=== PATIENT | female | born 1970 | race American Indian/Alaskan Native ===

== ENCOUNTER 2017-05-03 05:36 | Day surgery (SDC) | payer MEDICAID ==
[2017-05-03] MEDS ORDERED: Dextrose 5%-0.45% NaCl 1,000 ML IV SCH (06:00)
[2017-05-03] MEDS ORDERED: Sodium Chloride 0.9% 10 ML Syringe FLUSH PRN (06:00)
[2017-05-03] MEDS ORDERED: Midazolam 1 MG/ML 2 ML SDV ONE (06:20)
[2017-05-03] MEDS ORDERED: fentaNYL 100 MCG/2 ML SDV ONE (06:20)
[2017-05-03] MEDS ORDERED: fentaNYL 100 MCG/2 ML SDV IV ONE ×3 (07:13→12:01)
[2017-05-03] MEDS ORDERED: Midazolam 1 MG/ML 2 ML SDV IV ONE ×7 (07:14→12:01)
[2017-05-03] MEDS ORDERED: Sodium Chloride 0.9% 1,000 ML IV ONE (07:30)
--- NOTE | 2017-05-03 09:23 | OR ---
DATE: 05/03/2017 PROCEDURES: Colonoscopy and NBI. INSTRUMENT USED: CF-H180AL Olympus video colonoscope. PREMEDICATIONS: Fentanyl 100 mcg intravenous, Versed 4 mg intravenous. Nasal O2 cannula. The procedure was done under pulse oximetry, BP recording, and cardiac cath rn. INDICATION: The patient with previous chronic alcoholism with anemia multifactorial and iron deficiency. Colonoscopic examination is done for detection of any polypoid lesions and removal, endoscopic hemostasis therapy if needed. DESCRIPTION OF PROCEDURE: Initial rectal exam was unremarkable. Rigid anoscopy showed moderate-sized internal hemorrhoids without bleeding from them. The colonoscope was passed with ease. Distal rectal varices were noted without any bleeding from them, NBI views were obtained, photographs were taken. The scope was passed with ease up to the ileocecal area, photographs were taken of the cecum identified by landmarks of appendiceal orifice and double-bulged ileocecal folds, diverticulum was noted at the ileocecal area. There was moderate amount of solid and liquid fecal material that had to be aspirated. No bleeding was noted from any of the visualized areas at the commencement of the examination. No stricture. No vascular ectasia. No large isolated ulcerations seen. No evidence of diffuse inflammatory bowel disease in the form of friability, contact bleeding, or ulcerations. No polyp or tumor mass identified. Probing the proximal sides of folds and flexures, using adequate distention and clearing of the stool material, withdrawal of the scope was made, cecum to rectum time over 6 minutes. No bleeding was noted from any of the visualized areas at the completion of examination. IMPRESSION: 1. Internal hemorrhoids. 2. Rectal varices. 3. Diverticulosis. The patient tolerated the procedure well. [facility] /[id number]
[2017-05-03 09:41] VITALS: BP 109/87
--- NOTE | 2017-05-03 09:53 | LETTER ---
05/03/2017 Joanne Arias NP [facility] [address] [place] [address] RE: JESSICAOSVALDOCONSUELOPAM : 1970 Dear Ms. Arias: Ms. Pam Mcqueen Jessicamatthew had colonoscopic examination done this morning and she tolerated the procedure well. I herewith send a copy of the endoscopy note and photographs for your review. Thank you. Sincerely, [facility] /[id number]
== END 2017-05-03 09:38 | disposition home or self-care (01) ==
LOC: DL.ENDO 05:36
PROVIDERS: ATTEND Internal Medicine Gastroenterology
DX: K64.8 Other hemorrhoids (principal); K57.30 Diverticulosis of large intestine without perforation or abscess without bleeding; K62.89 Other specified diseases of anus and rectum; D50.9 Iron deficiency anemia, unspecified; F10.20 Alcohol dependence, uncomplicated
CPT/HCPCS: 45378; J2250; J3010; J7030; J7042

== ENCOUNTER 2017-10-15 14:09 | Emergency (ER) | payer MEDICAID ==
[2017-10-15 14:18] VITALS: BP 139/75
[2017-10-15] MEDS ORDERED: GI Cocktail Oral Solution 30 ML PO ONE (14:33)
[2017-10-15] MEDS ORDERED: Penicillin G Benzathine/Procaine 600-600 1.2 Millunits/2 ML Syringe IM ONE (14:33)
--- NOTE | 2017-10-15 14:37 | EDM.PDOC ---
ED HPI GENERAL MEDICAL PROBLEM - General Chief Complaint: ENT Problem Stated Complaint: [id number] BAD COLD Time Seen by Provider: 10/15/17 14:32 Source of Information: Reports: Patient History Limitations: Reports: No Limitations - History of Present Illness INITIAL COMMENTS - FREE TEXT/NARRATIVE: 47 yo [place] female c/o two days of sore throat and fever yesterday. Pt. states she missed two days of work Onset Date: 10/13/17 Onset Time: 12:00 Duration: Day(s): Location: Reports: Neck, Generalized Quality: Reports: Ache Severity: Moderate Improves with: Reports: None Worsens with: Reports: None Context: Reports: Sick Contact Associated Symptoms: Reports: Fever/Chills Throat Pain Score (Numeric/FACES): 4 - Related Data Allergies Allergy/AdvReac Type Severity Reaction Status Date / Time No Known Allergies Allergy Verified 10/15/17 14:15 Home Meds: Home Meds Aspirin [Thuy Chewable Aspirin] 81 mg PO DAILY 02/14/15 [History] Insulin Aspart [NovoLOG] 10 - 15 units SUBCUT TIDM 02/14/15 [History] Lisinopril 5 mg PO DAILY 02/14/15 [History] Multivitamin [Multivitamins] 1 tab PO DAILY 02/14/15 [History] Insulin Detemir [Levemir] 10 units SQ BEDTIME 05/01/17 [History] Levothyroxine 1 tab PO ACBREAKFAST 05/01/17 [History] Triamcinolone Acetonide [Triamcinolone Acetonide 0.1% Crm] 1 applic TOP ASDIRECTED 05/01/17 [History] Past Medical History HEENT History: Reports: None Cardiovascular History: Reports: High Cholesterol, Hypertension, Other (See Below) Other Cardiovascular History: MURMUR Respiratory History: Reports: None Gastrointestinal History: Reports: Other (See Below) Other Gastrointestinal History: HX OF ABNORMAL LIVER STUDIES Genitourinary History: Reports: None 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 History: Reports: None Neurological History: Reports: None Psychiatric History: Reports: Other (See Below) Other Psychiatric History: acute alcohol abuse Endocrine/Metabolic History: Reports: Diabetes, Type II, Hypothyroidism Hematologic History: Reports: Anemia Immunologic History: Reports: None Oncologic (Cancer) History: Reports: None Dermatologic History: Reports: Cellulitis, Other (See Below) Other Dermatologic History: RIGHT BREAST CELLULITUS - Past Surgical History HEENT Surgical History: Reports: None Cardiovascular Surgical History: Reports: None Respiratory Surgical History: Reports: None GI Surgical History: Reports: Colonoscopy 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 Surgical History: Reports: None Oncologic Surgical History: Reports: Mastectomy Other Oncologic Surgeries/Procedures: RIGHT MASTECTOMY Dermatological Surgical History: Reports: Other (See Below) Social & Family History - Tobacco Use Smoking Status *Q: Current Every Day Smoker Years of Tobacco use: 30 Packs/Tins Daily: 0.5 Used Tobacco, but Quit: No Second Hand Smoke Exposure: Yes - Caffeine Use Caffeine Use: Reports: Coffee Caffeine Use Comment: 1 8oz cup daily - Alcohol Use Days Per Week of Alcohol Use: 0 Number of Drinks Per Day: 0 Total Drinks Per Week: 0 - Recreational Drug Use Recreational Drug Use: No ED ROS ENT - Review of Systems Review Of Systems: See Below Constitutional: Reports: Fever HEENT: Reports: Throat Pain Respiratory: Reports: No Symptoms Cardiovascular: Reports: No Symptoms Endocrine: Reports: No Symptoms GI/Abdominal: Reports: No Symptoms : Reports: No Symptoms 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: Reports: No Symptoms Skin: Reports: No Symptoms Neurological: Reports: No Symptoms Psychiatric: Reports: No Symptoms Hematologic/Lymphatic: Reports: No Symptoms Immunologic: Reports: No Symptoms ED EXAM, ENT - Physical Exam Exam: See Below Exam Limited By: No Limitations General Appearance: Alert, No Apparent Distress, Obese Eye Exam: Bilateral Eye: EOMI Ears: Normal External Exam Nose: Normal Inspection Mouth/Throat: Normal Inspection, Throat Pain Head: Atraumatic Neck: Normal Inspection, Supple Respiratory/Chest: No Respiratory Distress, Lungs Clear Cardiovascular: Normal Peripheral Pulses, Regular Rate, Rhythm GI/Abdominal: Normal Bowel Sounds, Soft, Non-Tender Back: Normal Inspection Extremities: Normal Inspection, Normal Range of Motion Neurological: Alert, Oriented, CN II-XII Intact, Normal Cognition Psychiatric: Normal Affect, Normal Mood Skin: Warm, Dry, Intact, Normal Color Lymphatic: No Adenopathy Course - Vital Signs Last Recorded V/S: Last Vital Signs Temp 36.4 C 10/15/17 14:16 Pulse 87 10/15/17 14:16 Resp 18 10/15/17 14:16 BP 139/75 10/15/17 14:16 Pulse Ox 100 10/15/17 14:16 Departure - Departure Time of Disposition: 14:36 Disposition: Home, Self-Care 01 Condition: Good Clinical Impression: Tonsillitis, Nasal sinus congestion - Discharge Information Additional Instructions: Rest Increase intake of fluids ( Juice / Water) For the Sinus Congestion: KAILA 180mg QD # 30 F/U w/ PCP
== END 2017-10-15 14:45 | disposition home or self-care (01) ==
LOC: DL.ED 14:09
DX: J03.90 Acute tonsillitis, unspecified (principal); I10 Essential (primary) hypertension; E11.9 Type 2 diabetes mellitus without complications; F17.210 Nicotine dependence, cigarettes, uncomplicated; Z79.82 Long term (current) use of aspirin; Z79.899 Other long term (current) drug therapy; Z79.4 Long term (current) use of insulin
CPT/HCPCS: 96372; 99283; A9270; J0558

== ENCOUNTER 2018-01-23 15:59 | Emergency (ER) | payer MEDICAID, OTHER ==
[2018-01-23 16:54] VITALS: BP 136/81
--- NOTE | 2018-01-23 17:05 | CR ---
Clinical history: 47-year-old obese female with lower left rib pain, anteriorly, after a fall. PA chest and lower left rib detail films (x2) abnormal. Acute nondisplaced fractures anterior left eighth and ninth ribs. Underlying left lower lobe platelik e atelectasis and subtle blunting of the ipsilateral dependent costophrenic sulcus suggesting small p leural effusion. No pneumothorax. Normal cardiac silhouette without signs of heart failure. No lung mass, hilar lymphadenopathy or focal lobar pneumonia. Mild scoliosis and hypertrophic arthritic changes of the spine. CONCLUSION: Acute anterior lower left rib fractures with underlying lower lobe atelectasis and small pleural effusion.
--- NOTE | 2018-01-23 17:27 | EDM.PDOC ---
ED HPI GENERAL MEDICAL PROBLEM - General Chief Complaint: Chest Pain Stated Complaint: SIDE PAINS, [id number] Time Seen by Provider: 01/23/18 16:45 Source of Information: Reports: Patient History Limitations: Reports: No Limitations - History of Present Illness INITIAL COMMENTS - FREE TEXT/NARRATIVE: C/O left rib pain sustained from a fall 3 days ago at home. Denies any other injury, cough, shortness of breath, fever, or chills. Onset: Sudden Onset Date: 01/20/18 Duration: Constant Location: Reports: Chest Quality: Reports: Ache Severity: Moderate Improves with: Reports: Immobilization Worsens with: Reports: Movement Associated Symptoms: Reports: No Other Symptoms Left Lower Chest Pain Score (Numeric/FACES): 8 - Related Data Allergies Allergy/AdvReac Type Severity Reaction Status Date / Time No Known Allergies Allergy Verified 01/23/18 16:54 Home Meds: Home Meds Aspirin [Thuy Chewable Aspirin] 81 mg PO DAILY 02/14/15 [History] Insulin Aspart [NovoLOG] 10 - 15 units SUBCUT TIDM 02/14/15 [History] Lisinopril 5 mg PO DAILY 02/14/15 [History] Multivitamin [Multivitamins] 1 tab PO DAILY 02/14/15 [History] Insulin Detemir [Levemir] 10 units SQ BEDTIME 05/01/17 [History] Levothyroxine 1 tab PO ACBREAKFAST 05/01/17 [History] Triamcinolone Acetonide [Triamcinolone Acetonide 0.1% Crm] 1 applic TOP ASDIRECTED 05/01/17 [History] Past Medical History HEENT History: Reports: None Cardiovascular History: Reports: High Cholesterol, Hypertension, Other (See Below) Other Cardiovascular History: MURMUR Respiratory History: Reports: None Gastrointestinal History: Reports: Other (See Below) Other Gastrointestinal History: HX OF ABNORMAL LIVER STUDIES Genitourinary History: Reports: None 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 History: Reports: None Neurological History: Reports: None Psychiatric History: Reports: Other (See Below) Other Psychiatric History: acute alcohol abuse Endocrine/Metabolic History: Reports: Diabetes, Type II, Hypothyroidism Hematologic History: Reports: Anemia Immunologic History: Reports: None Oncologic (Cancer) History: Reports: None Dermatologic History: Reports: Cellulitis, Other (See Below) Other Dermatologic History: RIGHT BREAST CELLULITUS - Past Surgical History HEENT Surgical History: Reports: None Cardiovascular Surgical History: Reports: None Respiratory Surgical History: Reports: None GI Surgical History: Reports: Colonoscopy 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 Surgical History: Reports: None Oncologic Surgical History: Reports: Mastectomy Other Oncologic Surgeries/Procedures: RIGHT MASTECTOMY Dermatological Surgical History: Reports: Other (See Below) Social & Family History - Family History Family Medical History: Noncontributory - Tobacco Use Smoking Status *Q: Current Every Day Smoker Years of Tobacco use: 30 Packs/Tins Daily: 0.5 Used Tobacco, but Quit: No Second Hand Smoke Exposure: Yes - Caffeine Use Caffeine Use: Reports: Coffee Caffeine Use Comment: 1 8oz cup daily - Alcohol Use Days Per Week of Alcohol Use: 0 Number of Drinks Per Day: 0 Total Drinks Per Week: 0 - Recreational Drug Use Recreational Drug Use: No - Living Situation & Occupation Living situation: Reports: with Family Occupation: Employed ED ROS GENERAL - Review of Systems Review Of Systems: ROS reveals no pertinent complaints other than HPI. ED EXAM, GENERAL - Physical Exam Exam: See Below Exam Limited By: No Limitations General Appearance: Alert, WD/WN, No Apparent Distress Throat/Mouth: Normal Inspection, Normal Voice, No Airway Compromise Head: Atraumatic, Normocephalic Neck: Normal Inspection Respiratory/Chest: No Respiratory Distress, Lungs Clear, No Accessory Muscle Use , Decreased Breath Sounds, Other (tender to palp. at left anterior/lateral chest wall, no visible bruising, swelling, or deformity, no anders crepitus or flail chest) Cardiovascular: Regular Rate, Rhythm GI/Abdominal: Normal Bowel Sounds, Soft, Non-Tender, No Distention Back Exam: Full Range of Motion, CVA Tenderness (L) (causes left ant. rib tenderness). No: CVA Tenderness (R) Extremities: Normal Inspection Neurological: Alert, Oriented, CN II-XII Intact, Normal Gait, No Motor/Sensory Deficits Psychiatric: Normal Affect, Normal Mood Skin Exam: Warm, Dry, Intact, Normal Color, No Rash Course - Vital Signs Last Recorded V/S: Last Vital Signs Temp 37.3 C 01/23/18 16:30 Pulse 92 01/23/18 16:30 Resp 16 01/23/18 16:30 BP 136/81 01/23/18 16:30 Pulse Ox 98 01/23/18 16:30 - Orders/Labs/Meds Orders: Active Orders 24 hr Category Date Time Status Incentive Spirometry [RT Incentive Spirometry] [RC] Care 01/23/18 17:19 Ordered ASDIRECTED - Radiology Interpretation Free Text/Narrative:: Left rib xray: left ant/lat. rib fractures, see Rad. report. Departure - Departure Time of Disposition: 17:23 Disposition: Home, Self-Care 01 Condition: Good Clinical Impression: Ribs, multiple fractures Qualifiers: Encounter type: initial encounter Fracture type: closed Laterality: left Qualified Code(s): S22.42XA - Multiple fractures of ribs, left side, initial encounter for closed fracture - Discharge Information Instructions: Rib Fracture Additional Instructions: Rx: Hydrocodone APAP 5mg/325mg Use incentive spirometer and take deep breathes to avoid developing pneumonia. Do not smoke. Follow up in clinic next week for recheck. Return to ER if you develop a fever or shortness of breath. - My Orders Last 24 Hours: My Active Orders 01/23/18 17:19 Incentive Spirometry [RT Incentive Spirometry] [RC] ASDIRECTED - Assessment/Plan Last 24 Hours: My Active Orders 01/23/18 17:19 Incentive Spirometry [RT Incentive Spirometry] [RC] ASDIRECTED
== END 2018-01-23 17:35 | disposition home or self-care (01) ==
LOC: DL.ED 15:59
DX: S22.42XA Multiple fractures of ribs, left side, initial encounter for closed fracture (principal); E78.00 Pure hypercholesterolemia, unspecified; I10 Essential (primary) hypertension; E11.9 Type 2 diabetes mellitus without complications; E03.9 Hypothyroidism, unspecified; F17.210 Nicotine dependence, cigarettes, uncomplicated; Z79.82 Long term (current) use of aspirin; Z79.4 Long term (current) use of insulin; Z79.899 Other long term (current) drug therapy; W19.XXXA Unspecified fall, initial encounter
CPT/HCPCS: 71101-LT; 94010; 99283

== ENCOUNTER 2018-02-28 09:53 | Inpatient (IN) | payer MEDICAID, OTHER ==
[2018-02-28] MEDS ORDERED: Sodium Chloride 0.9% 10 ML Syringe FLUSH PRN (09:57)
[2018-02-28] MEDS ORDERED: Midazolam 1 MG/ML 2 ML SDV IVPUSH ONE (10:02)
[2018-02-28 10:21] LABS: CHLORIDE,CL 107 mmol/L (101-111); SODIUM,NA 134 mmol/L (135-145)
--- NOTE | 2018-02-28 10:23 | EDM.PDOC ---
ED HPI GENERAL MEDICAL PROBLEM - General Source of Information: Reports: EMS, Family, Old Records, RN, RN Notes Reviewed - History of Present Illness Onset: Today Duration: Other (Unknown time of onset. ) Location: Reports: Head Improves with: Reports: None Worsens with: Reports: None Associated Symptoms: Reports: Confusion <Leslye Cortés - Last Filed: 02/28/18 10:15> - General History Limitations: Reports: Altered Mental Status - History of Present Illness Location: Reports: Generalized Severity: Severe <JannmansoorArisian - Last Filed: 02/28/18 10:55> - General Chief Complaint: Neurological Problem Stated Complaint: UNRESPONSIVE Time Seen by Provider: 02/28/18 09:55 - History of Present Illness INITIAL COMMENTS - FREE TEXT/NARRATIVE: Pam is a 47 yo F who presents to the ER per [facility] due to altered mental status. EMS reports that they were called to the patient's residence per the patient's family due to altered mental status. Family decided to sign patient at that time. EMS was called back to the residence later this am due to increased confusion. EMS reports that patient was combative with EMS on the way to the hospital. Patient arrived on stretcher. Hitting at ER staff and paramedics when trying to move her over to the ER cot. (Leslye Cortés) - Related Data Allergies Allergy/AdvReac Type Severity Reaction Status Date / Time No Known Allergies Allergy Verified 01/23/18 16:54 Home Meds: Home Meds Aspirin [Thuy Chewable Aspirin] 81 mg PO DAILY 02/14/15 [History] Insulin Aspart [NovoLOG] 10 - 15 units SUBCUT TIDM 02/14/15 [History] Lisinopril 5 mg PO DAILY 02/14/15 [History] Multivitamin [Multivitamins] 1 tab PO DAILY 02/14/15 [History] Insulin Detemir [Levemir] 10 units SQ BEDTIME 05/01/17 [History] Levothyroxine 1 tab PO ACBREAKFAST 05/01/17 [History] Triamcinolone Acetonide [Triamcinolone Acetonide 0.1% Crm] 1 applic TOP ASDIRECTED 05/01/17 [History] Past Medical History HEENT History: Reports: None Cardiovascular History: Reports: High Cholesterol, Hypertension, Other (See Below) Other Cardiovascular History: MURMUR Respiratory History: Reports: None Gastrointestinal History: Reports: Other (See Below) Other Gastrointestinal History: HX OF ABNORMAL LIVER STUDIES Genitourinary History: Reports: None CLOSING SUPERVISOR History: Reports: None 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 History: Reports: None Neurological History: Reports: None Psychiatric History: Reports: Other (See Below) Other Psychiatric History: acute alcohol abuse Endocrine/Metabolic History: Reports: Diabetes, Type II, Hypothyroidism Hematologic History: Reports: Anemia Immunologic History: Reports: None Oncologic (Cancer) History: Reports: None Dermatologic History: Reports: Cellulitis, Other (See Below) Other Dermatologic History: RIGHT BREAST CELLULITUS - Past Surgical History HEENT Surgical History: Reports: None Cardiovascular Surgical History: Reports: None Respiratory Surgical History: Reports: None GI Surgical History: Reports: Colonoscopy 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 Surgical History: Reports: None Oncologic Surgical History: Reports: Mastectomy Other Oncologic Surgeries/Procedures: RIGHT MASTECTOMY Dermatological Surgical History: Reports: Other (See Below) <Leslye Cortés - Last Filed: 02/28/18 10:15> Psychiatric History: Reports: Addiction <Aris Frazier - Last Filed: 02/28/18 10:55> Social & Family History - Family History Family Medical History: Noncontributory - Tobacco Use Smoking Status *Q: Current Every Day Smoker Years of Tobacco use: 30 Packs/Tins Daily: 0.5 Used Tobacco, but Quit: No Second Hand Smoke Exposure: Yes - Caffeine Use Caffeine Use: Reports: Coffee Caffeine Use Comment: 1 8oz cup daily - Alcohol Use Days Per Week of Alcohol Use: 0 Number of Drinks Per Day: 0 Total Drinks Per Week: 0 - Recreational Drug Use Recreational Drug Use: No - Living Situation & Occupation Living situation: Reports: with Family Occupation: Employed <Leslye Cortés - Last Filed: 02/28/18 10:15> - Family History Family Medical History: Unobtainable <Aris Frazier - Last Filed: 02/28/18 10:55> ED ROS GENERAL - Review of Systems Review Of Systems: ROS reveals no pertinent complaints other than HPI. <Leslye Cortés - Last Filed: 02/28/18 10:15> - Review of Systems Review Of Systems: Unable To Obtain <Aris Frazier - Last Filed: 02/28/18 10:55> - Physical Exam Exam: See Below Exam Limited By: Altered Mental Status General Appearance: No Apparent Distress, Other (Patient unable to answer questions when asked per ER staff. Patient confused and combative. Hitting out at staff and EMS on arrival to ER) Eye Exam: Bilateral Eye: Abnormal Pupil (left pupil bigger than right.) Ears: Normal External Exam, Normal Canal, Normal TMs Nose: Normal Inspection, Normal Mucosa, Other (Dried blood noted in nasal passages.) Head Exam: Normocephalic, Other (Patient has an abrasion to the left eyebrow area) Neck: Normal Inspection, Supple, Non-Tender, Full Range of Motion Respiratory/Chest: No Respiratory Distress, Lungs Clear, Normal Breath Sounds, No Accessory Muscle Use, Chest Non-Tender Cardiovascular: Normal Peripheral Pulses, Regular Rate, Rhythm, No Edema, No Gallop, No JVD, No Murmur, No Rub GI/Abdominal: Normal Bowel Sounds, Soft, Non-Tender, No Organomegaly, No Distention, No Abnormal Bruit, No Mass. No: Rigid, Rebound (Female) Exam: Normal External Exam Rectal (Female) Exam: Deferred Neuro Exam (Abbreviated): Confused, Disoriented Back Exam: Normal Inspection, Full Range of Motion, NT Extremities: Normal Inspection, Normal Range of Motion, Non-Tender, No Pedal Edema, Normal Capillary Refill Psychiatric: Other (Altered mental status patient combative. ) Skin Exam: Warm, Dry, Intact, Normal Color, No Rash, Ecchymosis (Areas of ecchymosis present to upper back. ) <Leslye Cortés - Last Filed: 02/28/18 10:15> - Physical Exam General Appearance: Obtunded Throat/Mouth: No Airway Compromise <Aris Frazier - Last Filed: 02/28/18 10:55> EKG INTERPRETATION EKG Date: 02/28/18 Time: 10:49 Rhythm: Other (Sinus marcie) Rate (Beats/Min): 56 [place]: Normal P-Wave: Present QRS: Wide (nonspecific IVCD) ST-T: Normal QT: Normal Comparison: NA - No Prior EKG <Aris Frazier - Last Filed: 02/28/18 10:55> Course <Leslye Cortés - Last Filed: 02/28/18 10:15> - Radiology Interpretation CT Results Date: 02/28/18 <DueberAris - Last Filed: 02/28/18 10:55> - Orders/Labs/Meds Orders: Active Orders 24 hr Category Date Time Status EKG 12 Lead [EKG Documentation Completion] [] STAT Care 02/28/18 09:56 Active Initiate Restraint Protocol [RC] URGENT Care 02/28/18 09:58 Active Peripheral IV Care [RC] . DIRECTED Care 02/28/18 09:57 Active Cervical Spine wo Cont [CT] Stat Exams 02/28/18 10:18 Taken Head wo Cont [CT] Stat Exams 02/28/18 09:58 Taken CHLAMYDIA AND GONORRHEA BY TMA Routine Lab 02/28/18 10:48 Ordered CULTURE URINE [RM] Stat Lab 02/28/18 10:49 Ordered DRUG SCREEN URINE BIORAD [URCHEM] Stat Lab 02/28/18 10:16 Ordered UA W/MICROSCOPIC [URIN] Stat Lab 02/28/18 10:16 Ordered MVI, Adult with Vitamin K [Infuvite Adult] 10 ml Med 02/28/18 10:37 Active Thiamine [Vitamin B-1] 100 mg Folic Acid 1 mg Lactated Ringers [Ringers, Lactated] 1,000 ml IV .BOLUS Sodium Chloride 0.9% [Saline Flush] Med 02/28/18 09:57 Active 10 ml FLUSH ASDIRECTED PRN cefTRIAXone [Rocephin] Med 02/28/18 10:49 Once 1 gm IVPUSH ONETIME ONE Peripheral IV Insertion Adult [OM.PC] Stat Oth 02/28/18 09:56 Ordered Medication Orders Multivitamins/Minerals 10 ml/Thiamine HCl 100 mg/ Folic Acid 1 mg/ Lactated Ringer's 1,011.2 mls @ 999 mls/hr IV .BOLUS ONE Stop: 02/28/18 11:37 Sodium Chloride (Saline Flush) 10 ml FLUSH ASDIRECTED PRN PRN Reason: Keep Vein Open Last Admin: 02/28/18 10:13 Dose: 10 ml Labs: Laboratory Tests 02/28/18 02/28/18 02/28/18 Range/Units 09:56 09:56 09:56 WBC 4.1 L (5.0-10.0) 10^3/uL RBC 3.42 L (4.2-5.4) 10^6/uL Hgb 10.9 L D (12.0-16.0) g/dL Hct 33.4 L (37.0-47.0) % MCV 97.7 D (80-100) fL MCH 31.9 (27.0-34.0) pg MCHC 32.6 L (33.0-35.0) g/dL Plt Count 91 L (150-450) 10^3/uL Neut % (Auto) 60.6 (42.2-75.2) % Lymph % (Auto) 27.8 (20.5-50.1) % [place] % (Auto) 9.2 H (2-8) % Eos % (Auto) 2.2 (1.0-3.0) % Baso % (Auto) 0.2 (0.0-1.0) % PT 11.1 (9.0-12.0) SEC INR 1.1 (0.9-1.2) APTT 28.5 (22.0-34.0) SEC Sodium 134 L (135-145) mmol/L Potassium 4.2 (3.6-5.0) mmol/L Chloride 107 (101-111) mmol/L Carbon Dioxide 22.0 (21.0-31.0) mmol/L Anion Gap 9.2 BUN 17 (7-18) mg/dL Creatinine 0.6 (0.6-1.3) mg/dL Est Cr Clr Drug Dosing TNP Estimated GFR (MDRD) > 60 BUN/Creatinine Ratio 28.33 Glucose 141 H (74-105) mg/dL Lactic Acid (0.5-2.2) mmol/L Calcium 8.5 (8.4-10.2) mg/dl Magnesium 1.7 L (1.8-2.5) mg/dL Total Bilirubin 1.4 H (0.2-1.0) mg/dL AST 60 H (10-42) IU/L ALT 42 (10-60) IU/L Alkaline Phosphatase 194 H (42-121) IU/L Ammonia (11-35) umol/L Creatine Kinase 62 (26-174) IU/L Troponin I < 0.02 (0.00-0.02) ng/ml Total Protein 7.7 (6.7-8.2) g/dl Albumin 2.9 L (3.2-5.5) g/dl Globulin 4.8 Albumin/Globulin Ratio 0.60 Urine Color (YELLOW) Urine Appearance (CLEAR) Urine pH (5.0-9.0) Ur Specific [place] (1.005-1.030) Urine Protein (NEGATIVE) Urine Glucose (UA) (NEGATIVE) Urine Ketones (NEGATIVE) Urine Occult Blood (NEGATIVE) Urine Nitrite (NEGATIVE) Urine Bilirubin (NEGATIVE) Urine Urobilinogen (0.2-1.0) mg/dL Ur Leukocyte Esterase (NEGATIVE) Urine RBC /HPF Urine WBC (0-5/HPF) /HPF Ur Epithelial Cells /HPF Urine Bacteria (0-FEW/HPF) /HPF Urine Mucus /LPF Urine Opiates Screen (NEGATIVE) Ur Oxycodone Screen (NEGATIVE) Urine Methadone Screen (NEGATIVE) Ur Barbiturates Screen (NEGATIVE) U Tricyclic Antidepress (NEGATIVE) Ur Phencyclidine Scrn (NEGATIVE) Ur Amphetamine Screen (NEGATIVE) U Methamphetamines Scrn (NEGATIVE) Urine MDMA Screen (NEGATIVE) U Benzodiazepines Scrn (NEGATIVE) Urine Cocaine Screen (NEGATIVE) U Marijuana (THC) Screen (NEGATIVE) Ethyl Alcohol < 5 mg/dL 02/28/18 02/28/18 02/28/18 Range/Units 09:56 09:56 10:16 WBC (5.0-10.0) 10^3/uL RBC (4.2-5.4) 10^6/uL Hgb (12.0-16.0) g/dL Hct (37.0-47.0) % MCV (80-100) fL MCH (27.0-34.0) pg MCHC (33.0-35.0) g/dL Plt Count (150-450) 10^3/uL Neut % (Auto) (42.2-75.2) % Lymph % (Auto) (20.5-50.1) % [place] % (Auto) (2-8) % Eos % (Auto) (1.0-3.0) % Baso % (Auto) (0.0-1.0) % PT (9.0-12.0) SEC INR (0.9-1.2) APTT (22.0-34.0) SEC Sodium (135-145) mmol/L Potassium (3.6-5.0) mmol/L Chloride (101-111) mmol/L Carbon Dioxide (21.0-31.0) mmol/L Anion Gap BUN (7-18) mg/dL Creatinine (0.6-1.3) mg/dL Est Cr Clr Drug Dosing Estimated GFR (MDRD) BUN/Creatinine Ratio Glucose (74-105) mg/dL Lactic Acid 1.3 (0.5-2.2) mmol/L Calcium (8.4-10.2) mg/dl Magnesium (1.8-2.5) mg/dL Total Bilirubin (0.2-1.0) mg/dL AST (10-42) IU/L ALT (10-60) IU/L Alkaline Phosphatase (42-121) IU/L Ammonia 169 H (11-35) umol/L Creatine Kinase (26-174) IU/L Troponin I (0.00-0.02) ng/ml Total Protein (6.7-8.2) g/dl Albumin (3.2-5.5) g/dl Globulin Albumin/Globulin Ratio Urine Color Yellow (YELLOW) Urine Appearance Cloudy (CLEAR) Urine pH 7.5 (5.0-9.0) Ur Specific [place] 1.020 (1.005-1.030) Urine Protein Negative (NEGATIVE) Urine Glucose (UA) Negative (NEGATIVE) Urine Ketones Negative (NEGATIVE) Urine Occult Blood Trace-intact H (NEGATIVE) Urine Nitrite Negative (NEGATIVE) Urine Bilirubin Negative (NEGATIVE) Urine Urobilinogen 1.0 (0.2-1.0) mg/dL Ur Leukocyte Esterase Negative (NEGATIVE) Urine RBC 0-5 /HPF Urine WBC 5-10 H (0-5/HPF) /HPF Ur Epithelial Cells Rare /HPF Urine Bacteria Many H (0-FEW/HPF) /HPF Urine Mucus Few H /LPF Urine Opiates Screen (NEGATIVE) Ur Oxycodone Screen (NEGATIVE) Urine Methadone Screen (NEGATIVE) Ur Barbiturates Screen (NEGATIVE) U Tricyclic Antidepress (NEGATIVE) Ur Phencyclidine Scrn (NEGATIVE) Ur Amphetamine Screen (NEGATIVE) U Methamphetamines Scrn (NEGATIVE) Urine MDMA Screen (NEGATIVE) U Benzodiazepines Scrn (NEGATIVE) Urine Cocaine Screen (NEGATIVE) U Marijuana (THC) Screen (NEGATIVE) Ethyl Alcohol mg/dL 02/28/18 Range/Units 10:16 WBC (5.0-10.0) 10^3/uL RBC (4.2-5.4) 10^6/uL Hgb (12.0-16.0) g/dL Hct (37.0-47.0) % MCV (80-100) fL MCH (27.0-34.0) pg MCHC (33.0-35.0) g/dL Plt Count (150-450) 10^3/uL Neut % (Auto) (42.2-75.2) % Lymph % (Auto) (20.5-50.1) % [place] % (Auto) (2-8) % Eos % (Auto) (1.0-3.0) % Baso % (Auto) (0.0-1.0) % PT (9.0-12.0) SEC INR (0.9-1.2) APTT (22.0-34.0) SEC Sodium (135-145) mmol/L Potassium (3.6-5.0) mmol/L Chloride (101-111) mmol/L Carbon Dioxide (21.0-31.0) mmol/L Anion Gap BUN (7-18) mg/dL Creatinine (0.6-1.3) mg/dL Est Cr Clr Drug Dosing Estimated GFR (MDRD) BUN/Creatinine Ratio Glucose (74-105) mg/dL Lactic Acid (0.5-2.2) mmol/L Calcium (8.4-10.2) mg/dl Magnesium (1.8-2.5) mg/dL Total Bilirubin (0.2-1.0) mg/dL AST (10-42) IU/L ALT (10-60) IU/L Alkaline Phosphatase (42-121) IU/L Ammonia (11-35) umol/L Creatine Kinase (26-174) IU/L Troponin I (0.00-0.02) ng/ml Total Protein (6.7-8.2) g/dl Albumin (3.2-5.5) g/dl Globulin Albumin/Globulin Ratio Urine Color (YELLOW) Urine Appearance (CLEAR) Urine pH (5.0-9.0) Ur Specific [place] (1.005-1.030) Urine Protein (NEGATIVE) Urine Glucose (UA) (NEGATIVE) Urine Ketones (NEGATIVE) Urine Occult Blood (NEGATIVE) Urine Nitrite (NEGATIVE) Urine Bilirubin (NEGATIVE) Urine Urobilinogen (0.2-1.0) mg/dL Ur Leukocyte Esterase (NEGATIVE) Urine RBC /HPF Urine WBC (0-5/HPF) /HPF Ur Epithelial Cells /HPF Urine Bacteria (0-FEW/HPF) /HPF Urine Mucus /LPF Urine Opiates Screen Negative (NEGATIVE) Ur Oxycodone Screen Negative (NEGATIVE) Urine Methadone Screen Negative (NEGATIVE) Ur Barbiturates Screen Negative (NEGATIVE) U Tricyclic Antidepress Negative (NEGATIVE) Ur Phencyclidine Scrn Negative (NEGATIVE) Ur Amphetamine Screen Negative (NEGATIVE) U Methamphetamines Scrn Negative (NEGATIVE) Urine MDMA Screen Negative (NEGATIVE) U Benzodiazepines Scrn Negative (NEGATIVE) Urine Cocaine Screen Negative (NEGATIVE) U Marijuana (THC) Screen Negative (NEGATIVE) Ethyl Alcohol mg/dL Meds: Medications Generic Name Dose Route Start Last Admin Trade Name Freq PRN Reason Stop Dose Admin Multivitamins/Minerals 10 ml/ 1,011.2 mls @ 999 mls/hr 02/28/18 10:37 Thiamine HCl 100 mg/ Folic IV 02/28/18 11:37 Acid 1 mg/ Lactated Ringer's .BOLUS ONE Sodium Chloride 10 ml 02/28/18 09:57 02/28/18 10:13 Saline Flush FLUSH 10 ml ASDIRECTED PRN Administration Keep Vein Open Discontinued Medications Generic Name Dose Route Start Last Admin Trade Name Freq PRN Reason Stop Dose Admin Lactulose 20 gm 02/28/18 10:37 Cephulac PO 02/28/18 10:38 ONETIME ONE Lactulose 40 gm 02/28/18 10:40 Cephulac .XX 02/28/18 10:41 ONETIME ONE Midazolam HCl 2 mg 02/28/18 10:02 02/28/18 10:13 Versed 1 Mg/Ml IVPUSH 02/28/18 10:03 2 mg ONETIME ONE Administration - Radiology Interpretation Free Text/Narrative:: CT HEAD: no I.C. hemorrhage, no acute findings, see Rad. report. CT C-SPINE: no fracture, see Rad. report. (Aris Frazier) Departure <Leslye Cortés - Last Filed: 02/28/18 10:15> - Departure Time of Disposition: 10:54 (admitted to Dr. Rinaldi) Condition: Serious <Aris Frazier - Last Filed: 02/28/18 10:55> - Departure Disposition: Admitted As Inpatient 64 Clinical Impression: Hepatic encephalopathy - Discharge Information Referrals: PCP,Unobtain [Primary Care Provider] - Forms: ED Department Discharge - My Orders Last 24 Hours: My Active Orders 02/28/18 09:56 EKG 12 Lead [EKG Documentation Completion] [RC] STAT Peripheral IV Insertion Adult [OM.PC] Stat 02/28/18 09:57 Peripheral IV Care [RC] . DIRECTED Sodium Chloride 0.9% [Saline Flush] 10 ml FLUSH ASDIRECTED PRN 02/28/18 09:58 Initiate Restraint Protocol [RC] URGENT Head wo Cont [CT] Stat 02/28/18 10:16 DRUG SCREEN URINE BIORAD [URCHEM] Stat UA W/MICROSCOPIC [URIN] Stat 02/28/18 10:18 Cervical Spine wo Cont [CT] Stat 02/28/18 10:37 MVI, Adult with Vitamin K [Infuvite Adult] 10 ml Thiamine [Vitamin B-1] 100 mg Folic Acid 1 mg Lactated Ringers [Ringers, Lactated] 1,000 ml IV .BOLUS 02/28/18 10:48 CHLAMYDIA AND GONORRHEA BY TMA Routine 02/28/18 10:49 CULTURE URINE [RM] Stat cefTRIAXone [Rocephin] 1 gm IVPUSH ONETIME ONE - Assessment/Plan Last 24 Hours: My Active Orders 02/28/18 09:56 EKG 12 Lead [EKG Documentation Completion] [RC] STAT Peripheral IV Insertion Adult [OM.PC] Stat 02/28/18 09:57 Peripheral IV Care [RC] . DIRECTED Sodium Chloride 0.9% [Saline Flush] 10 ml FLUSH ASDIRECTED PRN 02/28/18 09:58 Initiate Restraint Protocol [RC] URGENT Head wo Cont [CT] Stat 02/28/18 10:16 DRUG SCREEN URINE BIORAD [URCHEM] Stat UA W/MICROSCOPIC [URIN] Stat 02/28/18 10:18 Cervical Spine wo Cont [CT] Stat 02/28/18 10:37 MVI, Adult with Vitamin K [Infuvite Adult] 10 ml Thiamine [Vitamin B-1] 100 mg Folic Acid 1 mg Lactated Ringers [Ringers, Lactated] 1,000 ml IV .BOLUS 02/28/18 10:48 CHLAMYDIA AND GONORRHEA BY TMA Routine 02/28/18 10:49 CULTURE URINE [RM] Stat cefTRIAXone [Rocephin] 1 gm IVPUSH ONETIME ONE
[2018-02-28] MEDS ORDERED: MVI, Adult with Vitamin K 10 ML, Thiamine 100 MG, Folic Acid 1 MG in Lactated Ringers 1... IV ONE ×4 (10:37)
[2018-02-28] MEDS ORDERED: Lactulose Soln 10 GM/15 ML 30 ML UD Cup PO ONE (10:37)
[2018-02-28] MEDS ORDERED: Lactulose Soln 10 GM/15 ML 30 ML UD Cup ONE (10:40)
[2018-02-28] MEDS ORDERED: cefTRIAXone 1 GM Vial IVPUSH ONE (10:49)
[2018-02-28] MEDS ORDERED: LORazepam 2 MG/ML Syringe IVPUSH ONE (11:13)
--- NOTE | 2018-02-28 11:34 | CT ---
CLINICAL HISTORY: 47-year-old alcoholic, diabetic female with breast cancer who was found unresponsiv e early this a.m. (history of "frequent falls" for the past 2 months). Bruising back of neck. SCAN TECHNIQUE: Volume acquisition of data from an emergency unenhanced CT scan head/brain and cervic al spine obtained while the patient was lying supine on the Siemens multislice CT scanner [place], [place]. All data archived in the PACS system for storage, reformatting and study. INTERPRETATION: 1. Cervical spine CT: Unremarkable for age. Normal density, height and alignment of the 7 cervical and first 2 thoracic vertebra. Mild atlantoaxi al sclerosis and early marginal spur anteriorly C3-4, C5-6 and C6-7 levels. No sign of pathologic ske letal lesion, prevertebral soft tissue swelling, cervical fracture, spondylolisthesis or jumped sandra d facet. No abnormal narrowing of the intervertebral disc spaces. 2. CT scan head: Uniformly thick bony calvarium without sign of skull fracture, underlying brain cont usion or epidural/subdural hematoma. Symmetric roche-white matter pattern with underlying mirror-image normal ventricular system. (Mild atrophy) No supratentorial or posterior fossa mass lesion. No hydrocephalus. Asymmetric area of old infarct or encephalomalacia parietal convexity anteriorly on the right. No sign of acute intracerebral/intraventricular/subarachnoid bleed. Symmetric clear pneumatization of the mastoid and paranasal sinuses. Temporomandibular joints intact. Dense lens orbit on the left (cataract?). Dense calcification posteriorly within the optic globe on t he right. CONCLUSION: No sign of acute fracture skull or cervical spine. No cervical dislocation. No closed hea d injury.
[2018-02-28] MEDS ORDERED: Ondansetron 4 MG/2 ML SDV IVPUSH PRN (11:45)
[2018-02-28] MEDS ORDERED: Haloperidol Lactate 5 MG/ML SDV IM PRN (11:59)
[2018-02-28] MEDS ORDERED: Triamcinolone Acetonide 0.1% Crm 15 GM Tube TOP SCH (12:00)
--- NOTE | 2018-02-28 12:04 | PCM.HP ---
H&P History of Present Illness - General Date of Service: 02/28/18 Admit Problem/Dx: Admission Diagnosis/Problem Admission Diagnosis/Problem Hepatic encephalopathy Source of Information: EMS, EMS Notes Reviewed, Family, Old Records, Significant Other History Limitations: Reports: Altered Mental Status, Uncooperative - History of Present Illness Initial Comments - Free Text/Narative: Patient is a 47 yo F with PMH of abnormal liver enzymes, DM-II, HTN, HLD, Hypothyroidism, h/o alcohol use. She brought to the ER via [facility] due to altered mental status. Patient is very confused and could not provide history. Patient was apparently well yesterday till this morning when when she was found confused. EMS was activated and she was brought to the ED. En route to the ER patient was agitated and combative, hitting medical staffs. Son by bed side indicates she was well yesterday and took a ride with patient. Family denies trauma, fever, chills or recent alcohol use. Patient reportedly had a ground level fall. CT head and neck in the ER was negative.Her toxicology screen in the ER was negative. UA was suggestive of UTI. Onset of Symptoms: Reports: Today, Sudden Duration of Symptoms: Reports: Hour(s):, Constant Location: Reports: Generalized Improves with: Reports: None Worsens with: Reports: None Associated Symptoms: Reports: No Other Symptoms - Related Data Allergies/Adverse Reactions: Allergies Allergy/AdvReac Type Severity Reaction Status Date / Time No Known Allergies Allergy Verified 02/28/18 13:11 Home Medications: Home Meds Aspirin [Thuy Chewable Aspirin] 81 mg PO DAILY 02/14/15 [History] Insulin Aspart [NovoLOG] 20 units SUBCUT TIDM 02/14/15 [History] Lisinopril 5 mg PO DAILY 02/14/15 [History] Insulin Detemir [Levemir] 30 units SQ BEDTIME 05/01/17 [History] Levothyroxine 150 mcg PO ACBREAKFAST 05/01/17 [History] Triamcinolone Acetonide [Triamcinolone Acetonide 0.1% Crm] 1 applic TOP QID 11/05 [History] Calcium Citrate/Vitamin D3 [Calcium Citrate - Vit D Tablet] 1 tab PO BID [History] Ferrous Gluconate 324 mg PO DAILY 02/28/18 [History] Hydrophilic Ointment [Hydrophilic] 1 applic TOP BID PRN 02/28/18 [History] Nystatin [Nystatin Crm] 1 applic TOP BID 02/28/18 [History] Past Medical History HEENT History: Reports: None Cardiovascular History: Reports: High Cholesterol, Hypertension, Other (See Below) Other Cardiovascular History: MURMUR Respiratory History: Reports: None Gastrointestinal History: Reports: Other (See Below) Other Gastrointestinal History: HX OF ABNORMAL LIVER STUDIES Genitourinary History: Reports: None PORTAL ADMINISTRATOR History: Reports: None 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 History: Reports: None Neurological History: Reports: None Psychiatric History: Reports: Addiction Other Psychiatric History: acute alcohol abuse Endocrine/Metabolic History: Reports: Diabetes, Type II, Hypothyroidism Hematologic History: Reports: Anemia Immunologic History: Reports: None Oncologic (Cancer) History: Reports: None Dermatologic History: Reports: Cellulitis, Other (See Below) Other Dermatologic History: RIGHT BREAST CELLULITUS - Past Surgical History HEENT Surgical History: Reports: None Cardiovascular Surgical History: Reports: None Respiratory Surgical History: Reports: None GI Surgical History: Reports: Colonoscopy 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 Surgical History: Reports: None Oncologic Surgical History: Reports: Mastectomy Other Oncologic Surgeries/Procedures: RIGHT MASTECTOMY Dermatological Surgical History: Reports: Other (See Below) Social & Family History - Family History Family Medical History: Unobtainable - Tobacco Use Smoking Status *Q: Current Every Day Smoker Years of Tobacco use: 30 Packs/Tins Daily: 0.5 Used Tobacco, but Quit: No Second Hand Smoke Exposure: Yes - Caffeine Use Caffeine Use: Reports: Coffee Caffeine Use Comment: 1 8oz cup daily - Alcohol Use Days Per Week of Alcohol Use: 0 Number of Drinks Per Day: 0 Total Drinks Per Week: 0 - Recreational Drug Use Recreational Drug Use: No - Living Situation & Occupation Living situation: Reports: with Family Occupation: Employed H&P Review of Systems - Review of Systems: Review Of Systems: See Below Free Text/Narrative: Unable to obtain General: Reports: Other (unable to obtain) HEENT: Reports: Other Pulmonary: Reports: Other Cardiovascular: Reports: Other Gastrointestinal: Reports: Other Genitourinary: Reports: Other 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: Reports: Other Skin: Reports: Other Psychiatric: Reports: Other Neurological: Reports: No Symptoms, Other Hematologic/Lymphatic: Reports: No Symptoms, Other Immunologic: Reports: No Symptoms, Other Exam - Exam Exam: See Below - Vital Signs Vital Signs: Last Vital Signs Temp 96.5 F 02/28/18 11:55 Pulse 66 02/28/18 11:55 Resp 18 02/28/18 11:55 BP 129/69 02/28/18 11:55 Pulse Ox 100 02/28/18 11:55 Weight: 174 lb 4.8 oz - Exam Quality Assessment: Supplemental Oxygen, DVT Prophylaxis General: Other (agitated ) HEENT: PERRLA, Hearing Intact, Mucosa Moist & Desha, Nares Patent, Normal Nasal Septum, Posterior Pharynx Clear, Conjunctiva Clear, EOMI, EACs Clear, TMs Clear Neck: Supple, Trachea Midline, 2 Lungs: Clear to Auscultation, Normal Respiratory Effort Cardiovascular: Regular Rate, Regular Rhythm GI/Abdominal Exam: Normal Bowel Sounds, Soft, Non-Tender, No Organomegaly, No Distention, No Abnormal Bruit, No Mass, Pelvis Stable (Female) Exam: Normal External Exam, Normal Speculum Exam, Normal Bimanual Exam Rectal (Female) Exam: Deferred Back Exam: Normal Inspection, Full Range of Motion Extremities: Normal Inspection, Normal Range of Motion, Non-Tender, No Pedal Edema, Normal Capillary Refill Skin: Warm, Dry, Intact Neurological: Other (patient confused and uncoorperative) Neuro Extensive - Mental Status: Disorientation to Person, Disorientation to Place, Disorientation to Time Psychiatric: Agitated - Patient Data Lab Results Last 24 hrs: Laboratory Results - last 24 hr 02/28/18 02/28/18 02/28/18 Range/Units 09:56 09:56 09:56 WBC 4.1 L (5.0-10.0) 10^3/uL RBC 3.42 L (4.2-5.4) 10^6/uL Hgb 10.9 L D (12.0-16.0) g/dL Hct 33.4 L (37.0-47.0) % MCV 97.7 D (80-100) fL MCH 31.9 (27.0-34.0) pg MCHC 32.6 L (33.0-35.0) g/dL Plt Count 91 L (150-450) 10^3/uL Neut % (Auto) 60.6 (42.2-75.2) % Lymph % (Auto) 27.8 (20.5-50.1) % [place] % (Auto) 9.2 H (2-8) % Eos % (Auto) 2.2 (1.0-3.0) % Baso % (Auto) 0.2 (0.0-1.0) % PT 11.1 (9.0-12.0) SEC INR 1.1 (0.9-1.2) APTT 28.5 (22.0-34.0) SEC Sodium 134 L (135-145) mmol/L Potassium 4.2 (3.6-5.0) mmol/L Chloride 107 (101-111) mmol/L Carbon Dioxide 22.0 (21.0-31.0) mmol/L Anion Gap 9.2 BUN 17 (7-18) mg/dL Creatinine 0.6 (0.6-1.3) mg/dL Est Cr Clr Drug Dosing TNP Estimated GFR (MDRD) > 60 BUN/Creatinine Ratio 28.33 Glucose 141 H (74-105) mg/dL Lactic Acid (0.5-2.2) mmol/L Calcium 8.5 (8.4-10.2) mg/dl Magnesium 1.7 L (1.8-2.5) mg/dL Total Bilirubin 1.4 H (0.2-1.0) mg/dL AST 60 H (10-42) IU/L ALT 42 (10-60) IU/L Alkaline Phosphatase 194 H (42-121) IU/L Ammonia (11-35) umol/L Creatine Kinase 62 (26-174) IU/L Troponin I < 0.02 (0.00-0.02) ng/ml Total Protein 7.7 (6.7-8.2) g/dl Albumin 2.9 L (3.2-5.5) g/dl Globulin 4.8 Albumin/Globulin Ratio 0.60 Urine Color (YELLOW) Urine Appearance (CLEAR) Urine pH (5.0-9.0) Ur Specific [place] (1.005-1.030) Urine Protein (NEGATIVE) Urine Glucose (UA) (NEGATIVE) Urine Ketones (NEGATIVE) Urine Occult Blood (NEGATIVE) Urine Nitrite (NEGATIVE) Urine Bilirubin (NEGATIVE) Urine Urobilinogen (0.2-1.0) mg/dL Ur Leukocyte Esterase (NEGATIVE) Urine RBC /HPF Urine WBC (0-5/HPF) /HPF Ur Epithelial Cells /HPF Urine Bacteria (0-FEW/HPF) /HPF Urine Mucus /LPF Urine Opiates Screen (NEGATIVE) Ur Oxycodone Screen (NEGATIVE) Urine Methadone Screen (NEGATIVE) Ur Barbiturates Screen (NEGATIVE) U Tricyclic Antidepress (NEGATIVE) Ur Phencyclidine Scrn (NEGATIVE) Ur Amphetamine Screen (NEGATIVE) U Methamphetamines Scrn (NEGATIVE) Urine MDMA Screen (NEGATIVE) U Benzodiazepines Scrn (NEGATIVE) Urine Cocaine Screen (NEGATIVE) U Marijuana (THC) Screen (NEGATIVE) Ethyl Alcohol < 5 mg/dL 02/28/18 02/28/18 02/28/18 Range/Units 09:56 09:56 10:16 WBC (5.0-10.0) 10^3/uL RBC (4.2-5.4) 10^6/uL Hgb (12.0-16.0) g/dL Hct (37.0-47.0) % MCV (80-100) fL MCH (27.0-34.0) pg MCHC (33.0-35.0) g/dL Plt Count (150-450) 10^3/uL Neut % (Auto) (42.2-75.2) % Lymph % (Auto) (20.5-50.1) % Posey % (Auto) (2-8) % Eos % (Auto) (1.0-3.0) % Baso % (Auto) (0.0-1.0) % PT (9.0-12.0) SEC INR (0.9-1.2) APTT (22.0-34.0) SEC Sodium (135-145) mmol/L Potassium (3.6-5.0) mmol/L Chloride (101-111) mmol/L Carbon Dioxide (21.0-31.0) mmol/L Anion Gap BUN (7-18) mg/dL Creatinine (0.6-1.3) mg/dL Est Cr Clr Drug Dosing Estimated GFR (MDRD) BUN/Creatinine Ratio Glucose (74-105) mg/dL Lactic Acid 1.3 (0.5-2.2) mmol/L Calcium (8.4-10.2) mg/dl Magnesium (1.8-2.5) mg/dL Total Bilirubin (0.2-1.0) mg/dL AST (10-42) IU/L ALT (10-60) IU/L Alkaline Phosphatase (42-121) IU/L Ammonia 169 H (11-35) umol/L Creatine Kinase (26-174) IU/L Troponin I (0.00-0.02) ng/ml Total Protein (6.7-8.2) g/dl Albumin (3.2-5.5) g/dl Globulin Albumin/Globulin Ratio Urine Color Yellow (YELLOW) Urine Appearance Cloudy (CLEAR) Urine pH 7.5 (5.0-9.0) Ur Specific [place] 1.020 (1.005-1.030) Urine Protein Negative (NEGATIVE) Urine Glucose (UA) Negative (NEGATIVE) Urine Ketones Negative (NEGATIVE) Urine Occult Blood Trace-intact H (NEGATIVE) Urine Nitrite Negative (NEGATIVE) Urine Bilirubin Negative (NEGATIVE) Urine Urobilinogen 1.0 (0.2-1.0) mg/dL Ur Leukocyte Esterase Negative (NEGATIVE) Urine RBC 0-5 /HPF Urine WBC 5-10 H (0-5/HPF) /HPF Ur Epithelial Cells Rare /HPF Urine Bacteria Many H (0-FEW/HPF) /HPF Urine Mucus Few H /LPF Urine Opiates Screen (NEGATIVE) Ur Oxycodone Screen (NEGATIVE) Urine Methadone Screen (NEGATIVE) Ur Barbiturates Screen (NEGATIVE) U Tricyclic Antidepress (NEGATIVE) Ur Phencyclidine Scrn (NEGATIVE) Ur Amphetamine Screen (NEGATIVE) U Methamphetamines Scrn (NEGATIVE) Urine MDMA Screen (NEGATIVE) U Benzodiazepines Scrn (NEGATIVE) Urine Cocaine Screen (NEGATIVE) U Marijuana (THC) Screen (NEGATIVE) Ethyl Alcohol mg/dL 02/28/18 Range/Units 10:16 WBC (5.0-10.0) 10^3/uL RBC (4.2-5.4) 10^6/uL Hgb (12.0-16.0) g/dL Hct (37.0-47.0) % MCV (80-100) fL MCH (27.0-34.0) pg MCHC (33.0-35.0) g/dL Plt Count (150-450) 10^3/uL Neut % (Auto) (42.2-75.2) % Lymph % (Auto) (20.5-50.1) % [place]y % (Auto) (2-8) % Eos % (Auto) (1.0-3.0) % Baso % (Auto) (0.0-1.0) % PT (9.0-12.0) SEC INR (0.9-1.2) APTT (22.0-34.0) SEC Sodium (135-145) mmol/L Potassium (3.6-5.0) mmol/L Chloride (101-111) mmol/L Carbon Dioxide (21.0-31.0) mmol/L Anion Gap BUN (7-18) mg/dL Creatinine (0.6-1.3) mg/dL Est Cr Clr Drug Dosing Estimated GFR (MDRD) BUN/Creatinine Ratio Glucose (74-105) mg/dL Lactic Acid (0.5-2.2) mmol/L Calcium (8.4-10.2) mg/dl Magnesium (1.8-2.5) mg/dL Total Bilirubin (0.2-1.0) mg/dL AST (10-42) IU/L ALT (10-60) IU/L Alkaline Phosphatase (42-121) IU/L Ammonia (11-35) umol/L Creatine Kinase (26-174) IU/L Troponin I (0.00-0.02) ng/ml Total Protein (6.7-8.2) g/dl Albumin (3.2-5.5) g/dl Globulin Albumin/Globulin Ratio Urine Color (YELLOW) Urine Appearance (CLEAR) Urine pH (5.0-9.0) Ur Specific [place] (1.005-1.030) Urine Protein (NEGATIVE) Urine Glucose (UA) (NEGATIVE) Urine Ketones (NEGATIVE) Urine Occult Blood (NEGATIVE) Urine Nitrite (NEGATIVE) Urine Bilirubin (NEGATIVE) Urine Urobilinogen (0.2-1.0) mg/dL Ur Leukocyte Esterase (NEGATIVE) Urine RBC /HPF Urine WBC (0-5/HPF) /HPF Ur Epithelial Cells /HPF Urine Bacteria (0-FEW/HPF) /HPF Urine Mucus /LPF Urine Opiates Screen Negative (NEGATIVE) Ur Oxycodone Screen Negative (NEGATIVE) Urine Methadone Screen Negative (NEGATIVE) Ur Barbiturates Screen Negative (NEGATIVE) U Tricyclic Antidepress Negative (NEGATIVE) Ur Phencyclidine Scrn Negative (NEGATIVE) Ur Amphetamine Screen Negative (NEGATIVE) U Methamphetamines Scrn Negative (NEGATIVE) Urine MDMA Screen Negative (NEGATIVE) U Benzodiazepines Scrn Negative (NEGATIVE) Urine Cocaine Screen Negative (NEGATIVE) U Marijuana (THC) Screen Negative (NEGATIVE) Ethyl Alcohol mg/dL Result Diagrams: 02/28/18 09:56 02/28/18 09:56 - Problem List (1) Hepatic encephalopathy SNOMED Code(s): 52468315 ICD Code: K72.90 - HEPATIC FAILURE, UNSPECIFIED WITHOUT COMA Status: Acute Current Visit: Yes (2) Diabetes mellitus SNOMED Code(s): 37214039 ICD Code: E11.9 - TYPE 2 DIABETES MELLITUS WITHOUT COMPLICATIONS Status: Chronic Priority: Medium Current Visit: No Problem List Initiated/Reviewed/Updated: Yes Orders Last 24hrs: Active Orders 24 hr Category Date Time Status Patient Status [ADT] Routine ADT 02/28/18 11:41 Ordered Aspiration Precautions [RC] ASDIRECTED Care 02/28/18 12:02 Ordered Bedrest Bedside Commode [RC] ASDIRECTED Care 02/28/18 11:41 Ordered Blood Glucose Check, Bedside [RC] QIDACANDBED Care 02/28/18 11:49 Ordered Diabetes Education [RC] Click to Edit Care 02/28/18 11:46 Ordered EKG 12 Lead [EKG Documentation Completion] [RC] STAT Care 02/28/18 09:56 Active Initiate Restraint Protocol [RC] URGENT Care 02/28/18 09:58 Active Intake and Output [RC] QSHIFT Care 02/28/18 11:44 Ordered Oxygen Therapy [RC] PRN Care 02/28/18 11:41 Ordered Peripheral IV Care [RC] . DIRECTED Care 02/28/18 09:57 Active Pulse Oximetry [RC] CONTINUOUS Care 02/28/18 11:44 Ordered VTE/DVT Education [RC] PER UNIT ROUTINE Care 02/28/18 11:41 Ordered Vital Signs [RC] Q4H Care 02/28/18 11:41 Ordered Consistent Carbohydrate Diet [DIET] Diet 02/28/18 Lunch Ordered Cervical Spine wo Cont [CT] Stat Exams 02/28/18 10:18 Taken BASIC METABOLIC PANEL,BMP [CHEM] DAILY Lab 03/01/18 07:00 Ordered CBC WITH AUTO DIFF [HEME] DAILY Lab 02/28/18 07:00 Ordered CBC WITH AUTO DIFF [HEME] DAILY Lab 03/01/18 07:00 Ordered CHLAMYDIA AND GONORRHEA BY TMA Routine Lab 02/28/18 10:16 Received CULTURE URINE [RM] Stat Lab 02/28/18 10:16 Received DRUG SCREEN URINE BIORAD [URCHEM] Stat Lab 02/28/18 10:16 Ordered HEPATIC FUNCTION PANEL,HFP [CHEM] DAILY Lab 03/01/18 07:00 Ordered UA W/MICROSCOPIC [URIN] Stat Lab 02/28/18 10:16 Ordered Aspirin Med 03/01/18 09:00 Ordered 81 mg PO DAILY Haloperidol Lactate [Haldol] Med 02/28/18 11:59 Ordered 2.5 mg IM Q6H PRN Heparin Sodium Med 02/28/18 21:00 Ordered 5,000 units SUBCUT Q12HR Insulin Aspart [NovoLOG] Med 02/28/18 12:00 Ordered 10 - 15 unit SUBCUT TIDM Insulin Detemir Med 02/28/18 21:00 Ordered 10 units SQ BEDTIME Lactulose [Cephulac] Med 02/28/18 12:00 Ordered 20 gm PO Q6H Levothyroxine Med 03/01/18 06:00 Ordered 1 tab PO ACBREAKFAST Lisinopril [Prinivil] Med 03/01/18 09:00 Ordered 5 mg PO DAILY Magnesium Sulfate/Water [Magnesium Sulfate 2 GM in Med 02/28/18 11:58 Ordered Water 50 ML] 2 gm Premix Bag 1 bag IV ONETIME Multivitamin [Multivitamins] Med 03/01/18 09:00 Ordered 1 tab PO DAILY Ondansetron [Zofran] Med 02/28/18 11:45 Ordered 4 mg IVPUSH Q4H PRN Pantoprazole [ProTONIX IV] Med 03/01/18 09:00 Ordered 40 mg IVPUSH DAILY Rifaximin [Xifaxan] Med 02/28/18 21:00 Ordered 550 mg PO BID Sodium Chloride 0.9% [Normal Saline] 1,000 ml Med 02/28/18 11:45 Ordered IV ASDIRECTED Sodium Chloride 0.9% [Saline Flush] Med 02/28/18 09:57 Active 10 ml FLUSH ASDIRECTED PRN Triamcinolone Acetonide [Triamcinolone Acetonide 0.1% Med 02/28/18 12:00 Ordered Crm] 1 applic TOP ASDIRECTED cefTRIAXone [Rocephin] 2 mg Med 02/28/18 12:00 Ordered Sodium Chloride 0.9% [Normal Saline] 100 ml IV Q24H Glucose Management Sub Q Reflex [OM.PC] QID Oth 02/28/18 11:41 Ordered Glucose Management Sub Q Reflex [OM.PC] QID Ot 03/01/18 11:41 Ordered Glucose Management Sub Q Reflex [OM.PC] QID Oth 03/02/18 11:41 Ordered Glucose Management Sub Q Reflex [OM.PC] QID Ot 03/03/18 11:41 Ordered Peripheral IV Insertion Adult [OM.PC] Stat Oth 02/28/18 09:56 Ordered Resuscitation Status Routine Resus Stat 02/28/18 11:41 Ordered Medication Orders Aspirin (Aspirin) 81 mg PO DAILY KOMAL Haloperidol Lactate (Haldol) 2.5 mg IM Q6H PRN PRN Reason: Agitation Heparin Sodium (Porcine) (Heparin Sodium) 5,000 units SUBCUT Q12HR KOMAL Sodium Chloride (Normal Saline) 1,000 mls @ 75 mls/hr IV ASDIRECTED KOMAL Ceftriaxone Sodium 2 mg/ (Sodium Chloride) 100 mls @ 200 mls/hr IV Q24H KOMAL Lactulose (Cephulac) 20 gm PO Q6H KOMAL Ondansetron HCl (Zofran) 4 mg IVPUSH Q4H PRN PRN Reason: Nausea/Vomiting Pantoprazole Sodium (Protonix Iv) 40 mg IVPUSH DAILY KOMAL Sodium Chloride (Saline Flush) 10 ml FLUSH ASDIRECTED PRN PRN Reason: Keep Vein Open Last Admin: 02/28/18 10:13 Dose: 10 ml Assessment/Plan Comment:: #Acute hepatic encephalopathy - Grade III -Likely precipitated by UTI -Patient presented confused and agitated -Liver enzymes abnormal -NH3 level elevated -will admit at this time -Lactulose 30 ml tid -Rifaximin 550 mg bid -Frequent neuro check -One on one -Haldol prn for agitation -fall/aspiration precautions -Continue Rocephin for UTI #UTI -Rocephin IV -Urine culture #H/o Abnormal liver enzymes -Daily LFTs -Liver US #DM- -Fairly controlled -Continue home meds -Accucheck qid #HTN -BP at goal -Monitor BP cloesly -Will continue home medications #H/o of alcohol use -Family reports patient has been sober for sometime -monitor for alcohol withdrawal symptoms #HLD -Resume home medication #Hypothyroidism -on Synthroid 150 mcg -continue #Diabetic diet #Full code.
[2018-02-28] MEDS: Sodium Chloride 0.9% 1,000 ML IV SCH (12:21)
[2018-02-28] MEDS: Pantoprazole 40 MG Vial IVPUSH SCH (12:31)
[2018-02-28] MEDS ORDERED: Magnesium Sulfate/Water 2 GM in Premix Bag 1 BAG IV ONE (13:00)
[2018-02-28] MEDS: Insulin Aspart 100 Units/ML 3 ML Pen SUBCUT SCH ×2 (15:30→17:12)
[2018-02-28] MEDS: Lactulose Soln 10 GM/15 ML 30 ML UD Cup PO SCH ×2 (15:32→18:05)
[2018-02-28] MEDS: Acetaminophen 325 MG Tab PO PRN (18:04)
--- NOTE | 2018-02-28 20:08 | EKG ---
02/28/2018 - SANJEEV EDMONDS - TIME: 10:49 a.m. After my reading, sinus bradycardia at 56. [facility] /[id number]
[2018-02-28] MEDS: Rifaximin 550 MG Tab PO SCH (21:49)
[2018-02-28] MEDS: Heparin Sodium 5,000 Units/ML Vial SUBCUT SCH (21:49)
[2018-02-28] MEDS: Insulin Detemir 100 Units/ML 3 ML Pen SUBCUT SCH (21:50)
[2018-03-01] MEDS: Lactulose Soln 10 GM/15 ML 30 ML UD Cup PO SCH ×5 (00:18→23:47)
[2018-03-01] MEDS: Sodium Chloride 0.9% 1,000 ML IV SCH (01:38)
[2018-03-01] MEDS: Acetaminophen 325 MG Tab PO PRN ×2 (03:03→12:36)
[2018-03-01] MEDS: Levothyroxine 112 MCG Tab PO SCH (06:38)
[2018-03-01 07:27] LABS: CHLORIDE,CL 111 mmol/L (101-111); SODIUM,NA 137 mmol/L (135-145)
[2018-03-01] MEDS: Insulin Aspart 100 Units/ML 3 ML Pen SUBCUT SCH ×3 (08:17→21:04)
[2018-03-01] MEDS: Pantoprazole 40 MG Vial IVPUSH SCH (09:53)
[2018-03-01] MEDS: Aspirin 81 MG Tab.Chew PO SCH (09:53)
[2018-03-01] MEDS: Heparin Sodium 5,000 Units/ML Vial SUBCUT SCH ×2 (09:53→21:10)
[2018-03-01] MEDS: Lisinopril 5 MG Tab PO SCH (09:53)
[2018-03-01] MEDS: Multivitamins,Therapeutic Tab PO SCH (09:53)
[2018-03-01] MEDS: Rifaximin 550 MG Tab PO SCH ×2 (09:53→21:09)
[2018-03-01] MEDS ORDERED: cefTRIAXone 2 GM Vial IVPUSH SCH (11:00)
--- NOTE | 2018-03-01 11:01 | PCM.PN ---
- General Info Date of Service: 03/01/18 Admission Dx/Problem (Free Text): Admission Diagnosis/Problem Admission Diagnosis/Problem Hepatic encephalopathy Subjective Update: 47 yo F with PMH of abnormal liver enzymes, DM-II, HTN, HLD, Hypothyroidism, h/ o alcohol use. She brought to the ER via [facility] due to altered mental status. Ammonia levels were elevated, lactulose and rifaximin were started. Has had > 3BMs in the past 24 hours. She has had improvement in mental status overnight. Hyperpigmented erythematous rash was noticed this morning after antibiotic started. - Review of Systems Skin: Reports: Rash - Patient Data Vitals - Most Recent: Last Vital Signs Temp 37.3 C 03/01/18 08:00 Pulse 79 03/01/18 08:00 Resp 19 03/01/18 08:00 BP 117/68 03/01/18 09:53 Pulse Ox 100 03/01/18 08:00 Weight - Most Recent: 79.061 kg I&O - Last 24 Hours: Intake & Output 02/28/18 03/01/18 03/01/18 22:59 06:59 14:59 Intake Total 2649 400 Output Total 375 Balance 2274 400 Lab Results Last 24 Hours: Laboratory Results - last 24 hr 02/28/18 02/28/18 02/28/18 Range/Units 10:16 17:00 20:54 WBC (5.0-10.0) 10^3/uL RBC (4.2-5.4) 10^6/uL Hgb (12.0-16.0) g/dL Hct (37.0-47.0) % MCV (80-100) fL MCH (27.0-34.0) pg MCHC (33.0-35.0) g/dL Plt Count (150-450) 10^3/uL Neut % (Auto) (42.2-75.2) % Lymph % (Auto) (20.5-50.1) % [place] % (Auto) (2-8) % Eos % (Auto) (1.0-3.0) % Baso % (Auto) (0.0-1.0) % Sodium (135-145) mmol/L Potassium (3.6-5.0) mmol/L Chloride (101-111) mmol/L Carbon Dioxide (21.0-31.0) mmol/L Anion Gap BUN (7-18) mg/dL Creatinine (0.6-1.3) mg/dL Est Cr Clr Drug Dosing mL/min Estimated GFR (MDRD) Glucose (74-105) mg/dL POC Glucose 142 H 153 H (70-105) mg/dl Calcium (8.4-10.2) mg/dl Total Bilirubin (0.2-1.0) mg/dL Direct Bilirubin (0.0-0.2) mg/dL Indirect Bilirubin AST (10-42) IU/L ALT (10-60) IU/L Alkaline Phosphatase (42-121) IU/L Total Protein (6.7-8.2) g/dl Albumin (3.2-5.5) g/dl Globulin Albumin/Globulin Ratio Chlamydia/GC Source Urine C.trachomatis RNA (TMA) Negative (Negative) N.gonorrhoeae RNA (TMA) Negative (Negative) 03/01/18 03/01/18 03/01/18 Range/Units 02:56 07:00 07:00 WBC 7.4 (5.0-10.0) 10^3/uL RBC 3.35 L (4.2-5.4) 10^6/uL Hgb 10.7 L (12.0-16.0) g/dL Hct 33.0 L (37.0-47.0) % MCV 98.5 (80-100) fL MCH 31.9 (27.0-34.0) pg MCHC 32.4 L (33.0-35.0) g/dL Plt Count 91 L (150-450) 10^3/uL Neut % (Auto) 86.2 H (42.2-75.2) % Lymph % (Auto) 8.5 L (20.5-50.1) % [place] % (Auto) 3.4 (2-8) % Eos % (Auto) 1.8 (1.0-3.0) % Baso % (Auto) 0.1 (0.0-1.0) % Sodium 137 (135-145) mmol/L Potassium 3.8 (3.6-5.0) mmol/L Chloride 111 (101-111) mmol/L Carbon Dioxide 22.0 (21.0-31.0) mmol/L Anion Gap 7.8 BUN 19 H (7-18) mg/dL Creatinine 0.7 (0.6-1.3) mg/dL Est Cr Clr Drug Dosing 87.48 mL/min Estimated GFR (MDRD) > 60 Glucose 102 (74-105) mg/dL POC Glucose 131 H (70-105) mg/dl Calcium 8.3 L (8.4-10.2) mg/dl Total Bilirubin 1.1 H (0.2-1.0) mg/dL Direct Bilirubin 0.3 H (0.0-0.2) mg/dL Indirect Bilirubin 0.8 AST 61 H (10-42) IU/L ALT 41 (10-60) IU/L Alkaline Phosphatase 190 H (42-121) IU/L Total Protein 6.9 (6.7-8.2) g/dl Albumin 2.6 L (3.2-5.5) g/dl Globulin 4.3 Albumin/Globulin Ratio 0.60 Chlamydia/GC Source C.trachomatis RNA (TMA) (Negative) N.gonorrhoeae RNA (TMA) (Negative) 03/01/18 Range/Units 08:14 WBC (5.0-10.0) 10^3/uL RBC (4.2-5.4) 10^6/uL Hgb (12.0-16.0) g/dL Hct (37.0-47.0) % MCV (80-100) fL MCH (27.0-34.0) pg MCHC (33.0-35.0) g/dL Plt Count (150-450) 10^3/uL Neut % (Auto) (42.2-75.2) % Lymph % (Auto) (20.5-50.1) % [place] % (Auto) (2-8) % Eos % (Auto) (1.0-3.0) % Baso % (Auto) (0.0-1.0) % Sodium (135-145) mmol/L Potassium (3.6-5.0) mmol/L Chloride (101-111) mmol/L Carbon Dioxide (21.0-31.0) mmol/L Anion Gap BUN (7-18) mg/dL Creatinine (0.6-1.3) mg/dL Est Cr Clr Drug Dosing mL/min Estimated GFR (MDRD) Glucose (74-105) mg/dL POC Glucose 87 (70-105) mg/dl Calcium (8.4-10.2) mg/dl Total Bilirubin (0.2-1.0) mg/dL Direct Bilirubin (0.0-0.2) mg/dL Indirect Bilirubin AST (10-42) IU/L ALT (10-60) IU/L Alkaline Phosphatase (42-121) IU/L Total Protein (6.7-8.2) g/dl Albumin (3.2-5.5) g/dl Globulin Albumin/Globulin Ratio Chlamydia/GC Source C.trachomatis RNA (TMA) (Negative) N.gonorrhoeae RNA (TMA) (Negative) Sanjeev Results Last 24 Hours: Microbiology 02/28/18 10:16 Urine Culture - Preliminary Urine, Catheterized Med Orders - Current: Current Medications Acetaminophen (Tylenol) 650 mg PO Q6H PRN PRN Reason: Pain Last Admin: 03/01/18 03:03 Dose: 650 mg Aspirin (Aspirin) 81 mg PO DAILY@0800 [facility] Last Admin: 03/01/18 09:53 Dose: 81 mg Diphenhydramine HCl (Benadryl) 50 mg IVPUSH Q8H [facility] Stop: 03/02/18 11:01 Famotidine (Pepcid) 20 mg IVPUSH BID [facility] Stop: 03/01/18 21:01 Haloperidol Lactate (Haldol) 2.5 mg IM Q6H PRN PRN Reason: Agitation Heparin Sodium (Porcine) (Heparin Sodium) 5,000 units SUBCUT Q12HR [facility] Last Admin: 03/01/18 09:53 Dose: 5,000 units Hydrocortisone Sodium Succinate (Solu-Cortef) 100 mg IV Q6H [facility] Stop: 03/01/18 23:01 Insulin Aspart (Novolog) 10 - 15 unit SUBCUT TIDM [facility] Last Admin: 03/01/18 08:17 Dose: Not Given Insulin Detemir (Levemir) 10 unit SUBCUT BEDTIME [facility] Last Admin: 02/28/18 21:50 Dose: 10 units Lactulose (Cephulac) 20 gm PO Q6H [facility] Last Admin: 03/01/18 06:38 Dose: 20 gm Levothyroxine Sodium (Levothyroxine) 112 mcg PO ACBREAKFAST [facility] Last Admin: 03/01/18 06:38 Dose: 112 mcg Lisinopril (Prinivil) 5 mg PO DAILY [facility] Last Admin: 03/01/18 09:53 Dose: 5 mg Multivitamins (Thera) 1 each PO DAILY [facility] Last Admin: 03/01/18 09:53 Dose: 1 each Ondansetron HCl (Zofran) 4 mg IVPUSH Q4H PRN PRN Reason: Nausea/Vomiting Pantoprazole Sodium (Protonix Iv) 40 mg IVPUSH DAILY [facility] Last Admin: 03/01/18 09:53 Dose: 40 mg Rifaximin (Xifaxan) 550 mg PO BID [facility] Last Admin: 03/01/18 09:53 Dose: 550 mg Sodium Chloride (Saline Flush) 10 ml FLUSH ASDIRECTED PRN PRN Reason: Keep Vein Open Last Admin: 02/28/18 10:13 Dose: 10 ml Triamcinolone Acetonide (Triamcinolone Acetonide 0.1% Crm) 0 gm TOP ASDIRECTED KOMAL Discontinued Medications Ceftriaxone Sodium (Rocephin) 1 gm IVPUSH ONETIME ONE Stop: 02/28/18 10:50 Last Admin: 02/28/18 11:15 Dose: 1 gm Ceftriaxone Sodium (Rocephin) 2 gm IVPUSH Q24H [facility] Multivitamins/Minerals 10 ml/Thiamine HCl 100 mg/ Folic Acid 1 mg/ Lactated Ringer's 1,011.2 mls @ 999 mls/hr IV .BOLUS ONE Stop: 02/28/18 11:37 Last Infusion: 02/28/18 12:19 Dose: Infused Sodium Chloride (Normal Saline) 1,000 mls @ 75 mls/hr IV ASDIRECTED [facility] Last Admin: 03/01/18 01:38 Dose: 75 mls/hr Magnesium Sulfate 2 gm/ Premix 50 mls @ 25 mls/hr IV ONETIME ONE Stop: 02/28/18 14:59 Last Infusion: 02/28/18 14:39 Dose: Infused Lactulose (Cephulac) 20 gm PO ONETIME ONE Stop: 02/28/18 10:38 Last Admin: 02/28/18 10:59 Dose: Not Given Lactulose (Cephulac) 40 gm .XX ONETIME ONE Stop: 02/28/18 10:41 Last Admin: 04/11/18 10:59 Dose: 40 gm Lorazepam (Ativan) 2 mg IVPUSH ONETIME ONE Stop: 02/28/18 11:14 Last Admin: 02/28/18 11:17 Dose: 2 mg Midazolam HCl (Versed 1 Mg/Ml) 2 mg IVPUSH ONETIME ONE Stop: 02/28/18 10:03 Last Admin: 02/28/18 10:13 Dose: 2 mg - Exam General: Alert, Oriented HEENT: Pupils Equal, Pupils Reactive Neck: Supple Lungs: Clear to Auscultation, Normal Respiratory Effort Cardiovascular: Regular Rate, Regular Rhythm, Murmurs (3/6 SM) GI/Abdominal Exam: Normal Bowel Sounds Physical Findings Comments:: no asterixis - Problem List Review Problem List Initiated/Reviewed/Updated: Yes - My Orders Last 24 Hours: My Active Orders 03/01/18 10:41 DC Hoffman Catheter [Urinary Catheter Removal] [RC] Per Unit Routine 03/01/18 11:00 Famotidine [Pepcid] 20 mg IVPUSH BID Hydrocortisone Sod Succinate [Solu-CORTEF] 100 mg IV Q6H diphenhydrAMINE [Benadryl] 50 mg IVPUSH Q8H - Plan Plan:: #Medication reaction, possibly to ceftriaxone no stridor, no pruritus stop ceftriaxone IV famotidine, IV benadryl and IV hydrocort x 24 hours monitor vital signs closely #Acute hepatic encephalopathy - Grade III -Likely precipitated by UTI -Patient presented confused and agitated -Liver enzymes abnormal -NH3 level elevated -will admit at this time -Lactulose 30 ml tid -Rifaximin 550 mg bid -Frequent neuro check -One on one -Haldol prn for agitation -fall/aspiration precautions #UTI switch antibiotic to oral ciprofloxacin #H/o Abnormal liver enzymes -Daily LFTs -Liver US #DM- -Fairly controlled -Continue home meds -Accucheck qid #HTN -BP at goal -Monitor BP cloesly -Will continue home medications #H/o of alcohol use -Family reports patient has been sober for sometime -monitor for alcohol withdrawal symptoms #HLD -Resume home medication #Hypothyroidism -on Synthroid 150 mcg -continue #Diabetic diet #Full code.
[2018-03-01] MEDS: Hydrocortisone Sodium Succinate 100 MG/2 ML SDV IV SCH ×3 (11:28→23:47)
[2018-03-01] MEDS: diphenhydrAMINE 50 MG/ML SDV IVPUSH SCH ×2 (11:29→18:24)
[2018-03-01] MEDS: Ciprofloxacin 500 MG Tab PO SCH ×2 (12:36→21:09)
[2018-03-01] MEDS ORDERED: Insulin Aspart 100 Units/ML 3 ML Pen SUBCUT ONE ×2 (17:07→21:03)
[2018-03-01] MEDS: Insulin Detemir 100 Units/ML 3 ML Pen SUBCUT SCH (21:11)
[2018-03-01] MEDS ORDERED: Isopropyl Myristate/Mineral Oil/Water Lotion 240 ML Bottle TOP PRN (21:23)
[2018-03-02] MEDS: diphenhydrAMINE 50 MG/ML SDV IVPUSH SCH ×2 (03:33→10:44)
[2018-03-02] MEDS: Levothyroxine 112 MCG Tab PO SCH (06:12)
[2018-03-02] MEDS: Lactulose Soln 10 GM/15 ML 30 ML UD Cup PO SCH ×2 (06:12→11:31)
[2018-03-02] MEDS: Insulin Aspart 100 Units/ML 3 ML Pen SUBCUT SCH ×2 (08:28→11:22)
[2018-03-02] MEDS: Lisinopril 5 MG Tab PO SCH (08:30)
[2018-03-02] MEDS: Aspirin 81 MG Tab.Chew PO SCH (08:30)
[2018-03-02] MEDS: Pantoprazole 40 MG Vial IVPUSH SCH (08:30)
[2018-03-02] MEDS: Rifaximin 550 MG Tab PO SCH (08:30)
[2018-03-02] MEDS: Heparin Sodium 5,000 Units/ML Vial SUBCUT SCH (08:30)
[2018-03-02] MEDS: Multivitamins,Therapeutic Tab PO SCH (08:30)
[2018-03-02] MEDS: Ciprofloxacin 500 MG Tab PO SCH (08:30)
--- NOTE | 2018-03-02 10:19 | DISCH ---
DOS: 03/02/2018 FINAL DIAGNOSES: 1. Acute hepatic encephalopathy. 2. Urinary tract infection with Escherichia coli. 3. Hypothyroidism. 4. Type 2 diabetes mellitus. 5. Hypertension. BRIEF HISTORY OF PRESENT ILLNESS AND LAB WORKUP: Please see H and P. HOSPITAL COURSE: The patient was admitted to General Medicine Floor. She was started on lactulose and rifaximin, and she responded well. Because of her urinary tract infection, she was empirically started on Cipro, but urine culture came back E. coli which is resistant to Cipro, but susceptible to Augmentin and because of this, Cipro was discontinued and Augmentin will be started. The rest of the hospital course was unremarkable and she will be discharged today. CONDITION ON DISCHARGE: Improved. FOLLOWUP: With primary care physician in 1 week. We will continue with her home medication and continue with rifaximin and continue with lactulose. [facility] /[id number]
[2018-03-02 10:42] VITALS: BP 133/68
[2018-03-02] MEDS ORDERED: Pneumococcal Polyvalent-23 Vaccine 0.5 ML SDV IM ONE (11:05)
[2018-03-02] MEDS ORDERED: Insulin Aspart 100 Units/ML 3 ML Pen SUBCUT ONE (11:21)
--- NOTE | 2018-03-02 11:33 | PN ---
DATE: 03/02/2018 SUBJECTIVE: The patient is feeling much better this morning and the patient denies any chest pain, shortness of breath, abdominal pain, nausea, vomiting. LABORATORY DATA: Lab workup this morning, glucose is 319. OBJECTIVE: Vital Signs: Blood pressure is 114/53, pulse of 86 respirations 20. Saturation is 98% on room air. Heart: Regular rate and rhythm. Normal S1 and S2. No gallops. No rubs. Lungs: Equal bilaterally. No crackles. No wheezing. Abdomen: Slightly protuberant, but soft, nontender. Bowel sounds positive. Extremities: Trace bilateral pedal edema. No calf tenderness. MEDICATIONS: Reviewed. PLAN: I am going to discontinue the ciprofloxacin as her urine culture is coming back E. coli, which is resistant to levofloxacin, but this is susceptible to Augmentin, and we are going to put the patient on Augmentin 875 b.i.d. for the next one week. We will continue with the rest of her medications, and we will discharge the patient home, and we will have her follow up with her primary care physician in one week. [facility] /[id number]
== END 2018-03-02 12:10 | disposition home or self-care (01) | DRG 689 ==
LOC: DL.ED 09:53 → DL.MS 11:00 → UNDOADMIN 11:00 → DL.MS 11:41
PROVIDERS: ADMIT Student in an Organized Health Care Education/Training Program; ATTEND Student in an Organized Health Care Education/Training Program
DX: N39.0 Urinary tract infection, site not specified (principal); K72.00 Acute and subacute hepatic failure without coma; B96.20 Unspecified Escherichia coli [E. coli] as the cause of diseases classified elsewhere; I10 Essential (primary) hypertension; E11.9 Type 2 diabetes mellitus without complications; E03.9 Hypothyroidism, unspecified; F17.200 Nicotine dependence, unspecified, uncomplicated; E78.5 Hyperlipidemia, unspecified; L53.9 Erythematous condition, unspecified; T36.1X5A Adverse effect of cephalosporins and other beta-lactam antibiotics, initial encounter; D64.9 Anemia, unspecified; R01.1 Cardiac murmur, unspecified; F10.10 Alcohol abuse, uncomplicated; Z79.82 Long term (current) use of aspirin; Z90.11 Acquired absence of right breast and nipple; Z79.4 Long term (current) use of insulin; Z79.899 Other long term (current) drug therapy
CPT/HCPCS: 36415; 51701; 70450; 72125; 80048; 80053; 80076; 80305; 81001; 82140; 82550; 82962; 83605; 83735; 84484; 85025; 85610; 85730; 87086; 87088; 87186; 87491; 87591; 90732; 93005; 93010; 96365; 96375; 99285; A9270-GY; C9113; G0480; J0696; J1200; J1644; J1720; J1815-GY; J2060; J2250; J3411; J3475; J3490; J7030; J7050; J7120

== ENCOUNTER 2018-04-07 23:18 | Emergency (ER) | payer MEDICAID ==
[2018-04-07] MEDS ORDERED: Lactulose Soln 10 GM/15 ML 30 ML UD Cup PO ONE (23:19)
[2018-04-07 23:31] VITALS: BP 141/75
--- NOTE | 2018-04-07 23:57 | EDM.PDOC ---
ED HPI GENERAL MEDICAL PROBLEM - General Chief Complaint: Headache Stated Complaint: [id number] HEADACHE Time Seen by Provider: 04/07/18 23:53 Source of Information: Reports: Patient History Limitations: Reports: No Limitations - History of Present Illness INITIAL COMMENTS - FREE TEXT/NARRATIVE: states has ESPINOZA past 3 days and it is from her ammonia being high, was taking lactulose for cirrhosis but was d/c by [facility] 1 1/2 weeks ago. Headache Pain Score (Numeric/FACES): 5 - Related Data Allergies Allergy/AdvReac Type Severity Reaction Status Date / Time ceftriaxone [From Rocephin] Allergy Intermediate Hives Verified 04/07/18 23:31 Home Meds: Home Meds Aspirin [Thuy Chewable Aspirin] 81 mg PO DAILY 02/14/15 [History] Insulin Aspart [NovoLOG] 20 units SUBCUT TIDM 02/14/15 [History] Lisinopril 5 mg PO DAILY 02/14/15 [History] Insulin Detemir [Levemir] 30 units SQ BEDTIME 05/01/17 [History] Levothyroxine 150 mcg PO ACBREAKFAST 05/01/17 [History] Triamcinolone Acetonide [Triamcinolone Acetonide 0.1% Crm] 1 applic TOP QID 11/05 [History] Calcium Citrate/Vitamin D3 [Calcium Citrate - Vit D Tablet] 1 tab PO BID [History] Ferrous Gluconate 324 mg PO DAILY 02/28/18 [History] Rifaximin [Xifaxan] 550 mg PO BID 30 Days tablet 03/02/18 [Rx] Past Medical History HEENT History: Reports: None Other HEENT History: legally blind per [facility] reports, blindness to right eye, presbyopia, diabetic retinopathy Cardiovascular History: Reports: High Cholesterol, Hypertension, Other (See Below) Other Cardiovascular History: MURMUR Respiratory History: Reports: None Gastrointestinal History: Reports: Other (See Below) Other Gastrointestinal History: HX OF ABNORMAL LIVER STUDIES Genitourinary History: Reports: None [employer] History: Reports: None 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 History: Reports: None Neurological History: Reports: None Psychiatric History: Reports: Addiction Other Psychiatric History: acute alcohol abuse Endocrine/Metabolic History: Reports: Diabetes, Type II, Hypothyroidism Hematologic History: Reports: Anemia Other Hematologic History: acquired thrombocytopenia Immunologic History: Reports: None Oncologic (Cancer) History: Reports: None Dermatologic History: Reports: Cellulitis, Other (See Below) Other Dermatologic History: RIGHT BREAST CELLULITUS - Past Surgical History HEENT Surgical History: Reports: None Cardiovascular Surgical History: Reports: None Respiratory Surgical History: Reports: None GI Surgical History: Reports: Colonoscopy 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 Surgical History: Reports: None Oncologic Surgical History: Reports: Mastectomy Other Oncologic Surgeries/Procedures: RIGHT MASTECTOMY Dermatological Surgical History: Reports: Other (See Below) Social & Family History - Family History Family Medical History: Unobtainable - Tobacco Use Smoking Status *Q: Current Every Day Smoker Years of Tobacco use: 25 Packs/Tins Daily: 0.1 Second Hand Smoke Exposure: Yes - Caffeine Use Caffeine Use: Reports: Coffee Caffeine Use Comment: 1 8oz cup daily - Recreational Drug Use Recreational Drug Use: No - Living Situation & Occupation Living situation: Reports: with Family Occupation: Employed ED ROS GENERAL - Review of Systems Review Of Systems: ROS reveals no pertinent complaints other than HPI. - Physical Exam Exam: See Below Exam Limited By: No Limitations General Appearance: Alert, WD/WN, Mild Distress, Other (upset) Ears: Hearing Grossly Normal Throat/Mouth: Normal Voice, No Airway Compromise Head Exam: Atraumatic Neck: Non-Tender, Full Range of Motion Respiratory/Chest: No Respiratory Distress Cardiovascular: Regular Rate, Rhythm GI/Abdominal: Soft, Non-Tender Psychiatric: Flat Affect Skin Exam: Warm, Dry, Normal Color Course - Vital Signs Last Recorded V/S: Last Vital Signs Temp 36.5 C 04/07/18 23:28 Pulse 63 04/07/18 23:28 Resp 18 04/07/18 23:28 BP 141/75 H 04/07/18 23:28 Pulse Ox 100 04/07/18 23:28 - Orders/Labs/Meds Orders: Active Orders 24 hr Category Date Time Status INR,PT,PROTHROMBIN TIME [COAG] Stat Lab 04/08/18 01:12 Ordered PTT,PARTIAL THROMBOPLSTIN TIME [COAG] Stat Lab 04/08/18 01:12 Ordered Labs: Laboratory Tests 04/07/18 04/07/18 04/07/18 Range/Units 23:45 23:45 23:45 WBC 4.0 L (5.0-10.0) 10^3/uL RBC 3.42 L (4.2-5.4) 10^6/uL Hgb 11.0 L (12.0-16.0) g/dL Hct 33.3 L (37.0-47.0) % MCV 97.4 (80-100) fL MCH 32.2 (27.0-34.0) pg MCHC 33.0 (33.0-35.0) g/dL Plt Count 83 L (150-450) 10^3/uL Neut % (Auto) 51.6 (42.2-75.2) % Lymph % (Auto) 32.4 (20.5-50.1) % [place] % (Auto) 11.9 H (2-8) % Eos % (Auto) 3.8 H (1.0-3.0) % Baso % (Auto) 0.3 (0.0-1.0) % Sodium 133 L (135-145) mmol/L Potassium 4.5 (3.6-5.0) mmol/L Chloride 106 (101-111) mmol/L Carbon Dioxide 25.0 (21.0-31.0) mmol/L Anion Gap 6.5 BUN 23 H (7-18) mg/dL Creatinine 0.7 (0.6-1.3) mg/dL Est Cr Clr Drug Dosing 94.54 mL/min Estimated GFR (MDRD) > 60 BUN/Creatinine Ratio 32.85 Glucose 136 H (74-105) mg/dL Calcium 8.4 (8.4-10.2) mg/dl Total Bilirubin 0.8 (0.2-1.0) mg/dL AST 60 H (10-42) IU/L ALT 41 (10-60) IU/L Alkaline Phosphatase 217 H (42-121) IU/L Ammonia 162 H (11-35) umol/L Total Protein 7.4 (6.7-8.2) g/dl Albumin 3.0 L (3.2-5.5) g/dl Globulin 4.4 Albumin/Globulin Ratio 0.68 Meds: Medications Discontinued Medications Generic Name Dose Route Start Last Admin Trade Name Freq PRN Reason Stop Dose Admin Lactulose 20 gm 04/08/18 01:06 04/08/18 01:11 Cephulac PO 04/08/18 01:07 20 gm ONETIME ONE Administration - Re-Assessments/Exams Free Text/Narrative Re-Assessment/Exam: 04/08/18 01:[address] Ghosh @ who kindly accepted pt Departure - Departure Time of Disposition: 01:20 Disposition: DC/Tfer to Acute Hospital 02 Condition: Good Clinical Impression: Hepatic encephalopathy, Hyperammonemia - Discharge Information Forms: Interfacility Transfer EMTALA - My Orders Last 24 Hours: My Active Orders 04/08/18 01:12 INR,PT,PROTHROMBIN TIME [COAG] Stat PTT,PARTIAL THROMBOPLSTIN TIME [COAG] Stat - Assessment/Plan Last 24 Hours: My Active Orders 04/08/18 01:12 INR,PT,PROTHROMBIN TIME [COAG] Stat PTT,PARTIAL THROMBOPLSTIN TIME [COAG] Stat
[2018-04-08 00:16] LABS: CHLORIDE,CL 106 mmol/L (101-111); SODIUM,NA 133 mmol/L (135-145)
[2018-04-08] MEDS ORDERED: Lactulose Soln 10 GM/15 ML 30 ML UD Cup PO ONE (01:06)
[2018-04-08] MEDS ORDERED: Lactulose Soln 10 GM/15 ML 30 ML UD Cup ONE (01:30)
== END 2018-04-08 01:57 ==
LOC: DL.ED 23:18
DX: K72.90 Hepatic failure, unspecified without coma (principal); E72.20 Disorder of urea cycle metabolism, unspecified; E11.319 Type 2 diabetes mellitus with unspecified diabetic retinopathy without macular edema; E78.00 Pure hypercholesterolemia, unspecified; E03.9 Hypothyroidism, unspecified; I10 Essential (primary) hypertension; F17.210 Nicotine dependence, cigarettes, uncomplicated; Z88.1 Allergy status to other antibiotic agents; Z79.82 Long term (current) use of aspirin; Z79.4 Long term (current) use of insulin; Z79.899 Other long term (current) drug therapy
CPT/HCPCS: 36415; 80053; 82140; 85025; 85610; 85730; 99284; A9270

== ENCOUNTER 2018-07-21 23:10 | Emergency (ER) | payer MEDICAID, OTHER ==
[2018-07-21 23:22] VITALS: BP 137/80
[2018-07-22 00:07] LABS: ANION GAP 8.7; CHLORIDE,CL 111 mmol/L (101-111); SODIUM,NA 140 mmol/L (135-145)
--- NOTE | 2018-07-22 00:11 | EDM.PDOC ---
ED HPI GENERAL MEDICAL PROBLEM - General Chief Complaint: General Stated Complaint: PNEUMONIA [id number] Time Seen by Provider: 07/22/18 00:03 Source of Information: Reports: Patient History Limitations: Reports: No Limitations - History of Present Illness INITIAL COMMENTS - FREE TEXT/NARRATIVE: This 48 yo female patient reports to the ED to have her ammonia level checked. The patient reports she has been experiencing a headache for the past week. The patient did not go to the clinic to be checked due to them taking 3 days to get her level back. The patient reports that she has diabetes and liver problems. The patient reports she has not missed any doses of her medications. The patient reports that the last time she felt like this was when she was sent to [place] for continued treatment. Onset: Unknown/Unsure Duration: Week(s):, Constant Location: Reports: Head, Generalized Quality: Reports: Other Severity: Moderate Improves with: Reports: None Worsens with: Reports: None Associated Symptoms: Reports: No Other Symptoms Headache Pain Score (Numeric/FACES): 5 - Related Data Allergies Allergy/AdvReac Type Severity Reaction Status Date / Time ceftriaxone [From Rocephin] Allergy Intermediate Hives Verified 04/07/18 23:31 Home Meds: Home Meds Aspirin [Thuy Chewable Aspirin] 81 mg PO DAILY 02/14/15 [History] Insulin Aspart [NovoLOG] 20 units SUBCUT TIDM 02/14/15 [History] Lisinopril 5 mg PO DAILY 02/14/15 [History] Insulin Detemir [Levemir] 30 units SQ BEDTIME 05/01/17 [History] Levothyroxine 150 mcg PO ACBREAKFAST 05/01/17 [History] Triamcinolone Acetonide [Triamcinolone Acetonide 0.1% Crm] 1 applic TOP QID 11/05 [History] Calcium Citrate/Vitamin D3 [Calcium Citrate - Vit D Tablet] 1 tab PO BID [History] Ferrous Gluconate 324 mg PO DAILY 02/28/18 [History] Rifaximin [Xifaxan] 550 mg PO BID 30 Days tablet 03/02/18 [Rx] HCTZ/Triamterene [Maxzide 25-37.5 MG] 1 tab PO BID 07/21/18 [History] Lactulose 15 ml PO TID 07/22/18 [History] Past Medical History HEENT History: Reports: Impaired Vision Other HEENT History: legally blind per [facility] reports, blindness to right eye, presbyopia, diabetic retinopathy Cardiovascular History: Reports: High Cholesterol, Hypertension, Other (See Below) Other Cardiovascular History: MURMUR Respiratory History: Reports: None Gastrointestinal History: Reports: Cirrhosis, Other (See Below) Other Gastrointestinal History: HX OF ABNORMAL LIVER STUDIES Genitourinary History: Reports: None [employer]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 DEPARTMENT History: Reports: None 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 History: Reports: None Neurological History: Reports: None Psychiatric History: Reports: Addiction Other Psychiatric History: acute alcohol abuse Endocrine/Metabolic History: Reports: Diabetes, Type II, Hypothyroidism Hematologic History: Reports: Anemia Other Hematologic History: acquired thrombocytopenia Immunologic History: Reports: None Oncologic (Cancer) History: Reports: None Dermatologic History: Reports: Cellulitis, Other (See Below) Other Dermatologic History: RIGHT BREAST CELLULITUS - Past Surgical History HEENT Surgical History: Reports: None Cardiovascular Surgical History: Reports: None Respiratory Surgical History: Reports: None GI Surgical History: Reports: Colonoscopy 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 Surgical History: Reports: None Oncologic Surgical History: Reports: Mastectomy Other Oncologic Surgeries/Procedures: RIGHT MASTECTOMY Dermatological Surgical History: Reports: Other (See Below) Social & Family History - Family History Family Medical History: Unobtainable - Tobacco Use Smoking Status *Q: Current Some Day Smoker Years of Tobacco use: 35 Packs/Tins Daily: 0.1 - Caffeine Use Caffeine Use: Reports: Coffee Caffeine Use Comment: 1 8oz cup daily - Recreational Drug Use Recreational Drug Use: No - Living Situation & Occupation Living situation: Reports: with Family Occupation: Employed ED ROS GENERAL - Review of Systems Review Of Systems: ROS reveals no pertinent complaints other than HPI. ED EXAM, GENERAL - Physical Exam Exam: See Below Exam Limited By: No Limitations General Appearance: Alert, WD/WN, Mild Distress Eye Exam: Bilateral Eye: EOMI, Normal Inspection, PERRL Ears: Normal External Exam, Normal Canal, Hearing Grossly Normal, Normal TMs Nose: Normal Inspection, Normal Mucosa, No Blood Throat/Mouth: Normal Inspection, Normal Lips, Normal Teeth, Normal Gums, Normal Oropharynx, Normal Voice, No Airway Compromise Head: Atraumatic, Normocephalic Neck: Normal Inspection, Supple, Non-Tender, Full Range of Motion Respiratory/Chest: No Respiratory Distress, Lungs Clear, Normal Breath Sounds, No Accessory Muscle Use, Chest Non-Tender Cardiovascular: Normal Peripheral Pulses, Regular Rate, Rhythm, No Edema, No Gallop, No JVD, No Murmur, No Rub GI/Abdominal: Normal Bowel Sounds, Soft, Non-Tender, No Organomegaly, No Distention, No Abnormal Bruit, No Mass (Female) Exam: Deferred Rectal (Female) Exam: Deferred Back Exam: Normal Inspection, Full Range of Motion, NT Extremities: Normal Inspection, Normal Range of Motion, Non-Tender, Normal Capillary Refill, No Pedal Edema Neurological: Alert, Oriented, CN II-XII Intact, Normal Cognition, Normal Gait, Normal Reflexes, No Motor/Sensory Deficits Psychiatric: Normal Affect, Normal Mood Skin Exam: Warm, Dry, Intact, Normal Color, No Rash Lymphatic: No Adenopathy Course - Vital Signs Last Recorded V/S: Last Vital Signs Temp 36.4 C 07/21/18 23:21 Pulse 64 07/21/18 23:21 Resp 18 07/21/18 23:21 BP 137/80 07/21/18 23:21 Pulse Ox 100 07/21/18 23:21 - Orders/Labs/Meds Orders: Active Orders 24 hr Category Date Time Status DRUG SCREEN URINE BIORAD [URCHEM] Stat Lab 07/22/18 00:16 Ordered UA W/MICROSCOPIC [URIN] Stat Lab 07/22/18 00:16 Ordered Labs: Laboratory Tests 07/21/18 07/21/18 07/21/18 Range/Units 23:41 23:41 23:41 WBC 2.9 L (5.0-10.0) 10^3/uL RBC 3.42 L (4.2-5.4) 10^6/uL Hgb 10.8 L (12.0-16.0) g/dL Hct 32.5 L (37.0-47.0) % MCV 95.0 (80-100) fL MCH 31.6 (27.0-34.0) pg MCHC 33.2 (33.0-35.0) g/dL Plt Count 54 L (150-450) 10^3/uL Neut % (Auto) 46.0 (42.2-75.2) % Lymph % (Auto) 33.2 (20.5-50.1) % [place] % (Auto) 15.4 H (2-8) % Eos % (Auto) 5.1 H (1.0-3.0) % Baso % (Auto) 0.3 (0.0-1.0) % Sodium (135-145) mmol/L Potassium (3.6-5.0) mmol/L Chloride (101-111) mmol/L Carbon Dioxide (21.0-31.0) mmol/L Anion Gap BUN (7-18) mg/dL Creatinine (0.6-1.3) mg/dL Est Cr Clr Drug Dosing mL/min Estimated GFR (MDRD) BUN/Creatinine Ratio Glucose (74-105) mg/dL Calcium (8.4-10.2) mg/dl Total Bilirubin (0.2-1.0) mg/dL AST (10-42) IU/L ALT (10-60) IU/L Alkaline Phosphatase (42-121) IU/L Ammonia 153 H (11-35) umol/L Total Protein (6.7-8.2) g/dl Albumin (3.2-5.5) g/dl Globulin Albumin/Globulin Ratio Ethyl Alcohol < 5 mg/dL 07/21/18 Range/Units 23:41 WBC (5.0-10.0) 10^3/uL RBC (4.2-5.4) 10^6/uL Hgb (12.0-16.0) g/dL Hct (37.0-47.0) % MCV (80-100) fL MCH (27.0-34.0) pg MCHC (33.0-35.0) g/dL Plt Count (150-450) 10^3/uL Neut % (Auto) (42.2-75.2) % Lymph % (Auto) (20.5-50.1) % [place] % (Auto) (2-8) % Eos % (Auto) (1.0-3.0) % Baso % (Auto) (0.0-1.0) % Sodium 140 (135-145) mmol/L Potassium 3.7 (3.6-5.0) mmol/L Chloride 111 (101-111) mmol/L Carbon Dioxide 24.0 (21.0-31.0) mmol/L Anion Gap 8.7 BUN 15 (7-18) mg/dL Creatinine 0.6 (0.6-1.3) mg/dL Est Cr Clr Drug Dosing 109.08 mL/min Estimated GFR (MDRD) > 60 BUN/Creatinine Ratio 25.00 Glucose 119 H (74-105) mg/dL Calcium 8.5 (8.4-10.2) mg/dl Total Bilirubin 1.1 H (0.2-1.0) mg/dL AST 48 H (10-42) IU/L ALT 39 (10-60) IU/L Alkaline Phosphatase 171 H (42-121) IU/L Ammonia (11-35) umol/L Total Protein 6.5 L (6.7-8.2) g/dl Albumin 2.9 L (3.2-5.5) g/dl Globulin 3.6 Albumin/Globulin Ratio 0.81 Ethyl Alcohol mg/dL Meds: Medications Discontinued Medications Generic Name Dose Route Start Last Admin Trade Name Freq PRN Reason Stop Dose Admin Lactulose 20 gm 07/22/18 00:15 07/22/18 00:22 Cephulac PO 07/22/18 00:16 20 gm ONETIME ONE Administration Departure - Departure Time of Disposition: 00:28 Disposition: Home, Self-Care 01 Condition: Fair Clinical Impression: Hyperammonemia - Discharge Information *PRESCRIPTION DRUG MONITORING PROGRAM REVIEWED*: Not Applicable *COPY OF PRESCRIPTION DRUG MONITORING REPORT IN PATIENT LAYLA: Not Applicable Forms: ED Department Discharge Care Plan Goals: The patient was advised of the examination and lab results during the visit. While the patient was in the emergency department a consult call was placed to Dr. Kerns (Hospitalist with [facility] in [place]). Dr. Kerns advised to increase the patient's home Lactulose to 30 mL by mouth 4 times per day. The patient should call her primary care facility on Monday for continued evaluation and further management. If the patient has any additional symptoms or concerns, the patient should visit her primary care facility or return to the emergency department. - My Orders Last 24 Hours: My Active Orders 07/22/18 00:16 DRUG SCREEN URINE BIORAD [URCHEM] Stat UA W/MICROSCOPIC [URIN] Stat - Assessment/Plan Last 24 Hours: My Active Orders 07/22/18 00:16 DRUG SCREEN URINE BIORAD [URCHEM] Stat UA W/MICROSCOPIC [URIN] Stat
[2018-07-22] MEDS ORDERED: Lactulose Soln 10 GM/15 ML 30 ML UD Cup PO ONE (00:15)
== END 2018-07-22 00:38 | disposition home or self-care (01) ==
LOC: DL.ED 23:10
DX: E72.20 Disorder of urea cycle metabolism, unspecified (principal); F17.210 Nicotine dependence, cigarettes, uncomplicated; I10 Essential (primary) hypertension; E78.00 Pure hypercholesterolemia, unspecified; E11.9 Type 2 diabetes mellitus without complications; E03.9 Hypothyroidism, unspecified; Z79.4 Long term (current) use of insulin; Z79.899 Other long term (current) drug therapy; Z79.82 Long term (current) use of aspirin; Z88.1 Allergy status to other antibiotic agents
CPT/HCPCS: 36415; 80053; 80305; 81001; 82140; 85025; 99283; A9270; G0480

== ENCOUNTER 2018-07-31 23:28 | Emergency (ER) | payer MEDICAID ==
[2018-07-31 23:35] VITALS: BP 156/86
[2018-07-31] MEDS ORDERED: Ondansetron 4 MG Tab.DIS PO ONE (23:47)
[2018-08-01 00:24] LABS: ANION GAP 7.7; CHLORIDE,CL 109 mmol/L (101-111); SODIUM,NA 139 mmol/L (135-145)
--- NOTE | 2018-08-01 00:28 | EDM.PDOC ---
ED HPI GENERAL MEDICAL PROBLEM - General Chief Complaint: General Stated Complaint: SICK [id number] Time Seen by Provider: 07/31/18 23:35 Source of Information: Reports: Patient History Limitations: Reports: No Limitations - History of Present Illness INITIAL COMMENTS - FREE TEXT/NARRATIVE: ED with c/o headache today. Runny nose some SOB, was at [facility] today for same and had lab drawn, does not know results. Was seen 10 days ago for same Lactulose increased. Reports stools only every 2 days even with increase in Lactulose. Nausea today no vomiting. last ate at 8pm today. No fever or chills. Unsure of blood sugar, did not check today. Headache Pain Score (Numeric/FACES): 8 - Related Data Allergies Allergy/AdvReac Type Severity Reaction Status Date / Time ceftriaxone [From Rocephin] Allergy Intermediate Hives Verified 07/31/18 23:32 Home Meds: Home Meds Aspirin [Thuy Chewable Aspirin] 81 mg PO DAILY 02/14/15 [History] Insulin Aspart [NovoLOG] 20 units SUBCUT TIDM 02/14/15 [History] Lisinopril 5 mg PO DAILY 02/14/15 [History] Insulin Detemir [Levemir] 30 units SQ BEDTIME 05/01/17 [History] Levothyroxine 150 mcg PO ACBREAKFAST 05/01/17 [History] Triamcinolone Acetonide [Triamcinolone Acetonide 0.1% Crm] 1 applic TOP QID 11/05 [History] Calcium Citrate/Vitamin D3 [Calcium Citrate - Vit D Tablet] 1 tab PO BID [History] Ferrous Gluconate 324 mg PO DAILY 02/28/18 [History] Rifaximin [Xifaxan] 550 mg PO BID 30 Days tablet 03/02/18 [Rx] HCTZ/Triamterene [Maxzide 25-37.5 MG] 1 tab PO BID 07/21/18 [History] Lactulose 30 ml PO QID 07/22/18 [History] Past Medical History HEENT History: Reports: Impaired Vision Other HEENT History: legally blind per [facility] reports, blindness to right eye, presbyopia, diabetic retinopathy Cardiovascular History: Reports: High Cholesterol, Hypertension, Other (See Below) Other Cardiovascular History: MURMUR Respiratory History: Reports: None Gastrointestinal History: Reports: Cirrhosis, Other (See Below) Other Gastrointestinal History: HX OF ABNORMAL LIVER STUDIES Genitourinary History: Reports: 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 History: Reports: None Neurological History: Reports: None Psychiatric History: Reports: Addiction Other Psychiatric History: acute alcohol abuse Endocrine/Metabolic History: Reports: Diabetes, Type II, Hypothyroidism Hematologic History: Reports: Anemia Other Hematologic History: acquired thrombocytopenia Immunologic History: Reports: None Oncologic (Cancer) History: Reports: None Dermatologic History: Reports: Cellulitis, Other (See Below) Other Dermatologic History: RIGHT BREAST CELLULITUS - Past Surgical History HEENT Surgical History: Reports: None Cardiovascular Surgical History: Reports: None Respiratory Surgical History: Reports: None GI Surgical History: Reports: Colonoscopy Female Surgical History: Reports: Mastectomy 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 Surgical History: Reports: None Oncologic Surgical History: Reports: Mastectomy Other Oncologic Surgeries/Procedures: RIGHT MASTECTOMY Dermatological Surgical History: Reports: Other (See Below) Social & Family History - Family History Family Medical History: Unobtainable - Tobacco Use Smoking Status *Q: Current Some Day Smoker Years of Tobacco use: 35 Packs/Tins Daily: 0.1 - Caffeine Use Caffeine Use: Reports: Coffee Caffeine Use Comment: 1 8oz cup daily - Recreational Drug Use Recreational Drug Use: No - Living Situation & Occupation Living situation: Reports: with Family Occupation: Employed ED ROS GENERAL - Review of Systems Review Of Systems: ROS reveals no pertinent complaints other than HPI. Constitutional: Reports: Malaise HEENT: Reports: Rhinitis Respiratory: Reports: Shortness of Breath Cardiovascular: Reports: No Symptoms Endocrine: Reports: No Symptoms GI/Abdominal: Reports: Nausea. Denies: Distension, Vomiting 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: Reports: No Symptoms Skin: Reports: No Symptoms Neurological: Reports: Headache ED EXAM, GENERAL - Physical Exam Exam: See Below Exam Limited By: No Limitations General Appearance: Alert, Mild Distress Eye Exam: Bilateral Eye: EOMI, PERRL Ears: Hearing Grossly Normal, Normal TMs Nose: Nasal Drainage (clear) Throat/Mouth: Normal Inspection Head: Atraumatic, Normocephalic Neck: Normal Inspection, Full Range of Motion. No: Lymphadenopathy (L), Lymphadenopathy (R) Respiratory/Chest: No Respiratory Distress, Lungs Clear, Normal Breath Sounds Cardiovascular: Normal Peripheral Pulses, Regular Rate, Rhythm GI/Abdominal: Abnormal Bowel Sounds (hyperactive). No: Distended, Guarding Back Exam: Normal Inspection Extremities: Normal Inspection, Normal Range of Motion Neurological: Alert, Oriented, Normal Cognition, Normal Gait Psychiatric: Flat Affect Skin Exam: Warm, Dry, Intact. No: Jaundice Course - Vital Signs Last Recorded V/S: Last Vital Signs Temp 97.2 F 07/31/18 23:34 Pulse 68 07/31/18 23:34 Resp 19 07/31/18 23:34 BP 156/86 H 07/31/18 23:34 Pulse Ox 99 07/31/18 23:34 - Orders/Labs/Meds Orders: Active Orders 24 hr Category Date Time Status Chest 1V Frontal [CR] Urgent Exams 07/31/18 23:37 Taken Labs: Laboratory Tests 07/31/18 07/31/18 07/31/18 Range/Units 23:52 23:52 23:52 WBC 2.7 L (5.0-10.0) 10^3/uL RBC 3.45 L (4.2-5.4) 10^6/uL Hgb 10.9 L (12.0-16.0) g/dL Hct 32.5 L (37.0-47.0) % MCV 94.2 (80-100) fL MCH 31.6 (27.0-34.0) pg MCHC 33.5 (33.0-35.0) g/dL Plt Count 64 L (150-450) 10^3/uL Neut % (Auto) 51.2 (42.2-75.2) % Lymph % (Auto) 30.8 (20.5-50.1) % [place] % (Auto) 13.5 H (2-8) % Eos % (Auto) 4.1 H (1.0-3.0) % Baso % (Auto) 0.4 (0.0-1.0) % Sodium 139 (135-145) mmol/L Potassium 3.7 (3.6-5.0) mmol/L Chloride 109 (101-111) mmol/L Carbon Dioxide 26.0 (21.0-31.0) mmol/L Anion Gap 7.7 BUN 12 (7-18) mg/dL Creatinine 0.6 (0.6-1.3) mg/dL Est Cr Clr Drug Dosing 113.16 mL/min Estimated GFR (MDRD) > 60 BUN/Creatinine Ratio 20.00 Glucose 182 H (74-105) mg/dL Calcium 8.4 (8.4-10.2) mg/dl Total Bilirubin 1.1 H (0.2-1.0) mg/dL AST 55 H (10-42) IU/L ALT 42 (10-60) IU/L Alkaline Phosphatase 158 H (42-121) IU/L Ammonia 267 H (11-35) umol/L Total Protein 6.5 L (6.7-8.2) g/dl Albumin 2.8 L (3.2-5.5) g/dl Globulin 3.7 Albumin/Globulin Ratio 0.76 Amylase 65 (28-100) U/L Lipase 53 H (22-51) U/L Urine Color (YELLOW) Urine Appearance (CLEAR) Urine pH (5.0-9.0) Ur Specific [place] (1.005-1.030) Urine Protein (NEGATIVE) Urine Glucose (UA) (NEGATIVE) Urine Ketones (NEGATIVE) Urine Occult Blood (NEGATIVE) Urine Nitrite (NEGATIVE) Urine Bilirubin (NEGATIVE) Urine Urobilinogen (0.2-1.0) mg/dL Ur Leukocyte Esterase (NEGATIVE) Urine RBC /HPF Urine WBC (0-5/HPF) /HPF Ur Epithelial Cells /HPF Amorphous Sediment (0/HPF) /HPF Urine Bacteria (0-FEW/HPF) /HPF Urine Mucus /LPF Urine Opiates Screen (NEGATIVE) Ur Oxycodone Screen (NEGATIVE) Urine Methadone Screen (NEGATIVE) Ur Barbiturates Screen (NEGATIVE) U Tricyclic Antidepress (NEGATIVE) Ur Phencyclidine Scrn (NEGATIVE) Ur Amphetamine Screen (NEGATIVE) U Methamphetamines Scrn (NEGATIVE) Urine MDMA Screen (NEGATIVE) U Benzodiazepines Scrn (NEGATIVE) Urine Cocaine Screen (NEGATIVE) U Marijuana (THC) Screen (NEGATIVE) Ethyl Alcohol 5 mg/dL 08/01/18 08/01/18 Range/Units 00:13 00:13 WBC (5.0-10.0) 10^3/uL RBC (4.2-5.4) 10^6/uL Hgb (12.0-16.0) g/dL Hct (37.0-47.0) % MCV (80-100) fL MCH (27.0-34.0) pg MCHC (33.0-35.0) g/dL Plt Count (150-450) 10^3/uL Neut % (Auto) (42.2-75.2) % Lymph % (Auto) (20.5-50.1) % [place] % (Auto) (2-8) % Eos % (Auto) (1.0-3.0) % Baso % (Auto) (0.0-1.0) % Sodium (135-145) mmol/L Potassium (3.6-5.0) mmol/L Chloride (101-111) mmol/L Carbon Dioxide (21.0-31.0) mmol/L Anion Gap BUN (7-18) mg/dL Creatinine (0.6-1.3) mg/dL Est Cr Clr Drug Dosing mL/min Estimated GFR (MDRD) BUN/Creatinine Ratio Glucose (74-105) mg/dL Calcium (8.4-10.2) mg/dl Total Bilirubin (0.2-1.0) mg/dL AST (10-42) IU/L ALT (10-60) IU/L Alkaline Phosphatase (42-121) IU/L Ammonia (11-35) umol/L Total Protein (6.7-8.2) g/dl Albumin (3.2-5.5) g/dl Globulin Albumin/Globulin Ratio Amylase (28-100) U/L Lipase (22-51) U/L Urine Color Yellow (YELLOW) Urine Appearance Clear (CLEAR) Urine pH 7.0 (5.0-9.0) Ur Specific [place] 1.015 (1.005-1.030) Urine Protein Negative (NEGATIVE) Urine Glucose (UA) Negative (NEGATIVE) Urine Ketones Negative (NEGATIVE) Urine Occult Blood Small H (NEGATIVE) Urine Nitrite Negative (NEGATIVE) Urine Bilirubin Negative (NEGATIVE) Urine Urobilinogen 0.2 (0.2-1.0) mg/dL Ur Leukocyte Esterase Trace H (NEGATIVE) Urine RBC 5-10 H /HPF Urine WBC 0-5 (0-5/HPF) /HPF Ur Epithelial Cells Rare /HPF Amorphous Sediment Rare (0/HPF) /HPF Urine Bacteria Rare (0-FEW/HPF) /HPF Urine Mucus Rare /LPF Urine Opiates Screen Negative (NEGATIVE) Ur Oxycodone Screen Negative (NEGATIVE) Urine Methadone Screen Negative (NEGATIVE) Ur Barbiturates Screen Negative (NEGATIVE) U Tricyclic Antidepress Negative (NEGATIVE) Ur Phencyclidine Scrn Negative (NEGATIVE) Ur Amphetamine Screen Negative (NEGATIVE) U Methamphetamines Scrn Negative (NEGATIVE) Urine MDMA Screen Negative (NEGATIVE) U Benzodiazepines Scrn Negative (NEGATIVE) Urine Cocaine Screen Negative (NEGATIVE) U Marijuana (THC) Screen Negative (NEGATIVE) Ethyl Alcohol mg/dL Meds: Medications Discontinued Medications Generic Name Dose Route Start Last Admin Trade Name Freq PRN Reason Stop Dose Admin Sodium Chloride 1,000 mls @ 100 mls/hr 08/01/18 02:15 08/01/18 02:11 Normal Saline IV 100 mls/hr ASDIRECTED KOMAL Administration Ketorolac Tromethamine 30 mg 08/01/18 00:57 08/01/18 01:03 Toradol IM 08/01/18 00:58 30 mg ONETIME ONE Administration Lactulose 30 gm 08/01/18 00:46 08/01/18 00:58 Cephulac PO 08/01/18 00:47 30 gm ONETIME ONE Administration Metoclopramide HCl 5 mg 08/01/18 02:00 08/01/18 02:11 Reglan IVPUSH 08/01/18 02:01 5 mg ONETIME ONE Administration Ondansetron HCl 4 mg 07/31/18 23:47 08/01/18 00:02 Zofran Odt PO 07/31/18 23:48 4 mg ONETIME ONE Administration - Radiology Interpretation Free Text/Narrative:: Name: SANJEEV EDMONDS Age: 48Years F Date: 07/31/2018 SSN: -- : [id number] Study: XR CHEST 1 VIEW Requesting Physician: ELLA ALVAREZ Images: 1 Addl Studies: Provided Clinical History: Contrast: Contrast Medium: Contrast Amount: Contrast Method: CONFIDENTIALITY STATEMENT This report is intended only for use by the referring physician, and only in accordance with law. If you received this in error, call [phone]. Page 1 of 1 EXAM: XR Chest, 1 View EXAM DATE/TIME: 07/31/2018 11:44 PM CLINICAL HISTORY: 48 years old, female; Signs and symptoms; Shortness of breath TECHNIQUE: XR of the chest, 1 view. COMPARISON: CR - Ribs 2V w Chest Lt 01/23/2018 4:42 PM FINDINGS: Lungs: Unremarkable. No consolidation. Pleural space: Unremarkable. No pleural effusion. No pneumothorax. Heart/Mediastinum: Unremarkable. No cardiomegaly. Bones/joints: Unremarkable for patient's age. IMPRESSION: No acute findings. Thank you for allowing us to participate in the care of your patient. Dictated and Authenticated by: Nathan Jordan MD 08/01/2018 12:31 AM Central Time ([place] & [place] - Re-Assessments/Exams Free Text/Narrative Re-Assessment/Exam: 08/01/18 01:[address] Madhuri NIEVES hospitalist, recommends higher level of care at [facility]. Dr De accepting of patient in transfer. [facility] to transport. 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
[2018-08-01] MEDS ORDERED: Lactulose Soln 10 GM/15 ML 30 ML UD Cup PO ONE (00:46)
[2018-08-01] MEDS ORDERED: Ketorolac 30 MG/ML SDV IM ONE (00:57)
[2018-08-01] MEDS ORDERED: Metoclopramide 10 MG/2 ML SDV IVPUSH ONE (02:00)
[2018-08-01] MEDS ORDERED: Sodium Chloride 0.9% 1,000 ML IV SCH (02:15)
== END 2018-08-01 02:27 ==
LOC: DL.ED 23:28
DX: K72.90 Hepatic failure, unspecified without coma (principal); E72.20 Disorder of urea cycle metabolism, unspecified; I10 Essential (primary) hypertension; E11.9 Type 2 diabetes mellitus without complications; E03.9 Hypothyroidism, unspecified; F17.210 Nicotine dependence, cigarettes, uncomplicated; Z79.4 Long term (current) use of insulin; Z79.899 Other long term (current) drug therapy; Z79.82 Long term (current) use of aspirin; Z88.1 Allergy status to other antibiotic agents
CPT/HCPCS: 36415; 71045; 80053; 80305; 81001; 82140; 82150; 83690; 85025; 96372; 96374; 99284; A9270; G0480; J1885; J2765; J7030

== ENCOUNTER 2019-02-11 05:36 | Emergency (ER) | payer MEDICAID, OTHER ==
--- NOTE | 2019-02-11 05:36 | EDM.PDOC ---
<[place] - Last Filed: 02/11/19 06:44> ED HPI GENERAL MEDICAL PROBLEM - General Chief Complaint: Gastrointestinal Problem Stated Complaint: AMBULANCE-UNKNOWN Time Seen by Provider: 02/11/19 05:34 Source of Information: Reports: Patient History Limitations: Reports: No Limitations - History of Present Illness INITIAL COMMENTS - FREE TEXT/NARRATIVE: woke up with nausea, sweaty, SOB, denies CP. states had abd tapped last month and might need repeat. Headache Pain Score (Numeric/FACES): 6 - Related Data Allergies Allergy/AdvReac Type Severity Reaction Status Date / Time ceftriaxone [From Rocephin] Allergy Intermediate Hives Verified 07/31/18 23:32 Home Meds: Home Meds Aspirin [Thuy Chewable Aspirin] 81 mg PO DAILY 02/14/15 [History] Insulin Aspart [NovoLOG] 20 units SUBCUT TIDM 02/14/15 [History] Lisinopril 5 mg PO DAILY 02/14/15 [History] Insulin Detemir [Levemir] 30 units SQ BEDTIME 05/01/17 [History] Levothyroxine 150 mcg PO ACBREAKFAST 05/01/17 [History] Triamcinolone Acetonide [Triamcinolone Acetonide 0.1% Crm] 1 applic TOP QID 11/05 [History] Calcium Citrate/Vitamin D3 [Calcium Citrate - Vit D Tablet] 1 tab PO BID [History] Ferrous Gluconate 324 mg PO DAILY 02/28/18 [History] Rifaximin [Xifaxan] 550 mg PO BID 30 Days tablet 03/02/18 [Rx] HCTZ/Triamterene [Maxzide 25-37.5 MG] 1 tab PO BID 07/21/18 [History] Lactulose 30 ml PO QID 07/22/18 [History] Past Medical History HEENT History: Reports: Impaired Vision Other HEENT History: legally blind per [facility]HS reports, blindness to right eye, presbyopia, diabetic retinopathy Cardiovascular History: Reports: High Cholesterol, Hypertension, Other (See Below) Other Cardiovascular History: MURMUR Respiratory History: Reports: None Gastrointestinal History: Reports: Cirrhosis, Other (See Below) Other Gastrointestinal History: HX OF ABNORMAL LIVER STUDIES Genitourinary History: Reports: None 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: 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 History: Reports: None Neurological History: Reports: None Psychiatric History: Reports: Addiction Other Psychiatric History: acute alcohol abuse Endocrine/Metabolic History: Reports: Diabetes, Type II, Hypothyroidism Hematologic History: Reports: Anemia Other Hematologic History: acquired thrombocytopenia Immunologic History: Reports: None Oncologic (Cancer) History: Reports: None Dermatologic History: Reports: Cellulitis, Other (See Below) Other Dermatologic History: RIGHT BREAST CELLULITUS - Past Surgical History HEENT Surgical History: Reports: None Cardiovascular Surgical History: Reports: None Respiratory Surgical History: Reports: None GI Surgical History: Reports: Colonoscopy Female Surgical History: Reports: Mastectomy 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 Surgical History: Reports: None Oncologic Surgical History: Reports: Mastectomy Other Oncologic Surgeries/Procedures: RIGHT MASTECTOMY Dermatological Surgical History: Reports: Other (See Below) Social & Family History - Family History Family Medical History: Unobtainable - Caffeine Use Caffeine Use: Reports: Coffee Caffeine Use Comment: 1 8oz cup daily - Living Situation & Occupation Living situation: Reports: with Family Occupation: Employed ED ROS GENERAL - Review of Systems Review Of Systems: ROS reveals no pertinent complaints other than HPI. ED EXAM, GI/ABD - Physical Exam Exam: See Below Exam Limited By: No Limitations General Appearance: Alert, WD/WN, Mild Distress, Other (general discomfort) Ears: Hearing Grossly Normal Throat/Mouth: Normal Voice, No Airway Compromise Head: Atraumatic Neck: Non-Tender, Full Range of Motion Respiratory/Chest: No Respiratory Distress, Rhonchi Cardiovascular: Regular Rate, Rhythm GI/Abdominal Exam: Soft, Distended, Tender, Other (ascites). No: Guarding, Rigid, Rebound Neurological: Alert, Oriented, Normal Cognition, Normal Gait, No Motor/Sensory Deficits Psychiatric: Flat Affect Skin Exam: Warm, Dry, Normal Color Lymphatic: No Adenopathy Course - Vital Signs Last Recorded V/S: Last Vital Signs Temp 36.4 C 02/11/19 05:33 Pulse 68 02/11/19 05:33 Resp 14 02/11/19 05:33 BP 106/61 02/11/19 05:33 Pulse Ox 99 02/11/19 05:33 - Orders/Labs/Meds Orders: Active Orders 24 hr Category Date Time Status EKG Documentation Completion [RC] STAT Care 02/11/19 05:33 Active CULTURE BLOOD [BC] Stat Lab 02/11/19 05:45 Received CULTURE URINE [RM] Stat Lab 02/11/19 05:35 Received Labs: Laboratory Tests 02/11/19 02/11/19 02/11/19 Range/Units 05:35 05:45 05:45 WBC 3.7 L (5.0-10.0) 10^3/uL RBC 3.70 L (4.2-5.4) 10^6/uL Hgb 12.1 (12.0-16.0) g/dL Hct 35.7 L (37.0-47.0) % MCV 96.5 (80-100) fL MCH 32.7 (27.0-34.0) pg MCHC 33.9 (33.0-35.0) g/dL Plt Count 57 L (150-450) 10^3/uL Neut % (Auto) 63.5 (42.2-75.2) % Lymph % (Auto) 19.3 L (20.5-50.1) % [place] % (Auto) 13.9 H (2-8) % Eos % (Auto) 3.0 (1.0-3.0) % Baso % (Auto) 0.3 (0.0-1.0) % Sodium 137 (135-145) mmol/L Potassium 3.9 (3.6-5.0) mmol/L Chloride 106 (101-111) mmol/L Carbon Dioxide 22.0 (21.0-31.0) mmol/L Anion Gap 12.9 BUN 12 (7-18) mg/dL Creatinine 0.7 (0.6-1.3) mg/dL Est Cr Clr Drug Dosing 93.50 mL/min Estimated GFR (MDRD) > 60 BUN/Creatinine Ratio 17.14 Glucose 141 H (74-105) mg/dL Lactic Acid (0.5-2.2) mmol/L Calcium 8.2 L (8.4-10.2) mg/dl Total Bilirubin 1.5 H (0.2-1.0) mg/dL AST 41 (10-42) IU/L ALT 28 (10-60) IU/L Alkaline Phosphatase 137 H (42-121) IU/L Troponin I < 0.02 (0.00-0.02) ng/ml Total Protein 6.9 (6.7-8.2) g/dl Albumin 2.7 L (3.2-5.5) g/dl Globulin 4.2 Albumin/Globulin Ratio 0.64 Urine Color Yellow (YELLOW) Urine Appearance Slightly cloudy (CLEAR) Urine pH 8.0 (5.0-9.0) Ur Specific [place] 1.010 (1.005-1.030) Urine Protein Negative (NEGATIVE) Urine Glucose (UA) Negative (NEGATIVE) Urine Ketones Negative (NEGATIVE) Urine Occult Blood Trace-lysed H (NEGATIVE) Urine Nitrite Negative (NEGATIVE) Urine Bilirubin Negative (NEGATIVE) Urine Urobilinogen 0.2 (0.2-1.0) mg/dL Ur Leukocyte Esterase Trace H (NEGATIVE) Urine RBC 0-5 /HPF Urine WBC 0-5 (0-5/HPF) /HPF Ur Epithelial Cells Few /HPF Urine Bacteria Not seen (0-FEW/HPF) /HPF Urine Mucus Few H /LPF 02/11/19 Range/Units 05:45 WBC (5.0-10.0) 10^3/uL RBC (4.2-5.4) 10^6/uL Hgb (12.0-16.0) g/dL Hct (37.0-47.0) % MCV (80-100) fL MCH (27.0-34.0) pg MCHC (33.0-35.0) g/dL Plt Count (150-450) 10^3/uL Neut % (Auto) (42.2-75.2) % Lymph % (Auto) (20.5-50.1) % [place] % (Auto) (2-8) % Eos % (Auto) (1.0-3.0) % Baso % (Auto) (0.0-1.0) % Sodium (135-145) mmol/L Potassium (3.6-5.0) mmol/L Chloride (101-111) mmol/L Carbon Dioxide (21.0-31.0) mmol/L Anion Gap BUN (7-18) mg/dL Creatinine (0.6-1.3) mg/dL Est Cr Clr Drug Dosing mL/min Estimated GFR (MDRD) BUN/Creatinine Ratio Glucose (74-105) mg/dL Lactic Acid 1.1 (0.5-2.2) mmol/L Calcium (8.4-10.2) mg/dl Total Bilirubin (0.2-1.0) mg/dL AST (10-42) IU/L ALT (10-60) IU/L Alkaline Phosphatase (42-121) IU/L Troponin I (0.00-0.02) ng/ml Total Protein (6.7-8.2) g/dl Albumin (3.2-5.5) g/dl Globulin Albumin/Globulin Ratio Urine Color (YELLOW) Urine Appearance (CLEAR) Urine pH (5.0-9.0) Ur Specific [place] (1.005-1.030) Urine Protein (NEGATIVE) Urine Glucose (UA) (NEGATIVE) Urine Ketones (NEGATIVE) Urine Occult Blood (NEGATIVE) Urine Nitrite (NEGATIVE) Urine Bilirubin (NEGATIVE) Urine Urobilinogen (0.2-1.0) mg/dL Ur Leukocyte Esterase (NEGATIVE) Urine RBC /HPF Urine WBC (0-5/HPF) /HPF Ur Epithelial Cells /HPF Urine Bacteria (0-FEW/HPF) /HPF Urine Mucus /LPF Meds: Medications Discontinued Medications Generic Name Dose Route Start Last Admin Trade Name Freq PRN Reason Stop Dose Admin Ketorolac Tromethamine 30 mg 02/11/19 07:49 02/11/19 07:58 Toradol IVPUSH 02/11/19 07:50 30 mg ONETIME ONE Administration Metoclopramide HCl 10 mg 02/11/19 07:49 02/11/19 07:59 Reglan IVPUSH 02/11/19 07:50 10 mg ONETIME ONE Administration Ondansetron HCl 4 mg 02/11/19 07:11 02/11/19 07:20 Zofran IV 02/11/19 07:12 4 mg ONETIME ONE Administration Departure - Departure Disposition: Home, Self-Care 01 Clinical Impression: Gastroenteritis, Ascites due to chronic alcoholic hepatitis, Nausea Headache Qualifiers: Headache type: unspecified Headache chronicity pattern: acute headache Intractability: intractable Qualified Code(s): R51 - Headache - Discharge Information Instructions: Viral Gastroenteritis, Adult, Bshs-ep-Dlas, Nausea, Adult, Easy- to-Read, General Headache Without Cause, [id number] Forms: ED Department Discharge Care Plan Goals: The patient was advised of the examination, lab, EKG, x-ray and CT results during the visit. The patient was given IV Zofran, IV Reglan and IV Toradol with little to no change in symptoms. The patient was encouraged to drink plenty of fluids. If the patient has any additional symptoms or concerns, the patient should follow-up with her primary care facility or return to the emergency department. <Jacob Vallejo M - Last Filed: 02/11/19 08:56> Course - Re-Assessments/Exams Free Text/Narrative Re-Assessment/Exam: 02/11/19 07:51 Patient care was taken over at shift change. Reassessment of the patient revealed that the patient has had a 1 month history of diffuse abdominal pain ( has an appointment with Dr. Lin on Monday for evaluation of cirrhosis and ascites), a 1 hour history of nausea (not improved with Zofran IV, and a 1 hour history of a headache (has not taken anything for her headache). The patient reports she has not thrown up, but continues to feel nauseated despite the Zofran given 45 minutes prior to reassessment. An order was placed for Reglan and Toradol IV. 02/11/19 08:51 The patient reports no major change in her nausea (even after Reglan and Zofran ) and no change in her headache (even after Toradol). The patient also admits that she has been treated for her headache by Dr. Lin with antibiotics ( possible sinus infection). The patient is very vague with her symptom description. Departure - Departure Time of Disposition: 08:53 Condition: Fair - Discharge Information *PRESCRIPTION DRUG MONITORING PROGRAM REVIEWED*: Not Applicable *COPY OF PRESCRIPTION DRUG MONITORING REPORT IN PATIENT LAYLA: Not Applicable
[2019-02-11 05:44] VITALS: BP 106/61
[2019-02-11 06:10] LABS: ANION GAP 12.9; CHLORIDE,CL 106 mmol/L (101-111); SODIUM,NA 137 mmol/L (135-145)
[2019-02-11] MEDS ORDERED: Ondansetron 4 MG/2 ML SDV IV ONE (07:11)
[2019-02-11] MEDS ORDERED: Metoclopramide 10 MG/2 ML SDV IVPUSH ONE (07:49)
[2019-02-11] MEDS ORDERED: Ketorolac 30 MG/ML SDV IVPUSH ONE (07:49)
== END 2019-02-11 09:02 | disposition home or self-care (01) ==
LOC: DL.ED 05:36
DX: K70.11 Alcoholic hepatitis with ascites (principal); K52.9 Noninfective gastroenteritis and colitis, unspecified; R51 Headache; I10 Essential (primary) hypertension; E11.9 Type 2 diabetes mellitus without complications; E03.9 Hypothyroidism, unspecified; Z79.4 Long term (current) use of insulin; Z79.82 Long term (current) use of aspirin; Z79.899 Other long term (current) drug therapy; Z88.1 Allergy status to other antibiotic agents
CPT/HCPCS: 36415; 71045; 74176; 80053; 81001; 83605; 84484; 85025; 87040; 87086; 87804; 93005; 96374; 96375; 99285; J1885; J2405; J2765; 87088; 87186

== ENCOUNTER 2019-02-24 22:00 | Emergency (ER) | payer MEDICAID, OTHER ==
[2019-02-24 22:35] VITALS: BP 90/59
== END 2019-02-24 23:47 | disposition left against medical advice (07) ==
LOC: DL.ED 22:00
DX: Z53.21 Procedure and treatment not carried out due to patient leaving prior to being seen by health care provider (principal)

== ENCOUNTER 2019-03-24 13:32 | Emergency (ER) | payer OTHER ==
[2019-03-24] MEDS ORDERED: 50% Dextrose in Water 50 ML Syringe ONE (13:38)
[2019-03-24] MEDS ORDERED: Dexamethasone 4 MG/ML SDV ONE (13:49)
[2019-03-24 13:55] VITALS: BP 118/80; PULSE 79
== END 2019-03-24 16:50 | disposition left against medical advice (07) ==
LOC: DL.ED 13:32
DX: Z53.21 Procedure and treatment not carried out due to patient leaving prior to being seen by health care provider (principal)
CPT/HCPCS: 99282

== ENCOUNTER 2019-04-02 15:57 | Observation (INO) | payer MEDICAID, OTHER ==
[2019-04-02 16:53] LABS: ANION GAP 10.7; CHLORIDE,CL 111 mmol/L (101-111); SODIUM,NA 138 mmol/L (135-145)
--- NOTE | 2019-04-02 17:38 | EDM.PDOC ---
Scribed by Kimberly Albarran 04/02/19 1738 for Jacob Vallejo PA ED HPI GENERAL MEDICAL PROBLEM - General Chief Complaint: Neurological Problem Stated Complaint: GETTING FORGETFUL Time Seen by Provider: 04/02/19 16:16 Source of Information: Reports: Patient, RN, RN Notes Reviewed History Limitations: Reports: No Limitations - History of Present Illness INITIAL COMMENTS - FREE TEXT/NARRATIVE: Patient is a 48-year-old female with increased memory loss for 1 day. She reports not missing Lactulose doses. No ETOH. She has had no weakness or dizziness. No falls. Last visit with Dr. Moya was yesterday. Onset: Gradual Duration: Getting Worse Location: Reports: Other (memory loss) Quality: Reports: Ache Severity: Moderate Improves with: Reports: None Worsens with: Reports: None Associated Symptoms: Reports: No Other Symptoms - Related Data Allergies Allergy/AdvReac Type Severity Reaction Status Date / Time ceftriaxone [From Rocephin] Allergy Intermediate Hives Verified 04/02/19 16:10 Home Meds: Home Meds Aspirin [Thuy Chewable Aspirin] 81 mg PO DAILY 02/14/15 [History] Insulin Aspart [NovoLOG] 20 units SUBCUT TIDM 02/14/15 [History] Lisinopril 5 mg PO DAILY 02/14/15 [History] Insulin Detemir [Levemir] 30 units SQ BEDTIME 05/01/17 [History] Levothyroxine 150 mcg PO ACBREAKFAST 05/01/17 [History] Triamcinolone Acetonide [Triamcinolone Acetonide 0.1% Crm] 1 applic TOP QID 11/05 [History] Calcium Citrate/Vitamin D3 [Calcium Citrate - Vit D Tablet] 1 tab PO BID [History] Ferrous Gluconate 324 mg PO DAILY 02/28/18 [History] Rifaximin [Xifaxan] 550 mg PO BID 30 Days tablet 03/02/18 [Rx] HCTZ/Triamterene [Maxzide 25-37.5 MG] 1 tab PO BID 07/21/18 [History] Lactulose 40 ml PO QID 07/22/18 [History] Past Medical History HEENT History: Reports: Impaired Vision Other HEENT History: legally blind per [facility]HS reports, blindness to right eye, presbyopia, diabetic retinopathy Cardiovascular History: Reports: Heart Murmur, High Cholesterol, Hypertension Other Cardiovascular History: MURMUR Respiratory History: Reports: None Gastrointestinal History: Reports: Cirrhosis, Other (See Below) Other Gastrointestinal History: HX OF ABNORMAL LIVER STUDIES Genitourinary History: Reports: None 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: 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 History: Reports: None Neurological History: Reports: None Psychiatric History: Reports: Addiction Other Psychiatric History: acute alcohol abuse Endocrine/Metabolic History: Reports: Diabetes, Type II, Hypothyroidism Hematologic History: Reports: Anemia Other Hematologic History: acquired thrombocytopenia Immunologic History: Reports: None Oncologic (Cancer) History: Reports: None Dermatologic History: Reports: Cellulitis Other Dermatologic History: RIGHT BREAST CELLULITUS - Infectious Disease History Infectious Disease History: Reports: None - Past Surgical History Head Surgeries/Procedures: Reports: None HEENT Surgical History: Reports: None Cardiovascular Surgical History: Reports: None Respiratory Surgical History: Reports: None GI Surgical History: Reports: Colonoscopy Female Surgical History: Reports: Mastectomy 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 Surgical History: Reports: None Oncologic Surgical History: Reports: Mastectomy Other Oncologic Surgeries/Procedures: RIGHT MASTECTOMY Dermatological Surgical History: Reports: Other (See Below) Social & Family History - Family History Family Medical History: Unobtainable - Tobacco Use Smoking Status *Q: Current Every Day Smoker Years of Tobacco use: 30 Packs/Tins Daily: 0.2 - Caffeine Use Caffeine Use: Reports: Coffee Caffeine Use Comment: 1 8oz cup daily - Recreational Drug Use Recreational Drug Use: No - Living Situation & Occupation Living situation: Reports: with Family Occupation: Employed ED ROS GENERAL - Review of Systems Review Of Systems: ROS reveals no pertinent complaints other than HPI. ED EXAM, NEURO - Physical Exam Exam: See Below Exam Limited By: No Limitations General Appearance: Alert, WD/WN, No Apparent Distress Eye Exam: Bilateral Eye: EOMI, Normal Inspection, PERRL Ears: Normal External Exam, Normal Canal, Hearing Grossly Normal, Normal TMs Nose: Normal Inspection, Normal Mucosa, No Blood Throat/Mouth: Normal Inspection, Normal Lips, Normal Teeth, Normal Gums, Normal Oropharynx, Normal Voice, No Airway Compromise Head Exam: Atraumatic, Normocephalic Neck: Normal Inspection, Supple, Non-Tender, Full Range of Motion Respiratory/Chest: No Respiratory Distress, Lungs Clear, Normal Breath Sounds, No Accessory Muscle Use, Chest Non-Tender Cardiovascular: Normal Peripheral Pulses, Regular Rate, Rhythm, No Edema, No Gallop, No JVD, No Murmur, No Rub GI/Abdominal: Other (obese. No tenderness. Normal bowel movements.) (Female) Exam: Deferred Neurological: Alert, Normal Mood/Affect, Normal Dorsiflexion, CN II-XII Intact, Normal Plantar Flexion, Normal Gait, Normal Reflexes, No Motor/Sensory Deficits , Oriented x 3 Back Exam: Normal Inspection, Full Range of Motion, NT Extremities: Normal Inspection, Normal Range of Motion, Non-Tender, No Pedal Edema, Normal Capillary Refill Psychiatric: Normal Affect, Normal Mood Skin Exam: Warm, Dry, Intact, Normal Color, No Rash Course - Vital Signs Last Recorded V/S: Last Vital Signs Temp 36.7 C 04/02/19 16:08 Pulse 74 04/02/19 16:08 Resp 22 H 04/02/19 16:08 BP 119/79 04/02/19 16:08 Pulse Ox 100 04/02/19 16:08 - Orders/Labs/Meds Orders: Active Orders 24 hr Category Date Time Status EKG Documentation Completion [RC] URGENT Care 04/02/19 16:15 Ordered CULTURE URINE [RM] Stat Lab 04/02/19 16:56 Received UA W/MICROSCOPIC [URIN] Urgent Lab 04/02/19 16:56 Results Labs: Laboratory Tests 04/02/19 04/02/19 04/02/19 Range/Units 16:19 16:19 16:19 WBC 3.2 L (5.0-10.0) 10^3/uL RBC 3.41 L (4.2-5.4) 10^6/uL Hgb 11.1 L (12.0-16.0) g/dL Hct 33.3 L (37.0-47.0) % MCV 97.7 (80-100) fL MCH 32.6 (27.0-34.0) pg MCHC 33.3 (33.0-35.0) g/dL Plt Count 71 L (150-450) 10^3/uL Neut % (Auto) 58.3 (42.2-75.2) % Lymph % (Auto) 23.2 (20.5-50.1) % Andrew % (Auto) 14.4 H (2-8) % Eos % (Auto) 3.8 H (1.0-3.0) % Baso % (Auto) 0.3 (0.0-1.0) % Sodium 138 (135-145) mmol/L Potassium 3.7 (3.6-5.0) mmol/L Chloride 111 (101-111) mmol/L Carbon Dioxide 20.0 L (21.0-31.0) mmol/L Anion Gap 10.7 BUN 14 (7-18) mg/dL Creatinine 0.7 (0.6-1.3) mg/dL Est Cr Clr Drug Dosing 93.50 mL/min Estimated GFR (MDRD) > 60 BUN/Creatinine Ratio 20.00 Glucose 185 H (74-105) mg/dL Calcium 8.2 L (8.4-10.2) mg/dl Total Bilirubin 1.5 H (0.2-1.0) mg/dL AST 40 (10-42) IU/L ALT 29 (10-60) IU/L Alkaline Phosphatase 124 H (42-121) IU/L Ammonia (11-35) umol/L Troponin I < 0.02 (0.00-0.02) ng/ml Total Protein 6.6 L (6.7-8.2) g/dl Albumin 2.7 L (3.2-5.5) g/dl Globulin 3.9 Albumin/Globulin Ratio 0.69 Urine Color (YELLOW) Urine Appearance (CLEAR) Urine pH (5.0-9.0) Ur Specific [place] (1.005-1.030) Urine Protein (NEGATIVE) Urine Glucose (UA) (NEGATIVE) Urine Ketones (NEGATIVE) Urine Occult Blood (NEGATIVE) Urine Nitrite (NEGATIVE) Urine Bilirubin (NEGATIVE) Urine Urobilinogen (0.2-1.0) mg/dL Ur Leukocyte Esterase (NEGATIVE) Urine Opiates Screen (NEGATIVE) Ur Oxycodone Screen (NEGATIVE) Urine Methadone Screen (NEGATIVE) Ur Barbiturates Screen (NEGATIVE) U Tricyclic Antidepress (NEGATIVE) Ur Phencyclidine Scrn (NEGATIVE) Ur Amphetamine Screen (NEGATIVE) U Methamphetamines Scrn (NEGATIVE) Urine MDMA Screen (NEGATIVE) U Benzodiazepines Scrn (NEGATIVE) Urine Cocaine Screen (NEGATIVE) U Marijuana (THC) Screen (NEGATIVE) Ethyl Alcohol < 5 mg/dL 04/02/19 04/02/19 04/02/19 Range/Units 16:25 16:56 16:56 WBC (5.0-10.0) 10^3/uL RBC (4.2-5.4) 10^6/uL Hgb (12.0-16.0) g/dL Hct (37.0-47.0) % MCV (80-100) fL MCH (27.0-34.0) pg MCHC (33.0-35.0) g/dL Plt Count (150-450) 10^3/uL Neut % (Auto) (42.2-75.2) % Lymph % (Auto) (20.5-50.1) % Andrew % (Auto) (2-8) % Eos % (Auto) (1.0-3.0) % Baso % (Auto) (0.0-1.0) % Sodium (135-145) mmol/L Potassium (3.6-5.0) mmol/L Chloride (101-111) mmol/L Carbon Dioxide (21.0-31.0) mmol/L Anion Gap BUN (7-18) mg/dL Creatinine (0.6-1.3) mg/dL Est Cr Clr Drug Dosing mL/min Estimated GFR (MDRD) BUN/Creatinine Ratio Glucose (74-105) mg/dL Calcium (8.4-10.2) mg/dl Total Bilirubin (0.2-1.0) mg/dL AST (10-42) IU/L ALT (10-60) IU/L Alkaline Phosphatase (42-121) IU/L Ammonia 94 H (11-35) umol/L Troponin I (0.00-0.02) ng/ml Total Protein (6.7-8.2) g/dl Albumin (3.2-5.5) g/dl Globulin Albumin/Globulin Ratio Urine Color Yellow (YELLOW) Urine Appearance Clear (CLEAR) Urine pH 6.0 (5.0-9.0) Ur Specific [place] 1.015 (1.005-1.030) Urine Protein Negative (NEGATIVE) Urine Glucose (UA) Negative (NEGATIVE) Urine Ketones Negative (NEGATIVE) Urine Occult Blood Trace-intact H (NEGATIVE) Urine Nitrite Negative (NEGATIVE) Urine Bilirubin Negative (NEGATIVE) Urine Urobilinogen 0.2 (0.2-1.0) mg/dL Ur Leukocyte Esterase Small H (NEGATIVE) Urine Opiates Screen Negative (NEGATIVE) Ur Oxycodone Screen Negative (NEGATIVE) Urine Methadone Screen Negative (NEGATIVE) Ur Barbiturates Screen Negative (NEGATIVE) U Tricyclic Antidepress Negative (NEGATIVE) Ur Phencyclidine Scrn Negative (NEGATIVE) Ur Amphetamine Screen Negative (NEGATIVE) U Methamphetamines Scrn Negative (NEGATIVE) Urine MDMA Screen Negative (NEGATIVE) U Benzodiazepines Scrn Negative (NEGATIVE) Urine Cocaine Screen Negative (NEGATIVE) U Marijuana (THC) Screen Negative (NEGATIVE) Ethyl Alcohol mg/dL Departure - Departure Time of Disposition: 17:35 Disposition: Admitted As Inpatient 64 Condition: Fair Clinical Impression: Serum ammonia increased - Discharge Information *PRESCRIPTION DRUG MONITORING PROGRAM REVIEWED*: Not Applicable *COPY OF PRESCRIPTION DRUG MONITORING REPORT IN PATIENT LAYLA: Not Applicable Care Plan Goals: Discussed the patient's history, current symptoms and lab results with Dr. Breaux. Dr. Breaux accepted the patient for observation at [facility] in [place]. - My Orders Last 24 Hours: My Active Orders 04/02/19 16:15 EKG Documentation Completion [RC] URGENT 04/02/19 16:56 CULTURE URINE [RM] Stat UA W/MICROSCOPIC [URIN] Urgent - Assessment/Plan Last 24 Hours: My Active Orders 04/02/19 16:15 EKG Documentation Completion [RC] URGENT 04/02/19 16:56 CULTURE URINE [RM] Stat UA W/MICROSCOPIC [URIN] Urgent I have read and agree with the documentation that has been completed regarding this visit. By signing this record, I attest that the documentation was completed in my physical presence and is an accurate record of the encounter.
[2019-04-02] MEDS ORDERED: Ondansetron 4 MG Tab.DIS PO PRN (18:34)
[2019-04-02] MEDS ORDERED: Sodium Chloride 0.9% 10 ML Syringe FLUSH PRN (18:34)
[2019-04-02] MEDS ORDERED: Acetaminophen 325 MG Tab PO PRN (18:34)
--- NOTE | 2019-04-02 18:57 | PCM.HP ---
H&P History of Present Illness - General Date of Service: 04/02/19 Admit Problem/Dx: Admission Diagnosis/Problem Admission Diagnosis/Problem Acute encephalopathy Source of Information: Patient - History of Present Illness Initial Comments - Free Text/Narative: The patient is a 48-year-old lady with a history of alcohol a Liver failure, portal hypertension, hypothyroidism The patient presented with complains that she feels more confused today. This started this morning. Denies similar symptoms yesterday. She has significant liver failure has been recently seen by Dr. Griffin and further evaluation was suggested for potential transplant. She used to have fluid retention and ascites, last paracentesis was about a month ago. She was started on Lasix and spironolactone and had no significant symptoms since. The patient says she is quite compliant with 4 times a day lactulose and twice a day rifaximin except today when she couldn't take it because she was in the emergency room. But even with that she says she only has bowel movement every other day She denies any drug use, no alcohol use She has no chills, fever, shortness of breath, chest pain, abdominal pain, lower extremity edema - Related Data Allergies/Adverse Reactions: Allergies Allergy/AdvReac Type Severity Reaction Status Date / Time ceftriaxone [From Rocephin] Allergy Intermediate Hives Verified 04/02/19 16:10 Home Medications: Home Meds Aspirin [Thuy Chewable Aspirin] 81 mg PO DAILY 02/14/15 [History] Insulin Aspart [NovoLOG] 20 units SUBCUT TIDM 02/14/15 [History] Lisinopril 5 mg PO DAILY 02/14/15 [History] Insulin Detemir [Levemir] 30 units SQ BEDTIME 05/01/17 [History] Levothyroxine 150 mcg PO ACBREAKFAST 05/01/17 [History] Triamcinolone Acetonide [Triamcinolone Acetonide 0.1% Crm] 1 applic TOP QID 11/05 [History] Calcium Citrate/Vitamin D3 [Calcium Citrate - Vit D Tablet] 1 tab PO BID [History] Ferrous Gluconate 324 mg PO DAILY 02/28/18 [History] Rifaximin [Xifaxan] 550 mg PO BID 30 Days tablet 03/02/18 [Rx] HCTZ/Triamterene [Maxzide 25-37.5 MG] 1 tab PO BID 07/21/18 [History] Lactulose 40 ml PO QID 07/22/18 [History] Past Medical History HEENT History: Reports: Impaired Vision Other HEENT History: legally blind per [facility] reports, blindness to right eye, presbyopia, diabetic retinopathy Cardiovascular History: Reports: Heart Murmur, High Cholesterol, Hypertension Other Cardiovascular History: MURMUR Respiratory History: Reports: None Gastrointestinal History: Reports: Cirrhosis, Other (See Below) Other Gastrointestinal History: HX OF ABNORMAL LIVER STUDIES Genitourinary History: Reports: None 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: 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 History: Reports: None Neurological History: Reports: None Psychiatric History: Reports: Addiction Other Psychiatric History: acute alcohol abuse Endocrine/Metabolic History: Reports: Diabetes, Type II, Hypothyroidism Hematologic History: Reports: Anemia Other Hematologic History: acquired thrombocytopenia Immunologic History: Reports: None Oncologic (Cancer) History: Reports: None Dermatologic History: Reports: Cellulitis Other Dermatologic History: RIGHT BREAST CELLULITUS - Infectious Disease History Infectious Disease History: Reports: None - Past Surgical History Head Surgeries/Procedures: Reports: None HEENT Surgical History: Reports: None Cardiovascular Surgical History: Reports: None Respiratory Surgical History: Reports: None GI Surgical History: Reports: Colonoscopy Female Surgical History: Reports: Mastectomy 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 Surgical History: Reports: None Oncologic Surgical History: Reports: Mastectomy Other Oncologic Surgeries/Procedures: RIGHT MASTECTOMY Dermatological Surgical History: Reports: Other (See Below) Social & Family History - Family History Family Medical History: Unobtainable - Tobacco Use Smoking Status *Q: Current Every Day Smoker Years of Tobacco use: 30 Packs/Tins Daily: 0.2 - Caffeine Use Caffeine Use: Reports: Coffee Caffeine Use Comment: 1 8oz cup daily - Recreational Drug Use Recreational Drug Use: No - Living Situation & Occupation Living situation: Reports: with Family Occupation: Employed H&P Review of Systems - Review of Systems: Review Of Systems: See Below General: Denies: Fever, Chills Pulmonary: Denies: Shortness of Breath Cardiovascular: Denies: Chest Pain, Edema Gastrointestinal: Reports: Other (No significant distention). Denies: Abdominal Pain Genitourinary: Denies: Dysuria Psychiatric: Reports: Confusion. Denies: Mood Lability, Anxiety Neurological: Reports: Confusion. Denies: Dizziness, Headache, Seizure, Syncope , Tremors, Trouble Speaking, Difficulty Walking Exam - Exam Exam: See Below - Vital Signs Vital Signs: Last Vital Signs Temp 36.5 C 04/02/19 17:57 Pulse 60 04/02/19 17:57 Resp 20 04/02/19 17:57 BP 115/67 04/02/19 17:57 Pulse Ox 100 04/02/19 17:57 Weight: 86.273 kg - Exam General: Alert, Oriented Neck: Supple Lungs: Clear to Auscultation, Normal Respiratory Effort Cardiovascular: Regular Rate, Regular Rhythm GI/Abdominal Exam: Normal Bowel Sounds, Soft, Non-Tender, Other (Ascites versus obesity but not distended, not tense) Extremities: No Pedal Edema Skin: Warm Neuro Extensive - Mental Status: Alert, Oriented x3, Normal Mood/Affect Neuro Extensive - Motor, Sensory, Reflexes: No: Tremor Psychiatric: Alert, Normal Affect, Normal Mood - Patient Data Lab Results Last 24 hrs: Laboratory Results - last 24 hr 04/02/19 04/02/19 04/02/19 Range/Units 16:19 16:19 16:19 WBC 3.2 L (5.0-10.0) 10^3/uL RBC 3.41 L (4.2-5.4) 10^6/uL Hgb 11.1 L (12.0-16.0) g/dL Hct 33.3 L (37.0-47.0) % MCV 97.7 (80-100) fL MCH 32.6 (27.0-34.0) pg MCHC 33.3 (33.0-35.0) g/dL Plt Count 71 L (150-450) 10^3/uL Neut % (Auto) 58.3 (42.2-75.2) % Lymph % (Auto) 23.2 (20.5-50.1) % [place] % (Auto) 14.4 H (2-8) % Eos % (Auto) 3.8 H (1.0-3.0) % Baso % (Auto) 0.3 (0.0-1.0) % Sodium 138 (135-145) mmol/L Potassium 3.7 (3.6-5.0) mmol/L Chloride 111 (101-111) mmol/L Carbon Dioxide 20.0 L (21.0-31.0) mmol/L Anion Gap 10.7 BUN 14 (7-18) mg/dL Creatinine 0.7 (0.6-1.3) mg/dL Est Cr Clr Drug Dosing 93.50 mL/min Estimated GFR (MDRD) > 60 BUN/Creatinine Ratio 20.00 Glucose 185 H (74-105) mg/dL Calcium 8.2 L (8.4-10.2) mg/dl Total Bilirubin 1.5 H (0.2-1.0) mg/dL AST 40 (10-42) IU/L ALT 29 (10-60) IU/L Alkaline Phosphatase 124 H (42-121) IU/L Ammonia (11-35) umol/L Troponin I < 0.02 (0.00-0.02) ng/ml Total Protein 6.6 L (6.7-8.2) g/dl Albumin 2.7 L (3.2-5.5) g/dl Globulin 3.9 Albumin/Globulin Ratio 0.69 Urine Color (YELLOW) Urine Appearance (CLEAR) Urine pH (5.0-9.0) Ur Specific [place] (1.005-1.030) Urine Protein (NEGATIVE) Urine Glucose (UA) (NEGATIVE) Urine Ketones (NEGATIVE) Urine Occult Blood (NEGATIVE) Urine Nitrite (NEGATIVE) Urine Bilirubin (NEGATIVE) Urine Urobilinogen (0.2-1.0) mg/dL Ur Leukocyte Esterase (NEGATIVE) Urine RBC /HPF Urine WBC (0-5/HPF) /HPF Ur Epithelial Cells (NOT SEEN) /HPF Urine Bacteria (0-FEW/HPF) /HPF Hyaline Casts (NOT SEEN) /LPF Urine Mucus (NOT SEEN) /LPF Urine Opiates Screen (NEGATIVE) Ur Oxycodone Screen (NEGATIVE) Urine Methadone Screen (NEGATIVE) Ur Barbiturates Screen (NEGATIVE) U Tricyclic Antidepress (NEGATIVE) Ur Phencyclidine Scrn (NEGATIVE) Ur Amphetamine Screen (NEGATIVE) U Methamphetamines Scrn (NEGATIVE) Urine MDMA Screen (NEGATIVE) U Benzodiazepines Scrn (NEGATIVE) Urine Cocaine Screen (NEGATIVE) U Marijuana (THC) Screen (NEGATIVE) Ethyl Alcohol < 5 mg/dL 04/02/19 04/02/19 04/02/19 Range/Units 16:25 16:56 16:56 WBC (5.0-10.0) 10^3/uL RBC (4.2-5.4) 10^6/uL Hgb (12.0-16.0) g/dL Hct (37.0-47.0) % MCV (80-100) fL MCH (27.0-34.0) pg MCHC (33.0-35.0) g/dL Plt Count (150-450) 10^3/uL Neut % (Auto) (42.2-75.2) % Lymph % (Auto) (20.5-50.1) % [place] % (Auto) (2-8) % Eos % (Auto) (1.0-3.0) % Baso % (Auto) (0.0-1.0) % Sodium (135-145) mmol/L Potassium (3.6-5.0) mmol/L Chloride (101-111) mmol/L Carbon Dioxide (21.0-31.0) mmol/L Anion Gap BUN (7-18) mg/dL Creatinine (0.6-1.3) mg/dL Est Cr Clr Drug Dosing mL/min Estimated GFR (MDRD) BUN/Creatinine Ratio Glucose (74-105) mg/dL Calcium (8.4-10.2) mg/dl Total Bilirubin (0.2-1.0) mg/dL AST (10-42) IU/L ALT (10-60) IU/L Alkaline Phosphatase (42-121) IU/L Ammonia 94 H (11-35) umol/L Troponin I (0.00-0.02) ng/ml Total Protein (6.7-8.2) g/dl Albumin (3.2-5.5) g/dl Globulin Albumin/Globulin Ratio Urine Color Yellow (YELLOW) Urine Appearance Clear (CLEAR) Urine pH 6.0 (5.0-9.0) Ur Specific [place] 1.015 (1.005-1.030) Urine Protein Negative (NEGATIVE) Urine Glucose (UA) Negative (NEGATIVE) Urine Ketones Negative (NEGATIVE) Urine Occult Blood Trace-intact H (NEGATIVE) Urine Nitrite Negative (NEGATIVE) Urine Bilirubin Negative (NEGATIVE) Urine Urobilinogen 0.2 (0.2-1.0) mg/dL Ur Leukocyte Esterase Small H (NEGATIVE) Urine RBC 0-5 /HPF Urine WBC 5-10 H (0-5/HPF) /HPF Ur Epithelial Cells Moderate H (NOT SEEN) /HPF Urine Bacteria Few (0-FEW/HPF) /HPF Hyaline Casts Many H (NOT SEEN) /LPF Urine Mucus Moderate H (NOT SEEN) /LPF Urine Opiates Screen Negative (NEGATIVE) Ur Oxycodone Screen Negative (NEGATIVE) Urine Methadone Screen Negative (NEGATIVE) Ur Barbiturates Screen Negative (NEGATIVE) U Tricyclic Antidepress Negative (NEGATIVE) Ur Phencyclidine Scrn Negative (NEGATIVE) Ur Amphetamine Screen Negative (NEGATIVE) U Methamphetamines Scrn Negative (NEGATIVE) Urine MDMA Screen Negative (NEGATIVE) U Benzodiazepines Scrn Negative (NEGATIVE) Urine Cocaine Screen Negative (NEGATIVE) U Marijuana (THC) Screen Negative (NEGATIVE) Ethyl Alcohol mg/dL Result Diagrams: 04/02/19 16:19 04/02/19 16:19 - Problem List (1) Hepatic encephalopathy SNOMED Code(s): 31159515 ICD Code: K72.90 - HEPATIC FAILURE, UNSPECIFIED WITHOUT COMA Status: Acute Current Visit: No (2) Hyperammonemia SNOMED Code(s): 0623417 ICD Code: E72.20 - DISORDER OF UREA CYCLE METABOLISM, UNSPECIFIED Status: Acute Current Visit: No (3) Diabetes mellitus SNOMED Code(s): 64763629 ICD Code: E11.9 - TYPE 2 DIABETES MELLITUS WITHOUT COMPLICATIONS Status: Chronic Priority: Medium Current Visit: No Qualifiers: Diabetes mellitus type: type 2 Diabetes mellitus emt intermediate insulin use: with emt intermediate use Diabetes mellitus complication status: with unspecified complications Qualified Code(s): E11.8 - Type 2 diabetes mellitus with unspecified complications; Z79.4 - director long term care (current) use of insulin Problem List Initiated/Reviewed/Updated: Yes Orders Last 24hrs: Active Orders 24 hr Category Date Time Status Patient Status [ADT] Routine ADT 04/02/19 18:34 Active Antiembolic Devices [RC] PER UNIT ROUTINE Care 04/02/19 18:35 Active Oxygen Therapy [RC] PRN Care 04/02/19 18:34 Active Peripheral IV Care [RC] . DIRECTED Care 04/02/19 18:35 Active Up With Assistance [RC] ASDIRECTED Care 04/02/19 18:34 Active VTE/DVT Education [RC] PER UNIT ROUTINE Care 04/02/19 18:34 Active Vital Signs [RC] Q4H Care 04/02/19 18:34 Active Consistent Carbohydrate Diet [DIET] Diet 04/03/19 Breakfast Active AMMONIA VENOUS [CHEM] AM Lab 04/03/19 05:11 Ordered BASIC METABOLIC PANEL,BMP [CHEM] AM Lab 04/03/19 05:15 Ordered CBC WITH AUTO DIFF [HEME] AM Lab 04/03/19 05:15 Ordered CULTURE URINE [RM] Stat Lab 04/02/19 16:56 Received HEPATIC FUNCTION PANEL,HFP [CHEM] AM Lab 04/03/19 05:11 Ordered MAGNESIUM [CHEM] AM Lab 04/03/19 05:11 Ordered PHOSPHORUS [CHEM] AM Lab 04/03/19 05:11 Ordered Acetaminophen [Tylenol] Med 04/02/19 18:34 Ordered 650 mg PO Q4H PRN Aspirin Med 04/03/19 09:00 Ordered 81 mg PO DAILY Ferrous Gluconate [Ferrous Gluconate] Med 04/03/19 09:00 Ordered 324 mg PO DAILY Furosemide [Lasix] Med 04/03/19 09:00 Ordered 40 mg PO DAILY Heparin Sodium Med 04/02/19 22:00 Ordered 5,000 units SUBCUT Q8HR Insulin Aspart [NovoLOG] Med 04/03/19 08:00 Ordered 20 units SUBCUT TIDM Insulin Detemir Med 04/02/19 21:00 Ordered 30 units SQ BEDTIME Lactulose Med 04/02/19 21:00 Ordered 40 ml PO QID Levothyroxine Med 04/03/19 06:00 Ordered 150 mcg PO ACBREAKFAST Ondansetron [Zofran ODT] Med 04/02/19 18:34 Ordered 4 mg PO Q6H PRN Rifaximin [Xifaxan] Med 04/02/19 21:00 Ordered 550 mg PO BID Sodium Chloride 0.9% [Normal Saline] 1,000 ml Med 04/02/19 18:45 Ordered IV ASDIRECTED Sodium Chloride 0.9% [Saline Flush] Med 04/02/19 18:34 Ordered 10 ml FLUSH ASDIRECTED PRN Spironolactone [Aldactone] Med 04/03/19 09:00 Ordered 100 mg PO DAILY Antiembolic Hose [OM.PC] Per Unit Routine Oth 04/02/19 18:35 Ordered Peripheral IV Insertion Adult [OM.PC] Routine Oth 04/02/19 18:34 Ordered Resuscitation Status Routine Resus Stat 04/02/19 18:34 Ordered Medication Orders Acetaminophen (Tylenol) 650 mg PO Q4H PRN PRN Reason: Pain (Mild 1-3)/fever Aspirin (Aspirin) 81 mg PO DAILY [facility] Furosemide (Lasix) 40 mg PO DAILY [facility] Heparin Sodium (Porcine) (Heparin Sodium) 5,000 units SUBCUT Q8HR [facility]OM[facility] Sodium Chloride (Normal Saline) 1,000 mls @ 75 mls/hr IV ASDIRECTED [facility] Levothyroxine Sodium (Levothyroxine) 150 mcg PO ACBREAKFAST KOMAL Non-Formulary Medication (Ferrous Gluconate [Ferrous Gluconate]) 324 mg PO DAILY [facility] Non-Formulary Medication (Insulin Aspart [Novolog]) 20 units SUBCUT TIDM [facility] Non-Formulary Medication (Insulin Detemir) 30 units SQ BEDTIME [facility] Non-Formulary Medication (Lactulose) 40 ml PO QID [facility] Ondansetron HCl (Zofran Odt) 4 mg PO Q6H PRN PRN Reason: nausea, able to take PO Rifaximin (Xifaxan) 550 mg PO BID [facility] Sodium Chloride (Saline Flush) 10 ml FLUSH ASDIRECTED PRN PRN Reason: Keep Vein Open Spironolactone (Aldactone) 100 mg PO DAILY [facility] Assessment/Plan Comment:: 48-year-old with a history of portal hypertension due to alcoholic liver cirrhosis. History of follow-up hepatitic encephalopathy in the past Presented with mild confusion The encephalopathy is likely due to hepatitic encephalopathy We will resume lactulose and monitor bowel movement Resume rifaximin Will give IV hydration Hold trazodone Recheck ammonia level in the morning, follow symptoms Portal hypertension Will just give gentle IV hydration Continue Lasix and spironolactone Monitor electrolytes Diabetes Treat with Levemir Follow blood sugars and use supplemental insulin and hypoglycemia protocol as needed Hypothyroidism Treat with Synthroid DVT prophylaxis with subcutaneous heparin
[2019-04-02] MEDS: Sodium Chloride 0.9% 1,000 ML IV SCH (20:52)
[2019-04-02] MEDS ORDERED: Insulin Glarg,Human.Rec.Analog 100 Unit/ML SUBCUT SCH (21:00)
[2019-04-02] MEDS: Heparin Sodium 5,000 Units/ML Vial SUBCUT SCH (21:22)
[2019-04-02] MEDS: Rifaximin 550 MG Tab PO SCH (21:22)
[2019-04-02] MEDS: Lactulose Soln 10 GM/15 ML 30 ML UD Cup PO SCH (21:23)
[2019-04-02] MEDS: Insulin Lispro 100 Units/ML 3 ML Vial SUBCUT SCH (21:23)
[2019-04-03] MEDS: Heparin Sodium 5,000 Units/ML Vial SUBCUT SCH ×2 (05:43→14:21)
[2019-04-03] MEDS ORDERED: Levothyroxine 150 MCG Tab PO SCH (06:00)
[2019-04-03 07:58] LABS: ANION GAP 10.9; CHLORIDE,CL 109 mmol/L (101-111); SODIUM,NA 137 mmol/L (135-145)
[2019-04-03] MEDS: Insulin Lispro 100 Units/ML 3 ML Vial SUBCUT SCH ×4 (08:37→12:12)
[2019-04-03] MEDS: Rifaximin 550 MG Tab PO SCH (08:42)
[2019-04-03] MEDS: Lactulose Soln 10 GM/15 ML 30 ML UD Cup PO SCH ×2 (08:43→14:20)
[2019-04-03] MEDS ORDERED: Furosemide 40 MG Tab PO SCH (09:00)
[2019-04-03] MEDS ORDERED: Aspirin 81 MG Tab.Chew PO SCH (09:00)
[2019-04-03] MEDS ORDERED: Ferrous Gluconate [Ferrous Gluconate] 324mg PO SCH (09:00)
[2019-04-03] MEDS ORDERED: Spironolactone 25 MG Tab PO SCH (09:00)
[2019-04-03] MEDS: Sodium Chloride 0.9% 1,000 ML IV SCH (10:25)
[2019-04-03 12:45] VITALS: BP 103/77; PULSE 88
--- NOTE | 2019-04-05 19:17 | DISCH ---
DISCHARGE DIAGNOSES: 1. Alcoholic cirrhosis/liver failure. 2. Portal hypertension. 3. Hypothyroidism by history. 4. Anemia. 5. Bicytopenia, consistent with cirrhosis. 6. Hypomagnesemia. 7. Hypoalbuminemia. HISTORY OF PRESENT ILLNESS: Pam Bello is a 48-year-old female with a known history of alcoholic cirrhosis. She is followed by Dr. Moya. She was recently referred to the [facility] for further investigation of her end-stage liver disease. She is not currently on a transplant list, but this was discussed. She does have history of portal hypertension. She has had a large volume paracenteses done most recently in February 2019 at which time, more than 7 L was removed. She presented to the ER because she felt more confused than usual. She denies any other symptoms. No blood by mouth or rectum. In the ER, she complained of increasing memory loss for the last 24 hours. She denied the use of any alcohol. She states she has not missed any of her lactulose, although she did go on to say that she was not having the number of stools expected, and it would seem that she really is not taking the lactulose 4 times a day. Workup in the ER showed that her ammonia levels were elevated at 94 and she was admitted for observation. Apparently, she was not happy about being admitted and did not feel she needed to be. Her usual medications were continued. PERTINENT LABORATORY AND X-RAY DATA: CBCs during the admission showed bicytopenia with a white count of about 3000, and platelets of around 65,000. Hemoglobin was 10 with hematocrit of 29.8. Electrolytes were unremarkable, but magnesium was slightly low at 1.5. Renal function was intact. BUN and creatinine were 12 and 0.6 with a GFR of more than 60. Blood sugars were unremarkable. LFTs showed slightly elevated alk phos on admission, but this normalized the next day. Ammonia was found to be 94 on admission, 127 on the following morning. Albumin is markedly decreased at 2.2. Urinalysis showed a clear yellow urine, small amount of leukocyte esterase, negative nitrites. Microscopic exam showed 5-10 WBCs, moderate epithelial cells, few bacteria, many hyaline casts. Urine culture was requested. Urine culture at time of discharge is pending and no results are available. HOSPITAL COURSE: Pam was admitted for observation. Her usual medications, including lactulose, were given. She was placed back on her usual insulin doses , as well as other medications including Lasix, spironolactone, and levothyroxine. Heparin was used for VTE prophylaxis. Review of her clinical data showed that she was drinking adequate fluids. Appetite was good. She is tolerating 100% of her meals. She was voiding. Vital signs were stable and she was afebrile. OBJECTIVE: General: On exam, she was seated comfortably sitting at the side of the bed. She seemed somewhat confused at times, but was adamant that she was taking her medications despite the elevated ammonia level. Vital Signs: Blood pressure was 98/71, and later in the morning 103/77, pulse 88, respiratory rate 18, oxygen saturation 97% on room air. She is afebrile. Weight is 190 pounds 3 ounces. Height 5 feet 7 inches. HEENT: Sclerae to be nonicteric. Conjunctivae not injected. Mouth showed moist mucous membranes. No JVDs or bruits. No adenopathy. Chest: Diminished bilateral breath sounds. Heart: Regular rate and rhythm. Abdomen: Benign. Extremities: Some chronic lower extremity edema. NEUROLOGICAL: Intact. Pam will be discharged to home. She does have scheduled followup with Dr. Moya on May 13, but nursing staff did make her an appointment for Monday, April 05 for earlier followup. She will follow her usual diet and activity levels as tolerated. As mentioned above, she was referred to [place]. Her referral to [facility] was denied by [place] [employer], however, it was the referral to [facility] that was denied not the referral itself. Apparently, they are in the process of negotiating a visit at another institution. This information came directly from Dr. Moya and we attempted to correct the patient's mistaken impression of the denial. She seems to have a hard time concentrating. It was not always possible to get her to understand some of these issues. No other family member was present. We suggested to her, after discussing this with Dr. Moya, that she increase her lactulose by 1 or 2 more doses daily, so that she can have at least 2-3 soft stools a day. DISCHARGE MEDICATIONS: 1. Calcium citrate with vitamin D 1 tab twice a day. 2. Aspirin EC 81 mg daily. 3. Levemir insulin 30 units at bedtime. 4. NovoLog insulin 20 units t.i.d. with meals. 5. Maxzide 25/37.5, one tablet twice a day. 6. Ferrous gluconate 324 mg daily. 7. Rifaximin 550 mg twice a day. 8. Lisinopril 5 mg daily. 9. Levothyroxine 150 mcg before breakfast. 10.Lactulose 40 mL four times a day. 11.Triamcinolone cream as needed. ALLERGIES: Ceftriaxone to which she says she develops hives. She should follow up with Dr. Moya as planned to continue treatment for her end-stage liver disease and await her referral to outside liver specialist. CONDITION AT THE TIME OF DISCHARGE: Hemodynamically stable. CODE STATUS: During the admission: Full code. [facility] /[id number] MTDD
== END 2019-04-03 15:20 | disposition home or self-care (01) ==
LOC: DL.ED 15:57 → UNDOADMOB 17:53 → DL.MS 17:53
PROVIDERS: ADMIT Internal Medicine; ATTEND Internal Medicine
DX: K70.40 Alcoholic hepatic failure without coma (principal); K70.30 Alcoholic cirrhosis of liver without ascites; K76.6 Portal hypertension; E11.8 Type 2 diabetes mellitus with unspecified complications; E03.9 Hypothyroidism, unspecified; D64.9 Anemia, unspecified; E83.42 Hypomagnesemia; E72.20 Disorder of urea cycle metabolism, unspecified; E88.09 Other disorders of plasma-protein metabolism, not elsewhere classified; E78.00 Pure hypercholesterolemia, unspecified; D61.818 Other pancytopenia; F17.210 Nicotine dependence, cigarettes, uncomplicated; D69.6 Thrombocytopenia, unspecified; H54.7 Unspecified visual loss; Z88.1 Allergy status to other antibiotic agents; Z79.82 Long term (current) use of aspirin; Z79.4 Long term (current) use of insulin; Z79.2 Long term (current) use of antibiotics
CPT/HCPCS: 36415; 80048; 80053; 80076; 80305; 81001; 82140; 82962; 83735; 84100; 84484; 85025; 87086; 87088; 87186; 93005; 96360; 96361; 96372; 99284; A9270; G0378; G0480; J1644; J1815; J7030

== ENCOUNTER 2019-08-17 22:56 | Emergency (ER) | payer MEDICAID, OTHER ==
[2019-08-17] MEDS ORDERED: Magnesium Hydroxide 400 MG/5 ML Susp 30 ML Cup PO ONE (22:57)
--- NOTE | 2019-08-17 23:13 | EDM.PDOC ---
ED HPI GENERAL MEDICAL PROBLEM - General Chief Complaint: General Stated Complaint: FEELS SICK Time Seen by Provider: 08/17/19 23:11 Source of Information: Reports: Patient History Limitations: Reports: No Limitations - History of Present Illness INITIAL COMMENTS - FREE TEXT/NARRATIVE: c/o not feeling good just few hours ago, with nausea no vomiting, had abd pain no BM past 3 days now. been taking her lactulose. - Related Data Allergies Allergy/AdvReac Type Severity Reaction Status Date / Time ceftriaxone [From Rocephin] Allergy Intermediate Hives Verified 08/17/19 23:06 Home Meds: Home Meds Aspirin [Thuy Chewable Aspirin] 81 mg PO DAILY 02/14/15 [History] Insulin Aspart [NovoLOG] 20 units SUBCUT TIDM 02/14/15 [History] Lisinopril 5 mg PO DAILY 02/14/15 [History] Insulin Detemir [Levemir] 30 units SQ BEDTIME 05/01/17 [History] Levothyroxine 150 mcg PO ACBREAKFAST 05/01/17 [History] Calcium Citrate/Vitamin D3 [Calcium Citrate - Vit D Tablet] 1 tab PO BID [History] Ferrous Gluconate 324 mg PO DAILY 02/28/18 [History] Rifaximin [Xifaxan] 550 mg PO BID 30 Days tablet 03/02/18 [Rx] HCTZ/Triamterene [Maxzide 25-37.5 MG] 1 tab PO BID 07/21/18 [History] Lactulose 40 ml PO QID 07/22/18 [History] Past Medical History HEENT History: Reports: Impaired Vision Other HEENT History: legally blind per S reports, blindness to right eye, presbyopia, diabetic retinopathy Cardiovascular History: Reports: Heart Murmur, High Cholesterol, Hypertension Other Cardiovascular History: MURMUR Respiratory History: Reports: None Gastrointestinal History: Reports: Cirrhosis, Other (See Below) Other Gastrointestinal History: HX OF ABNORMAL LIVER STUDIES Genitourinary History: Reports: None 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: 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 History: Reports: None Neurological History: Reports: None Psychiatric History: Reports: Addiction Other Psychiatric History: acute alcohol abuse Endocrine/Metabolic History: Reports: Diabetes, Type II, Hypothyroidism Hematologic History: Reports: Anemia Other Hematologic History: acquired thrombocytopenia Immunologic History: Reports: None Oncologic (Cancer) History: Reports: None Dermatologic History: Reports: Cellulitis Other Dermatologic History: RIGHT BREAST CELLULITUS - Infectious Disease History Infectious Disease History: Reports: None - Past Surgical History Head Surgeries/Procedures: Reports: None HEENT Surgical History: Reports: None Cardiovascular Surgical History: Reports: None Respiratory Surgical History: Reports: None GI Surgical History: Reports: Colonoscopy Female Surgical History: Reports: Mastectomy 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 Surgical History: Reports: None Oncologic Surgical History: Reports: Mastectomy Other Oncologic Surgeries/Procedures: RIGHT MASTECTOMY Dermatological Surgical History: Reports: Other (See Below) Social & Family History - Family History Family Medical History: Unobtainable - Caffeine Use Caffeine Use: Reports: Coffee Caffeine Use Comment: 1 8oz cup daily - Living Situation & Occupation Living situation: Reports: with Family Occupation: Employed ED ROS GENERAL - Review of Systems Review Of Systems: ROS reveals no pertinent complaints other than HPI. ED EXAM, GENERAL - Physical Exam Exam: See Below Exam Limited By: No Limitations General Appearance: Alert, WD/WN, Mild Distress, Other (discomfort) Ears: Hearing Grossly Normal Throat/Mouth: Normal Voice, No Airway Compromise Head: Atraumatic Neck: Non-Tender, Full Range of Motion Respiratory/Chest: No Respiratory Distress Cardiovascular: Regular Rate, Rhythm GI/Abdominal: Soft, Tender, Other (general discomfort). No: Distended, Guarding , Rigid, Rebound Neurological: Alert, Oriented, Normal Cognition, No Motor/Sensory Deficits Psychiatric: Normal Affect, Normal Mood Skin Exam: Warm, Dry, Normal Color Lymphatic: No Adenopathy Course - Vital Signs Last Recorded V/S: Last Vital Signs Temp 36.1 C 08/17/19 23:01 Pulse 72 08/17/19 23:01 Resp 20 08/17/19 23:01 BP 132/89 08/17/19 23:01 Pulse Ox 100 08/17/19 23:01 - Orders/Labs/Meds Orders: Active Orders 24 hr Category Date Time Status Abdomen Pelvis wo Cont [CT] Urgent Exams 08/18/19 00:22 Taken KUB [Abdomen 1V Flat] [CR] Urgent Exams 08/18/19 00:01 Taken Labs: Laboratory Tests 08/17/19 08/17/19 08/17/19 Range/Units 23:20 23:20 23:20 WBC 2.9 L (5.0-10.0) 10^3/uL RBC 3.32 L (4.2-5.4) 10^6/uL Hgb 11.1 L (12.0-16.0) g/dL Hct 32.7 L (37.0-47.0) % MCV 98.5 (80-100) fL MCH 33.4 (27.0-34.0) pg MCHC 33.9 (33.0-35.0) g/dL Plt Count 56 L (150-450) 10^3/uL Neut % (Auto) 61.8 (42.2-75.2) % Lymph % (Auto) 20.1 L (20.5-50.1) % Clinch % (Auto) 13.7 H (2-8) % Eos % (Auto) 4.1 H (1.0-3.0) % Baso % (Auto) 0.3 (0.0-1.0) % Sodium 137 (135-145) mmol/L Potassium 4.0 (3.6-5.0) mmol/L Chloride 104 (101-111) mmol/L Carbon Dioxide 24.0 (21.0-31.0) mmol/L Anion Gap 13.0 BUN 15 (7-18) mg/dL Creatinine 0.7 (0.6-1.3) mg/dL Est Cr Clr Drug Dosing 89.01 mL/min Estimated GFR (MDRD) > 60 BUN/Creatinine Ratio 21.42 Glucose 138 H (74-105) mg/dL Lactic Acid (0.5-2.2) mmol/L Calcium 8.3 L (8.4-10.2) mg/dl Total Bilirubin 1.4 H (0.2-1.0) mg/dL AST 50 H (10-42) IU/L ALT 37 (10-60) IU/L Alkaline Phosphatase 164 H (42-121) IU/L Ammonia 120 H (11-35) umol/L Total Protein 6.8 (6.7-8.2) g/dl Albumin 3.1 L (3.2-5.5) g/dl Globulin 3.7 Albumin/Globulin Ratio 0.84 08/17/19 Range/Units 23:20 WBC (5.0-10.0) 10^3/uL RBC (4.2-5.4) 10^6/uL Hgb (12.0-16.0) g/dL Hct (37.0-47.0) % MCV (80-100) fL MCH (27.0-34.0) pg MCHC (33.0-35.0) g/dL Plt Count (150-450) 10^3/uL Neut % (Auto) (42.2-75.2) % Lymph % (Auto) (20.5-50.1) % Clinch % (Auto) (2-8) % Eos % (Auto) (1.0-3.0) % Baso % (Auto) (0.0-1.0) % Sodium (135-145) mmol/L Potassium (3.6-5.0) mmol/L Chloride (101-111) mmol/L Carbon Dioxide (21.0-31.0) mmol/L Anion Gap BUN (7-18) mg/dL Creatinine (0.6-1.3) mg/dL Est Cr Clr Drug Dosing mL/min Estimated GFR (MDRD) BUN/Creatinine Ratio Glucose (74-105) mg/dL Lactic Acid 1.5 (0.5-2.2) mmol/L Calcium (8.4-10.2) mg/dl Total Bilirubin (0.2-1.0) mg/dL AST (10-42) IU/L ALT (10-60) IU/L Alkaline Phosphatase (42-121) IU/L Ammonia (11-35) umol/L Total Protein (6.7-8.2) g/dl Albumin (3.2-5.5) g/dl Globulin Albumin/Globulin Ratio Meds: Medications Discontinued Medications Generic Name Dose Route Start Last Admin Trade Name Mayelin PRN Reason Stop Dose Admin Lactulose 40 gm 08/18/19 00:08 Cephulac PO 08/18/19 00:09 ONETIME ONE Magnesium Hydroxide 30 ml 08/18/19 00:08 Milk Of Magnesia PO 08/18/19 00:09 ONETIME ONE - Re-Assessments/Exams Free Text/Narrative Re-Assessment/Exam: 08/18/19 00:[address] Mcdermott who feels pt without change in sensorium can be managed with additional lactulose & MOM as outpatient. family concurred. Departure - Departure Time of Disposition: :29 Disposition: Home, Self-Care 01 Clinical Impression: Ascites due to chronic alcoholic hepatitis, Hyperammonemia Cirrhosis of liver Qualifiers: Hepatic cirrhosis type: alcoholic cirrhosis Ascites presence: with ascites Qualified Code(s): K70.31 - Alcoholic cirrhosis of liver with ascites Constipated Qualifiers: Constipation type: slow transit constipation Qualified Code(s): K59.01 - Slow transit constipation - Discharge Information Forms: ED Department Discharge Additional Instructions: 1) rest 2) avoid solid foods next 48 hours 3) follow up at clinic 4) recheck as needed rx td [facility] - My Orders Last 24 Hours: My Active Orders 08/18/19 00:01 KUB [Abdomen 1V Flat] [CR] Urgent 08/18/19 00:22 Abdomen Pelvis wo Cont [CT] Urgent - Assessment/Plan Last 24 Hours: My Active Orders 08/18/19 00:01 KUB [Abdomen 1V Flat] [CR] Urgent 08/18/19 00:22 Abdomen Pelvis wo Cont [CT] Urgent
[2019-08-17 23:50] LABS: CHLORIDE,CL 104 mmol/L (101-111); SODIUM,NA 137 mmol/L (135-145)
[2019-08-18] MEDS ORDERED: Lactulose Soln 10 GM/15 ML 30 ML UD Cup PO ONE (00:08)
[2019-08-18] MEDS ORDERED: Magnesium Hydroxide 400 MG/5 ML Susp 30 ML Cup PO ONE (00:08)
[2019-08-18 01:51] VITALS: BP 96/65; PULSE 66
== END 2019-08-18 01:38 | disposition home or self-care (01) ==
LOC: DL.ED 22:56
DX: K70.11 Alcoholic hepatitis with ascites (principal); E72.20 Disorder of urea cycle metabolism, unspecified; K70.31 Alcoholic cirrhosis of liver with ascites; K59.01 Slow transit constipation; H54.40 Blindness, one eye, unspecified eye; E11.319 Type 2 diabetes mellitus with unspecified diabetic retinopathy without macular edema; I10 Essential (primary) hypertension; E03.9 Hypothyroidism, unspecified; D64.9 Anemia, unspecified; Z88.1 Allergy status to other antibiotic agents; Z79.82 Long term (current) use of aspirin; Z79.4 Long term (current) use of insulin; Z79.899 Other long term (current) drug therapy; Z79.890 Hormone replacement therapy
CPT/HCPCS: 36415; 74018; 74176; 80053; 82140; 83605; 85025; 99284; A9270

== ENCOUNTER 2020-02-06 10:25 | Emergency (ER) | payer MEDICAID ==
[2020-02-06 10:42] VITALS: BP 115/75; PULSE 64
[2020-02-06 12:06] LABS: ANION GAP 10.5 mEq/L (7-13); CHLORIDE,CL 106 mmol/L (98-107); SODIUM,NA 139 mmol/L (136-145)
--- NOTE | 2020-02-06 12:24 | EDM.PDOC ---
ED HPI GENERAL MEDICAL PROBLEM - General Chief Complaint: Headache Stated Complaint: HEADACHE, SYROSIS, Time Seen by Provider: 02/06/20 12:33 Source of Information: Reports: Patient, RN History Limitations: Reports: No Limitations - History of Present Illness INITIAL COMMENTS - FREE TEXT/NARRATIVE: ED wants ammonia checked, Hx cirrhosis and has headache. Only taking lactulose 3 times daily maybe. Has not tried anything for headache. Concerned ammonia level high. Appetite fine. No nausea or vomiting, No fever or cough Headache Pain Score (Numeric/FACES): 7 - Related Data Allergies Allergy/AdvReac Type Severity Reaction Status Date / Time ceftriaxone [From Rocephin] Allergy Intermediate Hives Verified 02/06/20 10:42 Home Meds: Home Meds Aspirin [Thuy Chewable Aspirin] 81 mg PO DAILY 02/14/15 [History] Insulin Aspart [NovoLOG] 20 units SUBCUT TIDM 02/14/15 [History] Lisinopril 5 mg PO DAILY 02/14/15 [History] Insulin Detemir [Levemir] 30 units SQ BEDTIME 05/01/17 [History] Levothyroxine 150 mcg PO ACBREAKFAST 05/01/17 [History] Calcium Citrate/Vitamin D3 [Calcium Citrate - Vit D Tablet] 1 tab PO BID [History] Ferrous Gluconate 324 mg PO DAILY 02/28/18 [History] Rifaximin [Xifaxan] 550 mg PO BID 30 Days tablet 03/02/18 [Rx] Lactulose 40 ml PO QID 07/22/18 [History] Past Medical History HEENT History: Reports: Impaired Vision Other HEENT History: legally blind per [facility] reports, blindness to right eye, presbyopia, diabetic retinopathy Cardiovascular History: Reports: Heart Murmur, High Cholesterol, Hypertension Other Cardiovascular History: MURMUR Respiratory History: Reports: None Gastrointestinal History: Reports: Cirrhosis, Other (See Below) Other Gastrointestinal History: HX OF ABNORMAL LIVER STUDIES Genitourinary History: Reports: None 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: 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 History: Reports: None Neurological History: Reports: None Psychiatric History: Reports: Addiction Other Psychiatric History: acute alcohol abuse Endocrine/Metabolic History: Reports: Diabetes, Type II, Hypothyroidism Hematologic History: Reports: Anemia Other Hematologic History: acquired thrombocytopenia Immunologic History: Reports: None Oncologic (Cancer) History: Reports: None Dermatologic History: Reports: Cellulitis Other Dermatologic History: RIGHT BREAST CELLULITUS - Infectious Disease History Infectious Disease History: Reports: None - Past Surgical History Head Surgeries/Procedures: Reports: None HEENT Surgical History: Reports: None Cardiovascular Surgical History: Reports: None Respiratory Surgical History: Reports: None GI Surgical History: Reports: Colonoscopy Female Surgical History: Reports: Mastectomy 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 Surgical History: Reports: None Oncologic Surgical History: Reports: Mastectomy Other Oncologic Surgeries/Procedures: RIGHT MASTECTOMY Dermatological Surgical History: Reports: Other (See Below) Social & Family History - Family History Family Medical History: Unobtainable - Tobacco Use Smoking Status *Q: Current Every Day Smoker Years of Tobacco use: 30 Packs/Tins Daily: 0.5 Second Hand Smoke Exposure: No - Caffeine Use Caffeine Use: Reports: Coffee Caffeine Use Comment: 1 8oz cup daily - Recreational Drug Use Recreational Drug Use: No - Living Situation & Occupation Living situation: Reports: with Family Occupation: Employed ED ROS GENERAL - Review of Systems Review Of Systems: Comprehensive ROS is negative, except as noted in HPI. - Physical Exam Exam: See Below Exam Limited By: No Limitations General Appearance: Alert, No Apparent Distress Ears: Normal External Exam, Normal TMs Throat/Mouth: Normal Lips, Normal Voice Neck: Normal Inspection, Full Range of Motion Respiratory/Chest: Lungs Clear, Normal Breath Sounds. No: Respiratory Distress GI/Abdominal: Normal Bowel Sounds, Soft, Non-Tender Neuro Exam (Abbreviated): Alert, Oriented, Normal Cognition Extremities: Normal Inspection Psychiatric: Flat Affect Skin Exam: Warm, Dry, Intact, Normal Color. No: Jaundice Course - Vital Signs Last Recorded V/S: Last Vital Signs Temp 96.9 F 02/06/20 10:37 Pulse 64 02/06/20 10:37 Resp 16 02/06/20 10:37 BP 115/75 02/06/20 10:37 Pulse Ox 100 02/06/20 10:37 - Orders/Labs/Meds Labs: Laboratory Tests 02/06/20 02/06/20 02/06/20 Range/Units 11:41 11:41 11:41 WBC 2.3 L (5.0-10.0) 10^3/uL RBC 3.30 L (4.2-5.4) 10^6/uL Hgb 11.1 L (12.0-16.0) g/dL Hct 32.8 L (37.0-47.0) % MCV 99.4 (80-100) fL MCH 33.6 (27.0-34.0) pg MCHC 33.8 (33.0-35.0) g/dL Plt Count 56 L (150-450) 10^3/uL Neut % (Auto) 58.2 (42.2-75.2) % Lymph % (Auto) 23.1 (20.5-50.1) % Cloud % (Auto) 13.2 H (2-8) % Eos % (Auto) 5.1 H (1.0-3.0) % Baso % (Auto) 0.4 (0.0-1.0) % Sodium 139 (136-145) mmol/L Potassium 4.5 (3.5-5.1) mmol/L Chloride 106 (98-107) mmol/L Carbon Dioxide 27 (21-32) mmol/L Anion Gap 10.5 (7-13) mEq/L BUN 17 (7-18) mg/dL Creatinine 0.93 (0.55-1.02) mg/dL Est Cr Clr Drug Dosing 69.59 mL/min Estimated GFR (MDRD) > 60 BUN/Creatinine Ratio 18.3 (No establ ref range) Glucose 163 H (74-99) mg/dL Calcium 8.3 L (8.5-10.1) mg/dL Total Bilirubin 0.9 (0.2-1.0) mg/dL AST 53 H (15-37) U/L ALT 59 (14-59) U/L Alkaline Phosphatase 298 H (46-116) U/L Ammonia 62 H (11-32) umol/L Total Protein 7.4 (6.4-8.2) g/dL Albumin 3.2 L (3.4-5.0) g/dL Globulin 4.2 Albumin/Globulin Ratio 0.76 Amylase 66 (25-115) U/L Lipase 273 (73-393) U/L Urine Color (YELLOW) Urine Appearance (CLEAR) Urine pH (5.0-9.0) Ur Specific [place] (1.005-1.030) Urine Protein (NEGATIVE) Urine Glucose (UA) (NEGATIVE) Urine Ketones (NEGATIVE) Urine Occult Blood (NEGATIVE) Urine Nitrite (NEGATIVE) Urine Bilirubin (NEGATIVE) Urine Urobilinogen (0.2-1.0) mg/dL Ur Leukocyte Esterase (NEGATIVE) Urine RBC /HPF Urine WBC (0-5/HPF) /HPF Ur Epithelial Cells (NOT SEEN) /HPF Amorphous Sediment (NOT SEEN) /HPF Urine Bacteria (0-FEW/HPF) /HPF Urine Opiates Screen (NEGATIVE) Ur Oxycodone Screen (NEGATIVE) Urine Methadone Screen (NEGATIVE) Ur Barbiturates Screen (NEGATIVE) U Tricyclic Antidepress (NEGATIVE) Ur Phencyclidine Scrn (NEGATIVE) Ur Amphetamine Screen (NEGATIVE) U Methamphetamines Scrn (NEGATIVE) Urine MDMA Screen (NEGATIVE) U Benzodiazepines Scrn (NEGATIVE) Urine Cocaine Screen (NEGATIVE) U Marijuana (THC) Screen (NEGATIVE) Ethyl Alcohol (0) mg/dL 02/06/20 02/06/20 02/06/20 Range/Units 11:41 11:45 11:45 WBC (5.0-10.0) 10^3/uL RBC (4.2-5.4) 10^6/uL Hgb (12.0-16.0) g/dL Hct (37.0-47.0) % MCV (80-100) fL MCH (27.0-34.0) pg MCHC (33.0-35.0) g/dL Plt Count (150-450) 10^3/uL Neut % (Auto) (42.2-75.2) % Lymph % (Auto) (20.5-50.1) % Cloud % (Auto) (2-8) % Eos % (Auto) (1.0-3.0) % Baso % (Auto) (0.0-1.0) % Sodium (136-145) mmol/L Potassium (3.5-5.1) mmol/L Chloride (98-107) mmol/L Carbon Dioxide (21-32) mmol/L Anion Gap (7-13) mEq/L BUN (7-18) mg/dL Creatinine (0.55-1.02) mg/dL Est Cr Clr Drug Dosing mL/min Estimated GFR (MDRD) BUN/Creatinine Ratio (No establ ref range) Glucose (74-99) mg/dL Calcium (8.5-10.1) mg/dL Total Bilirubin (0.2-1.0) mg/dL AST (15-37) U/L ALT (14-59) U/L Alkaline Phosphatase (46-116) U/L Ammonia (11-32) umol/L Total Protein (6.4-8.2) g/dL Albumin (3.4-5.0) g/dL Globulin Albumin/Globulin Ratio Amylase (25-115) U/L Lipase (73-393) U/L Urine Color Light yellow (YELLOW) Urine Appearance Slightly cloudy (CLEAR) Urine pH 6.0 (5.0-9.0) Ur Specific [place] 1.020 (1.005-1.030) Urine Protein Negative (NEGATIVE) Urine Glucose (UA) Negative (NEGATIVE) Urine Ketones Negative (NEGATIVE) Urine Occult Blood Trace-intact H (NEGATIVE) Urine Nitrite Negative (NEGATIVE) Urine Bilirubin Negative (NEGATIVE) Urine Urobilinogen 0.2 (0.2-1.0) mg/dL Ur Leukocyte Esterase Negative (NEGATIVE) Urine RBC 0-5 /HPF Urine WBC Not seen (0-5/HPF) /HPF Ur Epithelial Cells Few (NOT SEEN) /HPF Amorphous Sediment Few (NOT SEEN) /HPF Urine Bacteria Rare (0-FEW/HPF) /HPF Urine Opiates Screen Negative (NEGATIVE) Ur Oxycodone Screen Negative (NEGATIVE) Urine Methadone Screen Negative (NEGATIVE) Ur Barbiturates Screen Negative (NEGATIVE) U Tricyclic Antidepress Negative (NEGATIVE) Ur Phencyclidine Scrn Negative (NEGATIVE) Ur Amphetamine Screen Negative (NEGATIVE) U Methamphetamines Scrn Negative (NEGATIVE) Urine MDMA Screen Negative (NEGATIVE) U Benzodiazepines Scrn Negative (NEGATIVE) Urine Cocaine Screen Negative (NEGATIVE) U Marijuana (THC) Screen Negative (NEGATIVE) Ethyl Alcohol < 3 (0) mg/dL Meds: Medications Discontinued Medications Generic Name Dose Route Start Last Admin Trade Name Freq PRN Reason Stop Dose Admin Ketorolac Tromethamine 30 mg 02/06/20 12:36 02/06/20 12:48 Toradol IM 02/06/20 12:37 30 mg ONETIME ONE Administration Departure - Departure Time of Disposition: 12:34 Disposition: Home, Self-Care 01 Condition: Good Clinical Impression: Cirrhosis of liver Qualifiers: Hepatic cirrhosis type: alcoholic cirrhosis Ascites presence: with ascites Qualified Code(s): K70.31 - Alcoholic cirrhosis of liver with ascites Headache Qualifiers: Headache type: unspecified Headache chronicity pattern: acute headache Intractability: intractable Qualified Code(s): R51 - Headache - Discharge Information *PRESCRIPTION DRUG MONITORING PROGRAM REVIEWED*: No *COPY OF PRESCRIPTION DRUG MONITORING REPORT IN PATIENT LAYLA: No Instructions: General Headache Without Cause Forms: ED Department Discharge Additional Instructions: isolate due to poor immune system take lactulose 4 times daily as prescribed follow up with PCP if continued symptoms limited use of tylenol 325 or ibuprofen for discomfort encourage fluids' Sepsis Event Note - Evaluation Sepsis Screening Result: No Definite Risk - Focused Exam Date Exam was Performed: 02/09/20 Time Exam was Performed: 10:06
[2020-02-06] MEDS ORDERED: Ketorolac 30 MG/ML SDV IM ONE (12:36)
== END 2020-02-06 12:54 | disposition home or self-care (01) ==
LOC: DL.ED 10:25
DX: K70.31 Alcoholic cirrhosis of liver with ascites (principal); R51 Headache; E11.9 Type 2 diabetes mellitus without complications; I10 Essential (primary) hypertension; F17.210 Nicotine dependence, cigarettes, uncomplicated; Z88.1 Allergy status to other antibiotic agents; Z79.82 Long term (current) use of aspirin
CPT/HCPCS: 36415; 80053; 80305-QW; 80307; 81001; 82140; 82150; 83690; 85025; 96372; 99284; J1885

== ENCOUNTER 2020-03-16 16:57 | Inpatient (IN) | payer MEDICAID ==
--- NOTE | 2020-03-16 17:37 | EDM.PDOC ---
ED HPI GENERAL MEDICAL PROBLEM - General Source of Information: Reports: EMS History Limitations: Reports: Altered Mental Status - History of Present Illness Onset: Today Duration: Constant Location: Reports: Generalized Quality: Reports: Other Severity: Severe Improves with: Reports: None Worsens with: Reports: None Context: Reports: Other Associated Symptoms: Reports: Other <Jacob Vallejo - Last Filed: 03/16/20 18:55> <Jory Mayesy Rohith - Last Filed: 03/16/20 21:36> - General Chief Complaint: Behavioral/Psych Stated Complaint: AMBULANCE Time Seen by Provider: 03/16/20 17:25 - History of Present Illness INITIAL COMMENTS - FREE TEXT/NARRATIVE: This 49 yo female patient was brought to the ED by [facility] after being found in the driveway taking off her clothing. EMS reports the patient was not answering questions appropriately upon arrival. EMS administered Narcan x2 when the patient became more responsive. Upon arrival in the ED, the patient was attempting to stick her fingers down her throat. The patient was fighting with ED staff, but not responding normally. The patient was not following commands. EMS reported that the patient had just gotten home from the Clinic. (Jacob Vallejo) - Related Data Allergies Allergy/AdvReac Type Severity Reaction Status Date / Time ceftriaxone [From Rocephin] Allergy Intermediate Hives Verified 03/16/20 17:07 Home Meds: Home Meds Aspirin [Thuy Chewable Aspirin] 81 mg PO DAILY 02/14/15 [History] Insulin Aspart [NovoLOG] 20 units SUBCUT TIDM 02/14/15 [History] Lisinopril 5 mg PO DAILY 02/14/15 [History] Insulin Detemir [Levemir] 30 units SQ BEDTIME 05/01/17 [History] Levothyroxine 150 mcg PO ACBREAKFAST 05/01/17 [History] Calcium Citrate/Vitamin D3 [Calcium Citrate - Vit D Tablet] 1 tab PO BID [History] Ferrous Gluconate 324 mg PO DAILY 02/28/18 [History] Rifaximin [Xifaxan] 550 mg PO BID 30 Days tablet 03/02/18 [Rx] Lactulose 40 ml PO QID 07/22/18 [History] Past Medical History HEENT History: Reports: Impaired Vision Other HEENT History: legally blind per [facility] reports, blindness to right eye, presbyopia, diabetic retinopathy Cardiovascular History: Reports: Heart Murmur, High Cholesterol, Hypertension Other Cardiovascular History: MURMUR Respiratory History: Reports: None Gastrointestinal History: Reports: Cirrhosis, Other (See Below) Other Gastrointestinal History: HX OF ABNORMAL LIVER STUDIES Genitourinary History: Reports: None 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: 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 History: Reports: None Neurological History: Reports: None Psychiatric History: Reports: Addiction Other Psychiatric History: acute alcohol abuse Endocrine/Metabolic History: Reports: Diabetes, Type II, Hypothyroidism Hematologic History: Reports: Anemia Other Hematologic History: acquired thrombocytopenia Immunologic History: Reports: None Oncologic (Cancer) History: Reports: None Dermatologic History: Reports: Cellulitis Other Dermatologic History: RIGHT BREAST CELLULITUS - Infectious Disease History Infectious Disease History: Reports: None - Past Surgical History Head Surgeries/Procedures: Reports: None HEENT Surgical History: Reports: None Cardiovascular Surgical History: Reports: None Respiratory Surgical History: Reports: None GI Surgical History: Reports: Colonoscopy Female Surgical History: Reports: Mastectomy 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 Surgical History: Reports: None Oncologic Surgical History: Reports: Mastectomy Other Oncologic Surgeries/Procedures: RIGHT MASTECTOMY Dermatological Surgical History: Reports: Other (See Below) <Jacob Vallejo M - Last Filed: 03/16/20 18:55> Social & Family History - Family History Family Medical History: Unobtainable - Caffeine Use Caffeine Use: Reports: Coffee Caffeine Use Comment: 1 8oz cup daily - Living Situation & Occupation Living situation: Reports: with Family Occupation: Employed <Jacob Vallejo M - Last Filed: 03/16/20 18:55> ED ROS GENERAL - Review of Systems Review Of Systems: Comprehensive ROS is negative, except as noted in HPI. <Jacob Vallejo M - Last Filed: 03/16/20 18:55> - Physical Exam Exam: See Below Exam Limited By: Altered Mental Status General Appearance: Obtunded, Moderate Distress Eye Exam: Bilateral Eye: EOMI (sluggish ) Ears: Normal External Exam, Normal Canal, Normal TMs Nose: Normal Inspection, Normal Mucosa, No Blood Throat/Mouth: Normal Inspection, Normal Lips, Normal Teeth, Normal Gums, Normal Oropharynx, Normal Voice, No Airway Compromise Head Exam: Atraumatic, Normocephalic Neck: Normal Inspection, Supple, Non-Tender, Full Range of Motion Respiratory/Chest: No Respiratory Distress, Lungs Clear, Normal Breath Sounds, No Accessory Muscle Use, Chest Non-Tender Cardiovascular: Normal Peripheral Pulses, Regular Rate, Rhythm, No Edema, No Gallop, No JVD, No Murmur, No Rub GI/Abdominal: Normal Bowel Sounds, Soft, Non-Tender, No Organomegaly, No Distention, No Abnormal Bruit, No Mass (Female) Exam: Deferred Rectal (Female) Exam: Deferred Neuro Exam (Abbreviated): Inattentive, Confused, Disoriented, Other (responds normally to pain) Back Exam: Normal Inspection, Full Range of Motion, NT Extremities: Normal Inspection, Normal Range of Motion, Non-Tender, No Pedal Edema, Normal Capillary Refill Skin Exam: Warm, Dry, Intact, No Rash, Jaundice (slight) <Jacob Vallejo - Last Filed: 03/16/20 18:55> Course <Jacob Vallejo - Last Filed: 03/16/20 18:55> <Tona Mayes - Last Filed: 03/16/20 21:36> - Vital Signs Last Recorded V/S: Last Vital Signs Temp 96.9 F 03/16/20 16:55 Pulse 98 03/16/20 16:55 Resp 18 03/16/20 18:30 BP 105/67 03/16/20 18:30 Pulse Ox 100 03/16/20 18:30 - Orders/Labs/Meds Orders: Active Orders 24 hr Category Date Time Status Head wo Cont [CT] Urgent Exams 03/16/20 19:11 Taken Labs: Laboratory Tests 03/16/20 03/16/20 03/16/20 Range/Units 17:20 17:20 17:20 WBC 6.2 (5.0-10.0) 10^3/uL RBC 2.36 L (4.2-5.4) 10^6/uL Hgb 8.0 L D (12.0-16.0) g/dL Hct 23.4 L (37.0-47.0) % MCV 99.2 (80-100) fL MCH 33.9 (27.0-34.0) pg MCHC 34.2 (33.0-35.0) g/dL Plt Count 114 L (150-450) 10^3/uL Neut % (Auto) 74.3 (42.2-75.2) % Lymph % (Auto) 17.3 L (20.5-50.1) % [place] % (Auto) 7.9 (2-8) % Eos % (Auto) 0.3 L (1.0-3.0) % Baso % (Auto) 0.2 (0.0-1.0) % Sodium (136-145) mmol/L Potassium (3.5-5.1) mmol/L Chloride (98-107) mmol/L Carbon Dioxide (21-32) mmol/L Anion Gap (7-13) mEq/L BUN (7-18) mg/dL Creatinine (0.55-1.02) mg/dL Est Cr Clr Drug Dosing Estimated GFR (MDRD) BUN/Creatinine Ratio (No establ ref range) Glucose (74-99) mg/dL Calcium (8.5-10.1) mg/dL Total Bilirubin (0.2-1.0) mg/dL AST (15-37) U/L ALT (14-59) U/L Alkaline Phosphatase (46-116) U/L Ammonia (11-32) umol/L Total Protein (6.4-8.2) g/dL Albumin (3.4-5.0) g/dL Globulin Albumin/Globulin Ratio Urine Color (YELLOW) Urine Appearance (CLEAR) Urine pH (5.0-9.0) Ur Specific [place] (1.005-1.030) Urine Protein (NEGATIVE) Urine Glucose (UA) (NEGATIVE) Urine Ketones (NEGATIVE) Urine Occult Blood (NEGATIVE) Urine Nitrite (NEGATIVE) Urine Bilirubin (NEGATIVE) Urine Urobilinogen (0.2-1.0) mg/dL Ur Leukocyte Esterase (NEGATIVE) U Hyaline Cast (Auto) Urine RBC /HPF Urine WBC (0-5/HPF) /HPF Ur Epithelial Cells (NOT SEEN) /HPF Amorphous Sediment (NOT SEEN) /HPF Urine Bacteria (0-FEW/HPF) /HPF Urine Mucus (NOT SEEN) /LPF Salicylates < 2.8 L (2.8-20(Therapeutic)) mg/dL Urine Opiates Screen (NEGATIVE) Ur Oxycodone Screen (NEGATIVE) Urine Methadone Screen (NEGATIVE) Acetaminophen 3 L (10-30 (Therapeutic)) ug/mL Ur Barbiturates Screen (NEGATIVE) U Tricyclic Antidepress (NEGATIVE) Ur Phencyclidine Scrn (NEGATIVE) Ur Amphetamine Screen (NEGATIVE) U Methamphetamines Scrn (NEGATIVE) Urine MDMA Screen (NEGATIVE) U Benzodiazepines Scrn (NEGATIVE) Urine Cocaine Screen (NEGATIVE) U Marijuana (THC) Screen (NEGATIVE) Ethyl Alcohol < 3 (0) mg/dL 03/16/20 03/16/20 03/16/20 Range/Units 17:20 17:22 17:49 WBC (5.0-10.0) 10^3/uL RBC (4.2-5.4) 10^6/uL Hgb (12.0-16.0) g/dL Hct (37.0-47.0) % MCV (80-100) fL MCH (27.0-34.0) pg MCHC (33.0-35.0) g/dL Plt Count (150-450) 10^3/uL Neut % (Auto) (42.2-75.2) % Lymph % (Auto) (20.5-50.1) % [place] % (Auto) (2-8) % Eos % (Auto) (1.0-3.0) % Baso % (Auto) (0.0-1.0) % Sodium 138 (136-145) mmol/L Potassium 5.5 H (3.5-5.1) mmol/L Chloride 106 (98-107) mmol/L Carbon Dioxide 17 L (21-32) mmol/L Anion Gap 20.5 H (7-13) mEq/L BUN 40 H (7-18) mg/dL Creatinine 1.89 H (0.55-1.02) mg/dL Est Cr Clr Drug Dosing TNP Estimated GFR (MDRD) 28 BUN/Creatinine Ratio 21.2 (No establ ref range) Glucose 157 H (74-99) mg/dL Calcium 7.8 L (8.5-10.1) mg/dL Total Bilirubin 1.4 H (0.2-1.0) mg/dL AST 43 H (15-37) U/L ALT 37 (14-59) U/L Alkaline Phosphatase 139 H (46-116) U/L Ammonia 260 H (11-32) umol/L Total Protein 5.9 L (6.4-8.2) g/dL Albumin 2.5 L (3.4-5.0) g/dL Globulin 3.4 Albumin/Globulin Ratio 0.74 Urine Color Dark yellow (YELLOW) Urine Appearance Slightly cloudy (CLEAR) Urine pH 5.5 (5.0-9.0) Ur Specific [place] 1.025 (1.005-1.030) Urine Protein Negative (NEGATIVE) Urine Glucose (UA) Negative (NEGATIVE) Urine Ketones Trace H (NEGATIVE) Urine Occult Blood Trace-intact H (NEGATIVE) Urine Nitrite Negative (NEGATIVE) Urine Bilirubin Small H (NEGATIVE) Urine Urobilinogen 0.2 (0.2-1.0) mg/dL Ur Leukocyte Esterase Negative (NEGATIVE) U Hyaline Cast (Auto) Few Urine RBC 0-5 /HPF Urine WBC 0-5 (0-5/HPF) /HPF Ur Epithelial Cells Few (NOT SEEN) /HPF Amorphous Sediment Few (NOT SEEN) /HPF Urine Bacteria Few (0-FEW/HPF) /HPF Urine Mucus Rare (NOT SEEN) /LPF Salicylates (2.8-20(Therapeutic)) mg/dL Urine Opiates Screen (NEGATIVE) Ur Oxycodone Screen (NEGATIVE) Urine Methadone Screen (NEGATIVE) Acetaminophen (10-30 (Therapeutic)) ug/mL Ur Barbiturates Screen (NEGATIVE) U Tricyclic Antidepress (NEGATIVE) Ur Phencyclidine Scrn (NEGATIVE) Ur Amphetamine Screen (NEGATIVE) U Methamphetamines Scrn (NEGATIVE) Urine MDMA Screen (NEGATIVE) U Benzodiazepines Scrn (NEGATIVE) Urine Cocaine Screen (NEGATIVE) U Marijuana (THC) Screen (NEGATIVE) Ethyl Alcohol (0) mg/dL 03/16/20 Range/Units 17:49 WBC (5.0-10.0) 10^3/uL RBC (4.2-5.4) 10^6/uL Hgb (12.0-16.0) g/dL Hct (37.0-47.0) % MCV (80-100) fL MCH (27.0-34.0) pg MCHC (33.0-35.0) g/dL Plt Count (150-450) 10^3/uL Neut % (Auto) (42.2-75.2) % Lymph % (Auto) (20.5-50.1) % [place] % (Auto) (2-8) % Eos % (Auto) (1.0-3.0) % Baso % (Auto) (0.0-1.0) % Sodium (136-145) mmol/L Potassium (3.5-5.1) mmol/L Chloride (98-107) mmol/L Carbon Dioxide (21-32) mmol/L Anion Gap (7-13) mEq/L BUN (7-18) mg/dL Creatinine (0.55-1.02) mg/dL Est Cr Clr Drug Dosing Estimated GFR (MDRD) BUN/Creatinine Ratio (No establ ref range) Glucose (74-99) mg/dL Calcium (8.5-10.1) mg/dL Total Bilirubin (0.2-1.0) mg/dL AST (15-37) U/L ALT (14-59) U/L Alkaline Phosphatase (46-116) U/L Ammonia (11-32) umol/L Total Protein (6.4-8.2) g/dL Albumin (3.4-5.0) g/dL Globulin Albumin/Globulin Ratio Urine Color (YELLOW) Urine Appearance (CLEAR) Urine pH (5.0-9.0) Ur Specific [place] (1.005-1.030) Urine Protein (NEGATIVE) Urine Glucose (UA) (NEGATIVE) Urine Ketones (NEGATIVE) Urine Occult Blood (NEGATIVE) Urine Nitrite (NEGATIVE) Urine Bilirubin (NEGATIVE) Urine Urobilinogen (0.2-1.0) mg/dL Ur Leukocyte Esterase (NEGATIVE) U Hyaline Cast (Auto) Urine RBC /HPF Urine WBC (0-5/HPF) /HPF Ur Epithelial Cells (NOT SEEN) /HPF Amorphous Sediment (NOT SEEN) /HPF Urine Bacteria (0-FEW/HPF) /HPF Urine Mucus (NOT SEEN) /LPF Salicylates (2.8-20(Therapeutic)) mg/dL Urine Opiates Screen Negative (NEGATIVE) Ur Oxycodone Screen Negative (NEGATIVE) Urine Methadone Screen Negative (NEGATIVE) Acetaminophen (10-30 (Therapeutic)) ug/mL Ur Barbiturates Screen Negative (NEGATIVE) U Tricyclic Antidepress Negative (NEGATIVE) Ur Phencyclidine Scrn Negative (NEGATIVE) Ur Amphetamine Screen Negative (NEGATIVE) U Methamphetamines Scrn Negative (NEGATIVE) Urine MDMA Screen Negative (NEGATIVE) U Benzodiazepines Scrn Negative (NEGATIVE) Urine Cocaine Screen Negative (NEGATIVE) U Marijuana (THC) Screen Negative (NEGATIVE) Ethyl Alcohol (0) mg/dL - Re-Assessments/Exams Free Text/Narrative Re-Assessment/Exam: 03/16/20 21:31 intermittent dozing , lifts head looks around and lies back down. occasional attempts to stick hand deep in mouth, no verbalization. Family not available for any additional hx. VSS remain stable. TC Dr Kendrick, accepting patient for admission. (Tona Mayes) Departure <Jacob Vallejo - Last Filed: 03/16/20 18:55> - Departure Time of Disposition: 21:25 Condition: Fair - Discharge Information *PRESCRIPTION DRUG MONITORING PROGRAM REVIEWED*: No *COPY OF PRESCRIPTION DRUG MONITORING REPORT IN PATIENT LAYLA: No <Tona Mayes - Last Filed: 03/16/20 21:36> - Departure Disposition: Admitted As Inpatient 64 Clinical Impression: Hyperammonemia, Hepatic encephalopathy, Hyperkalemia Alcoholic cirrhosis Qualifiers: Ascites presence: unspecified Qualified Code(s): K70.30 - Alcoholic cirrhosis of liver without ascites Altered mental status Qualifiers: Altered mental status type: unspecified Qualified Code(s): R41.82 - Altered mental status, unspecified Sepsis Event Note - Evaluation Sepsis Screening Result: No Definite Risk - Focused Exam Date Exam was Performed: 03/16/20 Time Exam was Performed: 18:55 <Jacob Vallejo - Last Filed: 03/16/20 18:55> - Focused Exam Date Exam was Performed: 03/16/20 Time Exam was Performed: 21:36 <Tona Mayes - Last Filed: 03/16/20 21:36> - Focused Exam Vital Signs: Vital Signs Temp Pulse Resp BP Pulse Ox 03/16/20 18:30 18 105/67 100 03/16/20 16:55 96.9 F 98 16 94/59 L 98 - My Orders Last 24 Hours: My Active Orders 03/16/20 19:11 Head wo Cont [CT] Urgent - Assessment/Plan Last 24 Hours: My Active Orders 03/16/20 19:11 Head wo Cont [CT] Urgent
[2020-03-16 17:56] LABS: ACETAMINOPHEN 3 ug/mL (10-30 (Therapeutic))
[2020-03-16 17:58] LABS: ANION GAP 20.5 mEq/L (7-13); CHLORIDE,CL 106 mmol/L (98-107); SODIUM,NA 138 mmol/L (136-145)
[2020-03-16] MEDS ORDERED: Sodium Chloride 0.9% 10 ML Syringe FLUSH PRN ×2 (22:47)
[2020-03-16] MEDS ORDERED: Rifaximin 550 MG Tab PO SCH (23:00)
--- NOTE | 2020-03-16 23:02 | PCM.HP ---
H&P History of Present Illness - General Date of Service: 03/16/20 Admit Problem/Dx: Admission Diagnosis/Problem Admission Diagnosis/Problem Hepatic encephalopathy Source of Information: Patient History Limitations: Reports: Altered Mental Status - History of Present Illness Initial Comments - Free Text/Narative: 49 yo F with PMH of liver cirrhosis and ESLD complicated by previous episodes of hepatic encephalopathy who was admitted with altered mental status. Unable to obtain history from patient due to AMS Patient was brought to the ED after she was noted to exhibit abnormal behavior including taking off her clothes, agitation and putting her hand into her mouth. In the ED, lab work showed Hb of 8, down from 11 last month, ammonia level of > 200, UDS negative. CT head was negative. - Related Data Allergies/Adverse Reactions: Allergies Allergy/AdvReac Type Severity Reaction Status Date / Time ceftriaxone [From Rocephin] Allergy Intermediate Hives Verified 03/16/20 17:07 Home Medications: Home Meds Aspirin [Thuy Chewable Aspirin] 81 mg PO DAILY 02/14/15 [History] Insulin Aspart [NovoLOG] 20 units SUBCUT TIDM 02/14/15 [History] Lisinopril 5 mg PO DAILY 02/14/15 [History] Insulin Detemir [Levemir] 30 units SQ BEDTIME 05/01/17 [History] Levothyroxine 150 mcg PO ACBREAKFAST 05/01/17 [History] Calcium Citrate/Vitamin D3 [Calcium Citrate - Vit D Tablet] 1 tab PO BID [History] Ferrous Gluconate 324 mg PO DAILY 02/28/18 [History] Rifaximin [Xifaxan] 550 mg PO BID 30 Days tablet 03/02/18 [Rx] Lactulose 40 ml PO QID 07/22/18 [History] Past Medical History HEENT History: Reports: Impaired Vision Other HEENT History: legally blind per [facility] reports, blindness to right eye, presbyopia, diabetic retinopathy Cardiovascular History: Reports: Heart Murmur, High Cholesterol, Hypertension Other Cardiovascular History: MURMUR Respiratory History: Reports: None Gastrointestinal History: Reports: Cirrhosis, Other (See Below) Other Gastrointestinal History: HX OF ABNORMAL LIVER STUDIES Genitourinary History: Reports: None 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: 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 History: Reports: None Neurological History: Reports: None Psychiatric History: Reports: Addiction Other Psychiatric History: acute alcohol abuse Endocrine/Metabolic History: Reports: Diabetes, Type II, Hypothyroidism Hematologic History: Reports: Anemia Other Hematologic History: acquired thrombocytopenia Immunologic History: Reports: None Oncologic (Cancer) History: Reports: None Dermatologic History: Reports: Cellulitis Other Dermatologic History: RIGHT BREAST CELLULITUS - Infectious Disease History Infectious Disease History: Reports: Other (See Below) Other Infectious Disease History: unable to obtain due to nonverbal status at this time - Past Surgical History Head Surgeries/Procedures: Reports: None HEENT Surgical History: Reports: None Cardiovascular Surgical History: Reports: None Respiratory Surgical History: Reports: None GI Surgical History: Reports: Colonoscopy Female Surgical History: Reports: Mastectomy 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 Surgical History: Reports: None Oncologic Surgical History: Reports: Mastectomy Other Oncologic Surgeries/Procedures: RIGHT MASTECTOMY Dermatological Surgical History: Reports: Other (See Below) Social & Family History - Family History Family Medical History: Unobtainable - Caffeine Use Caffeine Use: Reports: Coffee Caffeine Use Comment: 1 8oz cup daily - Living Situation & Occupation Living situation: Reports: with Family Occupation: Employed H&P Review of Systems - Review of Systems: Review Of Systems: Unable To Obtain (AMS) Reason Not Obtained: altered mental status Exam - Exam Exam: See Below - Vital Signs Vital Signs: Last Vital Signs Temp 36.1 C 03/16/20 21:28 Pulse 98 03/16/20 21:28 Resp 20 03/16/20 21:28 BP 148/114 H 03/16/20 21:28 Pulse Ox 100 03/16/20 22:48 Weight: 83.915 kg - Exam General: Other (Confused, not responding to questions) HEENT: Pupils Equal Neck: Supple Lungs: Clear to Auscultation, Normal Respiratory Effort Cardiovascular: Regular Rate, Regular Rhythm, Normal S1, Normal S2 GI/Abdominal Exam: Normal Bowel Sounds, Soft, Non-Tender, No Organomegaly Extremities: Normal Inspection, Normal Range of Motion, Non-Tender, No Pedal Edema Neuro Extensive - Mental Status: Other (unable to assess) Psychiatric: Other (unable to obtain) - Patient Data Lab Results Last 24 hrs: Laboratory Results - last 24 hr 03/16/20 03/16/20 03/16/20 Range/Units 17:20 17:20 17:20 WBC 6.2 (5.0-10.0) 10^3/uL RBC 2.36 L (4.2-5.4) 10^6/uL Hgb 8.0 L D (12.0-16.0) g/dL Hct 23.4 L (37.0-47.0) % MCV 99.2 (80-100) fL MCH 33.9 (27.0-34.0) pg MCHC 34.2 (33.0-35.0) g/dL Plt Count 114 L (150-450) 10^3/uL Neut % (Auto) 74.3 (42.2-75.2) % Lymph % (Auto) 17.3 L (20.5-50.1) % [place] % (Auto) 7.9 (2-8) % Eos % (Auto) 0.3 L (1.0-3.0) % Baso % (Auto) 0.2 (0.0-1.0) % Sodium (136-145) mmol/L Potassium (3.5-5.1) mmol/L Chloride (98-107) mmol/L Carbon Dioxide (21-32) mmol/L Anion Gap (7-13) mEq/L BUN (7-18) mg/dL Creatinine (0.55-1.02) mg/dL Est Cr Clr Drug Dosing Estimated GFR (MDRD) BUN/Creatinine Ratio (No establ ref range) Glucose (74-99) mg/dL Calcium (8.5-10.1) mg/dL Total Bilirubin (0.2-1.0) mg/dL AST (15-37) U/L ALT (14-59) U/L Alkaline Phosphatase (46-116) U/L Ammonia (11-32) umol/L Total Protein (6.4-8.2) g/dL Albumin (3.4-5.0) g/dL Globulin Albumin/Globulin Ratio Urine Color (YELLOW) Urine Appearance (CLEAR) Urine pH (5.0-9.0) Ur Specific [place] (1.005-1.030) Urine Protein (NEGATIVE) Urine Glucose (UA) (NEGATIVE) Urine Ketones (NEGATIVE) Urine Occult Blood (NEGATIVE) Urine Nitrite (NEGATIVE) Urine Bilirubin (NEGATIVE) Urine Urobilinogen (0.2-1.0) mg/dL Ur Leukocyte Esterase (NEGATIVE) U Hyaline Cast (Auto) Urine RBC /HPF Urine WBC (0-5/HPF) /HPF Ur Epithelial Cells (NOT SEEN) /HPF Amorphous Sediment (NOT SEEN) /HPF Urine Bacteria (0-FEW/HPF) /HPF Urine Mucus (NOT SEEN) /LPF Salicylates < 2.8 L (2.8-20(Therapeutic)) mg/dL Urine Opiates Screen (NEGATIVE) Ur Oxycodone Screen (NEGATIVE) Urine Methadone Screen (NEGATIVE) Acetaminophen 3 L (10-30 (Therapeutic)) ug/mL Ur Barbiturates Screen (NEGATIVE) U Tricyclic Antidepress (NEGATIVE) Ur Phencyclidine Scrn (NEGATIVE) Ur Amphetamine Screen (NEGATIVE) U Methamphetamines Scrn (NEGATIVE) Urine MDMA Screen (NEGATIVE) U Benzodiazepines Scrn (NEGATIVE) Urine Cocaine Screen (NEGATIVE) U Marijuana (THC) Screen (NEGATIVE) Ethyl Alcohol < 3 (0) mg/dL 03/16/20 03/16/20 03/16/20 Range/Units 17:20 17:22 17:49 WBC (5.0-10.0) 10^3/uL RBC (4.2-5.4) 10^6/uL Hgb (12.0-16.0) g/dL Hct (37.0-47.0) % MCV (80-100) fL MCH (27.0-34.0) pg MCHC (33.0-35.0) g/dL Plt Count (150-450) 10^3/uL Neut % (Auto) (42.2-75.2) % Lymph % (Auto) (20.5-50.1) % [place] % (Auto) (2-8) % Eos % (Auto) (1.0-3.0) % Baso % (Auto) (0.0-1.0) % Sodium 138 (136-145) mmol/L Potassium 5.5 H (3.5-5.1) mmol/L Chloride 106 (98-107) mmol/L Carbon Dioxide 17 L (21-32) mmol/L Anion Gap 20.5 H (7-13) mEq/L BUN 40 H (7-18) mg/dL Creatinine 1.89 H (0.55-1.02) mg/dL Est Cr Clr Drug Dosing TNP Estimated GFR (MDRD) 28 BUN/Creatinine Ratio 21.2 (No establ ref range) Glucose 157 H (74-99) mg/dL Calcium 7.8 L (8.5-10.1) mg/dL Total Bilirubin 1.4 H (0.2-1.0) mg/dL AST 43 H (15-37) U/L ALT 37 (14-59) U/L Alkaline Phosphatase 139 H (46-116) U/L Ammonia 260 H (11-32) umol/L Total Protein 5.9 L (6.4-8.2) g/dL Albumin 2.5 L (3.4-5.0) g/dL Globulin 3.4 Albumin/Globulin Ratio 0.74 Urine Color Dark yellow (YELLOW) Urine Appearance Slightly cloudy (CLEAR) Urine pH 5.5 (5.0-9.0) Ur Specific [place] 1.025 (1.005-1.030) Urine Protein Negative (NEGATIVE) Urine Glucose (UA) Negative (NEGATIVE) Urine Ketones Trace H (NEGATIVE) Urine Occult Blood Trace-intact H (NEGATIVE) Urine Nitrite Negative (NEGATIVE) Urine Bilirubin Small H (NEGATIVE) Urine Urobilinogen 0.2 (0.2-1.0) mg/dL Ur Leukocyte Esterase Negative (NEGATIVE) U Hyaline Cast (Auto) Few Urine RBC 0-5 /HPF Urine WBC 0-5 (0-5/HPF) /HPF Ur Epithelial Cells Few (NOT SEEN) /HPF Amorphous Sediment Few (NOT SEEN) /HPF Urine Bacteria Few (0-FEW/HPF) /HPF Urine Mucus Rare (NOT SEEN) /LPF Salicylates (2.8-20(Therapeutic)) mg/dL Urine Opiates Screen (NEGATIVE) Ur Oxycodone Screen (NEGATIVE) Urine Methadone Screen (NEGATIVE) Acetaminophen (10-30 (Therapeutic)) ug/mL Ur Barbiturates Screen (NEGATIVE) U Tricyclic Antidepress (NEGATIVE) Ur Phencyclidine Scrn (NEGATIVE) Ur Amphetamine Screen (NEGATIVE) U Methamphetamines Scrn (NEGATIVE) Urine MDMA Screen (NEGATIVE) U Benzodiazepines Scrn (NEGATIVE) Urine Cocaine Screen (NEGATIVE) U Marijuana (THC) Screen (NEGATIVE) Ethyl Alcohol (0) mg/dL 03/16/20 Range/Units 17:49 WBC (5.0-10.0) 10^3/uL RBC (4.2-5.4) 10^6/uL Hgb (12.0-16.0) g/dL Hct (37.0-47.0) % MCV (80-100) fL MCH (27.0-34.0) pg MCHC (33.0-35.0) g/dL Plt Count (150-450) 10^3/uL Neut % (Auto) (42.2-75.2) % Lymph % (Auto) (20.5-50.1) % [place] % (Auto) (2-8) % Eos % (Auto) (1.0-3.0) % Baso % (Auto) (0.0-1.0) % Sodium (136-145) mmol/L Potassium (3.5-5.1) mmol/L Chloride (98-107) mmol/L Carbon Dioxide (21-32) mmol/L Anion Gap (7-13) mEq/L BUN (7-18) mg/dL Creatinine (0.55-1.02) mg/dL Est Cr Clr Drug Dosing Estimated GFR (MDRD) BUN/Creatinine Ratio (No establ ref range) Glucose (74-99) mg/dL Calcium (8.5-10.1) mg/dL Total Bilirubin (0.2-1.0) mg/dL AST (15-37) U/L ALT (14-59) U/L Alkaline Phosphatase (46-116) U/L Ammonia (11-32) umol/L Total Protein (6.4-8.2) g/dL Albumin (3.4-5.0) g/dL Globulin Albumin/Globulin Ratio Urine Color (YELLOW) Urine Appearance (CLEAR) Urine pH (5.0-9.0) Ur Specific [place] (1.005-1.030) Urine Protein (NEGATIVE) Urine Glucose (UA) (NEGATIVE) Urine Ketones (NEGATIVE) Urine Occult Blood (NEGATIVE) Urine Nitrite (NEGATIVE) Urine Bilirubin (NEGATIVE) Urine Urobilinogen (0.2-1.0) mg/dL Ur Leukocyte Esterase (NEGATIVE) U Hyaline Cast (Auto) Urine RBC /HPF Urine WBC (0-5/HPF) /HPF Ur Epithelial Cells (NOT SEEN) /HPF Amorphous Sediment (NOT SEEN) /HPF Urine Bacteria (0-FEW/HPF) /HPF Urine Mucus (NOT SEEN) /LPF Salicylates (2.8-20(Therapeutic)) mg/dL Urine Opiates Screen Negative (NEGATIVE) Ur Oxycodone Screen Negative (NEGATIVE) Urine Methadone Screen Negative (NEGATIVE) Acetaminophen (10-30 (Therapeutic)) ug/mL Ur Barbiturates Screen Negative (NEGATIVE) U Tricyclic Antidepress Negative (NEGATIVE) Ur Phencyclidine Scrn Negative (NEGATIVE) Ur Amphetamine Screen Negative (NEGATIVE) U Methamphetamines Scrn Negative (NEGATIVE) Urine MDMA Screen Negative (NEGATIVE) U Benzodiazepines Scrn Negative (NEGATIVE) Urine Cocaine Screen Negative (NEGATIVE) U Marijuana (THC) Screen Negative (NEGATIVE) Ethyl Alcohol (0) mg/dL Result Diagrams: 03/16/20 17:20 03/16/20 17:20 Problem List Initiated/Reviewed/Updated: Yes Orders Last 24hrs: Active Orders 24 hr Category Date Time Status Admission Diagnosis [ADT] Stat ADT 03/16/20 21:08 Ordered Patient Status [ADT] Routine ADT 03/16/20 22:48 Active Ambulate [RC] ASDIRECTED Care 03/16/20 22:48 Active Cardiac Monitoring [RC] . DIRECTED Care 03/16/20 21:08 Active Height and Weight [RC] DAILY Care 03/16/20 22:48 Active Initiate/Renew Violent-Self Destructive Restraints >/= Care 03/16/20 22:30 Ordered 16yo Q4H Nrsg Assess: Viol-S.Dest Rest [RC] Q1H Care 03/16/20 22:25 Active Oxygen Therapy [RC] PRN Care 03/16/20 22:48 Active Peripheral IV Care [RC] . DIRECTED Care 03/16/20 22:50 Active Up With Assistance [RC] ASDIRECTED Care 03/16/20 22:48 Active VTE/DVT Education [RC] PER UNIT ROUTINE Care 03/16/20 22:48 Active Vital Signs [RC] Q4H Care 03/16/20 22:48 Active NPO Now [Nothing per Oral Now Diet] [DIET] Diet 03/17/20 Breakfast Ordered Head wo Cont [CT] Urgent Exams 03/16/20 19:11 Taken BASIC METABOLIC PANEL,BMP [CHEM] AM Lab 03/17/20 05:11 Ordered BASIC METABOLIC PANEL,BMP [CHEM] AM Lab 03/18/20 05:11 Ordered BASIC METABOLIC PANEL,BMP [CHEM] AM Lab 03/19/20 05:11 Ordered CBC W/O DIFF,HEMOGRAM [HEME] AM Lab 03/17/20 05:11 Ordered CBC W/O DIFF,HEMOGRAM [HEME] AM Lab 03/18/20 05:11 Ordered CBC W/O DIFF,HEMOGRAM [HEME] AM Lab 03/19/20 05:11 Ordered HEMOGLOBIN/HEMATOCRIT,HH [HEME] Timed Lab 03/16/20 23:59 Ordered INR,PT,PROTHROMBIN TIME [COAG] Timed Lab 03/16/20 23:59 Ordered MAGNESIUM [CHEM] AM Lab 03/17/20 05:11 Ordered MAGNESIUM [CHEM] AM Lab 03/18/20 05:11 Ordered MAGNESIUM [CHEM] AM Lab 03/19/20 05:11 Ordered PHOSPHORUS [CHEM] AM Lab 03/17/20 05:11 Ordered PHOSPHORUS [CHEM] AM Lab 03/18/20 05:11 Ordered PHOSPHORUS [CHEM] AM Lab 03/19/20 05:11 Ordered Lactulose [Cephulac] Med 03/17/20 09:00 Ordered 20 gm PO TID Rifaximin [Xifaxan] Med 03/16/20 23:00 Ordered 550 mg PO BID Sodium Chloride 0.9% [Saline Flush] Med 03/16/20 22:47 Ordered 10 ml FLUSH ASDIRECTED PRN Sodium Chloride 0.9% [Saline Flush] Med 03/16/20 22:47 Ordered 10 ml FLUSH ASDIRECTED PRN Peripheral IV Insertion Adult [OM.PC] Stat Oth 03/16/20 22:47 Ordered Saline Lock Insert [OM.PC] Stat Oth 03/16/20 22:47 Ordered Resuscitation Status Routine Resus Stat 03/16/20 22:47 Ordered Medication Orders Lactulose (Cephulac) 20 gm PO TID KOMAL Rifaximin (Xifaxan) 550 mg PO BID KOMAL Sodium Chloride (Saline Flush) 10 ml FLUSH ASDIRECTED PRN PRN Reason: Keep Vein Open Sodium Chloride (Saline Flush) 10 ml FLUSH ASDIRECTED PRN PRN Reason: Keep Vein Open Assessment/Plan Comment:: #AMS #Hepatic encephalopathy -Ammonia level > 200, UDS/CT brain negative -start lactulose + rifaximin. -continue restraints started in the ED #Anemia #thrombocytopenia #Hx of alcohol liver disease #concern for upper GI bleed -check Hb Q6 hrs, monitor INR -start IV protonix -start IV octreotide -If Hb trends down, will need transfer to [facility] for EGD #ERLIN #Prerenal vs Hepatorenal syndrome #HAGMA -DC all NSAIDs in med list -IV fluid hydration -monitor Cr daily #DVT ppx -SCDs -no chemoprophylaxis given possible GI bleed.
[2020-03-16] MEDS ORDERED: Lactulose Soln 10 GM/15 ML 30 ML UD Cup PO SCH (23:15)
[2020-03-16] MEDS ORDERED: Sodium Chloride 0.9% 1,000 ML IV SCH (23:15)
[2020-03-16] MEDS ORDERED: Octreotide 100 MCG in Sodium Chloride 0.9% 99 ML IV SCH (23:15)
[2020-03-16] MEDS ORDERED: Pantoprazole 40 MG Vial IVPUSH SCH (23:15)
--- NOTE | 2020-03-16 23:16 | PCM.SN.2 ---
- Free Text/Narrative Note: EKG report EKG taken on 03/16/20 at 9.27 pm HR 93bpm, Qtc 491 NSR
[2020-03-17] MEDS ORDERED: Lactulose Soln 10 GM/15 ML 30 ML UD Cup SCH (00:15)
[2020-03-17] MEDS ORDERED: Phytonadione 10 MG in Sodium Chloride 0.9% 50 ML IV ONE (00:40)
[2020-03-17 01:28] VITALS: BP 105/64; PULSE 90
--- NOTE | 2020-03-17 01:33 | PCM.DCSUM1 ---
Discharge Summary - Hospital Course Free Text/Narrative:: 49 yo F with PMH of liver cirrhosis and ESLD complicated by previous episodes of hepatic encephalopathy who was admitted with altered mental status. Unable to obtain history from patient due to AMS Patient was brought to the ED after she was noted to exhibit abnormal behavior including taking off her clothes, agitation and putting her hand into her mouth. In the ED, lab work showed Hb of 8, down from 11 last month, ammonia level of > 200, UDS negative. CT head was negative. Patient was started on IV protonix, IV octreotide, rectal lactulose. Repeat Hb was 6.8. Patient was transferred to [facility] for further care. Accepting provider is Dr. Cruz. - Discharge Data Discharge Date: 03/17/20 Discharge Disposition: DC/Tfer to Acute Hospital 02 Condition: Poor - Referral to Home Health Primary Care Physician: PCP None - Discharge Plan *PRESCRIPTION DRUG MONITORING PROGRAM REVIEWED*: No *COPY OF PRESCRIPTION DRUG MONITORING REPORT IN PATIENT LAYLA: No Home Medications: Home Meds Aspirin [Thuy Chewable Aspirin] 81 mg PO DAILY 02/14/15 [History] Insulin Aspart [NovoLOG] 20 units SUBCUT TIDM 02/14/15 [History] Lisinopril 5 mg PO DAILY 02/14/15 [History] Insulin Detemir [Levemir] 30 units SQ BEDTIME 05/01/17 [History] Levothyroxine 150 mcg PO ACBREAKFAST 05/01/17 [History] Calcium Citrate/Vitamin D3 [Calcium Citrate - Vit D Tablet] 1 tab PO BID [History] Ferrous Gluconate 324 mg PO DAILY 02/28/18 [History] Rifaximin [Xifaxan] 550 mg PO BID 30 Days tablet 03/02/18 [Rx] Lactulose 40 ml PO QID 07/22/18 [History] Forms: ED Department Discharge Referrals: PCP,None [Primary Care Provider] - - Discharge Summary/Plan Comment DC Time >30 min.: Yes - Patient Data Vitals - Most Recent: Last Vital Signs Temp 36.2 C 03/17/20 01:11 Pulse 93 03/17/20 01:11 Resp 16 03/17/20 01:11 BP 96/73 03/17/20 01:11 Pulse Ox 96 03/17/20 01:11 Weight - Most Recent: 83.915 kg I&O - Last 24 hours: Intake & Output 03/16/20 03/16/20 03/17/20 14:59 22:59 06:59 Intake Total 0 Balance 0 Lab Results - Last 24 hrs: Laboratory Results - last 24 hr 03/16/20 03/16/20 03/16/20 Range/Units 00:01 00:01 17:20 WBC (5.0-10.0) 10^3/uL RBC (4.2-5.4) 10^6/uL Hgb 6.8 L* D (12.0-16.0) g/dL Hct 20.1 L* (37.0-47.0) % MCV (80-100) fL MCH (27.0-34.0) pg MCHC (33.0-35.0) g/dL Plt Count (150-450) 10^3/uL Neut % (Auto) (42.2-75.2) % Lymph % (Auto) (20.5-50.1) % [place] % (Auto) (2-8) % Eos % (Auto) (1.0-3.0) % Baso % (Auto) (0.0-1.0) % PT 13.5 H (9.0-12.0) SEC INR 1.4 H (0.9-1.2) Sodium (136-145) mmol/L Potassium (3.5-5.1) mmol/L Chloride (98-107) mmol/L Carbon Dioxide (21-32) mmol/L Anion Gap (7-13) mEq/L BUN (7-18) mg/dL Creatinine (0.55-1.02) mg/dL Est Cr Clr Drug Dosing Estimated GFR (MDRD) BUN/Creatinine Ratio (No establ ref range) Glucose (74-99) mg/dL Calcium (8.5-10.1) mg/dL Total Bilirubin (0.2-1.0) mg/dL AST (15-37) U/L ALT (14-59) U/L Alkaline Phosphatase (46-116) U/L Ammonia (11-32) umol/L Total Protein (6.4-8.2) g/dL Albumin (3.4-5.0) g/dL Globulin Albumin/Globulin Ratio Urine Color (YELLOW) Urine Appearance (CLEAR) Urine pH (5.0-9.0) Ur Specific [place] (1.005-1.030) Urine Protein (NEGATIVE) Urine Glucose (UA) (NEGATIVE) Urine Ketones (NEGATIVE) Urine Occult Blood (NEGATIVE) Urine Nitrite (NEGATIVE) Urine Bilirubin (NEGATIVE) Urine Urobilinogen (0.2-1.0) mg/dL Ur Leukocyte Esterase (NEGATIVE) U Hyaline Cast (Auto) Urine RBC /HPF Urine WBC (0-5/HPF) /HPF Ur Epithelial Cells (NOT SEEN) /HPF Amorphous Sediment (NOT SEEN) /HPF Urine Bacteria (0-FEW/HPF) /HPF Urine Mucus (NOT SEEN) /LPF Salicylates (2.8-20(Therapeutic)) mg/dL Urine Opiates Screen (NEGATIVE) Ur Oxycodone Screen (NEGATIVE) Urine Methadone Screen (NEGATIVE) Acetaminophen 3 L (10-30 (Therapeutic)) ug/mL Ur Barbiturates Screen (NEGATIVE) U Tricyclic Antidepress (NEGATIVE) Ur Phencyclidine Scrn (NEGATIVE) Ur Amphetamine Screen (NEGATIVE) U Methamphetamines Scrn (NEGATIVE) Urine MDMA Screen (NEGATIVE) U Benzodiazepines Scrn (NEGATIVE) Urine Cocaine Screen (NEGATIVE) U Marijuana (THC) Screen (NEGATIVE) Ethyl Alcohol < 3 (0) mg/dL Blood Type Gel Antibody Screen Crossmatch 03/16/20 03/16/20 03/16/20 Range/Units 17:20 17:20 17:20 WBC 6.2 (5.0-10.0) 10^3/uL RBC 2.36 L (4.2-5.4) 10^6/uL Hgb 8.0 L (12.0-16.0) g/dL Hct 23.4 L (37.0-47.0) % MCV 99.2 (80-100) fL MCH 33.9 (27.0-34.0) pg MCHC 34.2 (33.0-35.0) g/dL Plt Count 114 L (150-450) 10^3/uL Neut % (Auto) 74.3 (42.2-75.2) % Lymph % (Auto) 17.3 L (20.5-50.1) % [place] % (Auto) 7.9 (2-8) % Eos % (Auto) 0.3 L (1.0-3.0) % Baso % (Auto) 0.2 (0.0-1.0) % PT (9.0-12.0) SEC INR (0.9-1.2) Sodium 138 (136-145) mmol/L Potassium 5.5 H (3.5-5.1) mmol/L Chloride 106 (98-107) mmol/L Carbon Dioxide 17 L (21-32) mmol/L Anion Gap 20.5 H (7-13) mEq/L BUN 40 H (7-18) mg/dL Creatinine 1.89 H (0.55-1.02) mg/dL Est Cr Clr Drug Dosing TNP Estimated GFR (MDRD) 28 BUN/Creatinine Ratio 21.2 (No establ ref range) Glucose 157 H (74-99) mg/dL Calcium 7.8 L (8.5-10.1) mg/dL Total Bilirubin 1.4 H (0.2-1.0) mg/dL AST 43 H (15-37) U/L ALT 37 (14-59) U/L Alkaline Phosphatase 139 H (46-116) U/L Ammonia (11-32) umol/L Total Protein 5.9 L (6.4-8.2) g/dL Albumin 2.5 L (3.4-5.0) g/dL Globulin 3.4 Albumin/Globulin Ratio 0.74 Urine Color (YELLOW) Urine Appearance (CLEAR) Urine pH (5.0-9.0) Ur Specific [place] (1.005-1.030) Urine Protein (NEGATIVE) Urine Glucose (UA) (NEGATIVE) Urine Ketones (NEGATIVE) Urine Occult Blood (NEGATIVE) Urine Nitrite (NEGATIVE) Urine Bilirubin (NEGATIVE) Urine Urobilinogen (0.2-1.0) mg/dL Ur Leukocyte Esterase (NEGATIVE) U Hyaline Cast (Auto) Urine RBC /HPF Urine WBC (0-5/HPF) /HPF Ur Epithelial Cells (NOT SEEN) /HPF Amorphous Sediment (NOT SEEN) /HPF Urine Bacteria (0-FEW/HPF) /HPF Urine Mucus (NOT SEEN) /LPF Salicylates < 2.8 L (2.8-20(Therapeutic)) mg/dL Urine Opiates Screen (NEGATIVE) Ur Oxycodone Screen (NEGATIVE) Urine Methadone Screen (NEGATIVE) Acetaminophen (10-30 (Therapeutic)) ug/mL Ur Barbiturates Screen (NEGATIVE) U Tricyclic Antidepress (NEGATIVE) Ur Phencyclidine Scrn (NEGATIVE) Ur Amphetamine Screen (NEGATIVE) U Methamphetamines Scrn (NEGATIVE) Urine MDMA Screen (NEGATIVE) U Benzodiazepines Scrn (NEGATIVE) Urine Cocaine Screen (NEGATIVE) U Marijuana (THC) Screen (NEGATIVE) Ethyl Alcohol (0) mg/dL Blood Type Gel Antibody Screen Crossmatch 03/16/20 03/16/20 03/16/20 Range/Units 17:22 17:49 17:49 WBC (5.0-10.0) 10^3/uL RBC (4.2-5.4) 10^6/uL Hgb (12.0-16.0) g/dL Hct (37.0-47.0) % MCV (80-100) fL MCH (27.0-34.0) pg MCHC (33.0-35.0) g/dL Plt Count (150-450) 10^3/uL Neut % (Auto) (42.2-75.2) % Lymph % (Auto) (20.5-50.1) % [place] % (Auto) (2-8) % Eos % (Auto) (1.0-3.0) % Baso % (Auto) (0.0-1.0) % PT (9.0-12.0) SEC INR (0.9-1.2) Sodium (136-145) mmol/L Potassium (3.5-5.1) mmol/L Chloride (98-107) mmol/L Carbon Dioxide (21-32) mmol/L Anion Gap (7-13) mEq/L BUN (7-18) mg/dL Creatinine (0.55-1.02) mg/dL Est Cr Clr Drug Dosing Estimated GFR (MDRD) BUN/Creatinine Ratio (No establ ref range) Glucose (74-99) mg/dL Calcium (8.5-10.1) mg/dL Total Bilirubin (0.2-1.0) mg/dL AST (15-37) U/L ALT (14-59) U/L Alkaline Phosphatase (46-116) U/L Ammonia 260 H (11-32) umol/L Total Protein (6.4-8.2) g/dL Albumin (3.4-5.0) g/dL Globulin Albumin/Globulin Ratio Urine Color Dark yellow (YELLOW) Urine Appearance Slightly cloudy (CLEAR) Urine pH 5.5 (5.0-9.0) Ur Specific [place] 1.025 (1.005-1.030) Urine Protein Negative (NEGATIVE) Urine Glucose (UA) Negative (NEGATIVE) Urine Ketones Trace H (NEGATIVE) Urine Occult Blood Trace-intact H (NEGATIVE) Urine Nitrite Negative (NEGATIVE) Urine Bilirubin Small H (NEGATIVE) Urine Urobilinogen 0.2 (0.2-1.0) mg/dL Ur Leukocyte Esterase Negative (NEGATIVE) U Hyaline Cast (Auto) Few Urine RBC 0-5 /HPF Urine WBC 0-5 (0-5/HPF) /HPF Ur Epithelial Cells Few (NOT SEEN) /HPF Amorphous Sediment Few (NOT SEEN) /HPF Urine Bacteria Few (0-FEW/HPF) /HPF Urine Mucus Rare (NOT SEEN) /LPF Salicylates (2.8-20(Therapeutic)) mg/dL Urine Opiates Screen Negative (NEGATIVE) Ur Oxycodone Screen Negative (NEGATIVE) Urine Methadone Screen Negative (NEGATIVE) Acetaminophen (10-30 (Therapeutic)) ug/mL Ur Barbiturates Screen Negative (NEGATIVE) U Tricyclic Antidepress Negative (NEGATIVE) Ur Phencyclidine Scrn Negative (NEGATIVE) Ur Amphetamine Screen Negative (NEGATIVE) U Methamphetamines Scrn Negative (NEGATIVE) Urine MDMA Screen Negative (NEGATIVE) U Benzodiazepines Scrn Negative (NEGATIVE) Urine Cocaine Screen Negative (NEGATIVE) U Marijuana (THC) Screen Negative (NEGATIVE) Ethyl Alcohol (0) mg/dL Blood Type Gel Antibody Screen Crossmatch 03/17/20 Range/Units 00:01 WBC (5.0-10.0) 10^3/uL RBC (4.2-5.4) 10^6/uL Hgb (12.0-16.0) g/dL Hct (37.0-47.0) % MCV (80-100) fL MCH (27.0-34.0) pg MCHC (33.0-35.0) g/dL Plt Count (150-450) 10^3/uL Neut % (Auto) (42.2-75.2) % Lymph % (Auto) (20.5-50.1) % [place] % (Auto) (2-8) % Eos % (Auto) (1.0-3.0) % Baso % (Auto) (0.0-1.0) % PT (9.0-12.0) SEC INR (0.9-1.2) Sodium (136-145) mmol/L Potassium (3.5-5.1) mmol/L Chloride (98-107) mmol/L Carbon Dioxide (21-32) mmol/L Anion Gap (7-13) mEq/L BUN (7-18) mg/dL Creatinine (0.55-1.02) mg/dL Est Cr Clr Drug Dosing Estimated GFR (MDRD) BUN/Creatinine Ratio (No establ ref range) Glucose (74-99) mg/dL Calcium (8.5-10.1) mg/dL Total Bilirubin (0.2-1.0) mg/dL AST (15-37) U/L ALT (14-59) U/L Alkaline Phosphatase (46-116) U/L Ammonia (11-32) umol/L Total Protein (6.4-8.2) g/dL Albumin (3.4-5.0) g/dL Globulin Albumin/Globulin Ratio Urine Color (YELLOW) Urine Appearance (CLEAR) Urine pH (5.0-9.0) Ur Specific [place] (1.005-1.030) Urine Protein (NEGATIVE) Urine Glucose (UA) (NEGATIVE) Urine Ketones (NEGATIVE) Urine Occult Blood (NEGATIVE) Urine Nitrite (NEGATIVE) Urine Bilirubin (NEGATIVE) Urine Urobilinogen (0.2-1.0) mg/dL Ur Leukocyte Esterase (NEGATIVE) U Hyaline Cast (Auto) Urine RBC /HPF Urine WBC (0-5/HPF) /HPF Ur Epithelial Cells (NOT SEEN) /HPF Amorphous Sediment (NOT SEEN) /HPF Urine Bacteria (0-FEW/HPF) /HPF Urine Mucus (NOT SEEN) /LPF Salicylates (2.8-20(Therapeutic)) mg/dL Urine Opiates Screen (NEGATIVE) Ur Oxycodone Screen (NEGATIVE) Urine Methadone Screen (NEGATIVE) Acetaminophen (10-30 (Therapeutic)) ug/mL Ur Barbiturates Screen (NEGATIVE) U Tricyclic Antidepress (NEGATIVE) Ur Phencyclidine Scrn (NEGATIVE) Ur Amphetamine Screen (NEGATIVE) U Methamphetamines Scrn (NEGATIVE) Urine MDMA Screen (NEGATIVE) U Benzodiazepines Scrn (NEGATIVE) Urine Cocaine Screen (NEGATIVE) U Marijuana (THC) Screen (NEGATIVE) Ethyl Alcohol (0) mg/dL Blood Type O POSITIVE Gel Antibody Screen Negative Crossmatch See Detail Med Orders - Current: Current Medications Sodium Chloride (Normal Saline) 1,000 mls @ 100 mls/hr IV ASDIRECTED COUNT INCLUDES THE [facility] Last Admin: 03/16/20 23:36 Dose: 100 mls/hr Octreotide Acetate 100 mcg/ (Sodium Chloride) 100 mls @ 50 mls/hr IV Q10H COUNT INCLUDES THE [facility] Last Admin: 03/16/20 23:46 Dose: 50 mls/hr Lactulose (Cephulac) 20 gm .XX QID COUNT INCLUDES THE [facility] Last Admin: 03/17/20 00:48 Dose: 20 gm Pantoprazole Sodium (Protonix Iv) 40 mg IVPUSH Q12H COUNT INCLUDES THE [facility] Last Admin: 03/16/20 23:37 Dose: 40 mg Rifaximin (Xifaxan) 550 mg PO BID COUNT INCLUDES THE [facility] Last Admin: 03/17/20 00:10 Dose: Not Given Sodium Chloride (Saline Flush) 10 ml FLUSH ASDIRECTED PRN PRN Reason: Keep Vein Open Sodium Chloride (Saline Flush) 10 ml FLUSH ASDIRECTED PRN PRN Reason: Keep Vein Open Discontinued Medications Phytonadione 10 mg/ Sodium (Chloride) 51 mls @ 100 mls/hr IV NOW ONE Stop: 03/17/20 01:10 Last Admin: 03/17/20 01:21 Dose: 100 mls/hr Lactulose (Cephulac) 20 gm PO TID COUNT INCLUDES THE [facility] Stop: 03/17/20 00:09 Last Admin: 03/17/20 00:42 Dose: Not Given
== END 2020-03-17 02:10 | DRG 442 ==
LOC: DL.ED 16:57 → DL.MS 21:08
PROVIDERS: ADMIT Hospitalist; ATTEND Hospitalist
DX: R41.82 Altered mental status, unspecified (principal); E87.5 Hyperkalemia; K72.90 Hepatic failure, unspecified without coma; N17.9 Acute kidney failure, unspecified; E87.2 Acidosis; K70.30 Alcoholic cirrhosis of liver without ascites; H54.8 Legal blindness, as defined in USA; Z79.4 Long term (current) use of insulin; H54.7 Unspecified visual loss; H54.40 Blindness, one eye, unspecified eye; E78.00 Pure hypercholesterolemia, unspecified; I10 Essential (primary) hypertension; E11.9 Type 2 diabetes mellitus without complications; E03.9 Hypothyroidism, unspecified; D64.9 Anemia, unspecified; D69.6 Thrombocytopenia, unspecified; Z79.82 Long term (current) use of aspirin; Z90.11 Acquired absence of right breast and nipple; Z79.899 Other long term (current) drug therapy; Z88.1 Allergy status to other antibiotic agents
CPT/HCPCS: 36415; 36430; 70450; 80053; 80305-QW; 80307; 81001; 82140; 85014; 85018; 85025; 85610; 86850; 86900; 86901; 86920; 86922; 99285-25; A9270-GY; C9113; J2354-GY; J3430; J7030; J7050; P9016

== ENCOUNTER 2021-02-04 18:29 | Emergency (ER) | payer MEDICAID | END 2021-02-04 19:41 | disposition left against medical advice (07) | LOC: DL.ED 18:29 | DX: Z53.21 Procedure and treatment not carried out due to patient leaving prior to being seen by health care provider (principal) ==

== ENCOUNTER 2021-02-05 10:39 | Emergency (ER) | payer MEDICAID ==
[2021-02-05 10:51] VITALS: BP 104/65; PULSE 57
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
[2021-02-05 11:17] LABS: ANION GAP 13.9 mEq/L (7-13); CHLORIDE,CL 108 mmol/L (98-107); SODIUM,NA 142 mmol/L (136-145)
== END 2021-02-05 12:32 ==
LOC: DL.ED 10:39
DX: K70.31 Alcoholic cirrhosis of liver with ascites (principal); E11.8 Type 2 diabetes mellitus with unspecified complications; K72.90 Hepatic failure, unspecified without coma; E83.41 Hypermagnesemia; D64.9 Anemia, unspecified; R41.82 Altered mental status, unspecified; I10 Essential (primary) hypertension; E78.00 Pure hypercholesterolemia, unspecified; E03.9 Hypothyroidism, unspecified; Z88.8 Allergy status to other drugs, medicaments and biological substances; Z79.82 Long term (current) use of aspirin; Z79.4 Long term (current) use of insulin; Z79.899 Other long term (current) drug therapy
CPT/HCPCS: 36415; 80053; 80307; 82140; 83605; 83735; 83880; 84484; 85025; 85610; 85730; 86140; 93005; 93010; 99284; 99285-25

== ENCOUNTER 2021-02-19 22:22 | Emergency (ER) | payer MEDICAID ==
[2021-02-19 22:51] VITALS: BP 97/62; PULSE 53
[2021-02-20 01:03] LABS: ANION GAP 17.8 mEq/L (7-13); CHLORIDE,CL 107 mmol/L (98-107); SODIUM,NA 140 mmol/L (136-145)
[2021-02-20] MEDS ORDERED: Iopamidol 612 MG/ML 100 ML Bottle IVPUSH ONE (01:11)
[2021-02-20] MEDS ORDERED: Famotidine 20 MG/2 ML SDV IVPUSH ONE (01:11)
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
[2021-02-20] MEDS ORDERED: Sodium Chloride 0.9% 1,000 ML IV ONE (04:13)
[2021-02-20] MEDS ORDERED: fentaNYL 100 MCG/2 ML SDV IVPUSH ONE (04:14)
[2021-02-20] MEDS ORDERED: Ondansetron 4 MG/2 ML SDV IVPUSH ONE (04:14)
--- NOTE | 2021-02-20 04:25 | EDM.PDOC ---
ED HPI GENERAL MEDICAL PROBLEM - General Chief Complaint: Abdominal Pain Stated Complaint: AMBULANCE Time Seen by Provider: 02/19/21 22:30 Source of Information: Reports: Patient History Limitations: Reports: No Limitations - History of Present Illness INITIAL COMMENTS - FREE TEXT/NARRATIVE: ED with c/o pain general abdomen, greater around hernia, no nausea or vomiting. Reports pain started after moving couch Abdomen Pain Score (Numeric/FACES): 10 - Related Data Allergies Allergy/AdvReac Type Severity Reaction Status Date / Time ceftriaxone [From Rocephin] Allergy Intermediate Hives Verified 02/19/21 22:49 Home Meds: Home Meds Aspirin [Thuy Chewable Aspirin] 81 mg PO DAILY 02/14/15 [History] Insulin Aspart [NovoLOG] 20 units SUBCUT TIDM 02/14/15 [History] Lisinopril 5 mg PO DAILY 02/14/15 [History] Levothyroxine 150 mcg PO ACBREAKFAST 05/01/17 [History] Calcium Citrate/Vitamin D3 [Calcium Citrate - Vit D Tablet] 1 tab PO BID 02/28/18 [History] Ferrous Gluconate 324 mg PO DAILY 02/28/18 [History] Rifaximin [Xifaxan] 550 mg PO BID 30 Days tablet 03/02/18 [Rx] Lactulose 40 ml PO QID 07/22/18 [History] Amoxicillin/Clavulanate K [Augmentin 875-125 MG] 1 tab PO ASDIRECTED 02/19/21 [History] Magnesium Oxide [Magnesium] 200 mg PO DAILY 02/19/21 [History] Mupirocin Oint [Bactroban Oint] 22 gm TP BID 02/19/21 [History] Propranolol [Inderal] 10 mg PO BID 02/19/21 [History] Thiamine Mononitrate (Vit B1) [Vitamin B-1] 100 mg PO DAILY 02/19/21 [History] Past Medical History HEENT History: Reports: Impaired Vision Other HEENT History: legally blind per [facility] reports, blindness to right eye, pres byopia, diabetic retinopathy Cardiovascular History: Reports: Heart Murmur, High Cholesterol, Hypertension Other Cardiovascular History: MURMUR Respiratory History: Reports: None Gastrointestinal History: Reports: Cirrhosis, Other (See Below) Other Gastrointestinal History: HX OF ABNORMAL LIVER STUDIES , umbilical hernia present Genitourinary History: Reports: None, 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, 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: 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 History: Reports: None Neurological History: Reports: None Psychiatric History: Reports: Addiction Other Psychiatric History: acute alcohol abuse Endocrine/Metabolic History: Reports: Diabetes, Type II, Hypothyroidism Hematologic History: Reports: Anemia Other Hematologic History: acquired thrombocytopenia Immunologic History: Reports: None Oncologic (Cancer) History: Reports: None Dermatologic History: Reports: Cellulitis Other Dermatologic History: RIGHT BREAST CELLULITUS - Infectious Disease History Infectious Disease History: Reports: MRSA Other Infectious Disease History: unable to obtain due to nonverbal status at this time - Past Surgical History Head Surgeries/Procedures: Reports: None HEENT Surgical History: Reports: None Other HEENT Surgeries/Procedures: Right eye iridotomy Cardiovascular Surgical History: Reports: None Respiratory Surgical History: Reports: None GI Surgical History: Reports: Colonoscopy, EGD Female Surgical History: Reports: Section, Mastectomy 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 Surgical History: Reports: None Oncologic Surgical History: Reports: Mastectomy Other Oncologic Surgeries/Procedures: RIGHT MASTECTOMY Dermatological Surgical History: Reports: Other (See Below) Social & Family History - Family History Family Medical History: Unobtainable - Tobacco Use Tobacco Use Status *Q: Current Some Day Tobacco User Years of Tobacco use: 20 Packs/Tins Daily: 0.1 Used Tobacco, but Quit: Yes Month/Year Tobacco Last Used: february 2021 Second Hand Smoke Exposure: Yes - Caffeine Use Caffeine Use: Reports: Coffee Caffeine Use Comment: 1 8oz cup daily - Recreational Drug Use Recreational Drug Use: No - Living Situation & Occupation Living situation: Reports: with Family Occupation: Employed ED ROS GENERAL - Review of Systems Review Of Systems: Comprehensive ROS is negative, except as noted in HPI. ED EXAM, GI/ABD - Physical Exam Exam: See Below Exam Limited By: No Limitations General Appearance: Alert, Mild Distress Eyes: Bilateral: EOMI Ears: Normal External Exam Nose: Normal Inspection Throat/Mouth: Normal Inspection Head: Atraumatic, Normocephalic Neck: Normal Inspection, Full Range of Motion Respiratory/Chest: No Respiratory Distress, Lungs Clear Cardiovascular: Normal Peripheral Pulses, Regular Rate, Rhythm GI/Abdominal Exam: Distended, Tender, Abnormal Bowel Sounds (distant), Hernia (large umbilical) Extremities: Normal Inspection Neurological: Alert, Oriented, Normal Cognition Psychiatric: Flat Affect Skin Exam: Warm, Dry, Wound/Incision (scabbed lesion mid hernia, covered with bandage, scant bloody drainage.) Course - Vital Signs Last Recorded V/S: Last Vital Signs Temp 97.5 F 02/19/21 22:30 Pulse 53 L 02/19/21 22:30 Resp 16 02/19/21 22:30 BP 97/62 02/19/21 22:30 Pulse Ox 99 02/19/21 22:30 - Orders/Labs/Meds Orders: Active Orders 24 hr Category Date Time Status CULTURE URINE [RM] Stat Lab 02/20/21 02:39 Received Sodium Chloride 0.9% [Normal Saline] 1,000 ml Med 02/20/21 04:13 Active IV .BOLUS Medication Orders Sodium Chloride (Normal Saline) 1,000 mls @ 25 mls/hr IV .BOLUS ONE Stop: 02/21/21 20:12 Last Admin: 02/20/21 04:24 Dose: 25 mls/hr Documented by: BEBE Labs: Laboratory Tests 02/20/21 02/20/21 02/20/21 Range/Units 00:30 00:30 00:30 WBC 3.8 L (5.0-10.0) 10^3/uL RBC 2.96 L (4.2-5.4) 10^6/uL Hgb 9.7 L (12.0-16.0) g/dL Hct 29.6 L (37.0-47.0) % MCV 100.0 D (80-100) fL MCH 32.8 (27.0-34.0) pg MCHC 32.8 L (33.0-35.0) g/dL Plt Count 58 L (150-450) 10^3/uL Neut % (Auto) 72.0 (42.2-75.2) % Lymph % (Auto) 13.6 L (20.5-50.1) % [place] % (Auto) 9.8 H (2-8) % Eos % (Auto) 4.3 H (1.0-3.0) % Baso % (Auto) 0.3 (0.0-1.0) % PT (9.0-12.0) SEC INR (0.9-1.2) D-Dimer, Quantitative (0-400) ng/mL Sodium 140 (136-145) mmol/L Potassium 3.8 (3.5-5.1) mmol/L Chloride 107 (98-107) mmol/L Carbon Dioxide 19 L (21-32) mmol/L Anion Gap 17.8 H (7-13) mEq/L BUN 20 H (7-18) mg/dL Creatinine 1.14 H (0.55-1.02) mg/dL Est Cr Clr Drug Dosing 56.14 mL/min Estimated GFR (MDRD) 50 BUN/Creatinine Ratio 17.5 (No establ ref range) Glucose 122 H (74-99) mg/dL Lactic Acid 0.5 (0.4-2.0) mmol/L Calcium 8.1 L (8.5-10.1) mg/dL Total Bilirubin 1.2 H (0.2-1.0) mg/dL AST 35 (15-37) U/L ALT 35 (14-59) U/L Alkaline Phosphatase 202 H (46-116) U/L Ammonia (11-32) umol/L Total Protein 6.7 (6.4-8.2) g/dL Albumin 3.2 L (3.4-5.0) g/dL Globulin 3.5 Albumin/Globulin Ratio 0.91 Amylase (25-115) U/L Urine Color (YELLOW) Urine Appearance (CLEAR) Urine pH (5.0-9.0) Ur Specific [place] (1.005-1.030) Urine Protein (NEGATIVE) Urine Glucose (UA) (NEGATIVE) Urine Ketones (NEGATIVE) Urine Occult Blood (NEGATIVE) Urine Nitrite (NEGATIVE) Urine Bilirubin (NEGATIVE) Urine Urobilinogen (0.2-1.0) mg/dL Ur Leukocyte Esterase (NEGATIVE) Urine RBC /HPF Urine WBC (0-5/HPF) /HPF Ur Epithelial Cells (NOT SEEN) /HPF Urine Bacteria (0-FEW/HPF) /HPF Urine Mucus (NOT SEEN) /LPF Ethyl Alcohol < 3 (0) mg/dL 02/20/21 02/20/21 02/20/21 Range/Units 00:30 01:30 01:30 WBC (5.0-10.0) 10^3/uL RBC (4.2-5.4) 10^6/uL Hgb (12.0-16.0) g/dL Hct (37.0-47.0) % MCV (80-100) fL MCH (27.0-34.0) pg MCHC (33.0-35.0) g/dL Plt Count (150-450) 10^3/uL Neut % (Auto) (42.2-75.2) % Lymph % (Auto) (20.5-50.1) % [place] % (Auto) (2-8) % Eos % (Auto) (1.0-3.0) % Baso % (Auto) (0.0-1.0) % PT (9.0-12.0) SEC INR (0.9-1.2) D-Dimer, Quantitative 3750 H (0-400) ng/mL Sodium (136-145) mmol/L Potassium (3.5-5.1) mmol/L Chloride (98-107) mmol/L Carbon Dioxide (21-32) mmol/L Anion Gap (7-13) mEq/L BUN (7-18) mg/dL Creatinine (0.55-1.02) mg/dL Est Cr Clr Drug Dosing mL/min Estimated GFR (MDRD) BUN/Creatinine Ratio (No establ ref range) Glucose (74-99) mg/dL Lactic Acid (0.4-2.0) mmol/L Calcium (8.5-10.1) mg/dL Total Bilirubin (0.2-1.0) mg/dL AST (15-37) U/L ALT (14-59) U/L Alkaline Phosphatase (46-116) U/L Ammonia 51 H (11-32) umol/L Total Protein (6.4-8.2) g/dL Albumin (3.4-5.0) g/dL Globulin Albumin/Globulin Ratio Amylase 65 (25-115) U/L Urine Color (YELLOW) Urine Appearance (CLEAR) Urine pH (5.0-9.0) Ur Specific [place] (1.005-1.030) Urine Protein (NEGATIVE) Urine Glucose (UA) (NEGATIVE) Urine Ketones (NEGATIVE) Urine Occult Blood (NEGATIVE) Urine Nitrite (NEGATIVE) Urine Bilirubin (NEGATIVE) Urine Urobilinogen (0.2-1.0) mg/dL Ur Leukocyte Esterase (NEGATIVE) Urine RBC /HPF Urine WBC (0-5/HPF) /HPF Ur Epithelial Cells (NOT SEEN) /HPF Urine Bacteria (0-FEW/HPF) /HPF Urine Mucus (NOT SEEN) /LPF Ethyl Alcohol (0) mg/dL 02/20/21 02/20/21 Range/Units 02:39 03:55 WBC (5.0-10.0) 10^3/uL RBC (4.2-5.4) 10^6/uL Hgb (12.0-16.0) g/dL Hct (37.0-47.0) % MCV (80-100) fL MCH (27.0-34.0) pg MCHC (33.0-35.0) g/dL Plt Count (150-450) 10^3/uL Neut % (Auto) (42.2-75.2) % Lymph % (Auto) (20.5-50.1) % [place] % (Auto) (2-8) % Eos % (Auto) (1.0-3.0) % Baso % (Auto) (0.0-1.0) % PT 13.3 H (9.0-12.0) SEC INR 1.3 H (0.9-1.2) D-Dimer, Quantitative (0-400) ng/mL Sodium (136-145) mmol/L Potassium (3.5-5.1) mmol/L Chloride (98-107) mmol/L Carbon Dioxide (21-32) mmol/L Anion Gap (7-13) mEq/L BUN (7-18) mg/dL Creatinine (0.55-1.02) mg/dL Est Cr Clr Drug Dosing mL/min Estimated GFR (MDRD) BUN/Creatinine Ratio (No establ ref range) Glucose (74-99) mg/dL Lactic Acid (0.4-2.0) mmol/L Calcium (8.5-10.1) mg/dL Total Bilirubin (0.2-1.0) mg/dL AST (15-37) U/L ALT (14-59) U/L Alkaline Phosphatase (46-116) U/L Ammonia (11-32) umol/L Total Protein (6.4-8.2) g/dL Albumin (3.4-5.0) g/dL Globulin Albumin/Globulin Ratio Amylase (25-115) U/L Urine Color Dark yellow (YELLOW) Urine Appearance Slightly cloudy (CLEAR) Urine pH 5.5 (5.0-9.0) Ur Specific [place] 1.020 (1.005-1.030) Urine Protein Trace H (NEGATIVE) Urine Glucose (UA) Negative (NEGATIVE) Urine Ketones Trace H (NEGATIVE) Urine Occult Blood Small H (NEGATIVE) Urine Nitrite Negative (NEGATIVE) Urine Bilirubin Negative (NEGATIVE) Urine Urobilinogen 0.2 (0.2-1.0) mg/dL Ur Leukocyte Esterase Trace H (NEGATIVE) Urine RBC 0-5 /HPF Urine WBC 40-50 H (0-5/HPF) /HPF Ur Epithelial Cells Many H (NOT SEEN) /HPF Urine Bacteria Many H (0-FEW/HPF) /HPF Urine Mucus Moderate H (NOT SEEN) /LPF Ethyl Alcohol (0) mg/dL Meds: Medications Generic Name Dose Route Start Last Admin Trade Name Freq PRN Reason Stop Dose Admin Sodium Chloride 1,000 mls @ 25 mls/hr 02/20/21 04:13 02/20/21 04:24 Normal Saline IV 02/21/21 20:12 25 mls/hr .BOLUS ONE Administration Discontinued Medications Generic Name Dose Route Start Last Admin Trade Name Freq PRN Reason Stop Dose Admin Famotidine 20 mg 02/20/21 01:11 02/20/21 02:51 Famotidine 20 Mg/2 Ml Sdv IVPUSH 02/20/21 01:12 20 mg ONETIME ONE Administration Fentanyl 25 mcg 02/20/21 04:14 02/20/21 04:24 Fentanyl 100 Mcg/2 Ml Sdv IVPUSH 02/20/21 04:15 25 mcg ONETIME ONE Administration Iopamidol 100 ml 02/20/21 01:11 02/20/21 02:07 Iopamidol 612 Mg/Ml 100 Ml Bottle IVPUSH 02/20/21 01:12 100 ml ONETIME ONE Administration Ondansetron HCl 4 mg 02/20/21 04:14 02/20/21 04:24 Ondansetron 4 Mg/2 Ml Sdv IVPUSH 02/20/21 04:15 4 mg ONETIME ONE Administration - Re-Assessments/Exams Free Text/Narrative Re-Assessment/Exam: 02/20/21 04:[address] Sanders, accepting for transfer for further evaluation ileus possible portal vein thrombus. tx via [facility]. 02/20/21 04:30 Departure - Departure Time of Disposition: 04:29 Disposition: DC/Tfer to Acute Hospital 02 Condition: Fair Clinical Impression: Ileus Abdominal pain Qualifiers: Abdominal location: generalized Qualified Code(s): R10.84 - Generalized abdominal pain Umbilical hernia Qualifiers: Obstruction and gangrene presence: without obstruction or gangrene Qualified Code(s): K42.9 - Umbilical hernia without obstruction or gangrene Ascites Qualifiers: Ascites type: due to alcoholic cirrhosis Qualified Code(s): K70.31 - Alcoholic cirrhosis of liver with ascites - Discharge Information *PRESCRIPTION DRUG MONITORING PROGRAM REVIEWED*: No *COPY OF PRESCRIPTION DRUG MONITORING REPORT IN PATIENT LAYLA: No Forms: ED Department Discharge Sepsis Event Note (ED) - Evaluation Sepsis Screening Result: No Definite Risk - Focused Exam Vital Signs: Vital Signs Temp Pulse Resp BP Pulse Ox 02/19/21 22:30 97.5 F 53 L 16 97/62 99 - My Orders Last 24 Hours: My Active Orders 02/20/21 02:39 CULTURE URINE [RM] Stat 02/20/21 04:13 Sodium Chloride 0.9% [Normal Saline] 1,000 ml IV .BOLUS - Assessment/Plan Last 24 Hours: My Active Orders 02/20/21 02:39 CULTURE URINE [RM] Stat 02/20/21 04:13 Sodium Chloride 0.9% [Normal Saline] 1,000 ml IV .BOLUS
== END 2021-02-20 05:03 ==
LOC: DL.ED 22:22
DX: K42.9 Umbilical hernia without obstruction or gangrene (principal); K70.31 Alcoholic cirrhosis of liver with ascites; K56.7 Ileus, unspecified; E78.00 Pure hypercholesterolemia, unspecified; I10 Essential (primary) hypertension; E11.9 Type 2 diabetes mellitus without complications; E03.9 Hypothyroidism, unspecified; Z72.0 Tobacco use; Z88.1 Allergy status to other antibiotic agents; Z79.82 Long term (current) use of aspirin; Z79.4 Long term (current) use of insulin; Z79.899 Other long term (current) drug therapy
CPT/HCPCS: 36415; 74177; 80053; 80307; 81001; 82140; 82150; 83605; 85025; 85379; 85610; 87086; 96374; 96375; 99284; 99285; J2405; J3010; J3490; J7030; Q9967

== ENCOUNTER 2021-03-15 16:19 | Emergency (ER) | payer MEDICAID ==
[2021-03-15 16:21] VITALS: BP 124/63; PULSE 55
[2021-03-15 17:56] LABS: CHLORIDE,CL 107 mmol/L (98-107); SODIUM,NA 140 mmol/L (136-145)
--- NOTE | 2021-03-15 19:40 | EDM.PDOC ---
ED HPI GENERAL MEDICAL PROBLEM - General Chief Complaint: General Stated Complaint: AMBULANCE Time Seen by Provider: 03/15/21 16:45 Source of Information: Reports: Patient, Old Records, RN, RN Notes Reviewed History Limitations: Reports: Altered Mental Status - History of Present Illness INITIAL COMMENTS - FREE TEXT/NARRATIVE: Pam is a 50 y/o female with history significant for alcoholic cirrhosis of the liver with ascites who presents to the ED via [facility] for confusion, headache, and fatigue. The patient reports her family members have been telling her she seems confused over the last few days; she agrees and is concerned her ammonia is high. She notes she received a paracentesis on 03/12/21, but is unsure how much fluid was taken off. She denies fever, shaking chills, chest pain, palpitations, shortness of breath, abdominal pain, nausea, vomiting, or constipation. She attest to loose stools with her lactulose, but denies any change in color or frequency. She has not taken any medications for her headache and notes she was has been able to eat and drink appropriately. She denies recent alcohol or recreational drug use. - Related Data Allergies Allergy/AdvReac Type Severity Reaction Status Date / Time ceftriaxone [From Rocephin] Allergy Intermediate Hives Verified 03/16/21 16:10 Home Meds: Home Meds Aspirin [Thuy Chewable Aspirin] 81 mg PO DAILY 02/14/15 [History] Insulin Aspart [NovoLOG] 20 units SUBCUT TIDM 02/14/15 [History] Lisinopril 5 mg PO DAILY 02/14/15 [History] Levothyroxine 150 mcg PO ACBREAKFAST 05/01/17 [History] Calcium Citrate/Vitamin D3 [Calcium Citrate - Vit D Tablet] 1 tab PO BID 02/28/18 [History] Ferrous Gluconate 324 mg PO DAILY 02/28/18 [History] Rifaximin [Xifaxan] 550 mg PO BID 30 Days tablet 03/02/18 [Rx] Lactulose 40 ml PO QID 07/22/18 [History] Amoxicillin/Clavulanate K [Augmentin 875-125 MG] 1 tab PO ASDIRECTED 02/19/21 [History] Magnesium Oxide [Magnesium] 200 mg PO DAILY 02/19/21 [History] Mupirocin Oint [Bactroban Oint] 22 gm TP BID 02/19/21 [History] Propranolol [Inderal] 10 mg PO BID 02/19/21 [History] Thiamine Mononitrate (Vit B1) [Vitamin B-1] 100 mg PO DAILY 02/19/21 [History] Past Medical History HEENT History: Reports: Impaired Vision Other HEENT History: legally blind per [facility] reports, blindness to right eye, presbyopia, diabetic retinopathy Cardiovascular History: Reports: Heart Murmur, High Cholesterol, Hypertension Other Cardiovascular History: MURMUR Respiratory History: Reports: None Gastrointestinal History: Reports: Cirrhosis, Other (See Below) Other Gastrointestinal History: HX OF ABNORMAL LIVER STUDIES , umbilical hernia present Genitourinary History: Reports: None, Dialysis, 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: 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 History: Reports: None Neurological History: Reports: None Psychiatric History: Reports: Addiction Other Psychiatric History: acute alcohol abuse Endocrine/Metabolic History: Reports: Diabetes, Type II, Hypothyroidism Hematologic History: Reports: Anemia Other Hematologic History: acquired thrombocytopenia Immunologic History: Reports: None Oncologic (Cancer) History: Reports: None Dermatologic History: Reports: Cellulitis Other Dermatologic History: RIGHT BREAST CELLULITUS - Infectious Disease History Infectious Disease History: Reports: MRSA Other Infectious Disease History: unable to obtain due to nonverbal status at this time - Past Surgical History Head Surgeries/Procedures: Reports: None HEENT Surgical History: Reports: None Other HEENT Surgeries/Procedures: Right eye iridotomy Cardiovascular Surgical History: Reports: None Respiratory Surgical History: Reports: None GI Surgical History: Reports: Colonoscopy, EGD Female Surgical History: Reports: Section, Mastectomy 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 Surgical History: Reports: None Oncologic Surgical History: Reports: Mastectomy Other Oncologic Surgeries/Procedures: RIGHT MASTECTOMY Dermatological Surgical History: Reports: Other (See Below) Social & Family History - Family History Family Medical History: Unobtainable - Tobacco Use Tobacco Use Status *Q: Current Every Day Tobacco User Years of Tobacco use: 30 Packs/Tins Daily: 0.5 - Caffeine Use Caffeine Use: Reports: Coffee Caffeine Use Comment: 1 8oz cup daily - Recreational Drug Use Recreational Drug Use: No - Living Situation & Occupation Living situation: Reports: with Family Occupation: Employed ED ROS GENERAL - Review of Systems Review Of Systems: Comprehensive ROS is negative, except as noted in HPI. ED EXAM, GENERAL - Physical Exam Exam: See Below Exam Limited By: No Limitations General Appearance: Alert, Cachetic Eye Exam: Bilateral Eye: EOMI, Normal Inspection, PERRL (3mm) Ears: Normal External Exam, Normal Canal, Hearing Grossly Normal, Normal TMs Ear Exam: Bilateral Ear: Auricle Normal, Canal Normal, TM normal Nose: Normal Inspection, Normal Mucosa, No Blood Throat/Mouth: Normal Voice, No Airway Compromise, Other (Dry mucous membranes) Head: Atraumatic, Normocephalic Neck: Normal Inspection, Supple, Non-Tender, Full Range of Motion Respiratory/Chest: No Respiratory Distress, Lungs Clear, Normal Breath Sounds, No Accessory Muscle Use, Chest Non-Tender Cardiovascular: Normal Peripheral Pulses, Regular Rate, Rhythm, No Edema, No Gallop, No JVD, No Murmur, No Rub, Bradycardia Peripheral Pulses: 2+: Radial (L), Radial (R), Dorsalis Pedis (L), Dorsalis Pedis (R) GI/Abdominal: Normal Bowel Sounds, Soft, No Distention, No Abnormal Bruit, No Mass, Pelvis Stable, Hernia (Chronic umbilical, large), Hepatomegaly, Other (No evidence of gross ascites) (Female) Exam: Deferred Rectal (Female) Exam: Deferred Back Exam: Normal Inspection, Full Range of Motion, Other (No CVA tendeness, bilaterally) Extremities: Normal Inspection, Normal Range of Motion, Non-Tender, Normal Capillary Refill, No Pedal Edema Neurological: Alert, Oriented, CN II-XII Intact, Normal Cognition, Normal Gait, Normal Reflexes, No Motor/Sensory Deficits, Slow to Respond, Other (No memory loss or confusion while in ED) Psychiatric: Normal Mood, Flat Affect Skin Exam: Warm, Dry, Intact, No Rash, Jaundice Course - Vital Signs Last Recorded V/S: Last Vital Signs Temp 97.8 F 03/15/21 16:20 Pulse 55 L 03/15/21 16:20 Resp 18 03/15/21 16:20 BP 124/63 03/15/21 16:20 Pulse Ox 100 03/15/21 16:20 - Orders/Labs/Meds Labs: Laboratory Tests 03/15/21 03/15/21 03/15/21 Range/Units 17:33 17:33 17:33 WBC 3.1 L (5.0-10.0) 10^3/uL RBC 3.03 L (4.2-5.4) 10^6/uL Hgb 10.0 L (12.0-16.0) g/dL Hct 30.5 L (37.0-47.0) % MCV 100.7 H (80-100) fL MCH 33.0 (27.0-34.0) pg MCHC 32.8 L (33.0-35.0) g/dL Plt Count 58 L (150-450) 10^3/uL Neut % (Auto) 68.5 (42.2-75.2) % Lymph % (Auto) 13.1 L (20.5-50.1) % [place] % (Auto) 12.8 H (2-8) % Eos % (Auto) 4.3 H (1.0-3.0) % Baso % (Auto) 1.3 H (0.0-1.0) % Sodium 140 (136-145) mmol/L Potassium 4.0 (3.5-5.1) mmol/L Chloride 107 (98-107) mmol/L Carbon Dioxide 22 (21-32) mmol/L Anion Gap 15.0 H (7-13) mEq/L BUN 20 H (7-18) mg/dL Creatinine 1.07 H (0.55-1.02) mg/dL Est Cr Clr Drug Dosing 59.81 mL/min Estimated GFR (MDRD) 54 BUN/Creatinine Ratio 18.7 (No establ ref range) Glucose 125 H (70-99) mg/dL Lactic Acid (0.4-2.0) mmol/L Calcium 8.2 L (8.5-10.1) mg/dL Total Bilirubin 1.2 H (0.2-1.0) mg/dL AST 41 H (15-37) U/L ALT 37 (14-59) U/L Alkaline Phosphatase 233 H (46-116) U/L Ammonia 76 H (11-32) umol/L C-Reactive Protein 1.8 H (0.0-0.9) mg/dL B-Natriuretic Peptide 20 (0-100) pg/ml Total Protein 7.3 (6.4-8.2) g/dL Albumin 3.1 L (3.4-5.0) g/dL Globulin 4.2 Albumin/Globulin Ratio 0.74 Ethyl Alcohol < 3 (0) mg/dL 03/15/21 Range/Units 17:33 WBC (5.0-10.0) 10^3/uL RBC (4.2-5.4) 10^6/uL Hgb (12.0-16.0) g/dL Hct (37.0-47.0) % MCV (80-100) fL MCH (27.0-34.0) pg MCHC (33.0-35.0) g/dL Plt Count (150-450) 10^3/uL Neut % (Auto) (42.2-75.2) % Lymph % (Auto) (20.5-50.1) % [place] % (Auto) (2-8) % Eos % (Auto) (1.0-3.0) % Baso % (Auto) (0.0-1.0) % Sodium (136-145) mmol/L Potassium (3.5-5.1) mmol/L Chloride (98-107) mmol/L Carbon Dioxide (21-32) mmol/L Anion Gap (7-13) mEq/L BUN (7-18) mg/dL Creatinine (0.55-1.02) mg/dL Est Cr Clr Drug Dosing mL/min Estimated GFR (MDRD) BUN/Creatinine Ratio (No establ ref range) Glucose (70-99) mg/dL Lactic Acid 1.3 (0.4-2.0) mmol/L Calcium (8.5-10.1) mg/dL Total Bilirubin (0.2-1.0) mg/dL AST (15-37) U/L ALT (14-59) U/L Alkaline Phosphatase (46-116) U/L Ammonia (11-32) umol/L C-Reactive Protein (0.0-0.9) mg/dL B-Natriuretic Peptide (0-100) pg/ml Total Protein (6.4-8.2) g/dL Albumin (3.4-5.0) g/dL Globulin Albumin/Globulin Ratio Ethyl Alcohol (0) mg/dL - Re-Assessments/Exams Free Text/Narrative Re-Assessment/Exam: 03/15/21 CBC at baseline for patient's advanced liver disease, including macrocytic anemia with Hgb 10.1. Platelet 58 also stable. Liver function around baseline for patient with Total Bili 1.2, AST 41, ALT 37, Alk Phos 233, and Ammonia 76. Electrolytes appropriate. Mild dehydration possible given slight elevation in creatinine and BUN, 1.07 and 20 respectively. GFR 54. BNP WNL. CRP slightly elevated at 1.8. Findings of examination and lab work reviewed with patient, awaiting UA. Patient states she feels well and would like to go home. Will discharge patient home with instructions to follow up with PCP should symptoms return. Patient encouraged to follow up with gastroenterology/hepatology for ongoing symptoms, as well. Red flag signs and symptoms which would warrant reevaluation reviewed. Patient verbalized understanding and agreement with the plan of care. Departure - Departure Time of Disposition: 19:38 Disposition: Home, Self-Care 01 Condition: Good Clinical Impression: History of cirrhosis of liver, Macrocytic anemia Fatigue Qualifiers: Fatigue type: unspecified Qualified Code(s): R53.83 - Other fatigue - Discharge Information *PRESCRIPTION DRUG MONITORING PROGRAM REVIEWED*: Not Applicable *COPY OF PRESCRIPTION DRUG MONITORING REPORT IN PATIENT LAYLA: Not Applicable Forms: ED Department Discharge Additional Instructions: 1.) Follow up with your primary care provider in one to two days regarding today's visit. 2.) Take an extra dose of lactulose tomorrow morning. 3.) Return to the emergency department should symptoms persist or worsen. Sepsis Event Note (ED) - Evaluation Sepsis Screening Result: No Definite Risk
== END 2021-03-15 19:47 | disposition home or self-care (01) ==
LOC: DL.ED 16:19
DX: D50.9 Iron deficiency anemia, unspecified (principal); R53.83 Other fatigue; E78.00 Pure hypercholesterolemia, unspecified; I10 Essential (primary) hypertension; E03.9 Hypothyroidism, unspecified; E11.649 Type 2 diabetes mellitus with hypoglycemia without coma; Z88.1 Allergy status to other antibiotic agents; Z79.4 Long term (current) use of insulin; Z79.82 Long term (current) use of aspirin; Z79.899 Other long term (current) drug therapy; Z72.0 Tobacco use; Z87.19 Personal history of other diseases of the digestive system
CPT/HCPCS: 36415; 80053; 80307; 82140; 83605; 83880; 85025; 86140; 99284; 99285

== ENCOUNTER 2021-04-28 12:43 | Inpatient (IN) | payer MEDICAID ==
--- NOTE | 2021-04-28 13:11 | EDM.PDOC ---
ED HPI GENERAL MEDICAL PROBLEM - General Chief Complaint: Neuro Symptoms/Deficits Stated Complaint: AMBULANCE Time Seen by Provider: 04/28/21 13:10 Source of Information: Reports: EMS, Old Records, RN, RN Notes Reviewed History Limitations: Reports: Altered Mental Status, Uncooperative - History of Present Illness INITIAL COMMENTS - FREE TEXT/NARRATIVE: Pt arrives from home by [facility] with EMS reporting pt has been confused and combative today. EMS reports that family stated that they cannot control the pt and feared for her safety. Pt was combative with EMS, and paramedics gave Versed 5mg IM x1 prior to transport. Pt is sedate on arrival and unable to provide any history. EMS reports family says the pt gets like this when she stops taking her Lactulose and her ammonia goes high. Onset: Unknown/Unsure Duration: Constant Location: Reports: Generalized Severity: Severe - Related Data Allergies Allergy/AdvReac Type Severity Reaction Status Date / Time ceftriaxone [From Rocephin] Allergy Intermediate Hives Verified 03/16/21 16:10 Home Meds: Home Meds Aspirin [Thuy Chewable Aspirin] 81 mg PO DAILY 02/14/15 [History] Insulin Aspart [NovoLOG] 20 units SUBCUT TIDM 02/14/15 [History] Lisinopril 5 mg PO DAILY 02/14/15 [History] Levothyroxine 150 mcg PO ACBREAKFAST 05/01/17 [History] Calcium Citrate/Vitamin D3 [Calcium Citrate - Vit D Tablet] 1 tab PO BID 02/28/18 [History] Ferrous Gluconate 324 mg PO DAILY 02/28/18 [History] Rifaximin [Xifaxan] 550 mg PO BID 30 Days tablet 03/02/18 [Rx] Lactulose 40 ml PO QID 07/22/18 [History] Amoxicillin/Clavulanate K [Augmentin 875-125 MG] 1 tab PO ASDIRECTED 02/19/21 [History] Magnesium Oxide [Magnesium] 200 mg PO DAILY 02/19/21 [History] Mupirocin Oint [Bactroban Oint] 22 gm TP BID 02/19/21 [History] Propranolol [Inderal] 10 mg PO BID 02/19/21 [History] Thiamine Mononitrate (Vit B1) [Vitamin B-1] 100 mg PO DAILY 02/19/21 [History] Past Medical History HEENT History: Reports: Impaired Vision Other HEENT History: legally blind per [facility] reports, blindness to right eye, presbyopia, diabetic retinopathy Cardiovascular History: Reports: Heart Murmur, High Cholesterol, Hypertension Other Cardiovascular History: MURMUR Respiratory History: Reports: None Gastrointestinal History: Reports: Cirrhosis, Other (See Below) Other Gastrointestinal History: HX OF ABNORMAL LIVER STUDIES , umbilical hernia present Genitourinary History: Reports: None, Dialysis, 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: Reports: 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 History: Reports: None Neurological History: Reports: None Psychiatric History: Reports: Addiction Other Psychiatric History: acute alcohol abuse Endocrine/Metabolic History: Reports: Diabetes, Type II, Hypothyroidism Hematologic History: Reports: Anemia Other Hematologic History: acquired thrombocytopenia Immunologic History: Reports: None Oncologic (Cancer) History: Reports: None Dermatologic History: Reports: Cellulitis Other Dermatologic History: RIGHT BREAST CELLULITUS - Infectious Disease History Infectious Disease History: Reports: MRSA Other Infectious Disease History: unable to obtain due to nonverbal status at this time - Past Surgical History Head Surgeries/Procedures: Reports: None HEENT Surgical History: Reports: None Other HEENT Surgeries/Procedures: Right eye iridotomy Cardiovascular Surgical History: Reports: None Respiratory Surgical History: Reports: None GI Surgical History: Reports: Colonoscopy, EGD Female Surgical History: Reports: Section, Mastectomy 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 Surgical History: Reports: None Oncologic Surgical History: Reports: Mastectomy Other Oncologic Surgeries/Procedures: RIGHT MASTECTOMY Dermatological Surgical History: Reports: Other (See Below) Social & Family History - Family History Family Medical History: Unobtainable - Caffeine Use Caffeine Use: Reports: Tea Caffeine Use Comment: 1 8oz cup daily - Alcohol Use Alcohol Use History: Yes Alcohol Use Frequency: Binges - Recreational Drug Use Recreational Drug Use: Yes Drug Use in Last 12 Months: Yes Recreational Drug Type: Reports: Marijuana/Hashish, Methamphetamine Recreational Drug Use Frequency: Patient Refuses To Answer - Living Situation & Occupation Living situation: Reports: with Family Occupation: Employed ED ROS GENERAL - Review of Systems Review Of Systems: Unable To Obtain Reason Not Obtained: Obtunded patient - Physical Exam Exam: See Below Exam Limited By: Altered Mental Status General Appearance: No Apparent Distress, Obtunded Eye Exam: Bilateral Eye: PERRL (3mm pupils, sluggishly reactive to light), Other (mild scleral icterus) Ears: Normal External Exam Nose: Normal Inspection, No Blood Throat/Mouth: Normal Lips, No Airway Compromise Head Exam: Atraumatic, Normocephalic Neck: Normal Inspection, Non-Tender, Full Range of Motion Respiratory/Chest: No Respiratory Distress, Lungs Clear, No Accessory Muscle Use, Chest Non-Tender, Decreased Breath Sounds Cardiovascular: Regular Rate, Rhythm, No Edema GI/Abdominal: Normal Bowel Sounds, Soft, Non-Tender, Hepatomegaly. 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) Extremities: Normal Inspection, Normal Range of Motion, No Pedal Edema, Normal Capillary Refill Skin Exam: Warm, Dry, Intact, Normal Color, No Rash #1 Interpretation EKG Date: 04/28/21 Time: 13:16 Rhythm: Other (SR) Rate (Beats/Min): 75 Otley: LAD-Left Otley Deviation P-Wave: Present QRS: Wide (Incomplete LBBB) ST-T: Normal QT: Normal Comparison: No Change Course - Vital Signs Last Recorded V/S: Last Vital Signs Temp 97.3 F 04/28/21 13:05 Pulse 72 04/28/21 13:05 Resp 17 04/28/21 13:05 BP 97/54 L 04/28/21 13:05 Pulse Ox 96 04/28/21 13:05 - Orders/Labs/Meds Orders: Active Orders 24 hr Category Date Time Status Blood Glucose Check, Bedside [] ONETIME Care 04/28/21 13:11 Active EKG 12 Lead [EKG Documentation Completion] [] STAT Care 04/28/21 13:11 Active Insert Hoffman Catheter [Insert Urinary Catheter] [OM.PC] Care 04/28/21 13:45 Ordered Q24H Peripheral IV Care [] . DIRECTED Care 04/28/21 13:12 Active Urinary Catheter Assessment [] ASDIRECTED Care 04/28/21 13:33 Active Lactulose [Chronulac] Med 04/28/21 14:45 Once 40 gm RECTAL ONETIME ONE Sodium Chloride 0.9% [Normal Saline] 1,000 ml Med 04/28/21 14:21 Active IV .BOLUS Sodium Chloride 0.9% [Saline Flush] Med 04/28/21 13:12 Active 10 ml FLUSH ASDIRECTED PRN Peripheral IV Insertion Adult [OM.PC] Stat Oth 04/28/21 13:12 Ordered Medication Orders Sodium Chloride (Normal Saline) 1,000 mls @ 999 mls/hr IV .BOLUS ONE Stop: 04/28/21 15:21 Lactulose (Lactulose Soln 10 Gm/15 Ml 946 Ml Bottle) 40 gm RECTAL ONETIME ONE Stop: 04/28/21 14:46 Sodium Chloride (Sodium Chloride 0.9% 10 Ml Syringe) 10 ml FLUSH ASDIRECTED PRN PRN Reason: Keep Vein Open Labs: Laboratory Tests 04/28/21 04/28/21 04/28/21 Range/Units 13:19 13:21 13:29 WBC 2.7 L (5.0-10.0) 10^3/uL RBC 2.49 L (4.2-5.4) 10^6/uL Hgb 8.3 L (12.0-16.0) g/dL Hct 24.9 L (37.0-47.0) % MCV 100.0 (80-100) fL MCH 33.3 (27.0-34.0) pg MCHC 33.3 (33.0-35.0) g/dL Plt Count 48 L* (150-450) 10^3/uL Neut % (Auto) 66.5 (42.2-75.2) % Lymph % (Auto) 12.0 L (20.5-50.1) % Luna % (Auto) 19.2 H (2-8) % Eos % (Auto) 2.3 (1.0-3.0) % Baso % (Auto) 0.0 (0.0-1.0) % PT (9.0-12.0) SEC INR (0.9-1.2) APTT (22.0-34.0) SEC Sodium (136-145) mmol/L Potassium (3.5-5.1) mmol/L Chloride (98-107) mmol/L Carbon Dioxide (21-32) mmol/L Anion Gap (7-13) mEq/L BUN (7-18) mg/dL Creatinine (0.55-1.02) mg/dL Est Cr Clr Drug Dosing mL/min Estimated GFR (MDRD) BUN/Creatinine Ratio (No establ ref range) Glucose (70-99) mg/dL POC Glucose 125 H (70-99) mg/dL Lactic Acid (0.4-2.0) mmol/L Calcium (8.5-10.1) mg/dL Total Bilirubin (0.2-1.0) mg/dL AST (15-37) U/L ALT (14-59) U/L Alkaline Phosphatase (46-116) U/L Ammonia (11-32) umol/L Troponin I High Sens (<=51) pg/mL C-Reactive Protein (0.0-0.9) mg/dL B-Natriuretic Peptide (0-100) pg/ml Total Protein (6.4-8.2) g/dL Albumin (3.4-5.0) g/dL Globulin Albumin/Globulin Ratio Lipase (73-393) U/L Urine Color (YELLOW) Urine Appearance (CLEAR) Urine pH (5.0-9.0) Ur Specific [place] (1.005-1.030) Urine Protein (NEGATIVE) Urine Glucose (UA) (NEGATIVE) Urine Ketones (NEGATIVE) Urine Occult Blood (NEGATIVE) Urine Nitrite (NEGATIVE) Urine Bilirubin (NEGATIVE) Urine Urobilinogen (0.2-1.0) mg/dL Ur Leukocyte Esterase (NEGATIVE) Urine RBC /HPF Urine WBC (0-5/HPF) /HPF Ur Epithelial Cells (NOT SEEN) /HPF Urine Bacteria (0-FEW/HPF) /HPF Urine Opiates Screen (NEGATIVE) Ur Oxycodone Screen (NEGATIVE) Urine Methadone Screen (NEGATIVE) Ur Barbiturates Screen (NEGATIVE) U Tricyclic Antidepress (NEGATIVE) Ur Phencyclidine Scrn (NEGATIVE) Ur Amphetamine Screen (NEGATIVE) U Methamphetamines Scrn (NEGATIVE) Urine MDMA Screen (NEGATIVE) U Benzodiazepines Scrn (NEGATIVE) Urine Cocaine Screen (NEGATIVE) U Marijuana (THC) Screen (NEGATIVE) Ethyl Alcohol (0) mg/dL SARS-CoV-2 RNA (TERESITA) Negative (NEGATIVE) 04/28/21 04/28/21 04/28/21 Range/Units 13:29 13:29 13:29 WBC (5.0-10.0) 10^3/uL RBC (4.2-5.4) 10^6/uL Hgb (12.0-16.0) g/dL Hct (37.0-47.0) % MCV (80-100) fL MCH (27.0-34.0) pg MCHC (33.0-35.0) g/dL Plt Count (150-450) 10^3/uL Neut % (Auto) (42.2-75.2) % Lymph % (Auto) (20.5-50.1) % Luna % (Auto) (2-8) % Eos % (Auto) (1.0-3.0) % Baso % (Auto) (0.0-1.0) % PT 19.3 H D (9.0-12.0) SEC INR 1.9 H (0.9-1.2) APTT 42.6 H (22.0-34.0) SEC Sodium 143 (136-145) mmol/L Potassium 4.0 (3.5-5.1) mmol/L Chloride 108 H (98-107) mmol/L Carbon Dioxide 25 (21-32) mmol/L Anion Gap 14.0 H (7-13) mEq/L BUN 14 (7-18) mg/dL Creatinine 1.13 H (0.55-1.02) mg/dL Est Cr Clr Drug Dosing 58.75 mL/min Estimated GFR (MDRD) 51 BUN/Creatinine Ratio 12.4 (No establ ref range) Glucose 128 H (70-99) mg/dL POC Glucose (70-99) mg/dL Lactic Acid 1.8 (0.4-2.0) mmol/L Calcium 7.5 L (8.5-10.1) mg/dL Total Bilirubin 2.7 H (0.2-1.0) mg/dL AST 115 H (15-37) U/L ALT 170 H (14-59) U/L Alkaline Phosphatase 154 H (46-116) U/L Ammonia (11-32) umol/L Troponin I High Sens 26 (<=51) pg/mL C-Reactive Protein 3.9 H (0.0-0.9) mg/dL B-Natriuretic Peptide 107 H (0-100) pg/ml Total Protein 5.7 L (6.4-8.2) g/dL Albumin 2.9 L (3.4-5.0) g/dL Globulin 2.8 Albumin/Globulin Ratio 1.04 Lipase 91 (73-393) U/L Urine Color (YELLOW) Urine Appearance (CLEAR) Urine pH (5.0-9.0) Ur Specific [place] (1.005-1.030) Urine Protein (NEGATIVE) Urine Glucose (UA) (NEGATIVE) Urine Ketones (NEGATIVE) Urine Occult Blood (NEGATIVE) Urine Nitrite (NEGATIVE) Urine Bilirubin (NEGATIVE) Urine Urobilinogen (0.2-1.0) mg/dL Ur Leukocyte Esterase (NEGATIVE) Urine RBC /HPF Urine WBC (0-5/HPF) /HPF Ur Epithelial Cells (NOT SEEN) /HPF Urine Bacteria (0-FEW/HPF) /HPF Urine Opiates Screen (NEGATIVE) Ur Oxycodone Screen (NEGATIVE) Urine Methadone Screen (NEGATIVE) Ur Barbiturates Screen (NEGATIVE) U Tricyclic Antidepress (NEGATIVE) Ur Phencyclidine Scrn (NEGATIVE) Ur Amphetamine Screen (NEGATIVE) U Methamphetamines Scrn (NEGATIVE) Urine MDMA Screen (NEGATIVE) U Benzodiazepines Scrn (NEGATIVE) Urine Cocaine Screen (NEGATIVE) U Marijuana (THC) Screen (NEGATIVE) Ethyl Alcohol < 3 (0) mg/dL SARS-CoV-2 RNA (TERESITA) (NEGATIVE) 04/28/21 04/28/21 04/28/21 Range/Units 13:29 13:31 13:31 WBC (5.0-10.0) 10^3/uL RBC (4.2-5.4) 10^6/uL Hgb (12.0-16.0) g/dL Hct (37.0-47.0) % MCV (80-100) fL MCH (27.0-34.0) pg MCHC (33.0-35.0) g/dL Plt Count (150-450) 10^3/uL Neut % (Auto) (42.2-75.2) % Lymph % (Auto) (20.5-50.1) % Luna % (Auto) (2-8) % Eos % (Auto) (1.0-3.0) % Baso % (Auto) (0.0-1.0) % PT (9.0-12.0) SEC INR (0.9-1.2) APTT (22.0-34.0) SEC Sodium (136-145) mmol/L Potassium (3.5-5.1) mmol/L Chloride (98-107) mmol/L Carbon Dioxide (21-32) mmol/L Anion Gap (7-13) mEq/L BUN (7-18) mg/dL Creatinine (0.55-1.02) mg/dL Est Cr Clr Drug Dosing mL/min Estimated GFR (MDRD) BUN/Creatinine Ratio (No establ ref range) Glucose (70-99) mg/dL POC Glucose (70-99) mg/dL Lactic Acid (0.4-2.0) mmol/L Calcium (8.5-10.1) mg/dL Total Bilirubin (0.2-1.0) mg/dL AST (15-37) U/L ALT (14-59) U/L Alkaline Phosphatase (46-116) U/L Ammonia 273 H (11-32) umol/L Troponin I High Sens (<=51) pg/mL C-Reactive Protein (0.0-0.9) mg/dL B-Natriuretic Peptide (0-100) pg/ml Total Protein (6.4-8.2) g/dL Albumin (3.4-5.0) g/dL Globulin Albumin/Globulin Ratio Lipase (73-393) U/L Urine Color Yellow (YELLOW) Urine Appearance Clear (CLEAR) Urine pH 6.0 (5.0-9.0) Ur Specific [place] 1.015 (1.005-1.030) Urine Protein Negative (NEGATIVE) Urine Glucose (UA) Negative (NEGATIVE) Urine Ketones Negative (NEGATIVE) Urine Occult Blood Moderate H (NEGATIVE) Urine Nitrite Negative (NEGATIVE) Urine Bilirubin Negative (NEGATIVE) Urine Urobilinogen 0.2 (0.2-1.0) mg/dL Ur Leukocyte Esterase Negative (NEGATIVE) Urine RBC 10-20 H /HPF Urine WBC 0-5 (0-5/HPF) /HPF Ur Epithelial Cells Rare (NOT SEEN) /HPF Urine Bacteria Moderate H (0-FEW/HPF) /HPF Urine Opiates Screen Negative (NEGATIVE) Ur Oxycodone Screen Negative (NEGATIVE) Urine Methadone Screen Negative (NEGATIVE) Ur Barbiturates Screen Negative (NEGATIVE) U Tricyclic Antidepress Negative (NEGATIVE) Ur Phencyclidine Scrn Negative (NEGATIVE) Ur Amphetamine Screen Negative (NEGATIVE) U Methamphetamines Scrn Negative (NEGATIVE) Urine MDMA Screen Negative (NEGATIVE) U Benzodiazepines Scrn Negative (NEGATIVE) Urine Cocaine Screen Negative (NEGATIVE) U Marijuana (THC) Screen Negative (NEGATIVE) Ethyl Alcohol (0) mg/dL SARS-CoV-2 RNA (TERESITA) (NEGATIVE) Meds: Medications Generic Name Dose Route Start Last Admin Trade Name Freq PRN Reason Stop Dose Admin Sodium Chloride 1,000 mls @ 999 mls/hr 04/28/21 14:21 Normal Saline IV 04/28/21 15:21 .BOLUS ONE Lactulose 40 gm 04/28/21 14:45 Lactulose Soln 10 Gm/15 Ml 946 Ml Bottle RECTAL 04/28/21 14:46 ONETIME ONE Sodium Chloride 10 ml 04/28/21 13:12 Sodium Chloride 0.9% 10 Ml Syringe FLUSH ASDIRECTED PRN Keep Vein Open Departure - Departure Time of Disposition: 14:46 (admitted to Dr. Brock) Disposition: Admitted As Inpatient 64 Condition: Serious Clinical Impression: Acute hepatic encephalopathy, Pancytopenia Alcoholic cirrhosis Qualifiers: Ascites presence: unspecified Qualified Code(s): K70.30 - Alcoholic cirrhosis of liver without ascites - Discharge Information *PRESCRIPTION DRUG MONITORING PROGRAM REVIEWED*: No *COPY OF PRESCRIPTION DRUG MONITORING REPORT IN PATIENT LAYLA: No Forms: ED Department Discharge Sepsis Event Note (ED) - Evaluation Sepsis Screening Result: No Definite Risk - Focused Exam Vital Signs: Vital Signs Temp Pulse Resp BP Pulse Ox 04/28/21 13:05 97.3 F 72 17 97/54 L 96 - My Orders Last 24 Hours: My Active Orders 04/28/21 13:11 Blood Glucose Check, Bedside [RC] ONETIME EKG 12 Lead [EKG Documentation Completion] [] STAT 04/28/21 13:12 Peripheral IV Care [RC] . DIRECTED Sodium Chloride 0.9% [Saline Flush] 10 ml FLUSH ASDIRECTED PRN Peripheral IV Insertion Adult [OM.PC] Stat 04/28/21 13:33 Urinary Catheter Assessment [RC] ASDIRECTED 04/28/21 13:45 Insert Hoffman Catheter [Insert Urinary Catheter] [OM.PC] Q24H 04/28/21 14:21 Sodium Chloride 0.9% [Normal Saline] 1,000 ml IV .BOLUS 04/28/21 14:45 Lactulose [Chronulac] 40 gm RECTAL ONETIME ONE - Assessment/Plan Last 24 Hours: My Active Orders 04/28/21 13:11 Blood Glucose Check, Bedside [] ONETIME EKG 12 Lead [EKG Documentation Completion] [] STAT 04/28/21 13:12 Peripheral IV Care [RC] . DIRECTED Sodium Chloride 0.9% [Saline Flush] 10 ml FLUSH ASDIRECTED PRN Peripheral IV Insertion Adult [OM.PC] Stat 04/28/21 13:33 Urinary Catheter Assessment [RC] ASDIRECTED 04/28/21 13:45 Insert Hoffman Catheter [Insert Urinary Catheter] [OM.PC] Q24H 04/28/21 14:21 Sodium Chloride 0.9% [Normal Saline] 1,000 ml IV .BOLUS 04/28/21 14:45 Lactulose [Chronulac] 40 gm RECTAL ONETIME ONE
[2021-04-28] MEDS ORDERED: Sodium Chloride 0.9% 10 ML Syringe FLUSH PRN ×2 (13:12→16:23)
[2021-04-28 13:57] LABS: CHLORIDE,CL 108 mmol/L (98-107); SODIUM,NA 143 mmol/L (136-145)
[2021-04-28 14:07] LABS: PTT,PARTIAL THROMBOPLSTIN TIME 42.6 SEC (22.0-34.0)
[2021-04-28] MEDS ORDERED: Sodium Chloride 0.9% 1,000 ML IV ONE (14:21)
[2021-04-28] MEDS ORDERED: Lactulose Soln 10 GM/15 ML 946 ML Bottle RECTAL ONE (14:45)
[2021-04-28] MEDS ORDERED: Ondansetron 4 MG/2 ML SDV IVPUSH PRN (16:23)
[2021-04-28] MEDS ORDERED: LORazepam 2 MG/ML SDV IV PRN (16:27)
[2021-04-28] MEDS ORDERED: Glucagon,Human Recombinant 1 MG Vial IM PRN (16:29)
[2021-04-28] MEDS ORDERED: 50% Dextrose in Water 50 ML Syringe IVPUSH PRN (16:29)
--- NOTE | 2021-04-28 16:36 | PCM.SN.2 ---
- Free Text/Narrative Note: START OF DOCTOR EMAMIGeorgie HISTORY AND PHYSICAL / CONSULTATION NOTE Chief Complaint: Erratic/belligerent behavior History of Present Illness: Patient is a 50-year-old female who was transferred to the emergency department after being found to exhibit erratic behavior. Apparently she had numerous episodes in the past and this signals that she is hyperammonemic. Unfortunately the present time, the patient is encephalopathic and I am unable to obtain further history of present illness. She presents for further evaluation Surgical History: Per medical records: Right eye iridotomy, right mastectomy, Family History: Unable to obtain Social History: Tobacco: Unable to obtain however per previous documentation, the patient has smoked I am uncertain as to whether her tobacco abuse is ongoing Alcohol: Documented history of alcohol use, uncertain if this is ongoing Caffeine: Unable to obtain Drugs: Unable to obtain Allergies: Per medical records: Rocephin Code Status: By default, full Pertinent Laboratory Results / Pertinent Radiology Results / Pertinent Diagnostic Results / Pertinent Vital Signs: Blood pressure 97/54, pulse 72, respirations 18, temperature 97.3 degrees, neck 6% 2 L, alkaline phosphatase 154, AST 115, ALT 170, total bili is 2.7, INR is 1.9, white blood cell count 0.7, hemoglobin 8.3, platelet count 40,000, ammonia 273 Physical Examination: General: -Encephalopathic and somnolent -No acute distress -No dyspnea -No tachypnea Head: -Atraumatic -Normocephalic Eyes: -Pupils equally round and reactive to light and accommodation -Extraocular muscles: Unable to assess due to lack of patient cooperation/encephalopathy Neurological: -Cranial nerves II-XII appear to be intact however the patient is encephalopathic and unable to provide feedback Neck: -No jugular venous distention -No thyromegaly -No cervical lymphadenopathy Heart: -Regular rate -Regular rhythm -No murmurs -No gallops -No rubs Lungs: -No wheeze -No rhonchi -No rales Abdomen: -Normal bowel sounds in all four quadrants -No rebound -No guarding -No tenderness Extremities: -2/4 pulse in all four extremities -No clubbing -No cyanosis -No edema -No calf tenderness present bilaterally -Negative Homans sign bilaterally 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: -Unable to assess due to patient's encephalopathy Additional Details / Additional Findings / Exceptions / Miscellaneous: Assessment / Plan: Hyperammonemia/hepatic encephalopathy, chronic. Baseline ammonia level 70. Will monitor ammonia levels intermittently. Xifaxan 550 mg p.o. twice daily plus lactulose 200 mg [place] every 6 hours with enema to be retained for 1 hour. Aspiration precautions Cholelithiasis Alcohol abuseuncertain if this is ongoing. Seizure precautions. IV as needed Ativan per [facility] protocol Hepatic steatosis/end-stage cirrhosis. Will monitor LFTs periodically with CMP Portal hypertension Coagulopathy, secondary to end-stage cirrhosis. Monitor PT/INR periodically Status post right mastectomy. When the patient is lucid, I will attempt to ascertain the reason as to why this was undertaken Hypothyroidism. Check TSH, check free T4 Pancytopenia, chroniclikely secondary to myelosuppression from alcohol use. Will monitor hemoglobin level intermittently. Check TSH, free T4, B12, folate, iron panel, ferritin, fecal occult blood Diabetes. Will check fasting glucose before every meal and at bedtime and provide sulci scale Hyperlipidemia Hypertension Obesity. Patient counseled regarding left eye modification Query ongoing tobacco abuse. The patient will be counseled regarding smoking cessation Microscopic hematuria. Outpatient follow-up with urology upon discharge History rectal wall thickening. Outpatient follow-up with gastroenterology upon discharge Query history of portal vein thrombosis Degenerative's disease Diverticulosis DVT prophylaxis. Bilateral CD Disposition: I requested case management evaluate the patient for possible placement and referral to alcohol rehabilitation for alcohol abuse is ongoing END OF DOCTOR EMAMIS HISTORY AND PHYSICAL / CONSULTATION NOTE
[2021-04-28] MEDS: Rifaximin 550 MG Tab PO SCH ×2 (17:36→22:44)
[2021-04-28] MEDS: Insulin Lispro 100 Units/ML 3 ML Vial SUBCUT SCH ×2 (18:25→22:44)
[2021-04-28] MEDS: LORazepam 2 MG/ML SDV IVPUSH PRN (18:37)
[2021-04-28] MEDS: Lactulose Soln 10 GM/15 ML 946 ML Bottle RECTAL SCH (23:30)
[2021-04-29] MEDS: LORazepam 2 MG/ML SDV IVPUSH PRN (04:10)
[2021-04-29] MEDS: Lactulose Soln 10 GM/15 ML 946 ML Bottle RECTAL SCH (04:57)
[2021-04-29 06:53] LABS: ANION GAP 12.8 mEq/L (7-13); CHLORIDE,CL 114 mmol/L (98-107); SODIUM,NA 147 mmol/L (136-145)
--- NOTE | 2021-04-29 07:21 | PCM.SN.2 ---
- Free Text/Narrative Note: START OF DOCTOR HARMONY PROGRESS NOTE Subjective: The patient is more responsive compared to my encounter with her on April 28, 2021 however she answers questions intermittently. I am unable to determine whether she is somnolent but uncooperative versus encephalopathic. Because of this I am unable to elicit responses from her one posing questions to her Objective: General: -Somnolent but arousable -No acute distress -No dyspnea -No tachypnea Heart: -Regular rate -Regular rhythm -No murmurs -No gallops -No rubs Lungs: -No wheeze -No rhonchi -No rales Abdomen: -Normal bowel sounds in all four quadrants -No rebound -No guarding -No tenderness Extremities: -2/4 pulse in all four extremities -No clubbing -No cyanosis -No edema Additional Details / Additional Findings / Exceptions / Miscellaneous: Pertinent Laboratory Results / Pertinent Radiology Results / Pertinent Diagnostic Results / Pertinent Vital Signs: Blood pressure 97/43, 100% 2 L, white blood count 3.2, hemoglobin 8.7, MCV 100.8, platelet count 33,000, sodium 147, total bilirubin is 3.8, AST 99, ALT 136, alkaline phosphatase 136, ammonia 59 Assessment / Plan: Hyperammonemia/hepatic encephalopathy, chronic. Baseline ammonia level 70. Will monitor ammonia levels intermittently. Xifaxan 550 mg p.o. twice daily plus lactulose 200 mg [place] every 6 hours with enema to be retained for 1 hour. Aspiration precautions Hyponatremia. Will monitor sodium levels intermittently. IV half-normal saline at 50 mils per hour Cholelithiasis Alcohol abuseuncertain if this is ongoing. Seizure precautions. IV as needed Ativan per [facility] protocol Hepatic steatosis/end-stage cirrhosis. Will monitor LFTs periodically with CMP Portal hypertension Coagulopathy, secondary to end-stage cirrhosis. Monitor PT/INR periodically Status post right mastectomy. When the patient is lucid, I will attempt to ascertain the reason as to why this was undertaken Hypothyroidism with iatrogenic hyperthyroidism Pancytopenia, chroniclikely secondary to myelosuppression from alcohol use, including iron deficiency anemia and macrocytosis. Will monitor hemoglobin level intermittently. Ferrous sulfate 325 mg p.o. twice daily plus vitamin C 500 mg p.o. daily Diabetes. Will check fasting glucose before every meal and at bedtime and provide sulci scale Hyperlipidemia Hypertension Obesity. Patient counseled regarding left eye modification Query ongoing tobacco abuse. The patient will be counseled regarding smoking cessation Microscopic hematuria. Outpatient follow-up with urology upon discharge History rectal wall thickening. Outpatient follow-up with gastroenterology upon discharge Query history of portal vein thrombosis Degenerative's disease Diverticulosis DVT prophylaxis. Bilateral CD Disposition: I requested case management evaluate the patient for possible placement and referral to alcohol rehabilitation for alcohol abuse is ongoing END OF DOCTOR EMAMIS PROGRESS NOTE
[2021-04-29] MEDS: Insulin Lispro 100 Units/ML 3 ML Vial SUBCUT SCH ×4 (08:35→21:30)
[2021-04-29] MEDS: Sodium Chloride 0.45% 1,000 ML IV SCH (09:45)
[2021-04-29] MEDS: Ascorbic Acid 500 MG Tab PO SCH (09:45)
[2021-04-29] MEDS: Ferrous Sulfate 325 MG Tab PO SCH ×2 (09:45→17:24)
[2021-04-29] MEDS: Rifaximin 550 MG Tab PO SCH ×2 (09:45→20:47)
[2021-04-29] MEDS: Lactulose Soln 10 GM/15 ML 30 ML UD Cup PO SCH ×2 (12:26→17:23)
[2021-04-30] MEDS: Lactulose Soln 10 GM/15 ML 30 ML UD Cup PO SCH ×3 (00:23→12:46)
[2021-04-30 04:36] LABS: SODIUM,NA 140 mmol/L (136-145)
[2021-04-30 04:53] LABS: ANION GAP 10.9 mEq/L (7-13); CHLORIDE,CL 110 mmol/L (98-107)
[2021-04-30] MEDS: Sodium Chloride 0.45% 1,000 ML IV SCH (05:35)
--- NOTE | 2021-04-30 07:22 | PCM.SN.2 ---
- Free Text/Narrative Note: START OF DOCTOR HARMONY PROGRESS NOTE Subjective: The patient states she is feeling little bit cold this morning. Has had from this year has no complaints. She denies fever, nausea, vomiting, cough, wheeze, abdominal pain, chest pain, dyspnea, lightheadedness, dizziness, or any other constitutional complaints. I explained to the patient her current medical condition and plan of care and I have answered all of her questions Objective: General: -Alert -No acute distress -No dyspnea -No tachypnea Heart: -Regular rate -Regular rhythm -No murmurs -No gallops -No rubs Lungs: -No wheeze -No rhonchi -No rales Abdomen: -Normal bowel sounds in all four quadrants -No rebound -No guarding -No tenderness Extremities: -2/4 pulse in all four extremities -No clubbing -No cyanosis -No edema Additional Details / Additional Findings / Exceptions / Miscellaneous: Pertinent Laboratory Results / Pertinent Radiology Results / Pertinent Diagnostic Results / Pertinent Vital Signs: Blood pressure 97/55, white blood count 3.1, hemoglobin 7.6, platelet count 3000, total bilirubin is 2.7, AST 66, ALT 121, alkaline phosphatase 118, ammonia 68 Assessment / Plan: Hyperammonemia/hepatic encephalopathy, chronic. Baseline ammonia level 70. Will monitor ammonia levels intermittently. Xifaxan 550 mg p.o. twice daily plus lactulose 30 g p.o. every 6 hours. Aspiration precautions Hyponatremia. Will monitor sodium levels intermittently. Cholelithiasis Alcohol abuseuncertain if this is ongoing. Seizure precautions. IV as needed Ativan per [place] protocol Hepatic steatosis/end-stage cirrhosis. Will monitor LFTs periodically with CMP Portal hypertension Coagulopathy, secondary to end-stage cirrhosis. Monitor PT/INR periodically Status post right mastectomy. When the patient is lucid, I will attempt to ascertain the reason as to why this was undertaken Hypothyroidism with iatrogenic hyperthyroidism Pancytopenia, chroniclikely secondary to myelosuppression from alcohol use, including iron deficiency anemia and macrocytosis. Will monitor hemoglobin level intermittently. Ferrous sulfate 325 mg p.o. twice daily plus vitamin C 500 mg p.o. daily. Patient fecal occult blood positive for which she will need follow-up with gastroenterology upon discharge Diabetes. Will check fasting glucose before every meal and at bedtime and provide sulci scale Hyperlipidemia Hypertension Obesity. Patient counseled regarding left eye modification Query ongoing tobacco abuse. The patient will be counseled regarding smoking cessation Microscopic hematuria. Outpatient follow-up with urology upon discharge History rectal wall thickening. Outpatient follow-up with gastroenterology upon discharge Query history of portal vein thrombosis Degenerative's disease Diverticulosis DVT prophylaxis. Bilateral CD Disposition: I requested case management evaluate the patient for possible placement and referral to alcohol rehabilitation for alcohol abuse is ongoing END OF DOCTOR EMAMIS PROGRESS NOTE
[2021-04-30 07:51] VITALS: BP 97/53; PULSE 87
[2021-04-30] MEDS: Ascorbic Acid 500 MG Tab PO SCH (08:51)
[2021-04-30] MEDS: Ferrous Sulfate 325 MG Tab PO SCH (08:52)
[2021-04-30] MEDS: Insulin Lispro 100 Units/ML 3 ML Vial SUBCUT SCH ×2 (08:52→12:47)
[2021-04-30] MEDS: Rifaximin 550 MG Tab PO SCH (08:52)
--- NOTE | 2021-04-30 11:31 | PCM.SN.2 ---
- Free Text/Narrative Note: START OF DOCTOR HARMONY DISCHARGE SUMMARY Date of Admission: April 28, 2021 Date of Discharge: 11:31 AM on April 30, 2021 Primary Diagnosis: Hepatic encephalopathy due to hyperammonemia, this is chronic for this patient and she has a baseline ammonia level of approximately 65 Secondary Diagnosis: Hyponatremia, resolved Cholelithiasis History of alcohol abuse for which the patient claims to be in abstinence since 2019 Hepatic steatosis/end-stage cirrhosis Portal hypertension Coagulopathy, secondary to end-stage cirrhosis Status post right mastectomy for infectionnot otherwise specified. The patient denies a history of breast cancer Hypothyroidism with iatrogenic hyperthyroidism Pancytopenia, chronic, likely secondary to myelosuppression from history of alcohol abuse however patient is iron deficient and also exhibits macrocytosis Diabetes Hyperlipidemia Hypertension Obesity Tobacco abuse Microscopic hematuria History of rectal wall thickening Query history of portal vein thrombosis Degenerative disc disease Diverticulosis GERD Hypotension Consultations: None Condition on Discharge: Fair Disposition: The patient will be vies follow-up with gastroenterology or hepatology within 2 weeks of discharge for follow-up for her history of hepatic steatosis/end-stage cirrhosis, fecal occult blood positive stool, history of rectal wall thickening The patient is advised to follow-up with hematology/oncology within 2 weeks of discharge for diagnosis of pancytopenia The patient is advised to follow-up with urology within 2 weeks of discharge for diagnosis of microscopic hematuria The patient is advised to follow-up with her primary care physician or provider 5 to 7 days post discharge for posthospitalization evaluation The patient will require check of TSH and free T4 2 weeks post discharge for diagnosis of hypothyroidism with iatrogenic hyperthyroidism The patient will require check of CBC with differential 5 days post discharge for diagnosis of pancytopenia The patient will require check of CMP and PT/INR 5 days post discharge for diagnosis of hepatic steatosis/end-stage cirrhosis and diagnosis of coagulopathy Discharge Medications: Thiamine 100 mg p.o. daily Aldactone 25 mg p.o. daily Xifaxan 550 mg p.o. twice daily Propranolol 10 mg p.o. twice daily Zofran 4 mg p.o. twice daily as needed nausea/vomiting Prilosec 20 mg p.o. daily Multivitamin 1 tab p.o. daily Midodrine 7.5 mg p.o. 3 times daily Magnesium oxide 200 mg p.o. daily Lasix 40 mg p.o. daily Lactulose 30 g p.o. every 6 hours Vitamin C 500 mg p.o. daily Ferrous sulfate 325 mg p.o. twice daily Calcium/vitamin D: Unspecified dose: 1 tab p.o. twice daily END OF DOCTOR EMAMIS DISCHARGE SUMMARY
== END 2021-04-30 12:35 | disposition home or self-care (01) | DRG 442 ==
LOC: DL.ED 12:43 → EEVIPCON 14:57 → DL.MS 14:57
PROVIDERS: ADMIT Internal Medicine; ATTEND Internal Medicine
DX: K70.40 Alcoholic hepatic failure without coma (principal); K70.30 Alcoholic cirrhosis of liver without ascites; K72.90 Hepatic failure, unspecified without coma; H54.7 Unspecified visual loss; E78.00 Pure hypercholesterolemia, unspecified; E87.1 Hypo-osmolality and hyponatremia; K76.6 Portal hypertension; E72.20 Disorder of urea cycle metabolism, unspecified; D64.9 Anemia, unspecified; D69.6 Thrombocytopenia, unspecified; Z88.1 Allergy status to other antibiotic agents; Z79.82 Long term (current) use of aspirin; Z79.890 Hormone replacement therapy; D68.9 Coagulation defect, unspecified; Z79.899 Other long term (current) drug therapy; Z20.822 Contact with and (suspected) exposure to COVID-19; D61.818 Other pancytopenia; K80.20 Calculus of gallbladder without cholecystitis without obstruction; K21.9 Gastro-esophageal reflux disease without esophagitis; I95.9 Hypotension, unspecified; R31.29 Other microscopic hematuria; K57.90 Diverticulosis of intestine, part unspecified, without perforation or abscess without bleeding; K74.60 Unspecified cirrhosis of liver; K76.0 Fatty (change of) liver, not elsewhere classified; E03.9 Hypothyroidism, unspecified; E11.9 Type 2 diabetes mellitus without complications; Z79.4 Long term (current) use of insulin; F17.210 Nicotine dependence, cigarettes, uncomplicated; I10 Essential (primary) hypertension; E78.5 Hyperlipidemia, unspecified; E05.80 Other thyrotoxicosis without thyrotoxic crisis or storm; Z90.11 Acquired absence of right breast and nipple
CPT/HCPCS: 36415; 80053; 80305-QW; 80307; 81001; 82140; 82272; 82607; 82728; 82746; 82947; 83540; 83550; 83605; 83690; 83735; 83880; 84295; 84439; 84443; 84484; 85025; 85610; 85730; 86140; 93005; 93010; 97161-GP; 97165-GO; 99222; 99232; 99238; 99284; 99285-25; A9270-GY; J1815-GY; J2060; J7030; U0002

== ENCOUNTER 2021-05-09 13:42 | Inpatient (IN) | payer MEDICAID ==
[2021-05-09 15:13] LABS: CHLORIDE,CL 113 mmol/L (98-107); SODIUM,NA 144 mmol/L (136-145)
[2021-05-09 15:44] LABS: BASE EXCESS VENOUS -4 mmol/l ((-2)-(+3)); BICARBONATE,VENOUS 21 mmol/l (19-25); O2 SATURATION VENOUS 75 % (60-80); PCO2 VENOUS 40 mmHg (41-51); PH,VENOUS 7.34 (7.31-7.41); PO2 VENOUS 46 mmHg (35-42)
--- NOTE | 2021-05-09 16:52 | EDM.PDOC ---
ED HPI GENERAL MEDICAL PROBLEM - General Chief Complaint: Neurological Problem Time Seen by Provider: 05/09/21 13:50 Source of Information: Reports: Family - History of Present Illness INITIAL COMMENTS - FREE TEXT/NARRATIVE: Pam is a 50-year-old woman with chronic alcoholic cirrhosis who is well-known to this ED. She has frequent issues of hepatic encephalopathy. Her family called the ambulance this noon, and reported that she was not waking up, and not talking with them. Ambulance crew found upon arrival, that she was oxygenating well, but was not responding to their prompts. As she arrives here, she has similar, vital signs are stable, but she refuses to interact with us even though she is arousable to most stimuli. Family did not come with in the ambulance we have no other information at this time. - Related Data Allergies Allergy/AdvReac Type Severity Reaction Status Date / Time ceftriaxone [From Rocephin] Allergy Intermediate Hives Verified 03/16/21 16:10 Home Meds: Home Meds Calcium Citrate/Vitamin D3 [Calcium Citrate - Vit D Tablet] 1 tab PO BID 02/28/18 [History] Rifaximin [Xifaxan] 550 mg PO BID 30 Days tablet 03/02/18 [Rx] Propranolol [Inderal] 10 mg PO BID 02/19/21 [History] Thiamine Mononitrate (Vit B1) [Vitamin B-1] 100 mg PO DAILY 02/19/21 [History] Furosemide [Lasix] 40 mg PO DAILY 04/29/21 [History] Magnesium Oxide 200 mg PO DAILY 04/29/21 [History] Midodrine 7.5 mg PO TIDAC 04/29/21 [History] Multivitamin [Daily Khoi] 1 tab PO DAILY 04/29/21 [History] Omeprazole 20 mg PO ACBREAKFAST 04/29/21 [History] Spironolactone [Aldactone] 25 mg PO DAILY 04/29/21 [History] ondansetron HCL [Ondansetron HCl] 4 mg PO BID PRN 04/29/21 [History] Ascorbic Acid [Vitamin C] 500 mg PO DAILY 30 Days #30 tablet 04/30/21 [Rx] Ferrous Sulfate 325 mg PO BIDMEALS 30 Days #60 tablet 04/30/21 [Rx] Lactulose [Cephulac] 30 gm PO Q6HR 30 Days #5400 cup 04/30/21 [Rx] Past Medical History HEENT History: Reports: Impaired Vision Other HEENT History: legally blind per [facility] reports, blindness to right eye, presbyopia, diabetic retinopathy Cardiovascular History: Reports: Heart Murmur, High Cholesterol, Hypertension Other Cardiovascular History: MURMUR Respiratory History: Reports: None Gastrointestinal History: Reports: Cirrhosis, Other (See Below) Other Gastrointestinal History: HX OF ABNORMAL LIVER STUDIES , umbilical hernia present Genitourinary History: Reports: Dialysis, Peritoneal [employer] History: Reports: 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 History: Reports: None Neurological History: Reports: None Psychiatric History: Reports: Addiction Other Psychiatric History: acute alcohol abuse Endocrine/Metabolic History: Reports: Diabetes, Type II, Hypothyroidism Hematologic History: Reports: Anemia Other Hematologic History: acquired thrombocytopenia Immunologic History: Reports: None Oncologic (Cancer) History: Reports: None Dermatologic History: Reports: Cellulitis Other Dermatologic History: RIGHT BREAST CELLULITUS - Infectious Disease History Infectious Disease History: Reports: MRSA Other Infectious Disease History: unable to obtain due to nonverbal status at this time - Past Surgical History Head Surgeries/Procedures: Reports: None HEENT Surgical History: Reports: None Other HEENT Surgeries/Procedures: Right eye iridotomy Cardiovascular Surgical History: Reports: None Respiratory Surgical History: Reports: None GI Surgical History: Reports: Colonoscopy, EGD Female Surgical History: Reports: Section, Mastectomy 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 Surgical History: Reports: None Oncologic Surgical History: Reports: Mastectomy Other Oncologic Surgeries/Procedures: RIGHT MASTECTOMY Dermatological Surgical History: Reports: Other (See Below) Social & Family History - Family History Family Medical History: Unobtainable - Caffeine Use Caffeine Use: Reports: Tea Caffeine Use Comment: 1 8oz cup daily - Living Situation & Occupation Living situation: Reports: with Family Occupation: Employed ED ROS GENERAL - Review of Systems Review Of Systems: Unable To Obtain Reason Not Obtained: Mental status change - Physical Exam Exam: See Below Text/Narrative:: General: Pam is a 50-year-old woman who is nonverbal, but when she wants to pushes away, or moves all 4 of her extremities. She is arousable to any kind of stimuli. She has a significant past history of chronic alcohol abuse, and has developed chronic liver disease. She has been admitted to the hospital previously with hepatic encephalopathy. She gets a markedly elevated ammonia level, and becomes nonverbal as well as having significant behavior issues. Head: Normocephalic, atraumatic Oropharynx is clear, she is protecting her airway appropriately Neck: Supple, no lymphadenopathy Heart: Regular rate and rhythm, 2 out of 6 systolic murmur best heard over the left sternal border Lungs: She is not taking deep breaths, but is moving air throughout her lungs. Respiratory rate 14 Abdomen: Distended, soft, she does not withdrawal with palpation of her abdomen. Neurological: Neuro exam is very difficult because of her mental status issues at this time. Course - Vital Signs Last Recorded V/S: Last Vital Signs Temp 96 F L 05/09/21 14:09 Pulse 50 L 05/09/21 14:09 Resp 10 L 05/09/21 14:09 BP 100/47 L 05/09/21 14:09 Pulse Ox 97 05/09/21 14:09 - Orders/Labs/Meds Orders: Active Orders 24 hr Category Date Time Status Admission Diagnosis [ADT] Stat ADT 05/09/21 16:43 Ordered Admission Status [Patient Status] [ADT] Routine ADT 05/09/21 16:43 Active CORONAVIRUS COVID-19 TERESITA [MOLEC] Stat Lab 05/09/21 16:43 Ordered VBG RT [BG] Stat Lab 05/09/21 15:37 Results Labs: Laboratory Tests 05/09/21 05/09/21 05/09/21 Range/Units 14:35 14:35 14:35 WBC 1.8 L (5.0-10.0) 10^3/uL RBC 2.55 L (4.2-5.4) 10^6/uL Hgb 8.6 L (12.0-16.0) g/dL Hct 25.8 L (37.0-47.0) % MCV 101.2 H (80-100) fL MCH 33.7 (27.0-34.0) pg MCHC 33.3 (33.0-35.0) g/dL Plt Count 53 L (150-450) 10^3/uL Neut % (Auto) 63.6 (42.2-75.2) % Lymph % (Auto) 25.0 (20.5-50.1) % Coke % (Auto) 9.1 H (2-8) % Eos % (Auto) 2.3 (1.0-3.0) % Baso % (Auto) 0.0 (0.0-1.0) % VBG pH (7.31-7.41) VBG pCO2 (41-51) mmHg VBG pO2 (35-42) mmHg VBG HCO3 (19-25) mmol/l VBG O2 Saturation (60-80) % VBG Base Excess ((-2)-(+3)) mmol/l Sodium 144 (136-145) mmol/L Potassium 4.0 (3.5-5.1) mmol/L Chloride 113 H (98-107) mmol/L Carbon Dioxide 23 (21-32) mmol/L Anion Gap 12.0 (7-13) mEq/L BUN 8 (7-18) mg/dL Creatinine 0.78 (0.55-1.02) mg/dL Est Cr Clr Drug Dosing 85.11 mL/min Estimated GFR (MDRD) > 60 BUN/Creatinine Ratio 10.3 (No establ ref range) Glucose 116 H (70-99) mg/dL Calcium 7.5 L (8.5-10.1) mg/dL Total Bilirubin 2.6 H (0.2-1.0) mg/dL AST 38 H (15-37) U/L ALT 50 (14-59) U/L Alkaline Phosphatase 213 H (46-116) U/L Ammonia 131 H (11-32) umol/L Troponin I High Sens 38 (<=51) pg/mL Total Protein 5.9 L (6.4-8.2) g/dL Albumin 2.5 L (3.4-5.0) g/dL Globulin 3.4 Albumin/Globulin Ratio 0.74 06/20/21 Range/Units 15:37 WBC (5.0-10.0) 10^3/uL RBC (4.2-5.4) 10^6/uL Hgb (12.0-16.0) g/dL Hct (37.0-47.0) % MCV (80-100) fL MCH (27.0-34.0) pg MCHC (33.0-35.0) g/dL Plt Count (150-450) 10^3/uL Neut % (Auto) (42.2-75.2) % Lymph % (Auto) (20.5-50.1) % Coke % (Auto) (2-8) % Eos % (Auto) (1.0-3.0) % Baso % (Auto) (0.0-1.0) % VBG pH 7.34 (7.31-7.41) VBG pCO2 40 L (41-51) mmHg VBG pO2 46 H (35-42) mmHg VBG HCO3 21 (19-25) mmol/l VBG O2 Saturation 75 (60-80) % VBG Base Excess -4 L ((-2)-(+3)) mmol/l Sodium (136-145) mmol/L Potassium (3.5-5.1) mmol/L Chloride (98-107) mmol/L Carbon Dioxide (21-32) mmol/L Anion Gap (7-13) mEq/L BUN (7-18) mg/dL Creatinine (0.55-1.02) mg/dL Est Cr Clr Drug Dosing mL/min Estimated GFR (MDRD) BUN/Creatinine Ratio (No establ ref range) Glucose (70-99) mg/dL Calcium (8.5-10.1) mg/dL Total Bilirubin (0.2-1.0) mg/dL AST (15-37) U/L ALT (14-59) U/L Alkaline Phosphatase (46-116) U/L Ammonia (11-32) umol/L Troponin I High Sens (<=51) pg/mL Total Protein (6.4-8.2) g/dL Albumin (3.4-5.0) g/dL Globulin Albumin/Globulin Ratio Departure - Departure Time of Disposition: 16:52 Disposition: Admitted As Inpatient 64 Clinical Impression: Acute hepatic encephalopathy Cirrhosis of liver Qualifiers: Hepatic cirrhosis type: alcoholic cirrhosis Ascites presence: with ascites Qualified Code(s): K70.31 - Alcoholic cirrhosis of liver with ascites - Discharge Information *PRESCRIPTION DRUG MONITORING PROGRAM REVIEWED*: Not Applicable *COPY OF PRESCRIPTION DRUG MONITORING REPORT IN PATIENT LAYLA: Not Applicable Sepsis Event Note (ED) - Evaluation Sepsis Screening Result: No Definite Risk - Focused Exam Vital Signs: Vital Signs Temp Pulse Resp BP Pulse Ox 05/09/21 14:09 96 F L 50 L 10 L 100/47 L 97 - Problem List & Annotations (1) Alcoholic cirrhosis SNOMED Code(s): 005427110 Code(s): K70.30 - ALCOHOLIC CIRRHOSIS OF LIVER WITHOUT ASCITES Status: Acute Qualifiers: Ascites presence: unspecified Qualified Code(s): K70.30 - Alcoholic cirrhosis of liver without ascites (2) Acute hepatic encephalopathy SNOMED Code(s): 36516528, 42847492 Code(s): K72.00 - ACUTE AND SUBACUTE HEPATIC FAILURE WITHOUT COMA Status: Acute - Problem List Review Problem List Initiated/Reviewed/Updated: Yes - My Orders Last 24 Hours: My Active Orders 05/09/21 15:37 VBG RT [BG] Stat 05/09/21 16:43 Admission Diagnosis [ADT] Stat Admission Status [Patient Status] [ADT] Routine CORONAVIRUS COVID-19 TERESITA [MOLEC] Stat - Assessment/Plan Last 24 Hours: My Active Orders 05/09/21 15:37 VBG RT [BG] Stat 05/09/21 16:43 Admission Diagnosis [ADT] Stat Admission Status [Patient Status] [ADT] Routine CORONAVIRUS COVID-19 TERESITA [MOLEC] Stat Assessment:: 1. 50-year-old woman with acute hepatic encephalopathy 2. Chronic cirrhosis of the liver, leading to #1 Plan: 1. I discussed her case with Dr. Brock, hospitalist on duty. He agreed to accept the patient for further evaluation and treatment.
[2021-05-09] MEDS ORDERED: Acetaminophen 325 MG Tab PO PRN (18:23)
[2021-05-09] MEDS ORDERED: Ondansetron 4 MG/2 ML SDV IVPUSH PRN (18:23)
[2021-05-09] MEDS ORDERED: LORazepam 2 MG/ML SDV IV PRN (18:27)
[2021-05-09] MEDS ORDERED: 50% Dextrose in Water 50 ML Syringe IVPUSH PRN (18:29)
[2021-05-09] MEDS ORDERED: Glucagon,Human Recombinant 1 MG Vial IM PRN (18:29)
--- NOTE | 2021-05-09 18:36 | PCM.HP ---
H&P History of Present Illness - General Date of Service: 05/09/21 Admit Problem/Dx: Admission Diagnosis/Problem Admission Diagnosis/Problem Hepatic encephalopathy Source of Information: Patient - History of Present Illness Initial Comments - Free Text/Narative: The patient is a 50-year-old female was transferred to the emergency department due to encephalopathy. The patient has had multiple presentations to the emergency department/hospitalizations due to encephalopathy due to medical noncompliance as she has known history of cirrhosis with resultant hepatic encephalopathy. At the present time the patient is encephalopathic versus noncooperative and I am able to obtain further history of present illness. In the emergency department she is, again, found to be hyperammonemic. She present s for further evaluation - Related Data Allergies/Adverse Reactions: Allergies Allergy/AdvReac Type Severity Reaction Status Date / Time ceftriaxone [From Rocephin] Allergy Intermediate Hives Verified 03/16/21 16:10 Home Medications: Home Meds Calcium Citrate/Vitamin D3 [Calcium Citrate - Vit D Tablet] 1 tab PO BID [History] Rifaximin [Xifaxan] 550 mg PO BID 30 Days tablet 03/02/18 [Rx] Propranolol [Inderal] 10 mg PO BID 02/19/21 [History] Thiamine Mononitrate (Vit B1) [Vitamin B-1] 100 mg PO DAILY 02/19/21 [History] Furosemide [Lasix] 40 mg PO DAILY 04/29/21 [History] Magnesium Oxide 200 mg PO DAILY 04/29/21 [History] Midodrine 7.5 mg PO TIDAC 04/29/21 [History] Multivitamin [Daily Khoi] 1 tab PO DAILY 04/29/21 [History] Omeprazole 20 mg PO ACBREAKFAST 04/29/21 [History] Spironolactone [Aldactone] 25 mg PO DAILY 04/29/21 [History] ondansetron HCL [Ondansetron HCl] 4 mg PO BID PRN 04/29/21 [History] Ascorbic Acid [Vitamin C] 500 mg PO DAILY 30 Days #30 tablet 04/30/21 [Rx] Ferrous Sulfate 325 mg PO BIDMEALS 30 Days #60 tablet 04/30/21 [Rx] Lactulose [Cephulac] 30 gm PO Q6HR 30 Days #5400 cup 04/30/21 [Rx] Past Medical History HEENT History: Reports: Impaired Vision Other HEENT History: legally blind per [facility] reports, blindness to right eye, presbyopia, diabetic retinopathy Cardiovascular History: Reports: Heart Murmur, High Cholesterol, Hypertension Other Cardiovascular History: MURMUR Respiratory History: Reports: None Gastrointestinal History: Reports: Cirrhosis, Other (See Below) Other Gastrointestinal History: HX OF ABNORMAL LIVER STUDIES , umbilical hernia present Genitourinary History: Reports: Dialysis, Peritoneal [employer] History: Reports: 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 History: Reports: None Neurological History: Reports: None Psychiatric History: Reports: Addiction Other Psychiatric History: acute alcohol abuse Endocrine/Metabolic History: Reports: Diabetes, Type II, Hypothyroidism Hematologic History: Reports: Anemia Other Hematologic History: acquired thrombocytopenia Immunologic History: Reports: None Oncologic (Cancer) History: Reports: None Dermatologic History: Reports: Cellulitis Other Dermatologic History: RIGHT BREAST CELLULITUS - Infectious Disease History Infectious Disease History: Reports: MRSA Other Infectious Disease History: unable to obtain due to nonverbal status at this time - Past Surgical History Head Surgeries/Procedures: Reports: None HEENT Surgical History: Reports: None Other HEENT Surgeries/Procedures: Right eye iridotomy Cardiovascular Surgical History: Reports: None Respiratory Surgical History: Reports: None GI Surgical History: Reports: Colonoscopy, EGD Female Surgical History: Reports: Section, Mastectomy 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 Surgical History: Reports: None Oncologic Surgical History: Reports: Mastectomy Other Oncologic Surgeries/Procedures: RIGHT MASTECTOMY Dermatological Surgical History: Reports: Other (See Below) Social & Family History - Family History Family Medical History: Unobtainable - Caffeine Use Caffeine Use: Reports: Tea Caffeine Use Comment: 1 8oz cup daily - Living Situation & Occupation Living situation: Reports: with Family Occupation: Employed H&P Review of Systems - Review of Systems: Review Of Systems: See Below (encephalopathic) Free Text/Narrative: The patient is encephalopathic and/or noncooperative General: Reports: No Symptoms HEENT: Reports: No Symptoms Pulmonary: Reports: No Symptoms Cardiovascular: Reports: No Symptoms Gastrointestinal: Reports: No Symptoms Genitourinary: Reports: No Symptoms 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: Reports: No Symptoms Skin: Reports: No Symptoms Psychiatric: Reports: No Symptoms Neurological: Reports: No Symptoms Hematologic/Lymphatic: Reports: No Symptoms Immunologic: Reports: No Symptoms Exam - Exam Exam: See Below - Vital Signs Vital Signs: Last Vital Signs Temp 96 F L 06/20/21 14:09 Pulse 50 L 05/09/21 14:09 Resp 10 L 05/09/21 14:09 BP 100/47 L 05/09/21 14:09 Pulse Ox 97 05/09/21 14:09 Weight: 170 lb - Exam General: Lethargic HEENT: PERRLA, Hearing Intact, Mucosa Moist & [place], Nares Patent, Normal Nasal Septum, Posterior Pharynx Clear, Conjunctiva Clear, EOMI, EACs Clear, TMs Clear Neck: Supple, Trachea Midline, 2 Lungs: Clear to Auscultation, Normal Respiratory Effort Cardiovascular: Regular Rate, Regular Rhythm GI/Abdominal Exam: Normal Bowel Sounds, Soft, Non-Tender, No Organomegaly, No Distention, No Abnormal Bruit, No Mass, Pelvis Stable Back Exam: Normal Inspection, Full Range of Motion, NT Extremities: Normal Inspection, Normal Range of Motion, Non-Tender, Normal Capillary Refill, Other (Bipedal edema present). No: No Pedal Edema Skin: Warm, Dry, Intact Neurological: Cranial Nerves Intact, Reflexes Equal Bilateral Neuro Extensive - Mental Status: Alert, Oriented x3, Normal Mood/Affect, Normal Cognition Neuro Extensive - Motor, Sensory, Reflexes: CN II-XII Intact, Normal Gait, Normal Reflexes Psychiatric: Alert, Normal Affect, Normal Mood - Patient Data Lab Results Last 24 hrs: Laboratory Results - last 24 hr 05/09/21 05/09/21 05/09/21 Range/Units 14:35 14:35 14:35 WBC 1.8 L (5.0-10.0) 10^3/uL RBC 2.55 L (4.2-5.4) 10^6/uL Hgb 8.6 L (12.0-16.0) g/dL Hct 25.8 L (37.0-47.0) % MCV 101.2 H (80-100) fL MCH 33.7 (27.0-34.0) pg MCHC 33.3 (33.0-35.0) g/dL Plt Count 53 L (150-450) 10^3/uL Neut % (Auto) 63.6 (42.2-75.2) % Lymph % (Auto) 25.0 (20.5-50.1) % [place] % (Auto) 9.1 H (2-8) % Eos % (Auto) 2.3 (1.0-3.0) % Baso % (Auto) 0.0 (0.0-1.0) % VBG pH (7.31-7.41) VBG pCO2 (41-51) mmHg VBG pO2 (35-42) mmHg VBG HCO3 (19-25) mmol/l VBG O2 Saturation (60-80) % VBG Base Excess ((-2)-(+3)) mmol/l Sodium 144 (136-145) mmol/L Potassium 4.0 (3.5-5.1) mmol/L Chloride 113 H (98-107) mmol/L Carbon Dioxide 23 (21-32) mmol/L Anion Gap 12.0 (7-13) mEq/L BUN 8 (7-18) mg/dL Creatinine 0.78 (0.55-1.02) mg/dL Est Cr Clr Drug Dosing 85.11 mL/min Estimated GFR (MDRD) > 60 BUN/Creatinine Ratio 10.3 (No establ ref range) Glucose 116 H (70-99) mg/dL Calcium 7.5 L (8.5-10.1) mg/dL Total Bilirubin 2.6 H (0.2-1.0) mg/dL AST 38 H (15-37) U/L ALT 50 (14-59) U/L Alkaline Phosphatase 213 H (46-116) U/L Ammonia 131 H (11-32) umol/L Troponin I High Sens 38 (<=51) pg/mL Total Protein 5.9 L (6.4-8.2) g/dL Albumin 2.5 L (3.4-5.0) g/dL Globulin 3.4 Albumin/Globulin Ratio 0.74 SARS-CoV-2 RNA (TERESITA) (NEGATIVE) 05/09/21 05/09/21 Range/Units 15:37 16:50 WBC (5.0-10.0) 10^3/uL RBC (4.2-5.4) 10^6/uL Hgb (12.0-16.0) g/dL Hct (37.0-47.0) % MCV (80-100) fL MCH (27.0-34.0) pg MCHC (33.0-35.0) g/dL Plt Count (150-450) 10^3/uL Neut % (Auto) (42.2-75.2) % Lymph % (Auto) (20.5-50.1) % [place] % (Auto) (2-8) % Eos % (Auto) (1.0-3.0) % Baso % (Auto) (0.0-1.0) % VBG pH 7.34 (7.31-7.41) VBG pCO2 40 L (41-51) mmHg VBG pO2 46 H (35-42) mmHg VBG HCO3 21 (19-25) mmol/l VBG O2 Saturation 75 (60-80) % VBG Base Excess -4 L ((-2)-(+3)) mmol/l Sodium (136-145) mmol/L Potassium (3.5-5.1) mmol/L Chloride (98-107) mmol/L Carbon Dioxide (21-32) mmol/L Anion Gap (7-13) mEq/L BUN (7-18) mg/dL Creatinine (0.55-1.02) mg/dL Est Cr Clr Drug Dosing mL/min Estimated GFR (MDRD) BUN/Creatinine Ratio (No establ ref range) Glucose (70-99) mg/dL Calcium (8.5-10.1) mg/dL Total Bilirubin (0.2-1.0) mg/dL AST (15-37) U/L ALT (14-59) U/L Alkaline Phosphatase (46-116) U/L Ammonia (11-32) umol/L Troponin I High Sens (<=51) pg/mL Total Protein (6.4-8.2) g/dL Albumin (3.4-5.0) g/dL Globulin Albumin/Globulin Ratio SARS-CoV-2 RNA (TERESITA) Negative (NEGATIVE) Result Diagrams: 05/09/21 14:35 05/09/21 14:35 Problem List Initiated/Reviewed/Updated: Yes Orders Last 24hrs: Active Orders 24 hr Category Date Time Status Admission Diagnosis [ADT] Stat ADT 05/09/21 16:43 Ordered Admission Status [Patient Status] [ADT] Routine ADT 05/09/21 16:43 Active Antiembolic Devices [RC] PER UNIT ROUTINE Care 05/09/21 18:25 Ordered Aspiration Precautions [RC] ASDIRECTED Care 05/09/21 18:28 Ordered Blood Glucose Check, Bedside [RC] WITHMEALSANDBED Care 05/09/21 18:23 Ordered Notify Provider [RC] PRN Care 05/09/21 18:28 Ordered Peripheral IV Care [RC] . DIRECTED Care 05/09/21 18:25 Ordered Up With Assistance [RC] ASDIRECTED Care 05/09/21 18:23 Ordered Vital Signs [RC] Q4H Care 05/09/21 18:23 Ordered Consult to Case Management/Small Business Consultant [CONS] Cons 05/09/21 18:29 Ordered Routine Consult to Hospice [CONS] Routine Cons 05/09/21 18:29 Ordered Heart Healthy Diet [DIET] Diet 05/09/21 Dinner Ordered AMMONIA [REF] Routine Lab 05/10/21 05:00 Ordered CBC WITH AUTO DIFF [HEME] Routine Lab 05/10/21 05:00 Ordered COMPREHENSIVE METABOLIC PN,CMP [CHEM] Routine Lab 05/10/21 05:00 Ordered INR,PT,PROTHROMBIN TIME [COAG] Routine Lab 05/10/21 05:00 Ordered T4 FREE [CHEM] Routine Lab 05/09/21 18:30 Ordered TSH ULTRASENSITIVE [CHEM] Routine Lab 05/09/21 18:30 Ordered VBG RT [BG] Stat Lab 05/09/21 15:37 Results Acetaminophen [TylenoL] Med 05/09/21 18:23 Ordered 650 mg PO Q4H PRN Dextrose 50% in Water Med 05/09/21 18:29 Ordered 50 ml IVPUSH Q15M PRN Glucagon,Human Recombinant [GlucaGen] Med 05/09/21 18:29 Ordered 1 mg IM Q15M PRN Insulin Lispro [HumaLOG] Med 05/09/21 21:00 Ordered See Protocol SUBCUT WITHMEALSANDBED LORazepam [Ativan] Med 05/09/21 18:27 Ordered See Protocol IV TITRATE PRN Lactulose [Cephulac] Med 05/09/21 21:00 Ordered 30 gm PO QID Lactulose [Chronulac] Med 05/09/21 18:30 Ordered 200 gm RECTAL Q6H Ondansetron [Zofran] Med 05/09/21 18:23 Ordered 4 mg IVPUSH Q4H PRN Rifaximin [Xifaxan] Med 05/09/21 18:30 Ordered 550 mg PO BID Sodium Chloride 0.9% [Saline Flush] Med 05/09/21 18:23 Ordered 10 ml FLUSH ASDIRECTED PRN Peripheral IV Insertion Adult [OM.PC] Routine Oth 05/09/21 18:23 Ordered Saline Lock Insert [OM.PC] Routine Oth 05/09/21 18:23 Ordered Seizure Precautions [OM.PC] Routine Oth 05/09/21 18:27 Ordered Seizure Precautions [OM.PC] Stat Oth 05/09/21 18:28 Ordered Sequential Compression Device [OM.PC] Per Unit Routine Oth 05/09/21 18:24 Ordered Resuscitation Status Routine Resus Stat 05/09/21 18:23 Ordered Medication Orders Acetaminophen (Acetaminophen 325 Mg Tab) 650 mg PO Q4H PRN PRN Reason: Pain (Mild 1-3)/fever Lactulose (Lactulose Soln 10 Gm/15 Ml 30 Ml Ud Cup) 30 gm PO QID KOMAL Lactulose (Lactulose Soln 10 Gm/15 Ml 946 Ml Bottle) 200 gm RECTAL Q6H KOMAL Lorazepam (Lorazepam 2 Mg/Ml Sdv) 0 mg IV TITRATE PRN; Protocol PRN Reason: alcohol withdrawal Ondansetron HCl (Ondansetron 4 Mg/2 Ml Sdv) 4 mg IVPUSH Q4H PRN PRN Reason: Nausea/Vomiting Rifaximin (Rifaximin 550 Mg Tab) 550 mg PO BID KOMAL Sodium Chloride (Sodium Chloride 0.9% 10 Ml Syringe) 10 ml FLUSH ASDIRECTED PRN PRN Reason: Keep Vein Open Assessment/Plan Comment:: Surgical History: Per medical records: Umbilical herniorrhaphy, right eye iridotomy, TIPS procedure, right mastectomy for infection and not for malignancy Family History: Unable to obtain Social History: Tobacco: Per medical records: Patient smokes Alcohol: Per medical records: Patient has a history of alcohol abuseunknown if this is ongoing Caffeine: Unable to obtain Drugs: Unable to obtain Allergies: Per medical records: Rocephin Code Status: By default, full Assessment / Plan: 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 Will monitor ammonia levels intermittently. Xifaxan 550 mg p.o. twice daily plus lactulose 200 g per rectum every 6 hours to be retained for 1 hour or lact ulose 30 g p.o. 4 times daily if the patient is able to tolerate p.o./is cooperative Medical noncompliance. Patient will be counseled regarding medical compliance Cholelithiasis, asymptomatic History of alcohol abuse, unknown if this is ongoing. Seizure precautions. IV as needed Ativan per CIWA protocol Hepatic steatosis/end-stage cirrhosis. Outpatient follow-up with gastroenterology Portal hypertension, status post TIPS procedure Coagulopathy, likely sequelae of end-stage cirrhosis. Will monitor PT/INR periodically Pancytopenia with iron deficiency and macrocytosis and fecal occult blood positive. Likely due to myelosuppression from history of alcohol use. Will monitor CBC periodically. Outpatient follow-up with hematology/oncology. Outpatient follow-up with gastroenterology Diabetes. Will check fasting glucose before every meal and at bedtime and provide insulin sign scale GERD Hyperlipidemia Hypertension Obesity. Patient be counseled regarding lifestyle modification Smoker. Patient be counseled regarding smoking cessation Hypothyroidism. Check TSH, free T4 Microscopic hematuria. Outpatient follow-up with urology upon discharge History of rectal wall thickening. Outpatient follow-up with gastroenterology upon discharge Query history of portal vein thrombosis. Outpatient follow-up with gastroenterology upon discharge Degenerative disc disease Diverticulosis Orthostatic hypotension DVT prophylaxis. Bilateral SCD Disposition: Anticipate discharge within 40 hours. I request that case management evaluate patient for placement. I will request that hospice evaluate the patient due to her end-stage cirrhosis. At the time of admission, the patient's home medications were not yet input to the EMR/B[facility] system. Once they are, they will be reviewed and reconciled END OF DOCTOR EMAMIS HISTORY AND PHYSICAL / CONSULTATION NOTE
[2021-05-09] MEDS: Lactulose Soln 10 GM/15 ML 30 ML UD Cup PO SCH ×2 (19:39→22:26)
[2021-05-09] MEDS: Lactulose Soln 10 GM/15 ML 946 ML Bottle RECTAL SCH ×2 (19:50→23:27)
[2021-05-09] MEDS: Rifaximin 550 MG Tab PO SCH ×2 (19:50→22:27)
[2021-05-09] MEDS: Insulin Lispro 100 Units/ML 3 ML Vial SUBCUT SCH (22:32)
[2021-05-10] MEDS: LORazepam 2 MG/ML SDV IVPUSH PRN ×3 (04:41→23:57)
[2021-05-10] MEDS: Lactulose Soln 10 GM/15 ML 946 ML Bottle RECTAL SCH ×3 (05:28→18:21)
[2021-05-10 07:04] LABS: CHLORIDE,CL 113 mmol/L (98-107); SODIUM,NA 145 mmol/L (136-145)
--- NOTE | 2021-05-10 07:37 | PCM.PN ---
- General Info Date of Service: 05/10/21 Admission Dx/Problem (Free Text): Admission Diagnosis/Problem Admission Diagnosis/Problem Hepatic encephalopathy Subjective Update: The patient is encephalopathic at the present time due to her hyperammonemia due to her hepatic encephalopathy. Because of this, I am unable to obtain information from the patient - Review of Systems General: Reports: No Symptoms HEENT: Reports: No Symptoms Pulmonary: Reports: No Symptoms Cardiovascular: Reports: No Symptoms Gastrointestinal: Reports: No Symptoms Genitourinary: Reports: No Symptoms 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: Reports: No Symptoms Skin: Reports: No Symptoms Neurological: Reports: No Symptoms Psychiatric: Reports: No Symptoms - Patient Data Vitals - Most Recent: Last Vital Signs Temp 96.9 F 05/10/21 00:22 Pulse 57 L 05/10/21 00:22 Resp 20 05/10/21 00:22 BP 102/72 05/10/21 00:22 Pulse Ox 97 05/10/21 00:22 Weight - Most Recent: 171 lb 9.6 oz I&O - Last 24 Hours: Intake & Output 05/09/21 05/10/21 05/10/21 22:59 06:59 14:59 Intake Total 250 700 Balance 250 700 Lab Results Last 24 Hours: Laboratory Results - last 24 hr 05/09/21 05/09/21 05/09/21 Range/Units 14:35 14:35 14:35 WBC 1.8 L (5.0-10.0) 10^3/uL RBC 2.55 L (4.2-5.4) 10^6/uL Hgb 8.6 L (12.0-16.0) g/dL Hct 25.8 L (37.0-47.0) % MCV 101.2 H (80-100) fL MCH 33.7 (27.0-34.0) pg MCHC 33.3 (33.0-35.0) g/dL Plt Count 53 L (150-450) 10^3/uL Neut % (Auto) 63.6 (42.2-75.2) % Lymph % (Auto) 25.0 (20.5-50.1) % Metcalfe % (Auto) 9.1 H (2-8) % Eos % (Auto) 2.3 (1.0-3.0) % Baso % (Auto) 0.0 (0.0-1.0) % PT (9.0-12.0) SEC INR (0.9-1.2) VBG pH (7.31-7.41) VBG pCO2 (41-51) mmHg VBG pO2 (35-42) mmHg VBG HCO3 (19-25) mmol/l VBG O2 Saturation (60-80) % VBG Base Excess ((-2)-(+3)) mmol/l Sodium 144 (136-145) mmol/L Potassium 4.0 (3.5-5.1) mmol/L Chloride 113 H (98-107) mmol/L Carbon Dioxide 23 (21-32) mmol/L Anion Gap 12.0 (7-13) mEq/L BUN 8 (7-18) mg/dL Creatinine 0.78 (0.55-1.02) mg/dL Est Cr Clr Drug Dosing 85.11 mL/min Estimated GFR (MDRD) > 60 BUN/Creatinine Ratio 10.3 (No establ ref range) Glucose 116 H (70-99) mg/dL POC Glucose (70-99) mg/dL Calcium 7.5 L (8.5-10.1) mg/dL Total Bilirubin 2.6 H (0.2-1.0) mg/dL AST 38 H (15-37) U/L ALT 50 (14-59) U/L Alkaline Phosphatase 213 H (46-116) U/L Ammonia 131 H (11-32) umol/L Troponin I High Sens 38 (<=51) pg/mL Total Protein 5.9 L (6.4-8.2) g/dL Albumin 2.5 L (3.4-5.0) g/dL Globulin 3.4 Albumin/Globulin Ratio 0.74 Free T4 (0.76-1.46) ng/dL TSH, Ultra Sensitive (0.36-3.74) uIU/mL SARS-CoV-2 RNA (TERESITA) (NEGATIVE) 05/09/21 05/09/21 05/09/21 Range/Units 14:35 15:37 16:50 WBC (5.0-10.0) 10^3/uL RBC (4.2-5.4) 10^6/uL Hgb (12.0-16.0) g/dL Hct (37.0-47.0) % MCV (80-100) fL MCH (27.0-34.0) pg MCHC (33.0-35.0) g/dL Plt Count (150-450) 10^3/uL Neut % (Auto) (42.2-75.2) % Lymph % (Auto) (20.5-50.1) % Metcalfe % (Auto) (2-8) % Eos % (Auto) (1.0-3.0) % Baso % (Auto) (0.0-1.0) % PT (9.0-12.0) SEC INR (0.9-1.2) VBG pH 7.34 (7.31-7.41) VBG pCO2 40 L (41-51) mmHg VBG pO2 46 H (35-42) mmHg VBG HCO3 21 (19-25) mmol/l VBG O2 Saturation 75 (60-80) % VBG Base Excess -4 L ((-2)-(+3)) mmol/l Sodium (136-145) mmol/L Potassium (3.5-5.1) mmol/L Chloride (98-107) mmol/L Carbon Dioxide (21-32) mmol/L Anion Gap (7-13) mEq/L BUN (7-18) mg/dL Creatinine (0.55-1.02) mg/dL Est Cr Clr Drug Dosing mL/min Estimated GFR (MDRD) BUN/Creatinine Ratio (No establ ref range) Glucose (70-99) mg/dL POC Glucose (70-99) mg/dL Calcium (8.5-10.1) mg/dL Total Bilirubin (0.2-1.0) mg/dL AST (15-37) U/L ALT (14-59) U/L Alkaline Phosphatase (46-116) U/L Ammonia (11-32) umol/L Troponin I High Sens (<=51) pg/mL Total Protein (6.4-8.2) g/dL Albumin (3.4-5.0) g/dL Globulin Albumin/Globulin Ratio Free T4 0.98 (0.76-1.46) ng/dL TSH, Ultra Sensitive 1.14 (0.36-3.74) uIU/mL SARS-CoV-2 RNA (TERESITA) Negative (NEGATIVE) 05/09/21 05/10/21 05/10/21 Range/Units 22:30 06:20 06:20 WBC 2.8 L (5.0-10.0) 10^3/uL RBC 2.35 L (4.2-5.4) 10^6/uL Hgb 7.8 L (12.0-16.0) g/dL Hct 24.0 L (37.0-47.0) % MCV 102.1 H (80-100) fL MCH 33.2 (27.0-34.0) pg MCHC 32.5 L (33.0-35.0) g/dL Plt Count 55 L (150-450) 10^3/uL Neut % (Auto) 70.9 (42.2-75.2) % Lymph % (Auto) 15.6 L (20.5-50.1) % Metcalfe % (Auto) 10.9 H (2-8) % Eos % (Auto) 2.2 (1.0-3.0) % Baso % (Auto) 0.4 (0.0-1.0) % PT 21.2 H (9.0-12.0) SEC INR 2.1 H (0.9-1.2) VBG pH (7.31-7.41) VBG pCO2 (41-51) mmHg VBG pO2 (35-42) mmHg VBG HCO3 (19-25) mmol/l VBG O2 Saturation (60-80) % VBG Base Excess ((-2)-(+3)) mmol/l Sodium (136-145) mmol/L Potassium (3.5-5.1) mmol/L Chloride (98-107) mmol/L Carbon Dioxide (21-32) mmol/L Anion Gap (7-13) mEq/L BUN (7-18) mg/dL Creatinine (0.55-1.02) mg/dL Est Cr Clr Drug Dosing mL/min Estimated GFR (MDRD) BUN/Creatinine Ratio (No establ ref range) Glucose (70-99) mg/dL POC Glucose 93 (70-99) mg/dL Calcium (8.5-10.1) mg/dL Total Bilirubin (0.2-1.0) mg/dL AST (15-37) U/L ALT (14-59) U/L Alkaline Phosphatase (46-116) U/L Ammonia (11-32) umol/L Troponin I High Sens (<=51) pg/mL Total Protein (6.4-8.2) g/dL Albumin (3.4-5.0) g/dL Globulin Albumin/Globulin Ratio Free T4 (0.76-1.46) ng/dL TSH, Ultra Sensitive (0.36-3.74) uIU/mL SARS-CoV-2 RNA (TERESITA) (NEGATIVE) 05/10/21 05/10/21 Range/Units 06:20 06:20 WBC (5.0-10.0) 10^3/uL RBC (4.2-5.4) 10^6/uL Hgb (12.0-16.0) g/dL Hct (37.0-47.0) % MCV (80-100) fL MCH (27.0-34.0) pg MCHC (33.0-35.0) g/dL Plt Count (150-450) 10^3/uL Neut % (Auto) (42.2-75.2) % Lymph % (Auto) (20.5-50.1) % Metcalfe % (Auto) (2-8) % Eos % (Auto) (1.0-3.0) % Baso % (Auto) (0.0-1.0) % PT (9.0-12.0) SEC INR (0.9-1.2) VBG pH (7.31-7.41) VBG pCO2 (41-51) mmHg VBG pO2 (35-42) mmHg VBG HCO3 (19-25) mmol/l VBG O2 Saturation (60-80) % VBG Base Excess ((-2)-(+3)) mmol/l Sodium 145 (136-145) mmol/L Potassium 4.0 (3.5-5.1) mmol/L Chloride 113 H (98-107) mmol/L Carbon Dioxide 24 (21-32) mmol/L Anion Gap 12.0 (7-13) mEq/L BUN 9 (7-18) mg/dL Creatinine 0.81 (0.55-1.02) mg/dL Est Cr Clr Drug Dosing 82.28 mL/min Estimated GFR (MDRD) > 60 BUN/Creatinine Ratio 11.1 (No establ ref range) Glucose 133 H (70-99) mg/dL POC Glucose (70-99) mg/dL Calcium 7.5 L (8.5-10.1) mg/dL Total Bilirubin 2.9 H (0.2-1.0) mg/dL AST 34 (15-37) U/L ALT 44 (14-59) U/L Alkaline Phosphatase 160 H (46-116) U/L Ammonia 133 H (11-32) umol/L Troponin I High Sens (<=51) pg/mL Total Protein 5.3 L (6.4-8.2) g/dL Albumin 2.2 L (3.4-5.0) g/dL Globulin 3.1 Albumin/Globulin Ratio 0.71 Free T4 (0.76-1.46) ng/dL TSH, Ultra Sensitive (0.36-3.74) uIU/mL SARS-CoV-2 RNA (TERESITA) (NEGATIVE) Med Orders - Current: Current Medications Acetaminophen (Acetaminophen 325 Mg Tab) 650 mg PO Q4H PRN PRN Reason: Pain (Mild 1-3)/fever Dextrose/Water (50% Dextrose In Water 50 Ml Syringe) 50 ml IVPUSH Q15M PRN PRN Reason: Hypoglycemia Glucagon (Glucagon,Human Recombinant 1 Mg Vial) 1 mg IM Q15M PRN PRN Reason: Hypoglycemia Insulin Human Lispro (Insulin Lispro 100 Units/Ml 3 Ml Vial) 0 unit SUBCUT WITHMEALSANDBED KOMAL; Protocol Last Admin: 05/09/21 22:32 Dose: Not Given Documented by: Lactulose (Lactulose Soln 10 Gm/15 Ml 30 Ml Ud Cup) 30 gm PO QID [facility] Last Admin: 05/09/21 22:26 Dose: Not Given Documented by: Lactulose (Lactulose Soln 10 Gm/15 Ml 946 Ml Bottle) 200 gm RECTAL Q6H KOMAL Last Admin: 05/10/21 05:28 Dose: Not Given Documented by: Lorazepam (Lorazepam 2 Mg/Ml Sdv) 0 mg IV TITRATE PRN; Protocol PRN Reason: alcohol withdrawal Last Admin: 05/09/21 19:30 Dose: 2 mg Documented by: Lorazepam (Lorazepam 2 Mg/Ml Sdv) 1 mg IVPUSH Q2H PRN PRN Reason: Agitation Last Admin: 05/10/21 04:41 Dose: 1 mg Documented by: Ondansetron HCl (Ondansetron 4 Mg/2 Ml Sdv) 4 mg IVPUSH Q4H PRN PRN Reason: Nausea/Vomiting Rifaximin (Rifaximin 550 Mg Tab) 550 mg PO BID KOAML Last Admin: 05/09/21 22:27 Dose: Not Given Documented by: Sodium Chloride (Sodium Chloride 0.9% 10 Ml Syringe) 10 ml FLUSH ASDIRECTED PRN PRN Reason: Keep Vein Open - Exam General: Lethargic HEENT: Pupils Equal, Pupils Reactive, EOMI, Mucous Membr. Moist/[place] Neck: Supple Lungs: Clear to Auscultation, Normal Respiratory Effort Cardiovascular: Regular Rate, Regular Rhythm GI/Abdominal Exam: Normal Bowel Sounds, Soft, Non-Tender, No Organomegaly, No Distention, No Abnormal Bruit, No Mass, Pelvis Stable Back Exam: Normal Inspection, Full Range of Motion Extremities: Normal Inspection, Normal Range of Motion, Non-Tender, No Pedal Edema, Normal Capillary Refill Skin: Warm, Dry, Intact Wound/Incisions: Healing Well Neurological: No New Focal Deficit Psy/Mental Status: Alert, Normal Affect, Normal Mood - Patient Data Lab Results Last 24 hrs: Laboratory Results - last 24 hr 05/09/21 05/09/21 05/09/21 Range/Units 14:35 14:35 14:35 WBC 1.8 L (5.0-10.0) 10^3/uL RBC 2.55 L (4.2-5.4) 10^6/uL Hgb 8.6 L (12.0-16.0) g/dL Hct 25.8 L (37.0-47.0) % MCV 101.2 H (80-100) fL MCH 33.7 (27.0-34.0) pg MCHC 33.3 (33.0-35.0) g/dL Plt Count 53 L (150-450) 10^3/uL Neut % (Auto) 63.6 (42.2-75.2) % Lymph % (Auto) 25.0 (20.5-50.1) % Metcalfe % (Auto) 9.1 H (2-8) % Eos % (Auto) 2.3 (1.0-3.0) % Baso % (Auto) 0.0 (0.0-1.0) % PT (9.0-12.0) SEC INR (0.9-1.2) VBG pH (7.31-7.41) VBG pCO2 (41-51) mmHg VBG pO2 (35-42) mmHg VBG HCO3 (19-25) mmol/l VBG O2 Saturation (60-80) % VBG Base Excess ((-2)-(+3)) mmol/l Sodium 144 (136-145) mmol/L Potassium 4.0 (3.5-5.1) mmol/L Chloride 113 H (98-107) mmol/L Carbon Dioxide 23 (21-32) mmol/L Anion Gap 12.0 (7-13) mEq/L BUN 8 (7-18) mg/dL Creatinine 0.78 (0.55-1.02) mg/dL Est Cr Clr Drug Dosing 85.11 mL/min Estimated GFR (MDRD) > 60 BUN/Creatinine Ratio 10.3 (No establ ref range) Glucose 116 H (70-99) mg/dL POC Glucose (70-99) mg/dL Calcium 7.5 L (8.5-10.1) mg/dL Total Bilirubin 2.6 H (0.2-1.0) mg/dL AST 38 H (15-37) U/L ALT 50 (14-59) U/L Alkaline Phosphatase 213 H (46-116) U/L Ammonia 131 H (11-32) umol/L Troponin I High Sens 38 (<=51) pg/mL Total Protein 5.9 L (6.4-8.2) g/dL Albumin 2.5 L (3.4-5.0) g/dL Globulin 3.4 Albumin/Globulin Ratio 0.74 Free T4 (0.76-1.46) ng/dL TSH, Ultra Sensitive (0.36-3.74) uIU/mL SARS-CoV-2 RNA (TERESITA) (NEGATIVE) 05/09/21 05/09/21 05/09/21 Range/Units 14:35 15:37 16:50 WBC (5.0-10.0) 10^3/uL RBC (4.2-5.4) 10^6/uL Hgb (12.0-16.0) g/dL Hct (37.0-47.0) % MCV (80-100) fL MCH (27.0-34.0) pg MCHC (33.0-35.0) g/dL Plt Count (150-450) 10^3/uL Neut % (Auto) (42.2-75.2) % Lymph % (Auto) (20.5-50.1) % Metcalfe % (Auto) (2-8) % Eos % (Auto) (1.0-3.0) % Baso % (Auto) (0.0-1.0) % PT (9.0-12.0) SEC INR (0.9-1.2) VBG pH 7.34 (7.31-7.41) VBG pCO2 40 L (41-51) mmHg VBG pO2 46 H (35-42) mmHg VBG HCO3 21 (19-25) mmol/l VBG O2 Saturation 75 (60-80) % VBG Base Excess -4 L ((-2)-(+3)) mmol/l Sodium (136-145) mmol/L Potassium (3.5-5.1) mmol/L Chloride (98-107) mmol/L Carbon Dioxide (21-32) mmol/L Anion Gap (7-13) mEq/L BUN (7-18) mg/dL Creatinine (0.55-1.02) mg/dL Est Cr Clr Drug Dosing mL/min Estimated GFR (MDRD) BUN/Creatinine Ratio (No establ ref range) Glucose (70-99) mg/dL POC Glucose (70-99) mg/dL Calcium (8.5-10.1) mg/dL Total Bilirubin (0.2-1.0) mg/dL AST (15-37) U/L ALT (14-59) U/L Alkaline Phosphatase (46-116) U/L Ammonia (11-32) umol/L Troponin I High Sens (<=51) pg/mL Total Protein (6.4-8.2) g/dL Albumin (3.4-5.0) g/dL Globulin Albumin/Globulin Ratio Free T4 0.98 (0.76-1.46) ng/dL TSH, Ultra Sensitive 1.14 (0.36-3.74) uIU/mL SARS-CoV-2 RNA (TERESITA) Negative (NEGATIVE) 05/09/21 05/10/21 05/10/21 Range/Units 22:30 06:20 06:20 WBC 2.8 L (5.0-10.0) 10^3/uL RBC 2.35 L (4.2-5.4) 10^6/uL Hgb 7.8 L (12.0-16.0) g/dL Hct 24.0 L (37.0-47.0) % MCV 102.1 H (80-100) fL MCH 33.2 (27.0-34.0) pg MCHC 32.5 L (33.0-35.0) g/dL Plt Count 55 L (150-450) 10^3/uL Neut % (Auto) 70.9 (42.2-75.2) % Lymph % (Auto) 15.6 L (20.5-50.1) % Metcalfe % (Auto) 10.9 H (2-8) % Eos % (Auto) 2.2 (1.0-3.0) % Baso % (Auto) 0.4 (0.0-1.0) % PT 21.2 H (9.0-12.0) SEC INR 2.1 H (0.9-1.2) VBG pH (7.31-7.41) VBG pCO2 (41-51) mmHg VBG pO2 (35-42) mmHg VBG HCO3 (19-25) mmol/l VBG O2 Saturation (60-80) % VBG Base Excess ((-2)-(+3)) mmol/l Sodium (136-145) mmol/L Potassium (3.5-5.1) mmol/L Chloride (98-107) mmol/L Carbon Dioxide (21-32) mmol/L Anion Gap (7-13) mEq/L BUN (7-18) mg/dL Creatinine (0.55-1.02) mg/dL Est Cr Clr Drug Dosing mL/min Estimated GFR (MDRD) BUN/Creatinine Ratio (No establ ref range) Glucose (70-99) mg/dL POC Glucose 93 (70-99) mg/dL Calcium (8.5-10.1) mg/dL Total Bilirubin (0.2-1.0) mg/dL AST (15-37) U/L ALT (14-59) U/L Alkaline Phosphatase (46-116) U/L Ammonia (11-32) umol/L Troponin I High Sens (<=51) pg/mL Total Protein (6.4-8.2) g/dL Albumin (3.4-5.0) g/dL Globulin Albumin/Globulin Ratio Free T4 (0.76-1.46) ng/dL TSH, Ultra Sensitive (0.36-3.74) uIU/mL SARS-CoV-2 RNA (TERESITA) (NEGATIVE) 05/10/21 05/10/21 Range/Units 06:20 06:20 WBC (5.0-10.0) 10^3/uL RBC (4.2-5.4) 10^6/uL Hgb (12.0-16.0) g/dL Hct (37.0-47.0) % MCV (80-100) fL MCH (27.0-34.0) pg MCHC (33.0-35.0) g/dL Plt Count (150-450) 10^3/uL Neut % (Auto) (42.2-75.2) % Lymph % (Auto) (20.5-50.1) % Metcalfe % (Auto) (2-8) % Eos % (Auto) (1.0-3.0) % Baso % (Auto) (0.0-1.0) % PT (9.0-12.0) SEC INR (0.9-1.2) VBG pH (7.31-7.41) VBG pCO2 (41-51) mmHg VBG pO2 (35-42) mmHg VBG HCO3 (19-25) mmol/l VBG O2 Saturation (60-80) % VBG Base Excess ((-2)-(+3)) mmol/l Sodium 145 (136-145) mmol/L Potassium 4.0 (3.5-5.1) mmol/L Chloride 113 H (98-107) mmol/L Carbon Dioxide 24 (21-32) mmol/L Anion Gap 12.0 (7-13) mEq/L BUN 9 (7-18) mg/dL Creatinine 0.81 (0.55-1.02) mg/dL Est Cr Clr Drug Dosing 82.28 mL/min Estimated GFR (MDRD) > 60 BUN/Creatinine Ratio 11.1 (No establ ref range) Glucose 133 H (70-99) mg/dL POC Glucose (70-99) mg/dL Calcium 7.5 L (8.5-10.1) mg/dL Total Bilirubin 2.9 H (0.2-1.0) mg/dL AST 34 (15-37) U/L ALT 44 (14-59) U/L Alkaline Phosphatase 160 H (46-116) U/L Ammonia 133 H (11-32) umol/L Troponin I High Sens (<=51) pg/mL Total Protein 5.3 L (6.4-8.2) g/dL Albumin 2.2 L (3.4-5.0) g/dL Globulin 3.1 Albumin/Globulin Ratio 0.71 Free T4 (0.76-1.46) ng/dL TSH, Ultra Sensitive (0.36-3.74) uIU/mL SARS-CoV-2 RNA (TERESITA) (NEGATIVE) Result Diagrams: 05/10/21 06:20 05/10/21 06:20 Sepsis Event Note - Evaluation Sepsis Screening Result: No Definite Risk - Focused Exam Vital Signs: Vital Signs Temp Pulse Resp BP Pulse Ox 05/10/21 00:22 96.9 F 57 L 20 102/72 97 - Problem List Review Problem List Initiated/Reviewed/Updated: Yes - My Orders Last 24 Hours: My Active Orders 05/09/21 Dinner Heart Healthy Diet [DIET] 05/09/21 18:00 Lactulose [Chronulac] 200 gm RECTAL Q6H 05/09/21 18:23 Blood Glucose Check, Bedside [RC] WITHMEALSANDBED Up With Assistance [RC] ASDIRECTED Vital Signs [RC] 04,08,12,16,20,00,04 Acetaminophen [TylenoL] 650 mg PO Q4H PRN Ondansetron [Zofran] 4 mg IVPUSH Q4H PRN Sodium Chloride 0.9% [Saline Flush] 10 ml FLUSH ASDIRECTED PRN Peripheral IV Insertion Adult [OM.PC] Routine Saline Lock Insert [OM.PC] Routine Resuscitation Status Routine 05/09/21 18:24 Sequential Compression Device [OM.PC] Per Unit Routine 05/09/21 18:25 Antiembolic Devices [RC] 08,20 Peripheral IV Care [RC] 05/09/21 18:27 LORazepam [Ativan] See Protocol IV TITRATE PRN Seizure Precautions [OM.PC] Routine 05/09/21 18:28 Aspiration Precautions [RC] ASDIRECTED Notify Provider [RC] PRN Seizure Precautions [OM.PC] Stat 05/09/21 18:29 Consult to Case Management/Flight Paramedic [CONS] Routine Consult to Hospice [CONS] Routine Dextrose 50% in Water 50 ml IVPUSH Q15M PRN Glucagon,Human Recombinant [GlucaGen] 1 mg IM Q15M PRN 05/09/21 18:30 Lactulose [Cephulac] 30 gm PO QID Rifaximin [Xifaxan] 550 mg PO BID 05/09/21 19:55 LORazepam [Ativan] 1 mg IVPUSH Q2H PRN 05/09/21 21:00 Insulin Lispro [HumaLOG] See Protocol SUBCUT WITHMEALSANDBED 05/11/21 05:00 AMMONIA [REF] Routine CBC WITH AUTO DIFF [HEME] Routine COMPREHENSIVE METABOLIC PN,CMP [CHEM] Routine INR,PT,PROTHROMBIN TIME [COAG] Routine - Plan Plan:: Surgical History: Per medical records: Umbilical herniorrhaphy, right eye iridotomy, TIPS procedure, right mastectomy for infection and not for malignancy Family History: Unable to obtain Social History: Tobacco: Per medical records: Patient smokes Alcohol: Per medical records: Patient has a history of alcohol abuseunknown if this is ongoing Caffeine: Unable to obtain Drugs: Unable to obtain Allergies: Per medical records: Rocephin Code Status: By default, full Assessment / Plan: 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 Will monitor ammonia levels intermittently. Xifaxan 550 mg p.o. twice daily plus lactulose 200 g per rectum every 6 hours to be retained for 1 hour or lact ulose 30 g p.o. 4 times daily if the patient is able to tolerate p.o./is cooperative Medical noncompliance. Patient will be counseled regarding medical compliance Cholelithiasis, asymptomatic History of alcohol abuse, unknown if this is ongoing. Seizure precautions. IV as needed Ativan per [facility] protocol Hepatic steatosis/end-stage cirrhosis. Outpatient follow-up with gastroenterology Portal hypertension, status post TIPS procedure Coagulopathy, likely sequelae of end-stage cirrhosis. Will monitor PT/INR periodically Pancytopenia with iron deficiency and macrocytosis and fecal occult blood positive. Likely due to myelosuppression from history of alcohol use. Will monitor CBC periodically. Outpatient follow-up with hematology/oncology. Outpatient follow-up with gastroenterology Diabetes. Will check fasting glucose before every meal and at bedtime and provide insulin sign scale GERD Hyperlipidemia Hypertension Obesity. Patient be counseled regarding lifestyle modification Smoker. Patient be counseled regarding smoking cessation Hypothyroidism. Microscopic hematuria. Outpatient follow-up with urology upon discharge History of rectal wall thickening. Outpatient follow-up with gastroenterology upon discharge Query history of portal vein thrombosis. Outpatient follow-up with gastroenterology upon discharge Degenerative disc disease Diverticulosis Orthostatic hypotension DVT prophylaxis. Bilateral SCD Disposition: Anticipate discharge within 48 hours. I request that case management evaluate patient for placement. I will request that hospice evaluate the patient due to her end-stage cirrhosis. END OF DOCTOR EMAMIS HISTORY AND PHYSICAL / CONSULTATION NOTE
[2021-05-10] MEDS: Insulin Lispro 100 Units/ML 3 ML Vial SUBCUT SCH ×4 (07:48→22:04)
[2021-05-10] MEDS: Rifaximin 550 MG Tab PO SCH ×2 (09:41→22:05)
[2021-05-10] MEDS: Lactulose Soln 10 GM/15 ML 30 ML UD Cup PO SCH ×4 (09:41→22:04)
[2021-05-10 12:07] LABS: O2 DELIVERY DEVICE NASAL CANNULA
[2021-05-10] MEDS: Sodium Chloride 0.9% 10 ML Syringe FLUSH PRN (19:20)
[2021-05-11] MEDS: Lactulose Soln 10 GM/15 ML 946 ML Bottle RECTAL SCH ×8 (00:07→23:56)
[2021-05-11 06:41] LABS: CHLORIDE,CL 113 mmol/L (98-107); SODIUM,NA 142 mmol/L (136-145)
--- NOTE | 2021-05-11 07:25 | PCM.PN ---
- General Info Date of Service: 05/11/21 Subjective Update: The patient is encephalopathic at the present time and unable to provide feedback - Review of Systems General: Reports: No Symptoms HEENT: Reports: No Symptoms Pulmonary: Reports: No Symptoms Cardiovascular: Reports: No Symptoms Gastrointestinal: Reports: No Symptoms Genitourinary: Reports: No Symptoms 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: Reports: No Symptoms Skin: Reports: No Symptoms Neurological: Reports: Confusion Psychiatric: Reports: No Symptoms - Patient Data Vitals - Most Recent: Last Vital Signs Temp 97.5 F 05/11/21 04:00 Pulse 65 05/11/21 04:00 Resp 18 05/11/21 04:00 BP 94/51 L 05/11/21 04:00 Pulse Ox 100 05/11/21 04:00 Weight - Most Recent: 171 lb 9.6 oz I&O - Last 24 Hours: Intake & Output 05/10/21 05/11/21 05/11/21 22:59 06:59 14:59 Intake Total 0 100 Balance 0 100 Lab Results Last 24 Hours: Laboratory Results - last 24 hr 05/09/21 05/10/21 05/10/21 Range/Units 15:37 07:37 11:04 WBC (5.0-10.0) 10^3/uL RBC (4.2-5.4) 10^6/uL Hgb (12.0-16.0) g/dL Hct (37.0-47.0) % MCV (80-100) fL MCH (27.0-34.0) pg MCHC (33.0-35.0) g/dL Plt Count (150-450) 10^3/uL Neut % (Auto) (42.2-75.2) % Lymph % (Auto) (20.5-50.1) % [place] % (Auto) (2-8) % Eos % (Auto) (1.0-3.0) % Baso % (Auto) (0.0-1.0) % PT (9.0-12.0) SEC INR (0.9-1.2) O2 Delivery Device Nasal cannula Sodium (136-145) mmol/L Potassium (3.5-5.1) mmol/L Chloride (98-107) mmol/L Carbon Dioxide (21-32) mmol/L Anion Gap (7-13) mEq/L BUN (7-18) mg/dL Creatinine (0.55-1.02) mg/dL Est Cr Clr Drug Dosing mL/min Estimated GFR (MDRD) BUN/Creatinine Ratio (No establ ref range) Glucose (70-99) mg/dL POC Glucose 114 H 145 H (70-99) mg/dL Calcium (8.5-10.1) mg/dL Total Bilirubin (0.2-1.0) mg/dL AST (15-37) U/L ALT (14-59) U/L Alkaline Phosphatase (46-116) U/L Ammonia (11-32) umol/L Total Protein (6.4-8.2) g/dL Albumin (3.4-5.0) g/dL Globulin Albumin/Globulin Ratio 05/10/21 05/10/21 05/11/21 Range/Units 16:58 20:32 06:00 WBC 2.0 L (5.0-10.0) 10^3/uL RBC 2.23 L (4.2-5.4) 10^6/uL Hgb 7.5 L (12.0-16.0) g/dL Hct 22.8 L (37.0-47.0) % MCV 102.2 H (80-100) fL MCH 33.6 (27.0-34.0) pg MCHC 32.9 L (33.0-35.0) g/dL Plt Count 45 L* (150-450) 10^3/uL Neut % (Auto) 56.7 (42.2-75.2) % Lymph % (Auto) 24.7 (20.5-50.1) % [place] % (Auto) 14.6 H (2-8) % Eos % (Auto) 3.5 H (1.0-3.0) % Baso % (Auto) 0.5 (0.0-1.0) % PT (9.0-12.0) SEC INR (0.9-1.2) O2 Delivery Device Sodium (136-145) mmol/L Potassium (3.5-5.1) mmol/L Chloride (98-107) mmol/L Carbon Dioxide (21-32) mmol/L Anion Gap (7-13) mEq/L BUN (7-18) mg/dL Creatinine (0.55-1.02) mg/dL Est Cr Clr Drug Dosing mL/min Estimated GFR (MDRD) BUN/Creatinine Ratio (No establ ref range) Glucose (70-99) mg/dL POC Glucose 103 H 102 H (70-99) mg/dL Calcium (8.5-10.1) mg/dL Total Bilirubin (0.2-1.0) mg/dL AST (15-37) U/L ALT (14-59) U/L Alkaline Phosphatase (46-116) U/L Ammonia (11-32) umol/L Total Protein (6.4-8.2) g/dL Albumin (3.4-5.0) g/dL Globulin Albumin/Globulin Ratio 05/11/21 05/11/21 05/11/21 Range/Units 06:00 06:00 06:00 WBC (5.0-10.0) 10^3/uL RBC (4.2-5.4) 10^6/uL Hgb (12.0-16.0) g/dL Hct (37.0-47.0) % MCV (80-100) fL MCH (27.0-34.0) pg MCHC (33.0-35.0) g/dL Plt Count (150-450) 10^3/uL Neut % (Auto) (42.2-75.2) % Lymph % (Auto) (20.5-50.1) % [place] % (Auto) (2-8) % Eos % (Auto) (1.0-3.0) % Baso % (Auto) (0.0-1.0) % PT 20.7 H (9.0-12.0) SEC INR 2.1 H (0.9-1.2) O2 Delivery Device Sodium 142 (136-145) mmol/L Potassium 4.0 (3.5-5.1) mmol/L Chloride 113 H (98-107) mmol/L Carbon Dioxide 25 (21-32) mmol/L Anion Gap 8.0 (7-13) mEq/L BUN 10 (7-18) mg/dL Creatinine 0.77 (0.55-1.02) mg/dL Est Cr Clr Drug Dosing 86.56 mL/min Estimated GFR (MDRD) > 60 BUN/Creatinine Ratio 13.0 (No establ ref range) Glucose 76 (70-99) mg/dL POC Glucose (70-99) mg/dL Calcium 7.6 L (8.5-10.1) mg/dL Total Bilirubin 3.1 H (0.2-1.0) mg/dL AST 31 (15-37) U/L ALT 38 (14-59) U/L Alkaline Phosphatase 154 H (46-116) U/L Ammonia 151 H (11-32) umol/L Total Protein 5.2 L (6.4-8.2) g/dL Albumin 2.2 L (3.4-5.0) g/dL Globulin 3.0 Albumin/Globulin Ratio 0.73 Med Orders - Current: Current Medications Acetaminophen (Acetaminophen 325 Mg Tab) 650 mg PO Q4H PRN PRN Reason: Pain (Mild 1-3)/fever Dextrose/Water (50% Dextrose In Water 50 Ml Syringe) 50 ml IVPUSH Q15M PRN PRN Reason: Hypoglycemia Glucagon (Glucagon,Human Recombinant 1 Mg Vial) 1 mg IM Q15M PRN PRN Reason: Hypoglycemia Insulin Human Lispro (Insulin Lispro 100 Units/Ml 3 Ml Vial) 0 unit SUBCUT WITHMEALSANDBED [facility]; Protocol Last Admin: 05/10/21 22:04 Dose: Not Given Documented by: Lactulose (Lactulose Soln 10 Gm/15 Ml 30 Ml Ud Cup) 30 gm PO QID [facility] Last Admin: 05/10/21 22:04 Dose: Not Given Documented by: Lactulose (Lactulose Soln 10 Gm/15 Ml 946 Ml Bottle) 200 gm RECTAL Q4H [facility] Lorazepam (Lorazepam 2 Mg/Ml Sdv) 0 mg IV TITRATE PRN; Protocol PRN Reason: alcohol withdrawal Last Admin: 05/09/21 19:30 Dose: 2 mg Documented by: Lorazepam (Lorazepam 2 Mg/Ml Sdv) 1 mg IVPUSH Q2H PRN PRN Reason: Agitation Last Admin: 05/10/21 23:57 Dose: 1 mg Documented by: Ondansetron HCl (Ondansetron 4 Mg/2 Ml Sdv) 4 mg IVPUSH Q4H PRN PRN Reason: Nausea/Vomiting Rifaximin (Rifaximin 550 Mg Tab) 550 mg PO BID [facility] Last Admin: 05/10/21 22:05 Dose: Not Given Documented by: Sodium Chloride (Sodium Chloride 0.9% 10 Ml Syringe) 10 ml FLUSH ASDIRECTED PRN PRN Reason: Keep Vein Open Last Admin: 05/11/21 00:00 Dose: 10 ml Documented by: Discontinued Medications Lactulose (Lactulose Soln 10 Gm/15 Ml 946 Ml Bottle) 200 gm RECTAL Q6H [facility] Last Admin: 05/11/21 06:08 Dose: 200 gram Documented by: - Exam General: Lethargic HEENT: Pupils Equal, Pupils Reactive, EOMI, Mucous Membr. Moist/[place] Neck: Supple Lungs: Clear to Auscultation, Normal Respiratory Effort Cardiovascular: Regular Rate, Regular Rhythm Extremities: Normal Inspection, Normal Range of Motion, Non-Tender, No Pedal Edema, Normal Capillary Refill Skin: Warm, Dry, Intact Wound/Incisions: Healing Well Neurological: No New Focal Deficit Psy/Mental Status: Other (Encephalopathic) - Patient Data Lab Results Last 24 hrs: Laboratory Results - last 24 hr 05/09/21 05/10/21 05/10/21 Range/Units 15:37 07:37 11:04 WBC (5.0-10.0) 10^3/uL RBC (4.2-5.4) 10^6/uL Hgb (12.0-16.0) g/dL Hct (37.0-47.0) % MCV (80-100) fL MCH (27.0-34.0) pg MCHC (33.0-35.0) g/dL Plt Count (150-450) 10^3/uL Neut % (Auto) (42.2-75.2) % Lymph % (Auto) (20.5-50.1) % [place] % (Auto) (2-8) % Eos % (Auto) (1.0-3.0) % Baso % (Auto) (0.0-1.0) % PT (9.0-12.0) SEC INR (0.9-1.2) O2 Delivery Device Nasal cannula Sodium (136-145) mmol/L Potassium (3.5-5.1) mmol/L Chloride (98-107) mmol/L Carbon Dioxide (21-32) mmol/L Anion Gap (7-13) mEq/L BUN (7-18) mg/dL Creatinine (0.55-1.02) mg/dL Est Cr Clr Drug Dosing mL/min Estimated GFR (MDRD) BUN/Creatinine Ratio (No establ ref range) Glucose (70-99) mg/dL POC Glucose 114 H 145 H (70-99) mg/dL Calcium (8.5-10.1) mg/dL Total Bilirubin (0.2-1.0) mg/dL AST (15-37) U/L ALT (14-59) U/L Alkaline Phosphatase (46-116) U/L Ammonia (11-32) umol/L Total Protein (6.4-8.2) g/dL Albumin (3.4-5.0) g/dL Globulin Albumin/Globulin Ratio 05/10/21 05/10/21 05/11/21 Range/Units 16:58 20:32 06:00 WBC 2.0 L (5.0-10.0) 10^3/uL RBC 2.23 L (4.2-5.4) 10^6/uL Hgb 7.5 L (12.0-16.0) g/dL Hct 22.8 L (37.0-47.0) % MCV 102.2 H (80-100) fL MCH 33.6 (27.0-34.0) pg MCHC 32.9 L (33.0-35.0) g/dL Plt Count 45 L* (150-450) 10^3/uL Neut % (Auto) 56.7 (42.2-75.2) % Lymph % (Auto) 24.7 (20.5-50.1) % [place] % (Auto) 14.6 H (2-8) % Eos % (Auto) 3.5 H (1.0-3.0) % Baso % (Auto) 0.5 (0.0-1.0) % PT (9.0-12.0) SEC INR (0.9-1.2) O2 Delivery Device Sodium (136-145) mmol/L Potassium (3.5-5.1) mmol/L Chloride (98-107) mmol/L Carbon Dioxide (21-32) mmol/L Anion Gap (7-13) mEq/L BUN (7-18) mg/dL Creatinine (0.55-1.02) mg/dL Est Cr Clr Drug Dosing mL/min Estimated GFR (MDRD) BUN/Creatinine Ratio (No establ ref range) Glucose (70-99) mg/dL POC Glucose 103 H 102 H (70-99) mg/dL Calcium (8.5-10.1) mg/dL Total Bilirubin (0.2-1.0) mg/dL AST (15-37) U/L ALT (14-59) U/L Alkaline Phosphatase (46-116) U/L Ammonia (11-32) umol/L Total Protein (6.4-8.2) g/dL Albumin (3.4-5.0) g/dL Globulin Albumin/Globulin Ratio 05/11/21 05/11/21 05/11/21 Range/Units 06:00 06:00 06:00 WBC (5.0-10.0) 10^3/uL RBC (4.2-5.4) 10^6/uL Hgb (12.0-16.0) g/dL Hct (37.0-47.0) % MCV (80-100) fL MCH (27.0-34.0) pg MCHC (33.0-35.0) g/dL Plt Count (150-450) 10^3/uL Neut % (Auto) (42.2-75.2) % Lymph % (Auto) (20.5-50.1) % [place] % (Auto) (2-8) % Eos % (Auto) (1.0-3.0) % Baso % (Auto) (0.0-1.0) % PT 20.7 H (9.0-12.0) SEC INR 2.1 H (0.9-1.2) O2 Delivery Device Sodium 142 (136-145) mmol/L Potassium 4.0 (3.5-5.1) mmol/L Chloride 113 H (98-107) mmol/L Carbon Dioxide 25 (21-32) mmol/L Anion Gap 8.0 (7-13) mEq/L BUN 10 (7-18) mg/dL Creatinine 0.77 (0.55-1.02) mg/dL Est Cr Clr Drug Dosing 86.56 mL/min Estimated GFR (MDRD) > 60 BUN/Creatinine Ratio 13.0 (No establ ref range) Glucose 76 (70-99) mg/dL POC Glucose (70-99) mg/dL Calcium 7.6 L (8.5-10.1) mg/dL Total Bilirubin 3.1 H (0.2-1.0) mg/dL AST 31 (15-37) U/L ALT 38 (14-59) U/L Alkaline Phosphatase 154 H (46-116) U/L Ammonia 151 H (11-32) umol/L Total Protein 5.2 L (6.4-8.2) g/dL Albumin 2.2 L (3.4-5.0) g/dL Globulin 3.0 Albumin/Globulin Ratio 0.73 Result Diagrams: 05/11/21 06:00 05/11/21 06:00 Sepsis Event Note - Evaluation Sepsis Screening Result: No Definite Risk - Focused Exam Vital Signs: Vital Signs Temp Pulse Resp BP Pulse Ox 05/11/21 04:00 97.5 F 65 18 94/51 L 100 05/11/21 00:49 97.7 F 69 16 95/48 L 100 05/10/21 19:54 97.8 F 75 18 97/56 L 100 - Problem List Review Problem List Initiated/Reviewed/Updated: Yes - My Orders Last 24 Hours: My Active Orders 05/11/21 07:30 Lactulose [Chronulac] 200 gm RECTAL Q4H 05/12/21 05:00 AMMONIA [REF] Routine CBC WITH AUTO DIFF [HEME] Routine COMPREHENSIVE METABOLIC PN,CMP [CHEM] Routine INR,PT,PROTHROMBIN TIME [COAG] Routine - Plan Plan:: Surgical History: Per medical records: Umbilical herniorrhaphy, right eye iridotomy, TIPS procedure, right mastectomy for infection and not for malignancy Family History: Unable to obtain Social History: Tobacco: Per medical records: Patient smokes Alcohol: Per medical records: Patient has a history of alcohol abuseunknown if this is ongoing Caffeine: Unable to obtain Drugs: Unable to obtain Allergies: Per medical records: Rocephin Code Status: By default, full Assessment / Plan: 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 The patient's hyperammonemia is chronic and she has a baseline ammonia level of approximately 65. Will monitor ammonia levels intermittently. Xifaxan 550 mg p.o. twice daily plus lactulose 200 g per rectum every 4 hours to be retained for 1 hour or lactulose 30 g p.o. 4 times daily if the patient is able to tolerate p.o./is cooperative Medical noncompliance. Patient will be counseled regarding medical compliance Cholelithiasis, asymptomatic History of alcohol abuse, unknown if this is ongoing. Seizure precautions. IV as needed Ativan per [facility] protocol Hepatic steatosis/end-stage cirrhosis. Outpatient follow-up with gastroenterology Portal hypertension, status post TIPS procedure Coagulopathy, likely sequelae of end-stage cirrhosis. Will monitor PT/INR periodically Pancytopenia with iron deficiency and macrocytosis and fecal occult blood positive. Likely due to myelosuppression from history of alcohol use. Will monitor CBC periodically. Outpatient follow-up with hematology/oncology. Outpatient follow-up with gastroenterology Diabetes. Will check fasting glucose before every meal and at bedtime and provide insulin sign scale GERD Hyperlipidemia Hypertension Obesity. Patient be counseled regarding lifestyle modification Smoker. Patient be counseled regarding smoking cessation Hypothyroidism. Microscopic hematuria. Outpatient follow-up with urology upon discharge History of rectal wall thickening. Outpatient follow-up with gastroenterology upon discharge Query history of portal vein thrombosis. Outpatient follow-up with gastroenterology upon discharge Degenerative disc disease Diverticulosis Orthostatic hypotension DVT prophylaxis. Bilateral SCD Disposition: Anticipate discharge within 48 hours. I request that case management evaluate patient for placement. I will request that hospice evaluate the patient due to her end-stage cirrhosis. END OF DOCTOR EMAMIS HISTORY AND PHYSICAL / CONSULTATION NOTE
[2021-05-11] MEDS: Insulin Lispro 100 Units/ML 3 ML Vial SUBCUT SCH ×4 (09:19→20:45)
[2021-05-11] MEDS: Lactulose Soln 10 GM/15 ML 30 ML UD Cup PO SCH ×5 (09:20→23:54)
[2021-05-11] MEDS: Rifaximin 550 MG Tab PO SCH ×2 (09:21→23:17)
[2021-05-11] MEDS: LORazepam 2 MG/ML SDV IVPUSH PRN ×4 (14:17→20:41)
[2021-05-11] MEDS: Sodium Chloride 0.9% 10 ML Syringe FLUSH PRN ×3 (14:18→20:41)
[2021-05-12] MEDS: LORazepam 2 MG/ML SDV IVPUSH PRN (00:44)
[2021-05-12] MEDS: Sodium Chloride 0.9% 10 ML Syringe FLUSH PRN (00:45)
[2021-05-12] MEDS: Lactulose Soln 10 GM/15 ML 946 ML Bottle RECTAL SCH ×4 (03:44→21:33)
[2021-05-12 06:41] LABS: ANION GAP 14.5 mEq/L (7-13); CHLORIDE,CL 117 mmol/L (98-107); SODIUM,NA 150 mmol/L (136-145)
--- NOTE | 2021-05-12 07:28 | PCM.PN ---
- General Info Date of Service: 05/12/21 Subjective Update: The patient appears to be at her baseline state of mentation but appears to not want to cooperate with the interview. Unfortunately because of this, I am unobtainable to obtain further information regarding the patient's symptomatology. I have attempted to explain to the patient her current medical condition and plan of care - Review of Systems General: Reports: No Symptoms HEENT: Reports: No Symptoms Pulmonary: Reports: No Symptoms Cardiovascular: Reports: No Symptoms Gastrointestinal: Reports: No Symptoms Genitourinary: Reports: No Symptoms 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: Reports: No Symptoms Skin: Reports: No Symptoms Neurological: Reports: No Symptoms Psychiatric: Reports: No Symptoms - Patient Data Vitals - Most Recent: Last Vital Signs Temp 97.8 F 05/12/21 04:00 Pulse 68 05/12/21 04:00 Resp 20 05/12/21 04:00 BP 117/65 05/12/21 04:00 Pulse Ox 100 05/12/21 04:00 Weight - Most Recent: 171 lb 9.6 oz I&O - Last 24 Hours: Intake & Output 05/11/21 05/12/21 05/12/21 22:59 06:59 14:59 Intake Total 50 Balance 50 Lab Results Last 24 Hours: Laboratory Results - last 24 hr 05/11/21 05/11/21 05/11/21 Range/Units 11:34 16:15 16:17 WBC (5.0-10.0) 10^3/uL RBC (4.2-5.4) 10^6/uL Hgb (12.0-16.0) g/dL Hct (37.0-47.0) % MCV (80-100) fL MCH (27.0-34.0) pg MCHC (33.0-35.0) g/dL Plt Count (150-450) 10^3/uL Neut % (Auto) (42.2-75.2) % Lymph % (Auto) (20.5-50.1) % [place] % (Auto) (2-8) % Eos % (Auto) (1.0-3.0) % Baso % (Auto) (0.0-1.0) % PT (9.0-12.0) SEC INR (0.9-1.2) Sodium (136-145) mmol/L Potassium (3.5-5.1) mmol/L Chloride (98-107) mmol/L Carbon Dioxide (21-32) mmol/L Anion Gap (7-13) mEq/L BUN (7-18) mg/dL Creatinine (0.55-1.02) mg/dL Est Cr Clr Drug Dosing mL/min Estimated GFR (MDRD) BUN/Creatinine Ratio (No establ ref range) Glucose (70-99) mg/dL POC Glucose 81 80 (70-99) mg/dL Calcium (8.5-10.1) mg/dL Total Bilirubin (0.2-1.0) mg/dL AST (15-37) U/L ALT (14-59) U/L Alkaline Phosphatase (46-116) U/L Ammonia 84 H (11-32) umol/L Total Protein (6.4-8.2) g/dL Albumin (3.4-5.0) g/dL Globulin Albumin/Globulin Ratio 05/11/21 05/12/21 05/12/21 Range/Units 20:44 06:10 06:10 WBC 3.5 L (5.0-10.0) 10^3/uL RBC 2.44 L (4.2-5.4) 10^6/uL Hgb 8.2 L (12.0-16.0) g/dL Hct 25.6 L (37.0-47.0) % MCV 104.9 H (80-100) fL MCH 33.6 (27.0-34.0) pg MCHC 32.0 L (33.0-35.0) g/dL Plt Count 43 L* (150-450) 10^3/uL Neut % (Auto) 72.2 (42.2-75.2) % Lymph % (Auto) 11.9 L (20.5-50.1) % [place] % (Auto) 12.8 H (2-8) % Eos % (Auto) 2.8 (1.0-3.0) % Baso % (Auto) 0.3 (0.0-1.0) % PT 19.5 H (9.0-12.0) SEC INR 2.0 H (0.9-1.2) Sodium (136-145) mmol/L Potassium (3.5-5.1) mmol/L Chloride (98-107) mmol/L Carbon Dioxide (21-32) mmol/L Anion Gap (7-13) mEq/L BUN (7-18) mg/dL Creatinine (0.55-1.02) mg/dL Est Cr Clr Drug Dosing mL/min Estimated GFR (MDRD) BUN/Creatinine Ratio (No establ ref range) Glucose (70-99) mg/dL POC Glucose 83 (70-99) mg/dL Calcium (8.5-10.1) mg/dL Total Bilirubin (0.2-1.0) mg/dL AST (15-37) U/L ALT (14-59) U/L Alkaline Phosphatase (46-116) U/L Ammonia (11-32) umol/L Total Protein (6.4-8.2) g/dL Albumin (3.4-5.0) g/dL Globulin Albumin/Globulin Ratio 05/12/21 05/12/21 Range/Units 06:10 06:10 WBC (5.0-10.0) 10^3/uL RBC (4.2-5.4) 10^6/uL Hgb (12.0-16.0) g/dL Hct (37.0-47.0) % MCV (80-100) fL MCH (27.0-34.0) pg MCHC (33.0-35.0) g/dL Plt Count (150-450) 10^3/uL Neut % (Auto) (42.2-75.2) % Lymph % (Auto) (20.5-50.1) % [place] % (Auto) (2-8) % Eos % (Auto) (1.0-3.0) % Baso % (Auto) (0.0-1.0) % PT (9.0-12.0) SEC INR (0.9-1.2) Sodium 150 H (136-145) mmol/L Potassium 3.5 (3.5-5.1) mmol/L Chloride 117 H (98-107) mmol/L Carbon Dioxide 22 (21-32) mmol/L Anion Gap 14.5 H (7-13) mEq/L BUN 9 (7-18) mg/dL Creatinine 0.87 (0.55-1.02) mg/dL Est Cr Clr Drug Dosing 76.61 mL/min Estimated GFR (MDRD) > 60 BUN/Creatinine Ratio 10.3 (No establ ref range) Glucose 116 H (70-99) mg/dL POC Glucose (70-99) mg/dL Calcium 8.2 L (8.5-10.1) mg/dL Total Bilirubin 5.5 H (0.2-1.0) mg/dL AST 34 (15-37) U/L ALT 39 (14-59) U/L Alkaline Phosphatase 161 H (46-116) U/L Ammonia 55 H (11-32) umol/L Total Protein 6.0 L (6.4-8.2) g/dL Albumin 2.6 L (3.4-5.0) g/dL Globulin 3.4 Albumin/Globulin Ratio 0.76 Med Orders - Current: Current Medications Acetaminophen (Acetaminophen 325 Mg Tab) 650 mg PO Q4H PRN PRN Reason: Pain (Mild 1-3)/fever Dextrose/Water (50% Dextrose In Water 50 Ml Syringe) 50 ml IVPUSH Q15M PRN PRN Reason: Hypoglycemia Glucagon (Glucagon,Human Recombinant 1 Mg Vial) 1 mg IM Q15M PRN PRN Reason: Hypoglycemia Dextrose/Water (Dextrose 5% In Water) 1,000 mls @ 60 mls/hr IV ASDIRECTED [facility] Insulin Human Lispro (Insulin Lispro 100 Units/Ml 3 Ml Vial) 0 unit SUBCUT WITHMEALSANDBED [facility]; Protocol Last Admin: 05/11/21 20:45 Dose: Not Given Documented by: Lactulose (Lactulose Soln 10 Gm/15 Ml 30 Ml Ud Cup) 30 gm PO QID [facility] Last Admin: 05/11/21 23:54 Dose: 30 gm Documented by: Lactulose (Lactulose Soln 10 Gm/15 Ml 946 Ml Bottle) 200 gm RECTAL Q4H [facility] Last Admin: 05/12/21 03:44 Dose: Not Given Documented by: Lorazepam (Lorazepam 2 Mg/Ml Sdv) 0 mg IV TITRATE PRN; Protocol PRN Reason: alcohol withdrawal Last Admin: 05/09/21 19:30 Dose: 2 mg Documented by: Lorazepam (Lorazepam 2 Mg/Ml Sdv) 1 mg IVPUSH Q2H PRN PRN Reason: Agitation Last Admin: 06/22/21 14:17 Dose: 1 mg Documented by: Lorazepam (Lorazepam 2 Mg/Ml Sdv) 2 mg IVPUSH Q2H PRN PRN Reason: Agitation Last Admin: 05/12/21 00:44 Dose: 2 mg Documented by: Ondansetron HCl (Ondansetron 4 Mg/2 Ml Sdv) 4 mg IVPUSH Q4H PRN PRN Reason: Nausea/Vomiting Rifaximin (Rifaximin 550 Mg Tab) 550 mg PO BID [facility] Last Admin: 05/11/21 23:17 Dose: Not Given Documented by: Sodium Chloride (Sodium Chloride 0.9% 10 Ml Syringe) 10 ml FLUSH ASDIRECTED PRN PRN Reason: Keep Vein Open Last Admin: 05/12/21 00:45 Dose: 10 ml Documented by: Discontinued Medications Lactulose (Lactulose Soln 10 Gm/15 Ml 946 Ml Bottle) 200 gm RECTAL Q6H [facility] Last Admin: 05/11/21 08:10 Dose: 200 gram Documented by: - Exam General: Alert, Oriented HEENT: Pupils Equal, Pupils Reactive, EOMI, Mucous Membr. Moist/[place] Neck: Supple Lungs: Clear to Auscultation, Normal Respiratory Effort Cardiovascular: Regular Rate, Regular Rhythm GI/Abdominal Exam: Normal Bowel Sounds, Soft, Non-Tender, No Organomegaly, No Distention, No Abnormal Bruit, No Mass, Pelvis Stable Back Exam: Normal Inspection, Full Range of Motion Extremities: Normal Inspection, Normal Range of Motion, Non-Tender, No Pedal Edema, Normal Capillary Refill Skin: Warm, Dry, Intact Wound/Incisions: Healing Well Neurological: No New Focal Deficit Psy/Mental Status: Alert, Normal Affect, Normal Mood - Patient Data Lab Results Last 24 hrs: Laboratory Results - last 24 hr 05/11/21 05/11/21 05/11/21 Range/Units 11:34 16:15 16:17 WBC (5.0-10.0) 10^3/uL RBC (4.2-5.4) 10^6/uL Hgb (12.0-16.0) g/dL Hct (37.0-47.0) % MCV (80-100) fL MCH (27.0-34.0) pg MCHC (33.0-35.0) g/dL Plt Count (150-450) 10^3/uL Neut % (Auto) (42.2-75.2) % Lymph % (Auto) (20.5-50.1) % [place] % (Auto) (2-8) % Eos % (Auto) (1.0-3.0) % Baso % (Auto) (0.0-1.0) % PT (9.0-12.0) SEC INR (0.9-1.2) Sodium (136-145) mmol/L Potassium (3.5-5.1) mmol/L Chloride (98-107) mmol/L Carbon Dioxide (21-32) mmol/L Anion Gap (7-13) mEq/L BUN (7-18) mg/dL Creatinine (0.55-1.02) mg/dL Est Cr Clr Drug Dosing mL/min Estimated GFR (MDRD) BUN/Creatinine Ratio (No establ ref range) Glucose (70-99) mg/dL POC Glucose 81 80 (70-99) mg/dL Calcium (8.5-10.1) mg/dL Total Bilirubin (0.2-1.0) mg/dL AST (15-37) U/L ALT (14-59) U/L Alkaline Phosphatase (46-116) U/L Ammonia 84 H (11-32) umol/L Total Protein (6.4-8.2) g/dL Albumin (3.4-5.0) g/dL Globulin Albumin/Globulin Ratio 05/11/21 05/12/21 05/12/21 Range/Units 20:44 06:10 06:10 WBC 3.5 L (5.0-10.0) 10^3/uL RBC 2.44 L (4.2-5.4) 10^6/uL Hgb 8.2 L (12.0-16.0) g/dL Hct 25.6 L (37.0-47.0) % MCV 104.9 H (80-100) fL MCH 33.6 (27.0-34.0) pg MCHC 32.0 L (33.0-35.0) g/dL Plt Count 43 L* (150-450) 10^3/uL Neut % (Auto) 72.2 (42.2-75.2) % Lymph % (Auto) 11.9 L (20.5-50.1) % [place] % (Auto) 12.8 H (2-8) % Eos % (Auto) 2.8 (1.0-3.0) % Baso % (Auto) 0.3 (0.0-1.0) % PT 19.5 H (9.0-12.0) SEC INR 2.0 H (0.9-1.2) Sodium (136-145) mmol/L Potassium (3.5-5.1) mmol/L Chloride (98-107) mmol/L Carbon Dioxide (21-32) mmol/L Anion Gap (7-13) mEq/L BUN (7-18) mg/dL Creatinine (0.55-1.02) mg/dL Est Cr Clr Drug Dosing mL/min Estimated GFR (MDRD) BUN/Creatinine Ratio (No establ ref range) Glucose (70-99) mg/dL POC Glucose 83 (70-99) mg/dL Calcium (8.5-10.1) mg/dL Total Bilirubin (0.2-1.0) mg/dL AST (15-37) U/L ALT (14-59) U/L Alkaline Phosphatase (46-116) U/L Ammonia (11-32) umol/L Total Protein (6.4-8.2) g/dL Albumin (3.4-5.0) g/dL Globulin Albumin/Globulin Ratio 05/12/21 05/12/21 Range/Units 06:10 06:10 WBC (5.0-10.0) 10^3/uL RBC (4.2-5.4) 10^6/uL Hgb (12.0-16.0) g/dL Hct (37.0-47.0) % MCV (80-100) fL MCH (27.0-34.0) pg MCHC (33.0-35.0) g/dL Plt Count (150-450) 10^3/uL Neut % (Auto) (42.2-75.2) % Lymph % (Auto) (20.5-50.1) % [place] % (Auto) (2-8) % Eos % (Auto) (1.0-3.0) % Baso % (Auto) (0.0-1.0) % PT (9.0-12.0) SEC INR (0.9-1.2) Sodium 150 H (136-145) mmol/L Potassium 3.5 (3.5-5.1) mmol/L Chloride 117 H (98-107) mmol/L Carbon Dioxide 22 (21-32) mmol/L Anion Gap 14.5 H (7-13) mEq/L BUN 9 (7-18) mg/dL Creatinine 0.87 (0.55-1.02) mg/dL Est Cr Clr Drug Dosing 76.61 mL/min Estimated GFR (MDRD) > 60 BUN/Creatinine Ratio 10.3 (No establ ref range) Glucose 116 H (70-99) mg/dL POC Glucose (70-99) mg/dL Calcium 8.2 L (8.5-10.1) mg/dL Total Bilirubin 5.5 H (0.2-1.0) mg/dL AST 34 (15-37) U/L ALT 39 (14-59) U/L Alkaline Phosphatase 161 H (46-116) U/L Ammonia 55 H (11-32) umol/L Total Protein 6.0 L (6.4-8.2) g/dL Albumin 2.6 L (3.4-5.0) g/dL Globulin 3.4 Albumin/Globulin Ratio 0.76 Result Diagrams: 05/12/21 06:10 05/12/21 06:10 Sepsis Event Note - Evaluation Sepsis Screening Result: No Definite Risk - Focused Exam Vital Signs: Vital Signs Temp Pulse Resp BP BP Pulse Ox 05/12/21 04:00 97.8 F 68 20 117/65 100 05/12/21 00:00 96.5 F L 71 20 128/65 100 05/11/21 20:39 96.8 F L 73 20 94/50 L 100 - Problem List Review Problem List Initiated/Reviewed/Updated: Yes - My Orders Last 24 Hours: My Active Orders 05/11/21 07:30 Lactulose [Chronulac] 200 gm RECTAL Q4H 05/11/21 15:18 LORazepam [Ativan] 2 mg IVPUSH Q2H PRN 05/12/21 07:30 Dextrose 5% in Water 1,000 ml IV ASDIRECTED 05/12/21 12:00 SODIUM,NA [CHEM] Routine 05/13/21 05:00 CBC WITH AUTO DIFF [HEME] Routine COMPREHENSIVE METABOLIC PN,CMP [CHEM] Routine - Plan Plan:: Surgical History: Per medical records: Umbilical herniorrhaphy, right eye iridotomy, TIPS procedure, right mastectomy for infection and not for malignancy Family History: Unable to obtain Social History: Tobacco: Per medical records: Patient smokes Alcohol: Per medical records: Patient has a history of alcohol abuseunknown if this is ongoing Caffeine: Unable to obtain Drugs: Unable to obtain Allergies: Per medical records: Rocephin Code Status: By default, full Assessment / Plan: 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 The patient's hyperammonemia is chronic and she has a baseline ammonia level of approximately 65. Will monitor ammonia levels intermittently. Xifaxan 550 mg p.o. twice daily plus lactulose 200 g per rectum every 4 hours to be retained for 1 hour or lactulose 30 g p.o. 4 times daily if the patient is able to tolerate p.o./is cooperative Hypernatremia. Will monitor sodium levels intermittently. IV D5W at 60 mils per hour Medical noncompliance. Patient will be counseled regarding medical compliance Cholelithiasis, asymptomatic History of alcohol abuse, unknown if this is ongoing. Seizure precautions. IV as needed Ativan per [facility] protocol Hepatic steatosis/end-stage cirrhosis. Outpatient follow-up with gastroenterology Portal hypertension, status post TIPS procedure Coagulopathy, likely sequelae of end-stage cirrhosis. Will monitor PT/INR periodically Pancytopenia with iron deficiency and macrocytosis and fecal occult blood positive. Likely due to myelosuppression from history of alcohol use. Will monitor CBC periodically. Outpatient follow-up with hematology/oncology. Outpatient follow-up with gastroenterology Diabetes. Will check fasting glucose before every meal and at bedtime and provide insulin sign scale GERD Hyperlipidemia Hypertension Obesity. Patient be counseled regarding lifestyle modification Smoker. Patient be counseled regarding smoking cessation Hypothyroidism. Microscopic hematuria. Outpatient follow-up with urology upon discharge History of rectal wall thickening. Outpatient follow-up with gastroenterology upon discharge Query history of portal vein thrombosis. Outpatient follow-up with gastroenterology upon discharge Degenerative disc disease Diverticulosis Orthostatic hypotension DVT prophylaxis. Bilateral SCD Disposition: Depending on the patient's recheck of her sodium level, she may be a candidate for discharge on this day of May 12, 2021 END OF DOCTOR EMAMIS HISTORY AND PHYSICAL / CONSULTATION NOTE
[2021-05-12] MEDS ORDERED: Dextrose 5% in Water 1,000 ML IV SCH (07:30)
[2021-05-12] MEDS: Insulin Lispro 100 Units/ML 3 ML Vial SUBCUT SCH ×4 (07:52→21:33)
[2021-05-12] MEDS: Lactulose Soln 10 GM/15 ML 30 ML UD Cup PO SCH ×3 (08:54→21:16)
[2021-05-12] MEDS: Rifaximin 550 MG Tab PO SCH ×2 (09:06→21:14)
[2021-05-12] MEDS ORDERED: LORazepam 2 MG/ML SDV IM PRN (23:06)
[2021-05-13] MEDS: Lactulose Soln 10 GM/15 ML 30 ML UD Cup PO SCH ×2 (03:37→08:17)
[2021-05-13] MEDS: Lactulose Soln 10 GM/15 ML 946 ML Bottle RECTAL SCH ×2 (05:25→08:24)
[2021-05-13 06:56] LABS: ANION GAP 12.4 mEq/L (7-13); CHLORIDE,CL 112 mmol/L (98-107); SODIUM,NA 144 mmol/L (136-145)
[2021-05-13] MEDS ORDERED: Potassium Chloride 10 MEQ Tab.ER PO ONE (07:38)
--- NOTE | 2021-05-13 07:42 | PCM.PN ---
- General Info Date of Service: 05/13/21 Subjective Update: The patient is alert today. She endorses no complaints. She denies fever, rigors, nausea, vomiting, cough, wheeze, abdominal pain, chest pain, dyspnea, or any other constitutional complaints. I explained to the patient her current medical condition and plan of care and I have answered all of her questions - Review of Systems General: Reports: No Symptoms HEENT: Reports: No Symptoms Pulmonary: Reports: No Symptoms Cardiovascular: Reports: No Symptoms Gastrointestinal: Reports: No Symptoms Genitourinary: Reports: No Symptoms 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: Reports: No Symptoms Skin: Reports: No Symptoms Neurological: Reports: No Symptoms Psychiatric: Reports: No Symptoms - Patient Data Vitals - Most Recent: Last Vital Signs Temp 97.8 F 05/13/21 03:45 Pulse 80 05/13/21 03:45 Resp 20 05/13/21 03:45 BP 95/56 L 05/13/21 03:45 Pulse Ox 100 05/13/21 03:45 Weight - Most Recent: 171 lb 9.6 oz I&O - Last 24 Hours: Intake & Output 05/12/21 05/13/21 05/13/21 22:59 06:59 14:59 Intake Total 420 100 Output Total 250 350 Balance 170 -250 Lab Results Last 24 Hours: Laboratory Results - last 24 hr 05/12/21 05/12/21 05/12/21 Range/Units 07:28 11:37 12:22 WBC (5.0-10.0) 10^3/uL RBC (4.2-5.4) 10^6/uL Hgb (12.0-16.0) g/dL Hct (37.0-47.0) % MCV (80-100) fL MCH (27.0-34.0) pg MCHC (33.0-35.0) g/dL Plt Count (150-450) 10^3/uL Neut % (Auto) (42.2-75.2) % Lymph % (Auto) (20.5-50.1) % [place] % (Auto) (2-8) % Eos % (Auto) (1.0-3.0) % Baso % (Auto) (0.0-1.0) % Sodium 147 H (136-145) mmol/L Potassium (3.5-5.1) mmol/L Chloride (98-107) mmol/L Carbon Dioxide (21-32) mmol/L Anion Gap (7-13) mEq/L BUN (7-18) mg/dL Creatinine (0.55-1.02) mg/dL Est Cr Clr Drug Dosing mL/min Estimated GFR (MDRD) BUN/Creatinine Ratio (No establ ref range) Glucose (70-99) mg/dL POC Glucose 111 H 157 H (70-99) mg/dL Calcium (8.5-10.1) mg/dL Total Bilirubin (0.2-1.0) mg/dL AST (15-37) U/L ALT (14-59) U/L Alkaline Phosphatase (46-116) U/L Total Protein (6.4-8.2) g/dL Albumin (3.4-5.0) g/dL Globulin Albumin/Globulin Ratio 05/12/21 05/12/21 05/13/21 Range/Units 16:53 21:21 06:20 WBC 3.1 L (5.0-10.0) 10^3/uL RBC 2.23 L (4.2-5.4) 10^6/uL Hgb 7.3 L (12.0-16.0) g/dL Hct 22.9 L (37.0-47.0) % MCV 102.7 H (80-100) fL MCH 32.7 (27.0-34.0) pg MCHC 31.9 L (33.0-35.0) g/dL Plt Count 46 L* (150-450) 10^3/uL Neut % (Auto) 61.6 (42.2-75.2) % Lymph % (Auto) 17.7 L (20.5-50.1) % [place] % (Auto) 16.1 H (2-8) % Eos % (Auto) 3.9 H (1.0-3.0) % Baso % (Auto) 0.7 (0.0-1.0) % Sodium (136-145) mmol/L Potassium (3.5-5.1) mmol/L Chloride (98-107) mmol/L Carbon Dioxide (21-32) mmol/L Anion Gap (7-13) mEq/L BUN (7-18) mg/dL Creatinine (0.55-1.02) mg/dL Est Cr Clr Drug Dosing mL/min Estimated GFR (MDRD) BUN/Creatinine Ratio (No establ ref range) Glucose (70-99) mg/dL POC Glucose 103 H 105 H (70-99) mg/dL Calcium (8.5-10.1) mg/dL Total Bilirubin (0.2-1.0) mg/dL AST (15-37) U/L ALT (14-59) U/L Alkaline Phosphatase (46-116) U/L Total Protein (6.4-8.2) g/dL Albumin (3.4-5.0) g/dL Globulin Albumin/Globulin Ratio 06/24/21 Range/Units 06:20 WBC (5.0-10.0) 10^3/uL RBC (4.2-5.4) 10^6/uL Hgb (12.0-16.0) g/dL Hct (37.0-47.0) % MCV (80-100) fL MCH (27.0-34.0) pg MCHC (33.0-35.0) g/dL Plt Count (150-450) 10^3/uL Neut % (Auto) (42.2-75.2) % Lymph % (Auto) (20.5-50.1) % [place] % (Auto) (2-8) % Eos % (Auto) (1.0-3.0) % Baso % (Auto) (0.0-1.0) % Sodium 144 (136-145) mmol/L Potassium 3.4 L (3.5-5.1) mmol/L Chloride 112 H (98-107) mmol/L Carbon Dioxide 23 (21-32) mmol/L Anion Gap 12.4 (7-13) mEq/L BUN 7 (7-18) mg/dL Creatinine 0.93 (0.55-1.02) mg/dL Est Cr Clr Drug Dosing 71.66 mL/min Estimated GFR (MDRD) > 60 BUN/Creatinine Ratio 7.5 (No establ ref range) Glucose 95 (70-99) mg/dL POC Glucose (70-99) mg/dL Calcium 7.8 L (8.5-10.1) mg/dL Total Bilirubin 3.0 H (0.2-1.0) mg/dL AST 44 H (15-37) U/L ALT 39 (14-59) U/L Alkaline Phosphatase 162 H (46-116) U/L Total Protein 5.4 L (6.4-8.2) g/dL Albumin 2.2 L (3.4-5.0) g/dL Globulin 3.2 Albumin/Globulin Ratio 0.69 Med Orders - Current: Current Medications Acetaminophen (Acetaminophen 325 Mg Tab) 650 mg PO Q4H PRN PRN Reason: Pain (Mild 1-3)/fever Dextrose/Water (50% Dextrose In Water 50 Ml Syringe) 50 ml IVPUSH Q15M PRN PRN Reason: Hypoglycemia Glucagon (Glucagon,Human Recombinant 1 Mg Vial) 1 mg IM Q15M PRN PRN Reason: Hypoglycemia Dextrose/Water (Dextrose 5% In Water) 1,000 mls @ 60 mls/hr IV ASDIRECTED [facility] Last Infusion: 05/12/21 19:30 Dose: 0 mls/hr Documented by: Insulin Human Lispro (Insulin Lispro 100 Units/Ml 3 Ml Vial) 0 unit SUBCUT WITHMEALSANDBED [facility]; Protocol Last Admin: 05/12/21 21:33 Dose: Not Given Documented by: Lactulose (Lactulose Soln 10 Gm/15 Ml 30 Ml Ud Cup) 30 gm PO Q6H [facility] Last Admin: 05/13/21 03:37 Dose: 30 gm Documented by: Lactulose (Lactulose Soln 10 Gm/15 Ml 946 Ml Bottle) 200 gm RECTAL Q6H [facility] Last Admin: 05/13/21 05:25 Dose: Not Given Documented by: Lorazepam (Lorazepam 2 Mg/Ml Sdv) 2 mg IVPUSH Q2H PRN PRN Reason: Agitation Last Admin: 05/12/21 00:44 Dose: 2 mg Documented by: Lorazepam (Lorazepam 2 Mg/Ml Sdv) 2 mg IM Q2H PRN PRN Reason: Agitation Ondansetron HCl (Ondansetron 4 Mg/2 Ml Sdv) 4 mg IVPUSH Q4H PRN PRN Reason: Nausea/Vomiting Potassium Chloride (Potassium Chloride 10 Meq Tab.Er) 40 meq PO ONETIME ONE Stop: 05/13/21 07:39 Rifaximin (Rifaximin 550 Mg Tab) 550 mg PO BID [facility] Last Admin: 05/12/21 21:14 Dose: 550 mg Documented by: Sodium Chloride (Sodium Chloride 0.9% 10 Ml Syringe) 10 ml FLUSH ASDIRECTED PRN PRN Reason: Keep Vein Open Last Admin: 05/12/21 00:45 Dose: 10 ml Documented by: Discontinued Medications Lactulose (Lactulose Soln 10 Gm/15 Ml 30 Ml Ud Cup) 30 gm PO QID [facility] Last Admin: 05/12/21 08:54 Dose: 30 gm Documented by: Lactulose (Lactulose Soln 10 Gm/15 Ml 946 Ml Bottle) 200 gm RECTAL Q6H [facility] Last Admin: 05/11/21 08:10 Dose: 200 gram Documented by: Lactulose (Lactulose Soln 10 Gm/15 Ml 946 Ml Bottle) 200 gm RECTAL Q4H [facility] Last Admin: 05/12/21 08:58 Dose: Not Given Documented by: Lorazepam (Lorazepam 2 Mg/Ml Sdv) 0 mg IV TITRATE PRN; Protocol PRN Reason: alcohol withdrawal Last Admin: 05/09/21 19:30 Dose: 2 mg Documented by: Lorazepam (Lorazepam 2 Mg/Ml Sdv) 1 mg IVPUSH Q2H PRN PRN Reason: Agitation Last Admin: 05/11/21 14:17 Dose: 1 mg Documented by: - Exam General: Alert, Oriented HEENT: Pupils Equal, Pupils Reactive, EOMI, Mucous Membr. Moist/[place] Neck: Supple Lungs: Clear to Auscultation, Normal Respiratory Effort Cardiovascular: Regular Rate, Regular Rhythm GI/Abdominal Exam: Normal Bowel Sounds, Soft, Non-Tender, No Organomegaly, No Distention, No Abnormal Bruit, No Mass, Pelvis Stable Back Exam: Normal Inspection, Full Range of Motion Extremities: Normal Inspection, Normal Range of Motion, Non-Tender, No Pedal Edema, Normal Capillary Refill Skin: Warm, Dry, Intact Wound/Incisions: Healing Well Neurological: No New Focal Deficit Psy/Mental Status: Alert, Normal Affect, Normal Mood - Patient Data Lab Results Last 24 hrs: Laboratory Results - last 24 hr 05/12/21 05/12/21 05/12/21 Range/Units 07:28 11:37 12:22 WBC (5.0-10.0) 10^3/uL RBC (4.2-5.4) 10^6/uL Hgb (12.0-16.0) g/dL Hct (37.0-47.0) % MCV (80-100) fL MCH (27.0-34.0) pg MCHC (33.0-35.0) g/dL Plt Count (150-450) 10^3/uL Neut % (Auto) (42.2-75.2) % Lymph % (Auto) (20.5-50.1) % [place] % (Auto) (2-8) % Eos % (Auto) (1.0-3.0) % Baso % (Auto) (0.0-1.0) % Sodium 147 H (136-145) mmol/L Potassium (3.5-5.1) mmol/L Chloride (98-107) mmol/L Carbon Dioxide (21-32) mmol/L Anion Gap (7-13) mEq/L BUN (7-18) mg/dL Creatinine (0.55-1.02) mg/dL Est Cr Clr Drug Dosing mL/min Estimated GFR (MDRD) BUN/Creatinine Ratio (No establ ref range) Glucose (70-99) mg/dL POC Glucose 111 H 157 H (70-99) mg/dL Calcium (8.5-10.1) mg/dL Total Bilirubin (0.2-1.0) mg/dL AST (15-37) U/L ALT (14-59) U/L Alkaline Phosphatase (46-116) U/L Total Protein (6.4-8.2) g/dL Albumin (3.4-5.0) g/dL Globulin Albumin/Globulin Ratio 05/12/21 05/12/21 05/13/21 Range/Units 16:53 21:21 06:20 WBC 3.1 L (5.0-10.0) 10^3/uL RBC 2.23 L (4.2-5.4) 10^6/uL Hgb 7.3 L (12.0-16.0) g/dL Hct 22.9 L (37.0-47.0) % MCV 102.7 H (80-100) fL MCH 32.7 (27.0-34.0) pg MCHC 31.9 L (33.0-35.0) g/dL Plt Count 46 L* (150-450) 10^3/uL Neut % (Auto) 61.6 (42.2-75.2) % Lymph % (Auto) 17.7 L (20.5-50.1) % [place] % (Auto) 16.1 H (2-8) % Eos % (Auto) 3.9 H (1.0-3.0) % Baso % (Auto) 0.7 (0.0-1.0) % Sodium (136-145) mmol/L Potassium (3.5-5.1) mmol/L Chloride (98-107) mmol/L Carbon Dioxide (21-32) mmol/L Anion Gap (7-13) mEq/L BUN (7-18) mg/dL Creatinine (0.55-1.02) mg/dL Est Cr Clr Drug Dosing mL/min Estimated GFR (MDRD) BUN/Creatinine Ratio (No establ ref range) Glucose (70-99) mg/dL POC Glucose 103 H 105 H (70-99) mg/dL Calcium (8.5-10.1) mg/dL Total Bilirubin (0.2-1.0) mg/dL AST (15-37) U/L ALT (14-59) U/L Alkaline Phosphatase (46-116) U/L Total Protein (6.4-8.2) g/dL Albumin (3.4-5.0) g/dL Globulin Albumin/Globulin Ratio /24/ Range/Units 06:20 WBC (5.0-10.0) 10^3/uL RBC (4.2-5.4) 10^6/uL Hgb (12.0-16.0) g/dL Hct (37.0-47.0) % MCV (80-100) fL MCH (27.0-34.0) pg MCHC (33.0-35.0) g/dL Plt Count (150-450) 10^3/uL Neut % (Auto) (42.2-75.2) % Lymph % (Auto) (20.5-50.1) % [place] % (Auto) (2-8) % Eos % (Auto) (1.0-3.0) % Baso % (Auto) (0.0-1.0) % Sodium 144 (136-145) mmol/L Potassium 3.4 L (3.5-5.1) mmol/L Chloride 112 H (98-107) mmol/L Carbon Dioxide 23 (21-32) mmol/L Anion Gap 12.4 (7-13) mEq/L BUN 7 (7-18) mg/dL Creatinine 0.93 (0.55-1.02) mg/dL Est Cr Clr Drug Dosing 71.66 mL/min Estimated GFR (MDRD) > 60 BUN/Creatinine Ratio 7.5 (No establ ref range) Glucose 95 (70-99) mg/dL POC Glucose (70-99) mg/dL Calcium 7.8 L (8.5-10.1) mg/dL Total Bilirubin 3.0 H (0.2-1.0) mg/dL AST 44 H (15-37) U/L ALT 39 (14-59) U/L Alkaline Phosphatase 162 H (46-116) U/L Total Protein 5.4 L (6.4-8.2) g/dL Albumin 2.2 L (3.4-5.0) g/dL Globulin 3.2 Albumin/Globulin Ratio 0.69 Result Diagrams: 05/13/21 06:20 05/13/21 06:20 Sepsis Event Note - Evaluation Sepsis Screening Result: No Definite Risk - Focused Exam Vital Signs: Vital Signs Temp Pulse Resp BP BP Pulse Ox 05/13/21 03:45 97.8 F 80 20 95/56 L 100 05/13/21 00:00 98.3 F 67 20 94/52 L 100 05/12/21 20:00 98.0 F 70 22 H 96/55 L 100 - Problem List Review Problem List Initiated/Reviewed/Updated: Yes - My Orders Last 24 Hours: My Active Orders 05/12/21 07:30 Dextrose 5% in Water 1,000 ml IV ASDIRECTED 05/12/21 15:00 Lactulose [Cephulac] 30 gm PO Q6H Lactulose [Chronulac] 200 gm RECTAL Q6H 05/12/21 23:06 LORazepam [Ativan] 2 mg IM Q2H PRN 05/12/21 23:07 Communication Order [RC] 0805/13/21 07:36 AMMONIA [REF] Routine 05/13/21 07:38 Potassium Chloride [Klor-Con 10] 40 meq PO ONETIME ONE 05/14/21 05:00 AMMONIA [REF] Routine CBC WITH AUTO DIFF [HEME] Routine CMP [COMPREHENSIVE METABOLIC PN,CMP] [CHEM] Routine - Plan Plan:: Surgical History: Per medical records: Umbilical herniorrhaphy, right eye iridotomy, TIPS procedure, right mastectomy for infection and not for malignancy Family History: Unable to obtain Social History: Tobacco: Per medical records: Patient smokes Alcohol: Per medical records: Patient has a history of alcohol abuseunknown if this is ongoing Caffeine: Unable to obtain Drugs: Unable to obtain Allergies: Per medical records: Rocephin Code Status: By default, full Assessment / Plan: 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 The patient's hyperammonemia is chronic and she has a baseline ammonia level of approximately 65. Will monitor ammonia levels intermittently. Xifaxan 550 mg p.o. twice daily plus lactulose 200 g per rectum every 4 hours to be retained for 1 hour or lactulose 30 g p.o. 4 times daily if the patient is able to to lerate p.o./is cooperative Hypernatremia. Will monitor sodium levels intermittently. IV D5W at 60 mils per hour Hypokalemia. Will monitor potassium levels intermittently and supplement as necessary Medical noncompliance. Patient will be counseled regarding medical compliance Cholelithiasis, asymptomatic History of alcohol abuse, unknown if this is ongoing. Seizure precautions. IV as needed Ativan per [facility] protocol Hepatic steatosis/end-stage cirrhosis. Outpatient follow-up with [facility] Portal hypertension, status post TIPS procedure Coagulopathy, likely sequelae of end-stage cirrhosis. Will monitor PT/INR periodically Pancytopenia with iron deficiency and macrocytosis and fecal occult blood positive. Likely due to myelosuppression from history of alcohol use. Will monitor CBC periodically. Outpatient follow-up with hematology/oncology. Outpatient follow-up with gastroenterology Diabetes. Will check fasting glucose before every meal and at bedtime and pro vide insulin sign scale GERD Hyperlipidemia Hypertension Obesity. Patient be counseled regarding lifestyle modification Smoker. Patient be counseled regarding smoking cessation Hypothyroidism. Microscopic hematuria. Outpatient follow-up with urology upon discharge History of rectal wall thickening. Outpatient follow-up with gastroenterology upon discharge Query history of portal vein thrombosis. Outpatient follow-up with gastroenterology upon discharge Degenerative disc disease Diverticulosis Orthostatic hypotension DVT prophylaxis. Bilateral SCD Disposition: The patient appears medically stable for discharge on this day of May 13, 2021. All discussed with case management/social work END OF DOCTOR EMAMIS HISTORY AND PHYSICAL / CONSULTATION NOTE
[2021-05-13] MEDS: Rifaximin 550 MG Tab PO SCH (08:15)
[2021-05-13 08:21] VITALS: BP 96/63; PULSE 73
[2021-05-13] MEDS: Insulin Lispro 100 Units/ML 3 ML Vial SUBCUT SCH (08:24)
--- NOTE | 2021-05-13 09:02 | PCM.DCSUM1 ---
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 with baseline ammonia level approximately 65 Secondary Diagnosis: Hyponatremia Medical noncompliance Cholelithiasis, asymptomatic History of alcohol abuse, this appears to be remote Hepatic steatosis/end-stage cirrhosis Portal hypertension, status post TIPS procedure Coagulopathy, likely sequelae of end-stage cirrhosis Pancytopenia with iron deficiency and macrocytosis and fecal occult blood positive stool likely due to myelosuppression from remote history of alcohol use Diabetes GERD Hyperlipidemia Hypertension Obesity Smoker Hypothyroidism Microscopic hematuria History of rectal wall thickening Query history of portal vein thrombosis Degenerative disc disease Diverticulosis Orthostatic hypotension Hypokalemia, status post treatment Consultations: None Condition on Discharge: Fair. Patient at baseline state of health Disposition: The patient is advised follow-up with gastroenterology/hepatology 10 to 14 days post discharge for her history of rectal wall thickening, fecal occult blood positive stool, and end-stage cirrhosis The patient is advised follow-up with hematology/oncology 2 weeks post discharge for diagnosis of pancytopenia The patient is advised follow-up with urology 2 weeks post discharge for diagnosis microscopic hematuria The patient is advised follow-up with her primary care physician or provider 5 to 7 days post discharge The patient require check of CBC 4 days post discharge for diagnosis of pancytopenia Discharge Medications: Thiamine 1 mg p.o. daily Aldactone 25 mg p.o. daily Xifaxan 550 mg p.o. twice daily Zofran 4 mg p.o. twice daily as needed nausea/vomiting Prilosec 20 mg p.o. daily Multivitamin 1 tab p.o. daily Lasix 40 mg p.o. daily Midodrine 7.5 mg p.o. 3 times daily Magnesium oxide 200 mg p.o. daily Lactulose 30 g p.o. every 6 hours Ferrous sulfate 3.5 mg p.o. twice daily Calcium/vitamin D: Unspecified dose: 1 tab p.o. daily Vitamin C 500 mg p.o. daily END OF DOCTOR EMAMIS DISCHARGE SUMMARY - Discharge Data Discharge Date: 05/13/21 Discharge Disposition: Home, Self-Care 01 Condition: Fair - Referral to Home Health Primary Care Physician: PCP None - Patient Summary/Data Consults: Consultations 05/09/21 18:29 Consult to Case Management/Educational Advisor [CONS] Routine Consult to Hospice [CONS] Routine - Patient Instructions Diet: Heart Healthy Diet, Low Sodium, Diabetic Diet Activity: As Tolerated - Discharge Plan *PRESCRIPTION DRUG MONITORING PROGRAM REVIEWED*: Not Applicable *COPY OF PRESCRIPTION DRUG MONITORING REPORT IN PATIENT LAYLA: Not Applicable Home Medications: Home Meds Calcium Citrate/Vitamin D3 [Calcium Citrate - Vit D Tablet] 500 mg PO DAILY 02/28/18 [History] Thiamine Mononitrate (Vit B1) [Vitamin B-1] 100 mg PO DAILY 02/19/21 [History] Furosemide [Lasix] 40 mg PO DAILY 04/29/21 [History] Magnesium Oxide 200 mg PO DAILY 04/29/21 [History] Midodrine 7.5 mg PO TIDAC 04/29/21 [History] Multivitamin [Daily Khoi] 1 tab PO DAILY 04/29/21 [History] Omeprazole 20 mg PO ACBREAKFAST 04/29/21 [History] Spironolactone [Aldactone] 25 mg PO DAILY 04/29/21 [History] ondansetron HCL [Ondansetron HCl] 4 mg PO BID PRN 04/29/21 [History] Ascorbic Acid [Vitamin C] 500 mg PO DAILY 30 Days #30 tablet 04/30/21 [Rx] Ferrous Sulfate 325 mg PO BIDMEALS 30 Days #60 tablet 04/30/21 [Rx] Lactulose [Cephulac] 30 gm PO Q6HR 30 Days #5400 cup 04/30/21 [Rx] Rifaximin [Xifaxan] 550 mg PO BID 05/11/21 [History] Referrals: Justin Bronson NP [Physician] - - Discharge Summary/Plan Comment DC Time >30 min.: Yes - General Info Date of Service: 05/13/21 - Review of Systems General: Reports: No Symptoms HEENT: Reports: No Symptoms Pulmonary: Reports: No Symptoms Cardiovascular: Reports: No Symptoms Gastrointestinal: Reports: No Symptoms Genitourinary: Reports: No Symptoms 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: Reports: No Symptoms Skin: Reports: No Symptoms Neurological: Reports: No Symptoms Psychiatric: Reports: No Symptoms - Patient Data Vitals - Most Recent: Last Vital Signs Temp 98 F 05/13/21 08:00 Pulse 73 05/13/21 08:00 Resp 20 05/13/21 08:00 BP 96/63 05/13/21 08:00 Pulse Ox 100 05/13/21 08:00 Weight - Most Recent: 171 lb 9.6 oz I&O - Last 24 hours: Intake & Output 05/12/21 05/13/21 05/13/21 22:59 06:59 14:59 Intake Total 420 100 Output Total 250 350 Balance 170 -250 Lab Results - Last 24 hrs: Laboratory Results - last 24 hr 05/12/21 05/12/21 05/12/21 Range/Units 11:37 12:22 16:53 WBC (5.0-10.0) 10^3/uL RBC (4.2-5.4) 10^6/uL Hgb (12.0-16.0) g/dL Hct (37.0-47.0) % MCV (80-100) fL MCH (27.0-34.0) pg MCHC (33.0-35.0) g/dL Plt Count (150-450) 10^3/uL Neut % (Auto) (42.2-75.2) % Lymph % (Auto) (20.5-50.1) % [place] % (Auto) (2-8) % Eos % (Auto) (1.0-3.0) % Baso % (Auto) (0.0-1.0) % Sodium 147 H (136-145) mmol/L Potassium (3.5-5.1) mmol/L Chloride (98-107) mmol/L Carbon Dioxide (21-32) mmol/L Anion Gap (7-13) mEq/L BUN (7-18) mg/dL Creatinine (0.55-1.02) mg/dL Est Cr Clr Drug Dosing mL/min Estimated GFR (MDRD) BUN/Creatinine Ratio (No establ ref range) Glucose (70-99) mg/dL POC Glucose 157 H 103 H (70-99) mg/dL Calcium (8.5-10.1) mg/dL Total Bilirubin (0.2-1.0) mg/dL AST (15-37) U/L ALT (14-59) U/L Alkaline Phosphatase (46-116) U/L Ammonia (11-32) umol/L Total Protein (6.4-8.2) g/dL Albumin (3.4-5.0) g/dL Globulin Albumin/Globulin Ratio 05/12/21 05/13/21 05/13/21 Range/Units 21:21 06:20 06:20 WBC 3.1 L (5.0-10.0) 10^3/uL RBC 2.23 L (4.2-5.4) 10^6/uL Hgb 7.3 L (12.0-16.0) g/dL Hct 22.9 L (37.0-47.0) % MCV 102.7 H (80-100) fL MCH 32.7 (27.0-34.0) pg MCHC 31.9 L (33.0-35.0) g/dL Plt Count 46 L* (150-450) 10^3/uL Neut % (Auto) 61.6 (42.2-75.2) % Lymph % (Auto) 17.7 L (20.5-50.1) % [place] % (Auto) 16.1 H (2-8) % Eos % (Auto) 3.9 H (1.0-3.0) % Baso % (Auto) 0.7 (0.0-1.0) % Sodium 144 (136-145) mmol/L Potassium 3.4 L (3.5-5.1) mmol/L Chloride 112 H (98-107) mmol/L Carbon Dioxide 23 (21-32) mmol/L Anion Gap 12.4 (7-13) mEq/L BUN 7 (7-18) mg/dL Creatinine 0.93 (0.55-1.02) mg/dL Est Cr Clr Drug Dosing 71.66 mL/min Estimated GFR (MDRD) > 60 BUN/Creatinine Ratio 7.5 (No establ ref range) Glucose 95 (70-99) mg/dL POC Glucose 105 H (70-99) mg/dL Calcium 7.8 L (8.5-10.1) mg/dL Total Bilirubin 3.0 H (0.2-1.0) mg/dL AST 44 H (15-37) U/L ALT 39 (14-59) U/L Alkaline Phosphatase 162 H (46-116) U/L Ammonia (11-32) umol/L Total Protein 5.4 L (6.4-8.2) g/dL Albumin 2.2 L (3.4-5.0) g/dL Globulin 3.2 Albumin/Globulin Ratio 0.69 05/13/21 05/13/21 Range/Units 07:52 08:20 WBC (5.0-10.0) 10^3/uL RBC (4.2-5.4) 10^6/uL Hgb (12.0-16.0) g/dL Hct (37.0-47.0) % MCV (80-100) fL MCH (27.0-34.0) pg MCHC (33.0-35.0) g/dL Plt Count (150-450) 10^3/uL Neut % (Auto) (42.2-75.2) % Lymph % (Auto) (20.5-50.1) % [place] % (Auto) (2-8) % Eos % (Auto) (1.0-3.0) % Baso % (Auto) (0.0-1.0) % Sodium (136-145) mmol/L Potassium (3.5-5.1) mmol/L Chloride (98-107) mmol/L Carbon Dioxide (21-32) mmol/L Anion Gap (7-13) mEq/L BUN (7-18) mg/dL Creatinine (0.55-1.02) mg/dL Est Cr Clr Drug Dosing mL/min Estimated GFR (MDRD) BUN/Creatinine Ratio (No establ ref range) Glucose (70-99) mg/dL POC Glucose 86 (70-99) mg/dL Calcium (8.5-10.1) mg/dL Total Bilirubin (0.2-1.0) mg/dL AST (15-37) U/L ALT (14-59) U/L Alkaline Phosphatase (46-116) U/L Ammonia 47 H (11-32) umol/L Total Protein (6.4-8.2) g/dL Albumin (3.4-5.0) g/dL Globulin Albumin/Globulin Ratio Med Orders - Current: Current Medications Acetaminophen (Acetaminophen 325 Mg Tab) 650 mg PO Q4H PRN PRN Reason: Pain (Mild 1-3)/fever Dextrose/Water (50% Dextrose In Water 50 Ml Syringe) 50 ml IVPUSH Q15M PRN PRN Reason: Hypoglycemia Glucagon (Glucagon,Human Recombinant 1 Mg Vial) 1 mg IM Q15M PRN PRN Reason: Hypoglycemia Dextrose/Water (Dextrose 5% In Water) 1,000 mls @ 60 mls/hr IV ASDIRECTED [facility] Last Infusion: 05/12/21 19:30 Dose: 0 mls/hr Documented by: Insulin Human Lispro (Insulin Lispro 100 Units/Ml 3 Ml Vial) 0 unit SUBCUT WIT HMEALSANDBED [facility]; Protocol Last Admin: 05/13/21 08:24 Dose: Not Given Documented by: Lactulose (Lactulose Soln 10 Gm/15 Ml 30 Ml Ud Cup) 30 gm PO Q6H [facility] Last Admin: 05/13/21 08:17 Dose: 30 gm Documented by: Lactulose (Lactulose Soln 10 Gm/15 Ml 946 Ml Bottle) 200 gm RECTAL Q6H [facility] Last Admin: 05/13/21 08:24 Dose: Not Given Documented by: Lorazepam (Lorazepam 2 Mg/Ml Sdv) 2 mg IVPUSH Q2H PRN PRN Reason: Agitation Last Admin: 05/12/21 00:44 Dose: 2 mg Documented by: Lorazepam (Lorazepam 2 Mg/Ml Sdv) 2 mg IM Q2H PRN PRN Reason: Agitation Ondansetron HCl (Ondansetron 4 Mg/2 Ml Sdv) 4 mg IVPUSH Q4H PRN PRN Reason: Nausea/Vomiting Rifaximin (Rifaximin 550 Mg Tab) 550 mg PO BID [facility] Last Admin: 05/13/21 08:15 Dose: 550 mg Documented by: Sodium Chloride (Sodium Chloride 0.9% 10 Ml Syringe) 10 ml FLUSH ASDIRECTED PRN PRN Reason: Keep Vein Open Last Admin: 05/12/21 00:45 Dose: 10 ml Documented by: Discontinued Medications Lactulose (Lactulose Soln 10 Gm/15 Ml 30 Ml Ud Cup) 30 gm PO QID [facility] Last Admin: 05/12/21 08:54 Dose: 30 gm Documented by: Lactulose (Lactulose Soln 10 Gm/15 Ml 946 Ml Bottle) 200 gm RECTAL Q6H [facility] Last Admin: 05/11/21 08:10 Dose: 200 gram Documented by: Lactulose (Lactulose Soln 10 Gm/15 Ml 946 Ml Bottle) 200 gm RECTAL Q4H [facility] Last Admin: 05/12/21 08:58 Dose: Not Given Documented by: Lorazepam (Lorazepam 2 Mg/Ml Sdv) 0 mg IV TITRATE PRN; Protocol PRN Reason: alcohol withdrawal Last Admin: 05/09/21 19:30 Dose: 2 mg Documented by: Lorazepam (Lorazepam 2 Mg/Ml Sdv) 1 mg IVPUSH Q2H PRN PRN Reason: Agitation Last Admin: 05/11/21 14:17 Dose: 1 mg Documented by: Potassium Chloride (Potassium Chloride 10 Meq Tab.Er) 40 meq PO ONETIME ONE Stop: 05/13/21 07:39 Last Admin: 05/13/21 08:20 Dose: 40 meq Documented by: - Exam General: Reports: Alert, Oriented HEENT: Reports: Pupils Equal, Pupils Reactive, EOMI, Mucous Membr. Moist/[place] Neck: Reports: Supple Lungs: Reports: Clear to Auscultation, Normal Respiratory Effort Cardiovascular: Reports: Regular Rate, Regular Rhythm GI/Abdominal Exam: Normal Bowel Sounds, Soft, Non-Tender, No Organomegaly, No Distention, No Abnormal Bruit, No Mass, Pelvis Stable Back Exam: Reports: Normal Inspection, Full Range of Motion Extremities: Normal Inspection, Normal Range of Motion, Non-Tender, No Pedal Edema, Normal Capillary Refill Skin: Reports: Warm, Dry, Intact Wound/Incisions: Reports: Healing Well Neurological: Reports: No New Focal Deficit Psy/Mental Status: Reports: Alert, Normal Affect, Normal Mood
== END 2021-05-13 09:55 | disposition home or self-care (01) | DRG 442 ==
LOC: DL.ED 13:42 → EEVIPCON 16:43 → DL.MS 16:43
PROVIDERS: ADMIT Internal Medicine; ATTEND Internal Medicine
DX: K72.00 Acute and subacute hepatic failure without coma (principal); K76.6 Portal hypertension; D61.818 Other pancytopenia; D68.9 Coagulation defect, unspecified; E87.0 Hyperosmolality and hypernatremia; E11.9 Type 2 diabetes mellitus without complications; K80.20 Calculus of gallbladder without cholecystitis without obstruction; K76.0 Fatty (change of) liver, not elsewhere classified; Z20.822 Contact with and (suspected) exposure to COVID-19; K21.9 Gastro-esophageal reflux disease without esophagitis; E78.5 Hyperlipidemia, unspecified; K70.31 Alcoholic cirrhosis of liver with ascites; I10 Essential (primary) hypertension; F17.200 Nicotine dependence, unspecified, uncomplicated; E03.9 Hypothyroidism, unspecified; K57.90 Diverticulosis of intestine, part unspecified, without perforation or abscess without bleeding; I95.1 Orthostatic hypotension; E87.6 Hypokalemia; H54.7 Unspecified visual loss; H54.40 Blindness, one eye, unspecified eye; E78.00 Pure hypercholesterolemia, unspecified; E11.319 Type 2 diabetes mellitus with unspecified diabetic retinopathy without macular edema; D69.6 Thrombocytopenia, unspecified; R31.29 Other microscopic hematuria; Z91.14 Patient's other noncompliance with medication regimen; Z88.1 Allergy status to other antibiotic agents; Z79.899 Other long term (current) drug therapy; Z86.14 Personal history of Methicillin resistant Staphylococcus aureus infection; Z28.82 Immunization not carried out because of caregiver refusal
CPT/HCPCS: 36415; 80053; 82140; 82803; 82947; 84295; 84439; 84443; 84484; 85025; 85610; 99223; 99232; 99239; 99284; 99285; A9270-GY; J1815-GY; J2060; J7060; U0002

== ENCOUNTER 2021-05-15 11:00 | Inpatient (IN) | payer MEDICAID ==
[2021-05-15 11:59] LABS: ANION GAP 13.3 mEq/L (7-13); CHLORIDE,CL 111 mmol/L (98-107); SODIUM,NA 142 mmol/L (136-145)
[2021-05-15] MEDS ORDERED: Lactulose Soln 10 GM/15 ML 946 ML Bottle RECTAL ONE (12:40)
[2021-05-15] MEDS ORDERED: Ondansetron 4 MG/2 ML SDV IVPUSH PRN (13:13)
[2021-05-15] MEDS ORDERED: 50% Dextrose in Water 50 ML Syringe IVPUSH PRN (13:18)
[2021-05-15] MEDS ORDERED: Glucagon,Human Recombinant 1 MG Vial IM PRN (13:18)
--- NOTE | 2021-05-15 13:27 | PCM.HP ---
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 Patient has known history of cirrhosis with resultant hepatic encephalopathy for which she is frequently noncompliant with her medication. In the emergency department she is found to be hyperammonemic once again. At the present time the patient remains enc ephalopathic and I am unable to obtain further history of present illness. She presents for further evaluation - Related Data Allergies/Adverse Reactions: Allergies Allergy/AdvReac Type Severity Reaction Status Date / Time ceftriaxone [From Rocephin] Allergy Intermediate Hives Verified 05/09/21 18:55 Home Medications: Home Meds Calcium Citrate/Vitamin D3 [Calcium Citrate - Vit D Tablet] 500 mg PO DAILY 02/28/18 [History] Thiamine Mononitrate (Vit B1) [Vitamin B-1] 100 mg PO DAILY 02/19/21 [History] Furosemide [Lasix] 40 mg PO DAILY 04/29/21 [History] Magnesium Oxide 200 mg PO DAILY 04/29/21 [History] Midodrine 7.5 mg PO TIDAC 04/29/21 [History] Multivitamin [Daily Khoi] 1 tab PO DAILY 04/29/21 [History] Omeprazole 20 mg PO ACBREAKFAST 04/29/21 [History] Spironolactone [Aldactone] 25 mg PO DAILY 04/29/21 [History] ondansetron HCL [Ondansetron HCl] 4 mg PO BID PRN 04/29/21 [History] Ascorbic Acid [Vitamin C] 500 mg PO DAILY 30 Days #30 tablet 04/30/21 [Rx] Ferrous Sulfate 325 mg PO BIDMEALS 30 Days #60 tablet 04/30/21 [Rx] Lactulose [Cephulac] 30 gm PO Q6HR 30 Days #5400 cup 04/30/21 [Rx] Rifaximin [Xifaxan] 550 mg PO BID 05/11/21 [History] Past Medical History HEENT History: Reports: Impaired Vision Other HEENT History: legally blind per [facility] reports, blindness to right eye, presbyopia, diabetic retinopathy Cardiovascular History: Reports: Heart Murmur, High Cholesterol, Hypertension Other Cardiovascular History: MURMUR Respiratory History: Reports: None Gastrointestinal History: Reports: Cirrhosis, Other (See Below) Other Gastrointestinal History: HX OF ABNORMAL LIVER STUDIES , umbilical hernia present Genitourinary History: Reports: Dialysis, Peritoneal 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: 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 History: Reports: None Neurological History: Reports: None Psychiatric History: Reports: Addiction Other Psychiatric History: acute alcohol abuse Endocrine/Metabolic History: Reports: Diabetes, Type II, Hypothyroidism Hematologic History: Reports: Anemia Other Hematologic History: acquired thrombocytopenia Immunologic History: Reports: None Oncologic (Cancer) History: Reports: None Dermatologic History: Reports: Cellulitis Other Dermatologic History: RIGHT BREAST CELLULITUS - Infectious Disease History Infectious Disease History: Reports: MRSA Other Infectious Disease History: unable to obtain due to nonverbal status at this time - Past Surgical History Head Surgeries/Procedures: Reports: None HEENT Surgical History: Reports: None Other HEENT Surgeries/Procedures: Right eye iridotomy Cardiovascular Surgical History: Reports: None Respiratory Surgical History: Reports: None GI Surgical History: Reports: Colonoscopy, EGD Female Surgical History: Reports: Section, Mastectomy 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 Surgical History: Reports: None Oncologic Surgical History: Reports: Mastectomy Other Oncologic Surgeries/Procedures: RIGHT MASTECTOMY Dermatological Surgical History: Reports: Other (See Below) Social & Family History - Family History Family Medical History: Unobtainable - Tobacco Use Tobacco Use Status *Q: Unknown Ever Used Tobacco - Caffeine Use Caffeine Use: Reports: Tea Caffeine Use Comment: 1 8oz cup daily - Living Situation & Occupation Living situation: Reports: with Family Occupation: Employed H&P Review of Systems - Review of Systems: Review Of Systems: Unable To Obtain Reason Not Obtained: The patient is encephalopathic due to hyperammonemia Exam - Exam Exam: See Below - Vital Signs Vital Signs: Last Vital Signs Temp 97.3 F 05/15/21 11:08 Pulse 65 05/15/21 11:08 Resp 15 05/15/21 11:08 BP 107/59 L 05/15/21 11:08 Pulse Ox 96 05/15/21 11:08 Weight: 174 lb 3.2 oz - Exam General: Obtunded HEENT: Conjunctiva Clear Neck: Supple, Trachea Midline, +2 Carotid Pulse wo Bruit Lungs: Clear to Auscultation, Normal Respiratory Effort Cardiovascular: Regular Rate, Regular Rhythm GI/Abdominal Exam: Normal Bowel Sounds, Soft, Non-Tender, No Organomegaly, No Distention, No Abnormal Bruit Back Exam: Normal Inspection Extremities: Normal Inspection, Normal Range of Motion, Non-Tender, No Pedal E devika, Normal Capillary Refill Peripheral Pulses: 2+: Carotid (L), Carotid (R), Brachial (L), Brachial (R), Radial (L), Radial (R), Femoral (L), Femoral (R), Popliteal (L), Popliteal (R), Posterior Tibial (L), Posterior Tibial (R), Dorsalis Pedis (L), Dorsalis Pedis (R) Skin: Warm, Dry, Intact DTR: 2+: Bicep (L), Bicep (R), Tricep (L), Tricep (R), Patella (L), Patella (R), Achilles (L), Achilles (R) - Patient Data Lab Results Last 24 hrs: Laboratory Results - last 24 hr 05/15/21 05/15/21 05/15/21 Range/Units 11:03 11:10 11:10 WBC 3.3 L (5.0-10.0) 10^3/uL RBC 2.33 L (4.2-5.4) 10^6/uL Hgb 7.9 L (12.0-16.0) g/dL Hct 23.6 L (37.0-47.0) % MCV 101.3 H (80-100) fL MCH 33.9 (27.0-34.0) pg MCHC 33.5 (33.0-35.0) g/dL Plt Count 48 L* (150-450) 10^3/uL Neut % (Auto) 59.7 (42.2-75.2) % Lymph % (Auto) 20.9 (20.5-50.1) % [place] % (Auto) 13.0 H (2-8) % Eos % (Auto) 6.1 H (1.0-3.0) % Baso % (Auto) 0.3 (0.0-1.0) % Sodium (136-145) mmol/L Potassium (3.5-5.1) mmol/L Chloride (98-107) mmol/L Carbon Dioxide (21-32) mmol/L Anion Gap (7-13) mEq/L BUN (7-18) mg/dL Creatinine (0.55-1.02) mg/dL Est Cr Clr Drug Dosing mL/min Estimated GFR (MDRD) BUN/Creatinine Ratio (No establ ref range) Glucose (70-99) mg/dL POC Glucose 103 H (70-99) mg/dL Lactic Acid 1.2 (0.4-2.0) mmol/L Calcium (8.5-10.1) mg/dL Total Bilirubin (0.2-1.0) mg/dL AST (15-37) U/L ALT (14-59) U/L Alkaline Phosphatase (46-116) U/L Ammonia (11-32) umol/L Total Protein (6.4-8.2) g/dL Albumin (3.4-5.0) g/dL Globulin Albumin/Globulin Ratio 05/15/21 05/15/21 Range/Units 11:10 11:10 WBC (5.0-10.0) 10^3/uL RBC (4.2-5.4) 10^6/uL Hgb (12.0-16.0) g/dL Hct (37.0-47.0) % MCV (80-100) fL MCH (27.0-34.0) pg MCHC (33.0-35.0) g/dL Plt Count (150-450) 10^3/uL Neut % (Auto) (42.2-75.2) % Lymph % (Auto) (20.5-50.1) % [place] % (Auto) (2-8) % Eos % (Auto) (1.0-3.0) % Baso % (Auto) (0.0-1.0) % Sodium 142 (136-145) mmol/L Potassium 4.3 (3.5-5.1) mmol/L Chloride 111 H (98-107) mmol/L Carbon Dioxide 22 (21-32) mmol/L Anion Gap 13.3 H (7-13) mEq/L BUN 10 (7-18) mg/dL Creatinine 0.96 (0.55-1.02) mg/dL Est Cr Clr Drug Dosing 59.19 mL/min Estimated GFR (MDRD) > 60 BUN/Creatinine Ratio 10.4 (No establ ref range) Glucose 120 H (70-99) mg/dL POC Glucose (70-99) mg/dL Lactic Acid (0.4-2.0) mmol/L Calcium 7.7 L (8.5-10.1) mg/dL Total Bilirubin 3.0 H (0.2-1.0) mg/dL AST 41 H (15-37) U/L ALT 40 (14-59) U/L Alkaline Phosphatase 186 H (46-116) U/L Ammonia 236 H (11-32) umol/L Total Protein 5.7 L (6.4-8.2) g/dL Albumin 2.3 L (3.4-5.0) g/dL Globulin 3.4 Albumin/Globulin Ratio 0.68 Result Diagrams: 05/15/21 11:10 05/15/21 11:10 Problem List Initiated/Reviewed/Updated: Yes Orders Last 24hrs: Active Orders 24 hr Category Date Time Status Admission Diagnosis [ADT] Stat ADT 05/15/21 12:51 Ordered Admission Status [Patient Status] [ADT] Routine ADT 05/15/21 12:51 Active Antiembolic Devices [RC] PER UNIT ROUTINE Care 05/15/21 13:15 Ordered Aspiration Precautions [RC] ASDIRECTED Care 05/15/21 13:19 Ordered Bedrest Bedside Commode [RC] ASDIRECTED Care 05/15/21 13:13 Ordered Blood Glucose Check, Bedside [RC] WITHMEALSANDBED Care 05/15/21 13:13 Ordered Peripheral IV Care [RC] . DIRECTED Care 05/15/21 13:15 Ordered Turn and Reposition [RC] Q2H Care 05/15/21 13:19 Ordered Vital Signs [RC] Q4H Care 05/15/21 13:13 Ordered Consult to Case Management/Global Human Resources Director [CONS] Cons 05/15/21 13:13 Ordered Routine Consult to Hospice [CONS] Routine Cons 05/15/21 13:20 Ordered Nothing per Oral Now Diet [DIET] Diet 05/15/21 Lunch Ordered AMMONIA [REF] Routine Lab 05/16/21 05:00 Ordered CBC WITH AUTO DIFF [HEME] Routine Lab 05/16/21 05:00 Ordered CMP [COMPREHENSIVE METABOLIC PN,CMP] [CHEM] Routine Lab 05/16/21 05:00 Ordered COVID-19/FLU A+B [MOLEC] Stat Lab 05/15/21 12:52 Received INR,PT,PROTHROMBIN TIME [COAG] Routine Lab 05/16/21 05:00 Ordered Dextrose 50% in Water Med 05/15/21 13:18 Ordered 50 ml IVPUSH Q15M PRN Glucagon,Human Recombinant [GlucaGen] Med 05/15/21 13:18 Ordered 1 mg IM Q15M PRN Insulin Lispro [HumaLOG] Med 05/15/21 18:00 Ordered See Protocol SUBCUT WITHMEALSANDBED Lactulose [Cephulac] Med 05/15/21 17:00 Ordered 30 gm PO QID Lactulose [Chronulac] Med 05/15/21 13:30 Ordered 200 gm RECTAL Q6H Ondansetron [Zofran] Med 05/15/21 13:13 Ordered 4 mg IVPUSH Q4H PRN Rifaximin [Xifaxan] Med 05/15/21 13:15 Ordered 550 mg PO BID Sodium Chloride 0.9% [Saline Flush] Med 05/15/21 13:13 Ordered 10 ml FLUSH ASDIRECTED PRN Peripheral IV Insertion Adult [OM.PC] Routine Oth 05/15/21 13:13 Ordered Saline Lock Insert [OM.PC] Routine Oth 05/15/21 13:13 Ordered Sequential Compression Device [OM.PC] Per Unit Routine Oth 05/15/21 13:14 Ordered Resuscitation Status Routine Resus Stat 05/15/21 13:13 Ordered Medication Orders Ondansetron HCl (Ondansetron 4 Mg/2 Ml Sdv) 4 mg IVPUSH Q4H PRN PRN Reason: Nausea/Vomiting Rifaximin (Rifaximin 550 Mg Tab) 550 mg PO BID [facility] Sodium Chloride (Sodium Chloride 0.9% 10 Ml Syringe) 10 ml FLUSH ASDIRECTED PRN PRN Reason: Keep Vein Open Assessment/Plan Comment:: Surgical History: Per medical records, umbilical herniorrhaphy, right eye iridotomy, TIPS procedure, right mastectomy for infection and not for malignancy Family History: Unable to obtain Social History: Tobacco: Per medical records: Active smoker Alcohol: Per medical records: Patient has history of alcohol abuse, I believe this is remote Caffeine: Unable to obtain Drugs: Unable to obtain Allergies: Per medical records: Rocephin Code Status: By default, full Assessment / Plan: 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 Will monitor ammonia level intermittently. Lactulose 200 g per rectum every 6 hours to be retained for 1 hour. When the patient is tolerating p.o., Xifaxan 550 mg p.o. twice daily plus lactulose 30 g p.o. every [address] of lactulose 200 g per rectum every 6 hours to be retained for 1 hour Medical noncompliance. Patient becomes regarding medical compliance Cholelithiasis, asymptomatic History of alcohol useremote Hepatic steatosis/end-stage cirrhosis. Outpatient follow-up with gastroenterology or hepatology upon discharge Portal hypertension, status post TIPS procedure Pancytopenia with features of macrocytosis, iron deficiency, and recent fecal occult blood positive. Will monitor hemoglobin level intermittently. Outpatient follow-up with gastroenterology and hematology/oncology upon discharge Diabetes. Will check fingerstick glucose before every meal and at bedtime and provide insulin sliding scale GERD Hyperlipidemia Hypertension Obesity. Patient be counseled regard lifestyle modification Smoker. Patient will be counseled regarding smoking cessation Coagulopathy, likely due to end-stage cirrhosis will monitor PT/INR periodically Hypothyroidism History of microscopic hematuria. Outpatient follow-up with urology upon discharge History of rectal wall thickening. Outpatient follow-up with gastroenterology upon discharge Query history of portal vein thrombosis Degenerative's disease Diverticulosis Orthostatic hypotension DVT prophylaxis. Bilateral CD Disposition: Anticipate discharge within 72 hours. I requested case management/social work evaluate the patient with a request for referral to hospice, behavioral h ealth/psychiatry, and vulnerable adult with possible need for a conservator for this patient. At the time of admission, the patient's home medications were pending input to the EMR/DHR system. Once their input, they will be reviewed and reconciled END OF DOCTOR EMAMIS HISTORY AND PHYSICAL / CONSULTATION NOTE
[2021-05-15 13:34] LABS: CORONAVIRUS COVID-19 NAA NEGATIVE (NEGATIVE)
[2021-05-15] MEDS: Lactulose Soln 10 GM/15 ML 946 ML Bottle RECTAL SCH ×2 (14:29→19:45)
[2021-05-15] MEDS: Rifaximin 550 MG Tab PO SCH ×2 (15:17→20:48)
[2021-05-15] MEDS: Insulin Lispro 100 Units/ML 3 ML Vial SUBCUT SCH ×2 (18:06→20:48)
[2021-05-15] MEDS: Lactulose Soln 10 GM/15 ML 30 ML UD Cup PO SCH ×2 (18:06→20:48)
[2021-05-15] MEDS: LORazepam 2 MG/ML SDV IVPUSH PRN (19:40)
[2021-05-16] MEDS: Lactulose Soln 10 GM/15 ML 946 ML Bottle RECTAL SCH ×4 (01:50→20:00)
[2021-05-16] MEDS: LORazepam 2 MG/ML SDV IVPUSH PRN ×4 (03:45→19:36)
--- NOTE | 2021-05-16 07:30 | PCM.PN ---
- General Info Date of Service: 05/16/21 Subjective Update: The patient is encephalopathic versus noncooperative (which she has been in the past). Unfortunate because of this, I am unable to obtain symptomatology from the patient - Review of Systems General: Reports: No Symptoms HEENT: Reports: No Symptoms Pulmonary: Reports: No Symptoms Cardiovascular: Reports: No Symptoms Gastrointestinal: Reports: No Symptoms Genitourinary: Reports: No Symptoms 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: Reports: No Symptoms Skin: Reports: No Symptoms Neurological: Reports: No Symptoms Psychiatric: Reports: No Symptoms - Patient Data Vitals - Most Recent: Last Vital Signs Temp 96.4 F L 05/16/21 04:00 Pulse 54 L 05/16/21 04:00 Resp 16 05/16/21 04:00 BP 103/52 L 05/16/21 04:00 Pulse Ox 99 05/16/21 04:00 Weight - Most Recent: 174 lb 9.6 oz I&O - Last 24 Hours: Intake & Output 05/15/21 05/16/21 05/16/21 22:59 06:59 14:59 Intake Total 0 0 Output Total 0 Balance 0 0 Lab Results Last 24 Hours: Laboratory Results - last 24 hr 05/15/21 05/15/21 05/15/21 Range/Units 11:03 11:10 11:10 WBC 3.3 L (5.0-10.0) 10^3/uL RBC 2.33 L (4.2-5.4) 10^6/uL Hgb 7.9 L (12.0-16.0) g/dL Hct 23.6 L (37.0-47.0) % MCV 101.3 H (80-100) fL MCH 33.9 (27.0-34.0) pg MCHC 33.5 (33.0-35.0) g/dL Plt Count 48 L* (150-450) 10^3/uL Neut % (Auto) 59.7 (42.2-75.2) % Lymph % (Auto) 20.9 (20.5-50.1) % Baldwin % (Auto) 13.0 H (2-8) % Eos % (Auto) 6.1 H (1.0-3.0) % Baso % (Auto) 0.3 (0.0-1.0) % Sodium (136-145) mmol/L Potassium (3.5-5.1) mmol/L Chloride (98-107) mmol/L Carbon Dioxide (21-32) mmol/L Anion Gap (7-13) mEq/L BUN (7-18) mg/dL Creatinine (0.55-1.02) mg/dL Est Cr Clr Drug Dosing mL/min Estimated GFR (MDRD) BUN/Creatinine Ratio (No establ ref range) Glucose (70-99) mg/dL POC Glucose 103 H (70-99) mg/dL Lactic Acid 1.2 (0.4-2.0) mmol/L Calcium (8.5-10.1) mg/dL Total Bilirubin (0.2-1.0) mg/dL AST (15-37) U/L ALT (14-59) U/L Alkaline Phosphatase (46-116) U/L Ammonia (11-32) umol/L Total Protein (6.4-8.2) g/dL Albumin (3.4-5.0) g/dL Globulin Albumin/Globulin Ratio Influenza Type A RNA (NEGATIVE) Influenza Type B RNA (NEGATIVE) SARS-CoV-2 RNA (TERESITA) (NEGATIVE) 05/15/21 05/15/21 05/15/21 Range/Units 11:10 11:10 12:52 WBC (5.0-10.0) 10^3/uL RBC (4.2-5.4) 10^6/uL Hgb (12.0-16.0) g/dL Hct (37.0-47.0) % MCV (80-100) fL MCH (27.0-34.0) pg MCHC (33.0-35.0) g/dL Plt Count (150-450) 10^3/uL Neut % (Auto) (42.2-75.2) % Lymph % (Auto) (20.5-50.1) % Baldwin % (Auto) (2-8) % Eos % (Auto) (1.0-3.0) % Baso % (Auto) (0.0-1.0) % Sodium 142 (136-145) mmol/L Potassium 4.3 (3.5-5.1) mmol/L Chloride 111 H (98-107) mmol/L Carbon Dioxide 22 (21-32) mmol/L Anion Gap 13.3 H (7-13) mEq/L BUN 10 (7-18) mg/dL Creatinine 0.96 (0.55-1.02) mg/dL Est Cr Clr Drug Dosing 59.19 mL/min Estimated GFR (MDRD) > 60 BUN/Creatinine Ratio 10.4 (No establ ref range) Glucose 120 H (70-99) mg/dL POC Glucose (70-99) mg/dL Lactic Acid (0.4-2.0) mmol/L Calcium 7.7 L (8.5-10.1) mg/dL Total Bilirubin 3.0 H (0.2-1.0) mg/dL AST 41 H (15-37) U/L ALT 40 (14-59) U/L Alkaline Phosphatase 186 H (46-116) U/L Ammonia 236 H (11-32) umol/L Total Protein 5.7 L (6.4-8.2) g/dL Albumin 2.3 L (3.4-5.0) g/dL Globulin 3.4 Albumin/Globulin Ratio 0.68 Influenza Type A RNA Negative (NEGATIVE) Influenza Type B RNA Negative (NEGATIVE) SARS-CoV-2 RNA (TERESITA) Negative (NEGATIVE) 05/15/21 05/15/21 Range/Units 16:29 20:32 WBC (5.0-10.0) 10^3/uL RBC (4.2-5.4) 10^6/uL Hgb (12.0-16.0) g/dL Hct (37.0-47.0) % MCV (80-100) fL MCH (27.0-34.0) pg MCHC (33.0-35.0) g/dL Plt Count (150-450) 10^3/uL Neut % (Auto) (42.2-75.2) % Lymph % (Auto) (20.5-50.1) % Baldwin % (Auto) (2-8) % Eos % (Auto) (1.0-3.0) % Baso % (Auto) (0.0-1.0) % Sodium (136-145) mmol/L Potassium (3.5-5.1) mmol/L Chloride (98-107) mmol/L Carbon Dioxide (21-32) mmol/L Anion Gap (7-13) mEq/L BUN (7-18) mg/dL Creatinine (0.55-1.02) mg/dL Est Cr Clr Drug Dosing mL/min Estimated GFR (MDRD) BUN/Creatinine Ratio (No establ ref range) Glucose (70-99) mg/dL POC Glucose 113 H 115 H (70-99) mg/dL Lactic Acid (0.4-2.0) mmol/L Calcium (8.5-10.1) mg/dL Total Bilirubin (0.2-1.0) mg/dL AST (15-37) U/L ALT (14-59) U/L Alkaline Phosphatase (46-116) U/L Ammonia (11-32) umol/L Total Protein (6.4-8.2) g/dL Albumin (3.4-5.0) g/dL Globulin Albumin/Globulin Ratio Influenza Type A RNA (NEGATIVE) Influenza Type B RNA (NEGATIVE) SARS-CoV-2 RNA (TERESITA) (NEGATIVE) Med Orders - Current: Current Medications Dextrose/Water (50% Dextrose In Water 50 Ml Syringe) 50 ml IVPUSH Q15M PRN PRN Reason: Hypoglycemia Glucagon (Glucagon,Human Recombinant 1 Mg Vial) 1 mg IM Q15M PRN PRN Reason: Hypoglycemia Insulin Human Lispro (Insulin Lispro 100 Units/Ml 3 Ml Vial) 0 unit SUBCUT WITHMEALSANDBED [facility]; Protocol Last Admin: 05/15/21 20:48 Dose: Not Given Documented by: Lactulose (Lactulose Soln 10 Gm/15 Ml 30 Ml Ud Cup) 30 gm PO QID [facility] Last Admin: 05/15/21 20:48 Dose: Not Given Documented by: Lactulose (Lactulose Soln 10 Gm/15 Ml 946 Ml Bottle) 200 gm RECTAL Q6H [facility] Last Admin: 05/16/21 01:50 Dose: 200 gm Documented by: Lorazepam (Lorazepam 2 Mg/Ml Sdv) 2 mg IVPUSH Q4H PRN PRN Reason: Other Last Admin: 05/16/21 03:45 Dose: 1 mg Documented by: Ondansetron HCl (Ondansetron 4 Mg/2 Ml Sdv) 4 mg IVPUSH Q4H PRN PRN Reason: Nausea/Vomiting Rifaximin (Rifaximin 550 Mg Tab) 550 mg PO BID [facility] Last Admin: 05/15/21 20:48 Dose: Not Given Documented by: Sodium Chloride (Sodium Chloride 0.9% 10 Ml Syringe) 10 ml FLUSH ASDIRECTED PRN PRN Reason: Keep Vein Open Discontinued Medications Lactulose (Lactulose Soln 10 Gm/15 Ml 946 Ml Bottle) 200 gm RECTAL ONETIME ONE Stop: 05/15/21 12:41 Last Admin: 05/15/21 14:50 Dose: Not Given Documented by: - Exam General: No Acute Distress HEENT: Pupils Equal, Pupils Reactive, EOMI, Mucous Membr. Moist/[place] Neck: Supple Lungs: Clear to Auscultation, Normal Respiratory Effort Cardiovascular: Regular Rate, Regular Rhythm GI/Abdominal Exam: Normal Bowel Sounds, Soft, Non-Tender, No Organomegaly, No Distention, No Abnormal Bruit, No Mass, Pelvis Stable Back Exam: Normal Inspection, Full Range of Motion Extremities: Normal Inspection, Normal Range of Motion, Non-Tender, No Pedal Edema, Normal Capillary Refill Peripheral Pulses: 2+: Carotid (L), Carotid (R), Brachial (L), Brachial (R), Radial (L), Radial (R), Femoral (L), Femoral (R), Popliteal (L), Popliteal (R), Posterior Tibial (L), Posterior Tibial (R), Dorsalis Pedis (L), Dorsalis Pedis (R) Skin: Warm, Dry, Intact Wound/Incisions: Healing Well Neurological: No New Focal Deficit Psy/Mental Status: Alert, Normal Affect, Normal Mood - Patient Data Lab Results Last 24 hrs: Laboratory Results - last 24 hr 05/15/21 05/15/21 05/15/21 Range/Units 11:03 11:10 11:10 WBC 3.3 L (5.0-10.0) 10^3/uL RBC 2.33 L (4.2-5.4) 10^6/uL Hgb 7.9 L (12.0-16.0) g/dL Hct 23.6 L (37.0-47.0) % MCV 101.3 H (80-100) fL MCH 33.9 (27.0-34.0) pg MCHC 33.5 (33.0-35.0) g/dL Plt Count 48 L* (150-450) 10^3/uL Neut % (Auto) 59.7 (42.2-75.2) % Lymph % (Auto) 20.9 (20.5-50.1) % Baldwin % (Auto) 13.0 H (2-8) % Eos % (Auto) 6.1 H (1.0-3.0) % Baso % (Auto) 0.3 (0.0-1.0) % Sodium (136-145) mmol/L Potassium (3.5-5.1) mmol/L Chloride (98-107) mmol/L Carbon Dioxide (21-32) mmol/L Anion Gap (7-13) mEq/L BUN (7-18) mg/dL Creatinine (0.55-1.02) mg/dL Est Cr Clr Drug Dosing mL/min Estimated GFR (MDRD) BUN/Creatinine Ratio (No establ ref range) Glucose (70-99) mg/dL POC Glucose 103 H (70-99) mg/dL Lactic Acid 1.2 (0.4-2.0) mmol/L Calcium (8.5-10.1) mg/dL Total Bilirubin (0.2-1.0) mg/dL AST (15-37) U/L ALT (14-59) U/L Alkaline Phosphatase (46-116) U/L Ammonia (11-32) umol/L Total Protein (6.4-8.2) g/dL Albumin (3.4-5.0) g/dL Globulin Albumin/Globulin Ratio Influenza Type A RNA (NEGATIVE) Influenza Type B RNA (NEGATIVE) SARS-CoV-2 RNA (TERESITA) (NEGATIVE) 05/15/21 05/15/21 05/15/21 Range/Units 11:10 11:10 12:52 WBC (5.0-10.0) 10^3/uL RBC (4.2-5.4) 10^6/uL Hgb (12.0-16.0) g/dL Hct (37.0-47.0) % MCV (80-100) fL MCH (27.0-34.0) pg MCHC (33.0-35.0) g/dL Plt Count (150-450) 10^3/uL Neut % (Auto) (42.2-75.2) % Lymph % (Auto) (20.5-50.1) % Baldwin % (Auto) (2-8) % Eos % (Auto) (1.0-3.0) % Baso % (Auto) (0.0-1.0) % Sodium 142 (136-145) mmol/L Potassium 4.3 (3.5-5.1) mmol/L Chloride 111 H (98-107) mmol/L Carbon Dioxide 22 (21-32) mmol/L Anion Gap 13.3 H (7-13) mEq/L BUN 10 (7-18) mg/dL Creatinine 0.96 (0.55-1.02) mg/dL Est Cr Clr Drug Dosing 59.19 mL/min Estimated GFR (MDRD) > 60 BUN/Creatinine Ratio 10.4 (No establ ref range) Glucose 120 H (70-99) mg/dL POC Glucose (70-99) mg/dL Lactic Acid (0.4-2.0) mmol/L Calcium 7.7 L (8.5-10.1) mg/dL Total Bilirubin 3.0 H (0.2-1.0) mg/dL AST 41 H (15-37) U/L ALT 40 (14-59) U/L Alkaline Phosphatase 186 H (46-116) U/L Ammonia 236 H (11-32) umol/L Total Protein 5.7 L (6.4-8.2) g/dL Albumin 2.3 L (3.4-5.0) g/dL Globulin 3.4 Albumin/Globulin Ratio 0.68 Influenza Type A RNA Negative (NEGATIVE) Influenza Type B RNA Negative (NEGATIVE) SARS-CoV-2 RNA (TERESITA) Negative (NEGATIVE) 05/15/21 05/15/21 Range/Units 16:29 20:32 WBC (5.0-10.0) 10^3/uL RBC (4.2-5.4) 10^6/uL Hgb (12.0-16.0) g/dL Hct (37.0-47.0) % MCV (80-100) fL MCH (27.0-34.0) pg MCHC (33.0-35.0) g/dL Plt Count (150-450) 10^3/uL Neut % (Auto) (42.2-75.2) % Lymph % (Auto) (20.5-50.1) % Baldwin % (Auto) (2-8) % Eos % (Auto) (1.0-3.0) % Baso % (Auto) (0.0-1.0) % Sodium (136-145) mmol/L Potassium (3.5-5.1) mmol/L Chloride (98-107) mmol/L Carbon Dioxide (21-32) mmol/L Anion Gap (7-13) mEq/L BUN (7-18) mg/dL Creatinine (0.55-1.02) mg/dL Est Cr Clr Drug Dosing mL/min Estimated GFR (MDRD) BUN/Creatinine Ratio (No establ ref range) Glucose (70-99) mg/dL POC Glucose 113 H 115 H (70-99) mg/dL Lactic Acid (0.4-2.0) mmol/L Calcium (8.5-10.1) mg/dL Total Bilirubin (0.2-1.0) mg/dL AST (15-37) U/L ALT (14-59) U/L Alkaline Phosphatase (46-116) U/L Ammonia (11-32) umol/L Total Protein (6.4-8.2) g/dL Albumin (3.4-5.0) g/dL Globulin Albumin/Globulin Ratio Influenza Type A RNA (NEGATIVE) Influenza Type B RNA (NEGATIVE) SARS-CoV-2 RNA (TERESITA) (NEGATIVE) Result Diagrams: 05/15/21 11:10 05/15/21 11:10 Sepsis Event Note - Evaluation Sepsis Screening Result: No Definite Risk - Focused Exam Vital Signs: Vital Signs Temp Pulse Resp BP Pulse Ox 05/16/21 04:00 96.4 F L 54 L 16 103/52 L 99 05/16/21 00:00 96.8 F L 50 L 18 98/53 L 100 05/15/21 20:00 97.2 F 58 L 18 103/50 L 99 - Problem List Review Problem List Initiated/Reviewed/Updated: Yes - My Orders Last 24 Hours: My Active Orders 05/15/21 Lunch Nothing per Oral Now Diet [DIET] 05/15/21 13:13 Bedrest Bedside Commode [RC] ASDIRECTED Blood Glucose Check, Bedside [RC] WITHMEALSANDBED Vital Signs [RC] 00,04,08,12,16,20 Consult to Case Management/Uat Tester [CONS] Routine Ondansetron [Zofran] 4 mg IVPUSH Q4H PRN Sodium Chloride 0.9% [Saline Flush] 10 ml FLUSH ASDIRECTED PRN Peripheral IV Insertion Adult [OM.PC] Routine Saline Lock Insert [OM.PC] Routine Resuscitation Status Routine 05/15/21 13:14 Sequential Compression Device [OM.PC] Per Unit Routine 05/15/21 13:15 Antiembolic Devices [RC] 08,20 Peripheral IV Care [RC] 08,20 Rifaximin [Xifaxan] 550 mg PO BID 05/15/21 13:18 Dextrose 50% in Water 50 ml IVPUSH Q15M PRN Glucagon,Human Recombinant [GlucaGen] 1 mg IM Q15M PRN 05/15/21 13:19 Aspiration Precautions [RC] ASDIRECTED Turn and Reposition [RC] Q2H 05/15/21 13:20 Consult to Hospice [CONS] Routine 05/15/21 13:30 Lactulose [Chronulac] 200 gm RECTAL Q6H 05/15/21 14:23 LORazepam [Ativan] 2 mg IVPUSH Q4H PRN 05/15/21 17:00 Lactulose [Cephulac] 30 gm PO QID 05/15/21 18:00 Insulin Lispro [HumaLOG] See Protocol SUBCUT WITHMEALSANDBED 05/16/21 05:00 AMMONIA [REF] Routine CBC WITH AUTO DIFF [HEME] Routine CMP [COMPREHENSIVE METABOLIC PN,CMP] [CHEM] Routine INR,PT,PROTHROMBIN TIME [COAG] Routine - Plan Plan:: Surgical History: Per medical records, umbilical herniorrhaphy, right eye iridotomy, TIPS procedure, right mastectomy for infection and not for malignancy Family History: Unable to obtain Social History: Tobacco: Per medical records: Active smoker Alcohol: Per medical records: Patient has history of alcohol abuse, I believe this is remote Caffeine: Unable to obtain Drugs: Unable to obtain Allergies: Per medical records: Rocephin Code Status: By default, full Assessment / Plan: 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 Will monitor ammonia level intermittently. Lactulose 200 g per rectum every 6 hours to be retained for 1 hour. When the patient is tolerating p.o., Xifaxan 550 mg p.o. twice daily plus lactulose 30 g p.o. every [address] of lactulose 200 g per rectum every 6 hours to be retained for 1 hour Medical noncompliance. Patient becomes regarding medical compliance Cholelithiasis, asymptomatic History of alcohol useremote Hepatic steatosis/end-stage cirrhosis. Outpatient follow-up with g astroenterology or hepatology upon discharge Portal hypertension, status post TIPS procedure Pancytopenia with features of macrocytosis, iron deficiency, and recent fecal occult blood positive. Will monitor hemoglobin level intermittently. Outpatient follow-up with gastroenterology and hematology/oncology upon discharge Diabetes. Will check fingerstick glucose before every meal and at bedtime and provide insulin sliding scale GERD Hyperlipidemia Hypertension Obesity. Patient be counseled regard lifestyle modification Smoker. Patient will be counseled regarding smoking cessation Coagulopathy, likely due to end-stage cirrhosis will monitor PT/INR periodically Hypothyroidism History of microscopic hematuria. Outpatient follow-up with urology upon discharge History of rectal wall thickening. Outpatient follow-up with gastroenterology upon discharge Query history of portal vein thrombosis Degenerative's disease Diverticulosis Orthostatic hypotension DVT prophylaxis. Bilateral CD Disposition: Anticipate discharge within 48 hours. I requested case management/social work evaluate the patient with a request for referral to hospice, behavioral health/psychiatry, and vulnerable adult with possible need for a conservator for this patient. END OF DOCTOR EMAMIS HISTORY AND PHYSICAL / CONSULTATION NOTE
[2021-05-16] MEDS: Sodium Chloride 0.9% 10 ML Syringe FLUSH PRN (07:43)
[2021-05-16] MEDS: Insulin Lispro 100 Units/ML 3 ML Vial SUBCUT SCH ×4 (08:20→22:24)
[2021-05-16] MEDS: Rifaximin 550 MG Tab PO SCH ×2 (08:21→20:18)
[2021-05-16] MEDS: Lactulose Soln 10 GM/15 ML 30 ML UD Cup PO SCH ×4 (08:21→20:18)
[2021-05-16 08:22] LABS: ANION GAP 11.4 mEq/L (7-13); CHLORIDE,CL 113 mmol/L (98-107); SODIUM,NA 144 mmol/L (136-145)
[2021-05-17] MEDS: LORazepam 2 MG/ML SDV IVPUSH PRN ×3 (01:13→21:47)
[2021-05-17] MEDS: Lactulose Soln 10 GM/15 ML 946 ML Bottle RECTAL SCH ×6 (01:14→20:33)
--- NOTE | 2021-05-17 07:45 | PCM.PN ---
- General Info Date of Service: 05/17/21 Subjective Update: The patient is encephalopathic due to her hepatic encephalopathy due to her hyperammonemia. Unfortunately, because of this, I am unable to obtain feedback regarding the patient's symptomatology Functional Status: Reports: Pain Controlled - Review of Systems General: Reports: No Symptoms HEENT: Reports: No Symptoms Pulmonary: Reports: No Symptoms Cardiovascular: Reports: No Symptoms Gastrointestinal: Reports: No Symptoms Genitourinary: Reports: No Symptoms 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: Reports: No Symptoms Skin: Reports: No Symptoms Neurological: Reports: No Symptoms Psychiatric: Reports: No Symptoms - Patient Data Vitals - Most Recent: Last Vital Signs Temp 98.0 F 05/17/21 04:00 Pulse 68 05/17/21 04:00 Resp 16 05/17/21 04:00 BP 136/66 05/17/21 04:00 Pulse Ox 97 05/17/21 04:00 Weight - Most Recent: 172 lb Lab Results Last 24 Hours: Laboratory Results - last 24 hr 05/16/21 05/16/21 05/16/21 Range/Units 07:56 07:56 07:56 WBC 2.3 L (5.0-10.0) 10^3/uL RBC 2.66 L (4.2-5.4) 10^6/uL Hgb 9.0 L (12.0-16.0) g/dL Hct 27.3 L (37.0-47.0) % MCV 102.6 H (80-100) fL MCH 33.8 (27.0-34.0) pg MCHC 33.0 (33.0-35.0) g/dL Plt Count 45 L* (150-450) 10^3/uL Neut % (Auto) 66.9 (42.2-75.2) % Lymph % (Auto) 17.7 L (20.5-50.1) % [place] % (Auto) 10.6 H (2-8) % Eos % (Auto) 4.4 H (1.0-3.0) % Baso % (Auto) 0.4 (0.0-1.0) % PT 19.0 H (9.0-12.0) SEC INR 1.9 H (0.9-1.2) Sodium 144 (136-145) mmol/L Potassium 4.4 (3.5-5.1) mmol/L Chloride 113 H (98-107) mmol/L Carbon Dioxide 24 (21-32) mmol/L Anion Gap 11.4 (7-13) mEq/L BUN 12 (7-18) mg/dL Creatinine 0.81 (0.55-1.02) mg/dL Est Cr Clr Drug Dosing 70.16 mL/min Estimated GFR (MDRD) > 60 BUN/Creatinine Ratio 14.8 (No establ ref range) Glucose 101 H (70-99) mg/dL POC Glucose (70-99) mg/dL Calcium 7.9 L (8.5-10.1) mg/dL Total Bilirubin 4.9 H (0.2-1.0) mg/dL AST 38 H (15-37) U/L ALT 37 (14-59) U/L Alkaline Phosphatase 176 H (46-116) U/L Ammonia (11-32) umol/L Total Protein 6.1 L (6.4-8.2) g/dL Albumin 2.4 L (3.4-5.0) g/dL Globulin 3.7 Albumin/Globulin Ratio 0.65 05/16/21 05/16/21 05/16/21 Range/Units 07:56 11:40 16:28 WBC (5.0-10.0) 10^3/uL RBC (4.2-5.4) 10^6/uL Hgb (12.0-16.0) g/dL Hct (37.0-47.0) % MCV (80-100) fL MCH (27.0-34.0) pg MCHC (33.0-35.0) g/dL Plt Count (150-450) 10^3/uL Neut % (Auto) (42.2-75.2) % Lymph % (Auto) (20.5-50.1) % [place] % (Auto) (2-8) % Eos % (Auto) (1.0-3.0) % Baso % (Auto) (0.0-1.0) % PT (9.0-12.0) SEC INR (0.9-1.2) Sodium (136-145) mmol/L Potassium (3.5-5.1) mmol/L Chloride (98-107) mmol/L Carbon Dioxide (21-32) mmol/L Anion Gap (7-13) mEq/L BUN (7-18) mg/dL Creatinine (0.55-1.02) mg/dL Est Cr Clr Drug Dosing mL/min Estimated GFR (MDRD) BUN/Creatinine Ratio (No establ ref range) Glucose (70-99) mg/dL POC Glucose 83 89 (70-99) mg/dL Calcium (8.5-10.1) mg/dL Total Bilirubin (0.2-1.0) mg/dL AST (15-37) U/L ALT (14-59) U/L Alkaline Phosphatase (46-116) U/L Ammonia 87 H (11-32) umol/L Total Protein (6.4-8.2) g/dL Albumin (3.4-5.0) g/dL Globulin Albumin/Globulin Ratio 05/16/21 05/17/21 05/17/21 Range/Units 20:42 01:03 05:39 WBC (5.0-10.0) 10^3/uL RBC (4.2-5.4) 10^6/uL Hgb (12.0-16.0) g/dL Hct (37.0-47.0) % MCV (80-100) fL MCH (27.0-34.0) pg MCHC (33.0-35.0) g/dL Plt Count (150-450) 10^3/uL Neut % (Auto) (42.2-75.2) % Lymph % (Auto) (20.5-50.1) % [place] % (Auto) (2-8) % Eos % (Auto) (1.0-3.0) % Baso % (Auto) (0.0-1.0) % PT (9.0-12.0) SEC INR (0.9-1.2) Sodium (136-145) mmol/L Potassium (3.5-5.1) mmol/L Chloride (98-107) mmol/L Carbon Dioxide (21-32) mmol/L Anion Gap (7-13) mEq/L BUN (7-18) mg/dL Creatinine (0.55-1.02) mg/dL Est Cr Clr Drug Dosing mL/min Estimated GFR (MDRD) BUN/Creatinine Ratio (No establ ref range) Glucose (70-99) mg/dL POC Glucose 78 72 73 (70-99) mg/dL Calcium (8.5-10.1) mg/dL Total Bilirubin (0.2-1.0) mg/dL AST (15-37) U/L ALT (14-59) U/L Alkaline Phosphatase (46-116) U/L Ammonia (11-32) umol/L Total Protein (6.4-8.2) g/dL Albumin (3.4-5.0) g/dL Globulin Albumin/Globulin Ratio 05/17/ Range/Units 06:05 WBC (5.0-10.0) 10^3/uL RBC (4.2-5.4) 10^6/uL Hgb (12.0-16.0) g/dL Hct (37.0-47.0) % MCV (80-100) fL MCH (27.0-34.0) pg MCHC (33.0-35.0) g/dL Plt Count (150-450) 10^3/uL Neut % (Auto) (42.2-75.2) % Lymph % (Auto) (20.5-50.1) % [place] % (Auto) (2-8) % Eos % (Auto) (1.0-3.0) % Baso % (Auto) (0.0-1.0) % PT (9.0-12.0) SEC INR (0.9-1.2) Sodium (136-145) mmol/L Potassium (3.5-5.1) mmol/L Chloride (98-107) mmol/L Carbon Dioxide (21-32) mmol/L Anion Gap (7-13) mEq/L BUN (7-18) mg/dL Creatinine (0.55-1.02) mg/dL Est Cr Clr Drug Dosing mL/min Estimated GFR (MDRD) BUN/Creatinine Ratio (No establ ref range) Glucose (70-99) mg/dL POC Glucose (70-99) mg/dL Calcium (8.5-10.1) mg/dL Total Bilirubin (0.2-1.0) mg/dL AST (15-37) U/L ALT (14-59) U/L Alkaline Phosphatase (46-116) U/L Ammonia 106 H (11-32) umol/L Total Protein (6.4-8.2) g/dL Albumin (3.4-5.0) g/dL Globulin Albumin/Globulin Ratio Med Orders - Current: Current Medications Dextrose/Water (50% Dextrose In Water 50 Ml Syringe) 50 ml IVPUSH Q15M PRN PRN Reason: Hypoglycemia Glucagon (Glucagon,Human Recombinant 1 Mg Vial) 1 mg IM Q15M PRN PRN Reason: Hypoglycemia Insulin Human Lispro (Insulin Lispro 100 Units/Ml 3 Ml Vial) 0 unit SUBCUT WITHMEALSANDBED [facility]; Protocol Last Admin: 05/16/21 22:24 Dose: Not Given Documented by: Lactulose (Lactulose Soln 10 Gm/15 Ml 30 Ml Ud Cup) 30 gm PO QID [facility] Last Admin: 05/16/21 20:18 Dose: Not Given Documented by: Lactulose (Lactulose Soln 10 Gm/15 Ml 946 Ml Bottle) 200 gm RECTAL Q4H KOMAL Lactulose (Lactulose Soln 10 Gm/15 Ml 30 Ml Ud Cup) 30 gm PO Q4H K[facility]AL Lorazepam (Lorazepam 2 Mg/Ml Sdv) 2 mg IVPUSH Q4H PRN PRN Reason: Other Last Admin: 05/17/21 07:38 Dose: 2 mg Documented by: Ondansetron HCl (Ondansetron 4 Mg/2 Ml Sdv) 4 mg IVPUSH Q4H PRN PRN Reason: Nausea/Vomiting Rifaximin (Rifaximin 550 Mg Tab) 550 mg PO BID [facility] Last Admin: 05/16/21 20:18 Dose: Not Given Documented by: Sodium Chloride (Sodium Chloride 0.9% 10 Ml Syringe) 10 ml FLUSH ASDIRECTED PRN PRN Reason: Keep Vein Open Last Admin: 05/16/21 07:43 Dose: 10 ml Documented by: Discontinued Medications Lactulose (Lactulose Soln 10 Gm/15 Ml 946 Ml Bottle) 200 gm RECTAL ONETIME ONE Stop: 05/15/21 12:41 Last Admin: 05/15/21 14:50 Dose: Not Given Documented by: Lactulose (Lactulose Soln 10 Gm/15 Ml 946 Ml Bottle) 200 gm RECTAL Q6H [facility] Last Admin: 05/17/21 01:14 Dose: 200 gm Documented by: - Exam General: Lethargic HEENT: Pupils Equal, Pupils Reactive, EOMI, Mucous Membr. Moist/[place] Neck: Supple Lungs: Clear to Auscultation, Normal Respiratory Effort Cardiovascular: Regular Rate, Regular Rhythm GI/Abdominal Exam: Normal Bowel Sounds, Soft, Non-Tender, No Organomegaly, No Distention, No Abnormal Bruit, No Mass, Pelvis Stable Back Exam: Normal Inspection, Full Range of Motion Extremities: Normal Inspection, Normal Range of Motion, Non-Tender, No Pedal Edema, Normal Capillary Refill Peripheral Pulses: 2+: Carotid (L), Carotid (R), Brachial (L), Brachial (R), Radial (L), Radial (R), Femoral (L), Femoral (R), Popliteal (L), Popliteal (R), Posterior Tibial (L), Posterior Tibial (R), Dorsalis Pedis (L), Dorsalis Pedis (R) Skin: Warm, Dry, Intact Wound/Incisions: Healing Well Neurological: No New Focal Deficit Psy/Mental Status: Alert, Normal Affect, Normal Mood - Patient Data Lab Results Last 24 hrs: Laboratory Results - last 24 hr 05/16/21 05/16/21 05/16/21 Range/Units 07:56 07:56 07:56 WBC 2.3 L (5.0-10.0) 10^3/uL RBC 2.66 L (4.2-5.4) 10^6/uL Hgb 9.0 L (12.0-16.0) g/dL Hct 27.3 L (37.0-47.0) % MCV 102.6 H (80-100) fL MCH 33.8 (27.0-34.0) pg MCHC 33.0 (33.0-35.0) g/dL Plt Count 45 L* (150-450) 10^3/uL Neut % (Auto) 66.9 (42.2-75.2) % Lymph % (Auto) 17.7 L (20.5-50.1) % [place] % (Auto) 10.6 H (2-8) % Eos % (Auto) 4.4 H (1.0-3.0) % Baso % (Auto) 0.4 (0.0-1.0) % PT 19.0 H (9.0-12.0) SEC INR 1.9 H (0.9-1.2) Sodium 144 (136-145) mmol/L Potassium 4.4 (3.5-5.1) mmol/L Chloride 113 H (98-107) mmol/L Carbon Dioxide 24 (21-32) mmol/L Anion Gap 11.4 (7-13) mEq/L BUN 12 (7-18) mg/dL Creatinine 0.81 (0.55-1.02) mg/dL Est Cr Clr Drug Dosing 70.16 mL/min Estimated GFR (MDRD) > 60 BUN/Creatinine Ratio 14.8 (No establ ref range) Glucose 101 H (70-99) mg/dL POC Glucose (70-99) mg/dL Calcium 7.9 L (8.5-10.1) mg/dL Total Bilirubin 4.9 H (0.2-1.0) mg/dL AST 38 H (15-37) U/L ALT 37 (14-59) U/L Alkaline Phosphatase 176 H (46-116) U/L Ammonia (11-32) umol/L Total Protein 6.1 L (6.4-8.2) g/dL Albumin 2.4 L (3.4-5.0) g/dL Globulin 3.7 Albumin/Globulin Ratio 0.65 05/16/21 05/16/21 05/16/21 Range/Units 07:56 11:40 16:28 WBC (5.0-10.0) 10^3/uL RBC (4.2-5.4) 10^6/uL Hgb (12.0-16.0) g/dL Hct (37.0-47.0) % MCV (80-100) fL MCH (27.0-34.0) pg MCHC (33.0-35.0) g/dL Plt Count (150-450) 10^3/uL Neut % (Auto) (42.2-75.2) % Lymph % (Auto) (20.5-50.1) % [place] % (Auto) (2-8) % Eos % (Auto) (1.0-3.0) % Baso % (Auto) (0.0-1.0) % PT (9.0-12.0) SEC INR (0.9-1.2) Sodium (136-145) mmol/L Potassium (3.5-5.1) mmol/L Chloride (98-107) mmol/L Carbon Dioxide (21-32) mmol/L Anion Gap (7-13) mEq/L BUN (7-18) mg/dL Creatinine (0.55-1.02) mg/dL Est Cr Clr Drug Dosing mL/min Estimated GFR (MDRD) BUN/Creatinine Ratio (No establ ref range) Glucose (70-99) mg/dL POC Glucose 83 89 (70-99) mg/dL Calcium (8.5-10.1) mg/dL Total Bilirubin (0.2-1.0) mg/dL AST (15-37) U/L ALT (14-59) U/L Alkaline Phosphatase (46-116) U/L Ammonia 87 H (11-32) umol/L Total Protein (6.4-8.2) g/dL Albumin (3.4-5.0) g/dL Globulin Albumin/Globulin Ratio 05/16/21 05/17/21 05/17/21 Range/Units 20:42 01:03 05:39 WBC (5.0-10.0) 10^3/uL RBC (4.2-5.4) 10^6/uL Hgb (12.0-16.0) g/dL Hct (37.0-47.0) % MCV (80-100) fL MCH (27.0-34.0) pg MCHC (33.0-35.0) g/dL Plt Count (150-450) 10^3/uL Neut % (Auto) (42.2-75.2) % Lymph % (Auto) (20.5-50.1) % [place] % (Auto) (2-8) % Eos % (Auto) (1.0-3.0) % Baso % (Auto) (0.0-1.0) % PT (9.0-12.0) SEC INR (0.9-1.2) Sodium (136-145) mmol/L Potassium (3.5-5.1) mmol/L Chloride (98-107) mmol/L Carbon Dioxide (21-32) mmol/L Anion Gap (7-13) mEq/L BUN (7-18) mg/dL Creatinine (0.55-1.02) mg/dL Est Cr Clr Drug Dosing mL/min Estimated GFR (MDRD) BUN/Creatinine Ratio (No establ ref range) Glucose (70-99) mg/dL POC Glucose 78 72 73 (70-99) mg/dL Calcium (8.5-10.1) mg/dL Total Bilirubin (0.2-1.0) mg/dL AST (15-37) U/L ALT (14-59) U/L Alkaline Phosphatase (46-116) U/L Ammonia (11-32) umol/L Total Protein (6.4-8.2) g/dL Albumin (3.4-5.0) g/dL Globulin Albumin/Globulin Ratio // Range/Units 06:05 WBC (5.0-10.0) 10^3/uL RBC (4.2-5.4) 10^6/uL Hgb (12.0-16.0) g/dL Hct (37.0-47.0) % MCV (80-100) fL MCH (27.0-34.0) pg MCHC (33.0-35.0) g/dL Plt Count (150-450) 10^3/uL Neut % (Auto) (42.2-75.2) % Lymph % (Auto) (20.5-50.1) % [place] % (Auto) (2-8) % Eos % (Auto) (1.0-3.0) % Baso % (Auto) (0.0-1.0) % PT (9.0-12.0) SEC INR (0.9-1.2) Sodium (136-145) mmol/L Potassium (3.5-5.1) mmol/L Chloride (98-107) mmol/L Carbon Dioxide (21-32) mmol/L Anion Gap (7-13) mEq/L BUN (7-18) mg/dL Creatinine (0.55-1.02) mg/dL Est Cr Clr Drug Dosing mL/min Estimated GFR (MDRD) BUN/Creatinine Ratio (No establ ref range) Glucose (70-99) mg/dL POC Glucose (70-99) mg/dL Calcium (8.5-10.1) mg/dL Total Bilirubin (0.2-1.0) mg/dL AST (15-37) U/L ALT (14-59) U/L Alkaline Phosphatase (46-116) U/L Ammonia 106 H (11-32) umol/L Total Protein (6.4-8.2) g/dL Albumin (3.4-5.0) g/dL Globulin Albumin/Globulin Ratio Result Diagrams: 05/16/21 07:56 05/16/21 07:56 Sepsis Event Note - Evaluation Sepsis Screening Result: No Definite Risk - Focused Exam Vital Signs: Vital Signs Temp Pulse Resp BP Pulse Ox 05/17/21 04:00 98.0 F 68 16 136/66 97 05/17/21 00:00 97.7 F 76 16 102/56 L 98 05/16/21 21:04 96.6 F L 68 18 97/58 L 99 - Problem List Review Problem List Initiated/Reviewed/Updated: Yes - My Orders Last 24 Hours: My Active Orders 05/17/21 07:45 Lactulose [Cephulac] 30 gm PO Q4H Lactulose [Chronulac] 200 gm RECTAL Q4H 05/18/21 05:00 AMMONIA [REF] Routine - Plan Plan:: Surgical History: Per medical records, umbilical herniorrhaphy, right eye iridotomy, TIPS procedure, right mastectomy for infection and not for malignancy Family History: Unable to obtain Social History: Tobacco: Per medical records: Active smoker Alcohol: Per medical records: Patient has history of alcohol abuse, I believe this is remote Caffeine: Unable to obtain Drugs: Unable to obtain Allergies: Per medical records: Rocephin Code Status: By default, full Assessment / Plan: 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 Will monitor ammonia level intermittently. Lactulose 200 g per rectum every 6 hours to be retained for 1 hour. When the patient is tolerating p.o., Xifaxan 550 mg p.o. twice daily plus lactulose 30 g p.o. every [address] of lactulose 200 g per rectum every 4 hours to be retained for 1 hour Medical noncompliance. Patient becomes regarding medical compliance Cholelithiasis, asymptomatic History of alcohol useremote Hepatic steatosis/end-stage cirrhosis. Outpatient follow-up with gastroenterology or hepatology upon discharge Portal hypertension, status post TIPS procedure Pancytopenia with features of macrocytosis, iron deficiency, and recent fecal occult blood positive. Will monitor hemoglobin level intermittently. Outpatient follow-up with gastroenterology and hematology/oncology upon discharge Diabetes. Will check fingerstick glucose before every meal and at bedtime and provide insulin sliding scale GERD Hyperlipidemia Hypertension Obesity. Patient be counseled regard lifestyle modification Smoker. Patient will be counseled regarding smoking cessation Coagulopathy, likely due to end-stage cirrhosis will monitor PT/INR periodically Hypothyroidism History of microscopic hematuria. Outpatient follow-up with urology upon discharge History of rectal wall thickening. Outpatient follow-up with gastroenterology upon discharge Query history of portal vein thrombosis Degenerative's disease Diverticulosis Orthostatic hypotension DVT prophylaxis. Bilateral CD Disposition: Anticipate discharge within 24 hours. I requested case management/social work evaluate the patient with a request for referral to hospice, behavioral heal th/psychiatry, and vulnerable adult with possible need for a conservator for this patient. END OF DOCTOR EMAMIS HISTORY AND PHYSICAL / CONSULTATION NOTE
[2021-05-17] MEDS: Lactulose Soln 10 GM/15 ML 30 ML UD Cup PO SCH ×4 (08:56→20:20)
[2021-05-17] MEDS: Rifaximin 550 MG Tab PO SCH ×2 (09:04→20:20)
[2021-05-17] MEDS: Insulin Lispro 100 Units/ML 3 ML Vial SUBCUT SCH ×4 (09:05→20:38)
[2021-05-17] MEDS: Sodium Chloride 0.9% 10 ML Syringe FLUSH PRN (21:48)
[2021-05-18] MEDS: Lactulose Soln 10 GM/15 ML 30 ML UD Cup PO SCH ×6 (00:57→19:52)
[2021-05-18] MEDS: Lactulose Soln 10 GM/15 ML 946 ML Bottle RECTAL SCH ×6 (01:05→20:43)
--- NOTE | 2021-05-18 07:24 | PCM.PN ---
- General Info Date of Service: 05/18/21 Subjective Update: The patient appears less encephalopathic on this morning and I am uncertain as to whether she is unable to provide feedback because there may be some residual encephalopathy due to her hyperammonemia or whether she is her baseline state of personality which is minimally cooperative. From what I am able to ascertain, the patient offers no complaints but she neither endorses nor denies any complaints posed to her. I explained to her her current medical condition and plan of care - Review of Systems General: Reports: No Symptoms HEENT: Reports: No Symptoms Pulmonary: Reports: No Symptoms Cardiovascular: Reports: No Symptoms Gastrointestinal: Reports: No Symptoms Genitourinary: Reports: No Symptoms 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: Reports: No Symptoms Skin: Reports: No Symptoms Neurological: Reports: No Symptoms Psychiatric: Reports: No Symptoms - Patient Data Vitals - Most Recent: Last Vital Signs Temp 97.4 F 05/18/21 04:36 Pulse 73 05/18/21 04:36 Resp 20 05/18/21 04:36 BP 101/65 05/18/21 04:36 Pulse Ox 100 05/18/21 04:36 Weight - Most Recent: 171 lb I&O - Last 24 Hours: Intake & Output 05/17/21 05/18/21 05/18/21 22:59 06:59 14:59 Intake Total 400 1300 Balance 400 1300 Lab Results Last 24 Hours: Laboratory Results - last 24 hr 05/17/21 05/17/21 05/17/21 Range/Units 08:17 12:07 16:36 POC Glucose 73 70 73 (70-99) mg/dL 05/17/21 Range/Units 20:32 POC Glucose 115 H (70-99) mg/dL Med Orders - Current: Current Medications Dextrose/Water (50% Dextrose In Water 50 Ml Syringe) 50 ml IVPUSH Q15M PRN PRN Reason: Hypoglycemia Glucagon (Glucagon,Human Recombinant 1 Mg Vial) 1 mg IM Q15M PRN PRN Reason: Hypoglycemia Insulin Human Lispro (Insulin Lispro 100 Units/Ml 3 Ml Vial) 0 unit SUBCUT WITHMEALSANDBED [facility]; Protocol Last Admin: 05/17/21 20:38 Dose: Not Given Documented by: Lactulose (Lactulose Soln 10 Gm/15 Ml 946 Ml Bottle) 200 gm RECTAL Q4H [facility] Last Admin: 05/18/21 05:18 Dose: Not Given Documented by: Lactulose (Lactulose Soln 10 Gm/15 Ml 30 Ml Ud Cup) 30 gm PO Q4H [facility] Last Admin: 05/18/21 04:44 Dose: 30 gm Documented by: Lorazepam (Lorazepam 2 Mg/Ml Sdv) 2 mg IVPUSH Q4H PRN PRN Reason: Other Last Admin: 05/17/21 21:47 Dose: 2 mg Documented by: Ondansetron HCl (Ondansetron 4 Mg/2 Ml Sdv) 4 mg IVPUSH Q4H PRN PRN Reason: Nausea/Vomiting Rifaximin (Rifaximin 550 Mg Tab) 550 mg PO BID [facility] Last Admin: 05/17/21 20:20 Dose: 550 mg Documented by: Sodium Chloride (Sodium Chloride 0.9% 10 Ml Syringe) 10 ml FLUSH ASDIRECTED PRN PRN Reason: Keep Vein Open Last Admin: 05/17/21 21:48 Dose: 10 ml Documented by: Discontinued Medications Lactulose (Lactulose Soln 10 Gm/15 Ml 946 Ml Bottle) 200 gm RECTAL ONETIME ONE Stop: 05/15/21 12:41 Last Admin: 05/15/21 14:50 Dose: Not Given Documented by: Lactulose (Lactulose Soln 10 Gm/15 Ml 30 Ml Ud Cup) 30 gm PO QID [facility] Last Admin: 05/16/21 20:18 Dose: Not Given Documented by: Lactulose (Lactulose Soln 10 Gm/15 Ml 946 Ml Bottle) 200 gm RECTAL Q6H [facility] Last Admin: 05/17/21 08:16 Dose: Not Given Documented by: - Exam General: Alert, Oriented HEENT: Pupils Equal, Pupils Reactive, EOMI, Mucous Membr. Moist/[place] Neck: Supple Lungs: Clear to Auscultation, Normal Respiratory Effort Cardiovascular: Regular Rate, Regular Rhythm GI/Abdominal Exam: Normal Bowel Sounds, Soft, Non-Tender, No Organomegaly, No Distention, No Abnormal Bruit, No Mass, Pelvis Stable Back Exam: Normal Inspection, Full Range of Motion Extremities: Normal Inspection, Normal Range of Motion, Non-Tender, No Pedal Edema, Normal Capillary Refill Peripheral Pulses: 2+: Carotid (L), Carotid (R), Brachial (L), Brachial (R), Radial (L), Radial (R), Femoral (L), Femoral (R), Popliteal (L), Popliteal (R), Posterior Tibial (L), Posterior Tibial (R), Dorsalis Pedis (L), Dorsalis Pedis (R) Skin: Warm, Dry, Intact Wound/Incisions: Healing Well Neurological: No New Focal Deficit Psy/Mental Status: Alert, Normal Affect, Normal Mood - Patient Data Lab Results Last 24 hrs: Laboratory Results - last 24 hr 05/17/21 05/17/21 05/17/21 Range/Units 08:17 12:07 16:36 POC Glucose 73 70 73 (70-99) mg/dL 05/17/21 Range/Units 20:32 POC Glucose 115 H (70-99) mg/dL Result Diagrams: 05/16/21 07:56 05/16/21 07:56 Sepsis Event Note - Evaluation Sepsis Screening Result: No Definite Risk - Focused Exam Vital Signs: Vital Signs Temp Pulse Resp BP BP Pulse Ox 05/18/21 04:36 97.4 F 73 20 101/65 94/61 100 05/18/21 01:33 74 117/62 05/18/21 01:16 97.2 F 75 20 92/26 L 100 05/17/21 20:14 97.7 F 70 20 110/55 L 100 - Problem List Review Problem List Initiated/Reviewed/Updated: Yes - My Orders Last 24 Hours: My Active Orders 05/17/21 08:00 Lactulose [Cephulac] 30 gm PO Q4H Lactulose [Chronulac] 200 gm RECTAL Q4H 05/17/21 Dinner Advance Diet Instructions [DIET] Pureed Diet [DIET] 05/18/21 07:00 AMMONIA VENOUS [CHEM] Routine 05/19/21 05:00 AMMONIA [REF] Routine - Plan Plan:: Surgical History: Per medical records, umbilical herniorrhaphy, right eye iridotomy, TIPS pro cedure, right mastectomy for infection and not for malignancy Family History: Unable to obtain Social History: Tobacco: Per medical records: Active smoker Alcohol: Per medical records: Patient has history of alcohol abuse, I believe this is remote Caffeine: Unable to obtain Drugs: Unable to obtain Allergies: Per medical records: Rocephin Code Status: By default, full Assessment / Plan: 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 Will monitor ammonia level intermittently. Lactulose 200 g per rectum every 4 hours to be retained for 1 hour. When the patient is tolerating p.o., Xifaxan 550 mg p.o. twice daily plus lactulose 30 g p.o. every [address] of lactulose 200 g per rectum every 4 hours to be retained for 1 hour Medical noncompliance. Patient becomes regarding medical compliance Cholelithiasis, asymptomatic History of alcohol useremote Hepatic steatosis/end-stage cirrhosis. Outpatient follow-up with gastroenter ology or hepatology upon discharge Portal hypertension, status post TIPS procedure Pancytopenia with features of macrocytosis, iron deficiency, and recent fecal occult blood positive. Will monitor hemoglobin level intermittently. Outpatient follow-up with gastroenterology and hematology/oncology upon discharge Diabetes. Will check fingerstick glucose before every meal and at bedtime and provide insulin sliding scale GERD Hyperlipidemia Hypertension Obesity. Patient be counseled regard lifestyle modification Smoker. Patient will be counseled regarding smoking cessation Coagulopathy, likely due to end-stage cirrhosis will monitor PT/INR periodically Hypothyroidism History of microscopic hematuria. Outpatient follow-up with urology upon discharge History of rectal wall thickening. Outpatient follow-up with gastroenterology upon discharge Query history of portal vein thrombosis Degenerative's disease Diverticulosis Orthostatic hypotension DVT prophylaxis. Bilateral CD Disposition: Patient may potentially be a candidate for discharge on this day of treatment 2020. I requested case management/social work evaluate the patient with a request for referral to hospice, behavioral health/psychiatry, and vulnerable adult with possible need for a conservator for this patient. END OF DOCTOR EMAMIS HISTORY AND PHYSICAL / CONSULTATION NOTE
[2021-05-18] MEDS: Insulin Lispro 100 Units/ML 3 ML Vial SUBCUT SCH ×4 (07:53→20:43)
[2021-05-18] MEDS: Rifaximin 550 MG Tab PO SCH ×2 (08:49→20:09)
[2021-05-18] MEDS ORDERED: LORazepam 1 MG Tab PO PRN (13:13)
[2021-05-19] MEDS: Lactulose Soln 10 GM/15 ML 30 ML UD Cup PO SCH ×3 (00:18→08:21)
[2021-05-19] MEDS: Lactulose Soln 10 GM/15 ML 946 ML Bottle RECTAL SCH ×3 (00:25→09:02)
--- NOTE | 2021-05-19 07:17 | PCM.PN ---
- General Info Date of Service: 05/19/21 Subjective Update: The patient is fully coherent for the first time during this hospital stay. She endorses no complaints posed to her. She denies fever, rigors, nausea, vomiting , cough, wheeze, abdominal pain, chest pain, dyspnea, or any other constitutional complaints. I explained to the patient her current medical condition and plan of care and I have answered all of her questions Functional Status: Reports: Pain Controlled - Review of Systems General: Reports: No Symptoms HEENT: Reports: No Symptoms Pulmonary: Reports: No Symptoms Cardiovascular: Reports: No Symptoms Gastrointestinal: Reports: No Symptoms Genitourinary: Reports: No Symptoms 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: Reports: No Symptoms Skin: Reports: No Symptoms Neurological: Reports: No Symptoms Psychiatric: Reports: No Symptoms - Patient Data Vitals - Most Recent: Last Vital Signs Temp 98.9 F 05/19/21 04:00 Pulse 72 05/19/21 04:00 Resp 20 05/19/21 04:00 BP 96/52 L 05/19/21 04:00 Pulse Ox 99 05/19/21 04:00 Weight - Most Recent: 172 lb I&O - Last 24 Hours: Intake & Output 05/18/21 05/19/21 05/19/21 22:59 06:59 14:59 Intake Total 1765 50 Balance 1765 50 Lab Results Last 24 Hours: Laboratory Results - last 24 hr 05/18/21 05/18/21 05/18/21 Range/Units 07:14 07:19 11:39 POC Glucose 107 H 143 H (70-99) mg/dL Ammonia 100 H (11-32) umol/L 05/18/21 05/18/21 05/19/21 Range/Units 17:23 20:38 06:20 POC Glucose 111 H 138 H (70-99) mg/dL Ammonia 62 H (11-32) umol/L Med Orders - Current: Current Medications Dextrose/Water (50% Dextrose In Water 50 Ml Syringe) 50 ml IVPUSH Q15M PRN PRN Reason: Hypoglycemia Glucagon (Glucagon,Human Recombinant 1 Mg Vial) 1 mg IM Q15M PRN PRN Reason: Hypoglycemia Insulin Human Lispro (Insulin Lispro 100 Units/Ml 3 Ml Vial) 0 unit SUBCUT WITHMEALSANDBED [facility]; Protocol Last Admin: 05/18/21 20:43 Dose: Not Given Documented by: Lactulose (Lactulose Soln 10 Gm/15 Ml 946 Ml Bottle) 200 gm RECTAL Q4H [facility] Last Admin: 05/19/21 04:57 Dose: Not Given Documented by: Lactulose (Lactulose Soln 10 Gm/15 Ml 30 Ml Ud Cup) 30 gm PO Q4H [facility] Last Admin: 05/19/21 04:56 Dose: 30 gm Documented by: Lorazepam (Lorazepam 2 Mg/Ml Sdv) 2 mg IVPUSH Q4H PRN PRN Reason: agitation Last Admin: 05/17/21 21:47 Dose: 2 mg Documented by: Lorazepam (Lorazepam 1 Mg Tab) 2 mg PO Q4H PRN PRN Reason: Agitation Last Admin: 05/18/21 15:30 Dose: 2 mg Documented by: Ondansetron HCl (Ondansetron 4 Mg/2 Ml Sdv) 4 mg IVPUSH Q4H PRN PRN Reason: Nausea/Vomiting Rifaximin (Rifaximin 550 Mg Tab) 550 mg PO BID [facility] Last Admin: 05/18/21 20:09 Dose: 550 mg Documented by: Sodium Chloride (Sodium Chloride 0.9% 10 Ml Syringe) 10 ml FLUSH ASDIRECTED PRN PRN Reason: Keep Vein Open Last Admin: 05/17/21 21:48 Dose: 10 ml Documented by: Discontinued Medications Lactulose (Lactulose Soln 10 Gm/15 Ml 946 Ml Bottle) 200 gm RECTAL ONETIME ONE Stop: 05/15/21 12:41 Last Admin: 05/15/21 14:50 Dose: Not Given Documented by: Lactulose (Lactulose Soln 10 Gm/15 Ml 30 Ml Ud Cup) 30 gm PO QID [facility] Last Admin: 05/16/21 20:18 Dose: Not Given Documented by: Lactulose (Lactulose Soln 10 Gm/15 Ml 946 Ml Bottle) 200 gm RECTAL Q6H [facility] Last Admin: 05/17/21 08:16 Dose: Not Given Documented by: - Exam General: Alert, Oriented HEENT: Pupils Equal, Pupils Reactive, EOMI, Mucous Membr. Moist/[place] Neck: Supple Lungs: Clear to Auscultation, Normal Respiratory Effort Cardiovascular: Regular Rate GI/Abdominal Exam: Normal Bowel Sounds, Soft, Non-Tender, No Organomegaly, No Distention, No Abnormal Bruit, No Mass, Pelvis Stable Back Exam: Normal Inspection, Full Range of Motion Extremities: Normal Inspection, Normal Range of Motion, Non-Tender, No Pedal Edema, Normal Capillary Refill Peripheral Pulses: 2+: Carotid (L), Carotid (R), Brachial (L), Brachial (R), Radial (L), Radial (R), Femoral (L), Femoral (R), Popliteal (L), Popliteal (R), Posterior Tibial (L), Posterior Tibial (R), Dorsalis Pedis (L), Dorsalis Pedis (R) Skin: Warm, Dry, Intact Wound/Incisions: Healing Well Neurological: No New Focal Deficit Psy/Mental Status: Alert, Normal Affect, Normal Mood - Patient Data Lab Results Last 24 hrs: Laboratory Results - last 24 hr 05/18/21 05/18/21 05/18/21 Range/Units 07:14 07:19 11:39 POC Glucose 107 H 143 H (70-99) mg/dL Ammonia 100 H (11-32) umol/L 05/18/21 05/18/21 05/19/21 Range/Units 17:23 20:38 06:20 POC Glucose 111 H 138 H (70-99) mg/dL Ammonia 62 H (11-32) umol/L Result Diagrams: 05/16/21 07:56 05/16/21 07:56 Sepsis Event Note - Evaluation Sepsis Screening Result: No Definite Risk - Focused Exam Vital Signs: Vital Signs Temp Pulse Resp BP Pulse Ox 05/19/21 04:00 98.9 F 72 20 96/52 L 99 05/19/21 00:30 98.4 F 71 20 104/58 L 98 05/18/21 20:05 98.1 F 74 20 107/58 L 100 - Problem List Review Problem List Initiated/Reviewed/Updated: Yes - My Orders Last 24 Hours: My Active Orders 05/18/21 13:13 LORazepam [Ativan] 2 mg PO Q4H PRN - Plan Plan:: Surgical History: Per medical records, umbilical herniorrhaphy, right eye iridotomy, TIPS procedure, right mastectomy for infection and not for malignancy Family History: Unable to obtain Social History: Tobacco: Per medical records: Active smoker Alcohol: Per medical records: Patient has history of alcohol abuse, I believe this is re mote Caffeine: Unable to obtain Drugs: Unable to obtain Allergies: Per medical records: Rocephin Code Status: By default, full Assessment / Plan: 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 Will monitor ammonia level intermittently. Lactulose 200 g per rectum every 4 hours to be retained for 1 hour. When the patient is tolerating p.o., Xifaxan 550 mg p.o. twice daily plus lactulose 30 g p.o. every [address] of lactulose 200 g per rectum every 4 hours to be retained for 1 hour Medical noncompliance. Patient becomes regarding medical compliance Cholelithiasis, asymptomatic History of alcohol useremote Hepatic steatosis/end-stage cirrhosis. Outpatient follow-up with gastroenterology or hepatology upon discharge Portal hypertension, status post TIPS procedure Pancytopenia with features of macrocytosis, iron deficiency, and recent fecal occult blood positive. Will monitor hemoglobin level intermittently. Outpatient follow-up with gastroenterology and hematology/oncology upon discharge Diabetes. Will check fingerstick glucose before every meal and at bedtime and provide insulin sliding scale GERD Hyperlipidemia Hypertension Obesity. Patient be counseled regard lifestyle modification Smoker. Patient will be counseled regarding smoking cessation Coagulopathy, likely due to end-stage cirrhosis will monitor PT/INR periodically Hypothyroidism History of microscopic hematuria. Outpatient follow-up with urology upon discharge History of rectal wall thickening. Outpatient follow-up with gastroenterology u sebas discharge Query history of portal vein thrombosis Degenerative's disease Diverticulosis Orthostatic hypotension DVT prophylaxis. Bilateral CD Disposition: The patient is medically stable for discharge. I requested case management/social work evaluate the patient with a request for referral to hospice, behavioral health/psychiatry, and vulnerable adult with possible need for a conservator for this patient. END OF DOCTOR EMAM[facility] HISTORY AND PHYSICAL / CONSULTATION NOTE
[2021-05-19 08:00] VITALS: BP 98/58; PULSE 71
[2021-05-19] MEDS: Rifaximin 550 MG Tab PO SCH (08:20)
[2021-05-19] MEDS: Insulin Lispro 100 Units/ML 3 ML Vial SUBCUT SCH (09:02)
--- NOTE | 2021-05-19 11:11 | PCM.DCSUM1 ---
Discharge Summary - Hospital Course Free Text/Narrative:: START OF DOCTOR EMAM[facility] DISCHARGE SUMMARY Date of Admission: May 15, 2021 Date of Discharge: 11:07 AM on May 19, 2021 Primary Diagnosis: Hepatic encephalopathy secondary to hyperammonemia due to medical noncompliancerecurrent Secondary Diagnosis: Medical noncompliance Cholelithiasis, asymptomatic History of alcohol abuseremote Hepatic steatosis/end-stage cirrhosis Portal hypertension, status post TIPS procedure Pancytopenia with features of macrocytosis, iron deficiency, recent fecal occult blood positive Diabetes GERD Hyperlipidemia Hypertension Obesity Smoker Coagulopathy, likely due to end-stage cirrhosis Hypothyroidism History of microscopic hematuria History of rectal wall thickening Query history of portal vein thrombosis Degenerative disc disease Diverticulosis Orthostatic hypotension Consultations: None Condition on Discharge: Poor Disposition: The patient will be advised to follow-up with gastroenterology 7 to 10 days post discharge for diagnosis end-stage process, fecal occult blood positive stool, history of rectal wall thickening The patient is advised to follow-up with hematology/oncology 7 to 10 days post discharge for diagnosis of pancytopenia The patient is advised follow-up with urology 7 to 10 days post discharge for diagnosis of microscopic hematuria The patient is advised follow-up with her primary care physician or provider 5 to 7 days post discharge for posthospitalization evaluation Discharge Medications: Vitamin C 500 mg p.o. daily Lactulose 30 g p.o. every 4 hours Thiamine 100 mg p.o. daily Xifaxan 550 mg p.o. twice daily Zofran 4 mg p.o. twice daily as needed nausea/vomiting Prilosec 20 mg p.o. daily Multivitamin 1 tab p.o. daily Midodrine 7.5 mg p.o. 3 times daily Magnesium oxide 200 mg p.o. daily Ferrous sulfate 325 mg p.o. twice daily Calcium/vitamin D: Unspecified dose: 1 tab p.o. daily END OF DOCTOR EMAMIS DISCHARGE SUMMARY - Discharge Data Discharge Date: 05/19/21 Discharge Disposition: Home, Self-Care 01 Condition: Poor - Referral to Home Health Primary Care Physician: Justin Bronson NP - Patient Summary/Data Consults: Consultations 05/15/21 13:13 Consult to Case Management/Organ Fixer [CONS] Routine 05/15/21 13:20 Consult to Hospice [CONS] Routine - Patient Instructions Diet: Heart Healthy Diet, Low Sodium, Diabetic Diet Activity: As Tolerated - Discharge Plan Prescriptions/Med Rec: Lactulose [Cephulac] 30 gm PO Q4H 30 Days #5400 ml Home Medications: Home Meds Calcium Citrate/Vitamin D3 [Calcium Citrate - Vit D Tablet] 500 mg PO DAILY 02/28/18 [History] Thiamine Mononitrate (Vit B1) [Vitamin B-1] 100 mg PO DAILY 02/19/21 [History] Magnesium Oxide 200 mg PO DAILY 04/29/21 [History] Midodrine 7.5 mg PO TIDAC 04/29/21 [History] Multivitamin [Daily Khoi] 1 tab PO DAILY 04/29/21 [History] Omeprazole 20 mg PO ACBREAKFAST 04/29/21 [History] ondansetron HCL [Ondansetron HCl] 4 mg PO BID PRN 04/29/21 [History] Ascorbic Acid [Vitamin C] 500 mg PO DAILY 30 Days #30 tablet 04/30/21 [Rx] Ferrous Sulfate 325 mg PO BIDMEALS 30 Days #60 tablet 04/30/21 [Rx] Rifaximin [Xifaxan] 550 mg PO BID 05/11/21 [History] Lactulose [Cephulac] 30 gm PO Q4H 30 Days #5400 ml 05/19/21 [Rx] Forms: ED Department Discharge Referrals: PCP,None [Ordering Only Provider] - - Discharge Summary/Plan Comment DC Time >30 min.: Yes - General Info Date of Service: 05/19/21 - Review of Systems General: Reports: No Symptoms HEENT: Reports: No Symptoms Pulmonary: Reports: No Symptoms Cardiovascular: Reports: No Symptoms Gastrointestinal: Reports: No Symptoms Genitourinary: Reports: No Symptoms 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: Reports: No Symptoms Skin: Reports: No Symptoms Neurological: Reports: No Symptoms Psychiatric: Reports: No Symptoms - Patient Data Vitals - Most Recent: Last Vital Signs Temp 98.1 F 05/19/21 07:57 Pulse 71 05/19/21 07:57 Resp 23 H 05/19/21 07:57 BP 98/58 L 05/19/21 07:57 Pulse Ox 98 05/19/21 07:57 Weight - Most Recent: 172 lb I&O - Last 24 hours: Intake & Output 05/18/21 05/19/21 05/19/21 22:59 06:59 14:59 Intake Total 1765 50 Balance 1765 50 Lab Results - Last 24 hrs: Laboratory Results - last 24 hr 05/18/21 05/18/21 05/18/21 Range/Units 11:39 17:23 20:38 POC Glucose 143 H 111 H 138 H (70-99) mg/dL Ammonia (11-32) umol/L 05/19/21 05/19/21 Range/Units 06:20 08:04 POC Glucose 100 H (70-99) mg/dL Ammonia 62 H (11-32) umol/L Med Orders - Current: Current Medications Dextrose/Water (50% Dextrose In Water 50 Ml Syringe) 50 ml IVPUSH Q15M PRN PRN Reason: Hypoglycemia Glucagon (Glucagon,Human Recombinant 1 Mg Vial) 1 mg IM Q15M PRN PRN Reason: Hypoglycemia Insulin Human Lispro (Insulin Lispro 100 Units/Ml 3 Ml Vial) 0 unit SUBCUT WITHMEALSANDBED [facility]; Protocol Last Admin: 05/19/21 09:02 Dose: Not Given Documented by: Lactulose (Lactulose Soln 10 Gm/15 Ml 946 Ml Bottle) 200 gm RECTAL Q4H [facility] Last Admin: 05/19/21 09:02 Dose: Not Given Documented by: Lactulose (Lactulose Soln 10 Gm/15 Ml 30 Ml Ud Cup) 30 gm PO Q4H [facility] Last Admin: 05/19/21 08:21 Dose: 30 gm Documented by: Lorazepam (Lorazepam 2 Mg/Ml Sdv) 2 mg IVPUSH Q4H PRN PRN Reason: agitation Last Admin: 05/17/21 21:47 Dose: 2 mg Documented by: Lorazepam (Lorazepam 1 Mg Tab) 2 mg PO Q4H PRN PRN Reason: Agitation Last Admin: 05/18/21 15:30 Dose: 2 mg Documented by: Ondansetron HCl (Ondansetron 4 Mg/2 Ml Sdv) 4 mg IVPUSH Q4H PRN PRN Reason: Nausea/Vomiting Rifaximin (Rifaximin 550 Mg Tab) 550 mg PO BID [facility] Last Admin: 05/19/21 08:20 Dose: 550 mg Documented by: Sodium Chloride (Sodium Chloride 0.9% 10 Ml Syringe) 10 ml FLUSH ASDIRECTED PRN PRN Reason: Keep Vein Open Last Admin: 06/28/21 21:48 Dose: 10 ml Documented by: Discontinued Medications Lactulose (Lactulose Soln 10 Gm/15 Ml 946 Ml Bottle) 200 gm RECTAL ONETIME ONE Stop: 05/15/21 12:41 Last Admin: 05/15/21 14:50 Dose: Not Given Documented by: Lactulose (Lactulose Soln 10 Gm/15 Ml 30 Ml Ud Cup) 30 gm PO QID [facility] Last Admin: 05/16/21 20:18 Dose: Not Given Documented by: Lactulose (Lactulose Soln 10 Gm/15 Ml 946 Ml Bottle) 200 gm RECTAL Q6H [facility] Last Admin: 05/17/21 08:16 Dose: Not Given Documented by: - Exam General: Reports: Alert, Oriented HEENT: Reports: Pupils Equal, Pupils Reactive, EOMI, Mucous Membr. Moist/[place] Neck: Reports: Supple Lungs: Reports: Clear to Auscultation, Normal Respiratory Effort Cardiovascular: Reports: Regular Rate, Regular Rhythm GI/Abdominal Exam: Normal Bowel Sounds, Soft, Non-Tender, No Organomegaly, No Distention, No Abnormal Bruit, No Mass, Pelvis Stable Back Exam: Reports: Normal Inspection, Full Range of Motion Extremities: Normal Inspection, Normal Range of Motion, Non-Tender, No Pedal Edema, Normal Capillary Refill Skin: Reports: Warm, Dry, Intact Wound/Incisions: Reports: Healing Well Neurological: Reports: No New Focal Deficit Psy/Mental Status: Reports: Alert, Normal Affect, Normal Mood
--- NOTE | 2021-05-19 16:43 | EDM.PDOC ---
ED HPI GENERAL MEDICAL PROBLEM - General Chief Complaint: Neurological Problem Stated Complaint: IN BY [facility] Time Seen by Provider: 05/15/21 11:30 Source of Information: Reports: Patient, EMS, Old Records, RN, RN Notes Reviewed History Limitations: Reports: Altered Mental Status - History of Present Illness INITIAL COMMENTS - FREE TEXT/NARRATIVE: Pam is a 50 y/o female with a history of alcoholic cirrhosis with ascites and frequent admissions for hepatic encephalopathy due to poor medication compliance who presents to the ED via [facility] at her family's request due to altered mental status. Upon arrival to this facility the patient is lethargic, but opens eyes to touch. She withdrawals appropriately to painful stimuli. She is unable offer HPI due to current mental state. Side Splitter spoke with son Miguel via phone call who states he was the one who called EMS as he was unable to rouse his mother. He states he has been caring for her since her last admission two days ago. He notes she has been taking her medications; her last dose of Lactulose was at 0400, but when he tried to give her the 0800 dose he could not wake her up. He denies falls, alcohol, or recreational drug use. He states he feels his mother requires group home care as she continues to fail at home care. - Related Data Allergies Allergy/AdvReac Type Severity Reaction Status Date / Time ceftriaxone [From Rocephin] Allergy Intermediate Hives Verified 05/15/21 13:26 Home Meds: Home Meds Calcium Citrate/Vitamin D3 [Calcium Citrate - Vit D Tablet] 500 mg PO DAILY 02/28/18 [History] Thiamine Mononitrate (Vit B1) [Vitamin B-1] 100 mg PO DAILY 02/19/21 [History] Magnesium Oxide 200 mg PO DAILY 04/29/21 [History] Midodrine 7.5 mg PO TIDAC 04/29/21 [History] Multivitamin [Daily Khoi] 1 tab PO DAILY 04/29/21 [History] Omeprazole 20 mg PO ACBREAKFAST 04/29/21 [History] ondansetron HCL [Ondansetron HCl] 4 mg PO BID PRN 04/29/21 [History] Ascorbic Acid [Vitamin C] 500 mg PO DAILY 30 Days #30 tablet 04/30/21 [Rx] Ferrous Sulfate 325 mg PO BIDMEALS 30 Days #60 tablet 04/30/21 [Rx] Rifaximin [Xifaxan] 550 mg PO BID 05/11/21 [History] Lactulose [Cephulac] 30 gm PO Q4H 30 Days #5400 ml 05/19/21 [Rx] Past Medical History HEENT History: Reports: Impaired Vision Other HEENT History: legally blind per [facility] reports, blindness to right eye, presbyopia, diabetic retinopathy Cardiovascular History: Reports: Heart Murmur, High Cholesterol, Hypertension Other Cardiovascular History: MURMUR Respiratory History: Reports: None Gastrointestinal History: Reports: Cirrhosis, Other (See Below) Other Gastrointestinal History: HX OF ABNORMAL LIVER STUDIES , umbilical hernia present Genitourinary History: Reports: Dialysis, 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: Reports: 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 History: Reports: None Neurological History: Reports: None Psychiatric History: Reports: Addiction Other Psychiatric History: acute alcohol abuse Endocrine/Metabolic History: Reports: Diabetes, Type II, Hypothyroidism Hematologic History: Reports: Anemia Other Hematologic History: acquired thrombocytopenia Immunologic History: Reports: None Oncologic (Cancer) History: Reports: None Dermatologic History: Reports: Cellulitis Other Dermatologic History: RIGHT BREAST CELLULITUS - Infectious Disease History Infectious Disease History: Reports: MRSA Other Infectious Disease History: unable to obtain due to nonverbal status and cognitive status - Past Surgical History Head Surgeries/Procedures: Reports: None HEENT Surgical History: Reports: None Other HEENT Surgeries/Procedures: Right eye iridotomy Cardiovascular Surgical History: Reports: None Respiratory Surgical History: Reports: None GI Surgical History: Reports: Colonoscopy, EGD Female Surgical History: Reports: Section, Mastectomy 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 Surgical History: Reports: None Oncologic Surgical History: Reports: Mastectomy Other Oncologic Surgeries/Procedures: RIGHT MASTECTOMY Dermatological Surgical History: Reports: Other (See Below) Social & Family History - Family History Family Medical History: Unobtainable - Tobacco Use Tobacco Use Status *Q: Unknown Ever Used Tobacco - Caffeine Use Caffeine Use: Reports: Tea Caffeine Use Comment: 1 8oz cup daily - Recreational Drug Use Other Recreational Drug Type: unable to obtain - Living Situation & Occupation Living situation: Reports: with Family Occupation: Employed ED ROS GENERAL - Review of Systems Review Of Systems: Unable To Obtain Reason Not Obtained: Altered mental status - Physical Exam Exam: See Below Exam Limited By: Altered Mental Status General Appearance: No Apparent Distress, Lethargic Eye Exam: Bilateral Eye: EOMI, PERRL (3mm), Other (Scleral icterus) Ears: Normal External Exam, Normal Canal, Normal TMs Nose: Normal Inspection, Normal Mucosa, No Blood Throat/Mouth: Normal Voice, No Airway Compromise. No: Normal Oropharynx (Dry mucouc membranes) Head Exam: Atraumatic, Normocephalic Neck: Normal Inspection, Supple, Non-Tender, Full Range of Motion. No: Lymphadenopathy (L), Lymphadenopathy (R) Respiratory/Chest: No Respiratory Distress, Lungs Clear, Normal Breath Sounds, No Accessory Muscle Use, Chest Non-Tender Cardiovascular: Normal Peripheral Pulses, Regular Rate, Rhythm, No Edema, No Gallop, No Rub, JVD, Systolic Murmur (3/6 holosystolic murmur; No radiation into carotids) GI/Abdominal: Soft, No Distention, No Abnormal Bruit, Pelvis Stable, Abnormal Bowel Sounds (Hypoactive bowel sounds), Hernia. No: Guarding, Rigid, Rebound (Female) Exam: Deferred Rectal (Female) Exam: Deferred Neuro Exam (Abbreviated): No Motor/Sensory Deficits, Confused, Slow to Respond, Memory Loss Remote Events, Memory Loss Recent Events Back Exam: Normal Inspection, Full Range of Motion Extremities: Normal Inspection, No Pedal Edema, Normal Capillary Refill Skin Exam: Warm, Dry, Intact, Jaundice. No: Cyanosis, Increased Warmth, Mottled, Pallor Course - Vital Signs Last Recorded V/S: Last Vital Signs Temp 98.1 F 05/19/21 07:57 Pulse 71 05/19/21 07:57 Resp 23 H 05/19/21 07:57 BP 98/58 L 05/19/21 07:57 Pulse Ox 98 05/19/21 07:57 - Orders/Labs/Meds Labs: Laboratory Tests 05/15/21 05/15/21 05/15/21 Range/Units 11:03 11:10 11:10 WBC 3.3 L (5.0-10.0) 10^3/uL RBC 2.33 L (4.2-5.4) 10^6/uL Hgb 7.9 L (12.0-16.0) g/dL Hct 23.6 L (37.0-47.0) % MCV 101.3 H (80-100) fL MCH 33.9 (27.0-34.0) pg MCHC 33.5 (33.0-35.0) g/dL Plt Count 48 L* (150-450) 10^3/uL Neut % (Auto) 59.7 (42.2-75.2) % Lymph % (Auto) 20.9 (20.5-50.1) % Garden % (Auto) 13.0 H (2-8) % Eos % (Auto) 6.1 H (1.0-3.0) % Baso % (Auto) 0.3 (0.0-1.0) % Sodium (136-145) mmol/L Potassium (3.5-5.1) mmol/L Chloride (98-107) mmol/L Carbon Dioxide (21-32) mmol/L Anion Gap (7-13) mEq/L BUN (7-18) mg/dL Creatinine (0.55-1.02) mg/dL Est Cr Clr Drug Dosing mL/min Estimated GFR (MDRD) BUN/Creatinine Ratio (No establ ref range) Glucose (70-99) mg/dL POC Glucose 103 H (70-99) mg/dL Lactic Acid 1.2 (0.4-2.0) mmol/L Calcium (8.5-10.1) mg/dL Total Bilirubin (0.2-1.0) mg/dL AST (15-37) U/L ALT (14-59) U/L Alkaline Phosphatase (46-116) U/L Ammonia (11-32) umol/L Total Protein (6.4-8.2) g/dL Albumin (3.4-5.0) g/dL Globulin Albumin/Globulin Ratio 05/15/21 05/15/21 Range/Units 11:10 11:10 WBC (5.0-10.0) 10^3/uL RBC (4.2-5.4) 10^6/uL Hgb (12.0-16.0) g/dL Hct (37.0-47.0) % MCV (80-100) fL MCH (27.0-34.0) pg MCHC (33.0-35.0) g/dL Plt Count (150-450) 10^3/uL Neut % (Auto) (42.2-75.2) % Lymph % (Auto) (20.5-50.1) % [place] % (Auto) (2-8) % Eos % (Auto) (1.0-3.0) % Baso % (Auto) (0.0-1.0) % Sodium 142 (136-145) mmol/L Potassium 4.3 (3.5-5.1) mmol/L Chloride 111 H (98-107) mmol/L Carbon Dioxide 22 (21-32) mmol/L Anion Gap 13.3 H (7-13) mEq/L BUN 10 (7-18) mg/dL Creatinine 0.96 (0.55-1.02) mg/dL Est Cr Clr Drug Dosing 59.19 mL/min Estimated GFR (MDRD) > 60 BUN/Creatinine Ratio 10.4 (No establ ref range) Glucose 120 H (70-99) mg/dL POC Glucose (70-99) mg/dL Lactic Acid (0.4-2.0) mmol/L Calcium 7.7 L (8.5-10.1) mg/dL Total Bilirubin 3.0 H (0.2-1.0) mg/dL AST 41 H (15-37) U/L ALT 40 (14-59) U/L Alkaline Phosphatase 186 H (46-116) U/L Ammonia 236 H (11-32) umol/L Total Protein 5.7 L (6.4-8.2) g/dL Albumin 2.3 L (3.4-5.0) g/dL Globulin 3.4 Albumin/Globulin Ratio 0.68 Meds: Medications Discontinued Medications Generic Name Dose Route Start Last Admin Trade Name Freq PRN Reason Stop Dose Admin Dextrose/Water 50 ml 05/15/21 13:18 50% Dextrose In Water 50 Ml Syringe IVPUSH Q15M PRN Hypoglycemia Glucagon 1 mg 05/15/21 13:18 Glucagon,Human Recombinant 1 Mg Vial IM Q15M PRN Hypoglycemia Insulin Human Lispro 0 unit 05/15/21 18:00 05/19/21 09:02 Insulin Lispro 100 Units/Ml 3 Ml Vial SUBCUT Not Given WITH[facility]ALSANDBED [facility] Protocol Lactulose 200 gm 05/15/21 12:40 05/15/21 14:50 Lactulose Soln 10 Gm/15 Ml 946 Ml Bottle RECTAL 05/15/21 12:41 Not Given ONETIME ONE Lactulose 30 gm 05/15/21 17:00 05/16/21 20:18 Lactulose Soln 10 Gm/15 Ml 30 Ml Ud Cup PO Not Given QID KOMAL Lactulose 200 gm 05/15/21 13:30 05/17/21 08:16 Lactulose Soln 10 Gm/15 Ml 946 Ml Bottle RECTAL Not Given Q6H KOMAL Lactulose 200 gm 05/17/21 08:00 05/19/21 09:02 Lactulose Soln 10 Gm/15 Ml 946 Ml Bottle RECTAL Not Given Q4H KOMAL Lactulose 30 gm 05/17/21 08:00 05/19/21 08:21 Lactulose Soln 10 Gm/15 Ml 30 Ml Ud Cup PO 30 gm Q4H KOMAL Administration Lorazepam 2 mg 05/15/21 14:23 05/17/21 21:47 Lorazepam 2 Mg/Ml Sdv IVPUSH 2 mg Q4H PRN Administration agitation Lorazepam 2 mg 05/18/21 13:13 05/18/21 15:30 Lorazepam 1 Mg Tab PO 2 mg Q4H PRN Administration Agitation Ondansetron HCl 4 mg 05/15/21 13:13 Ondansetron 4 Mg/2 Ml Sdv IVPUSH Q4H PRN Nausea/Vomiting Rifaximin 550 mg 05/15/21 13:15 05/19/21 08:20 Rifaximin 550 Mg Tab PO 550 mg BID KOMAL Administration Sodium Chloride 10 ml 05/15/21 13:13 05/17/21 21:48 Sodium Chloride 0.9% 10 Ml Syringe FLUSH 10 ml ASDIRECTED PRN Administration Keep Vein Open - Re-Assessments/Exams Free Text/Narrative Re-Assessment/Exam: 05/15/21 Findings of examination and lab work reviewed with patient and son (via telephone). Case discussed with Dr. Brock who kindly agreed to accept patient for admission. Patient's son verbalized understanding and agreement with the plan of care. Departure - Departure Time of Disposition: 12:50 Disposition: Admitted As Inpatient 64 Condition: Fair Clinical Impression: Hepatic encephalopathy, Macrocytic anemia Cirrhosis of liver Qualifiers: Hepatic cirrhosis type: alcoholic cirrhosis Ascites presence: with ascites Qualified Code(s): K70.31 - Alcoholic cirrhosis of liver with ascites Diabetes mellitus Qualifiers: Diabetes mellitus type: type 2 Diabetes mellitus prison insulin use: with prison use Diabetes mellitus complication status: with unspecified complications Qualified Code(s): E11.8 - Type 2 diabetes mellitus with unspecified complications Umbilical hernia Qualifiers: Obstruction and gangrene presence: without obstruction or gangrene Qualified Code(s): K42.9 - Umbilical hernia without obstruction or gangrene - Discharge Information Sepsis Event Note (ED) - Evaluation Sepsis Screening Result: No Definite Risk
== END 2021-05-19 11:38 | disposition home or self-care (01) | DRG 642 ==
LOC: DL.ED 11:00 → EEVIPCON 12:51 → DL.MS 12:51
PROVIDERS: ADMIT Internal Medicine; ATTEND Internal Medicine
DX: E72.20 Disorder of urea cycle metabolism, unspecified (principal); K76.6 Portal hypertension; D61.818 Other pancytopenia; D68.9 Coagulation defect, unspecified; F10.288 Alcohol dependence with other alcohol-induced disorder; K70.40 Alcoholic hepatic failure without coma; Z91.19 Patient's noncompliance with other medical treatment and regimen; K80.20 Calculus of gallbladder without cholecystitis without obstruction; K76.0 Fatty (change of) liver, not elsewhere classified; K70.31 Alcoholic cirrhosis of liver with ascites; D75.89 Other specified diseases of blood and blood-forming organs; Z20.822 Contact with and (suspected) exposure to COVID-19; E61.1 Iron deficiency; K21.9 Gastro-esophageal reflux disease without esophagitis; E78.5 Hyperlipidemia, unspecified; I10 Essential (primary) hypertension; E66.9 Obesity, unspecified; F17.200 Nicotine dependence, unspecified, uncomplicated; E03.9 Hypothyroidism, unspecified; D64.9 Anemia, unspecified; K57.90 Diverticulosis of intestine, part unspecified, without perforation or abscess without bleeding; I95.1 Orthostatic hypotension; H54.7 Unspecified visual loss; H54.40 Blindness, one eye, unspecified eye; E78.00 Pure hypercholesterolemia, unspecified; E11.319 Type 2 diabetes mellitus with unspecified diabetic retinopathy without macular edema; D69.6 Thrombocytopenia, unspecified; K42.9 Umbilical hernia without obstruction or gangrene; Z88.1 Allergy status to other antibiotic agents; Z79.899 Other long term (current) drug therapy; Z90.11 Acquired absence of right breast and nipple; Z68.29 Body mass index [BMI] 29.0-29.9, adult; Z86.14 Personal history of Methicillin resistant Staphylococcus aureus infection
CPT/HCPCS: 0240U; 36415; 80053; 82140; 82947; 83605; 85025; 85610; A9270-GY; J2060

== ENCOUNTER 2021-05-23 12:32 | Inpatient (IN) | payer MEDICAID ==
[2021-05-23] MEDS ORDERED: Sodium Chloride 0.9% 1,000 ML IV ONE (12:51)
--- NOTE | 2021-05-23 12:58 | EDM.PDOC ---
ED HPI GENERAL MEDICAL PROBLEM - General Chief Complaint: Neurological Problem Stated Complaint: AMBULANCE Time Seen by Provider: 05/23/21 12:54 Source of Information: Reports: EMS History Limitations: Reports: Altered Mental Status - History of Present Illness INITIAL COMMENTS - FREE TEXT/NARRATIVE: Patient is a unfortunate 50-year-old female who presents emerged department via EMS with complaint of altered mental status. The EMS reports that the patient was seen by her family this morning approximately 7 AM they noted that she was having an alteration in her mental status is concerned the family so they called EMS who brought her to the emergency department for further evaluation. The patient is known well to the staff here as a who has had a history of cirrhosis and has had difficulty maintaining her ammonia level from a lack of compliance with use of lactulose which is caused her to have multiple episodes of hepatic encephalopathy. The patient was admitted here 3 times last month for hepatic encephalopathy. Last episode was on 05/17/2021. The patient presents altered is unable to give a history responds to painful stimulus refuses to open her eyes - Related Data Allergies Allergy/AdvReac Type Severity Reaction Status Date / Time ceftriaxone [From Rocephin] Allergy Intermediate Hives Verified 05/15/21 13:26 Home Meds: Home Meds Calcium Citrate/Vitamin D3 [Calcium Citrate - Vit D Tablet] 500 mg PO DAILY 02/28/18 [History] Thiamine Mononitrate (Vit B1) [Vitamin B-1] 100 mg PO DAILY 02/19/21 [History] Magnesium Oxide 200 mg PO DAILY 04/29/21 [History] Midodrine 7.5 mg PO TIDAC 04/29/21 [History] Multivitamin [Daily Khoi] 1 tab PO DAILY 04/29/21 [History] Omeprazole 20 mg PO ACBREAKFAST 04/29/21 [History] ondansetron HCL [Ondansetron HCl] 4 mg PO BID PRN 04/29/21 [History] Ascorbic Acid [Vitamin C] 500 mg PO DAILY 30 Days #30 tablet 04/30/21 [Rx] Ferrous Sulfate 325 mg PO BIDMEALS 30 Days #60 tablet 04/30/21 [Rx] Rifaximin [Xifaxan] 550 mg PO BID 05/11/21 [History] Lactulose [Cephulac] 30 gm PO Q4H 30 Days #5400 ml 05/19/21 [Rx] Past Medical History HEENT History: Reports: Impaired Vision Other HEENT History: legally blind per IHS reports, blindness to right eye, presbyopia, diabetic retinopathy Cardiovascular History: Reports: Heart Murmur, High Cholesterol, Hypertension Other Cardiovascular History: MURMUR Respiratory History: Reports: None Gastrointestinal History: Reports: Cirrhosis, Other (See Below) Other Gastrointestinal History: HX OF ABNORMAL LIVER STUDIES , umbilical hernia present Genitourinary History: Reports: Dialysis, 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: 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 History: Reports: None Neurological History: Reports: None Psychiatric History: Reports: Addiction Other Psychiatric History: acute alcohol abuse Endocrine/Metabolic History: Reports: Diabetes, Type II, Hypothyroidism Hematologic History: Reports: Anemia Other Hematologic History: acquired thrombocytopenia Immunologic History: Reports: None Oncologic (Cancer) History: Reports: None Dermatologic History: Reports: Cellulitis Other Dermatologic History: RIGHT BREAST CELLULITUS - Infectious Disease History Infectious Disease History: Reports: MRSA Other Infectious Disease History: unable to obtain due to nonverbal status and cognitive status - Past Surgical History Head Surgeries/Procedures: Reports: None HEENT Surgical History: Reports: None Other HEENT Surgeries/Procedures: Right eye iridotomy Cardiovascular Surgical History: Reports: None Respiratory Surgical History: Reports: None GI Surgical History: Reports: Colonoscopy, EGD Female Surgical History: Reports: Section, Mastectomy 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 Surgical History: Reports: None Oncologic Surgical History: Reports: Mastectomy Other Oncologic Surgeries/Procedures: RIGHT MASTECTOMY Dermatological Surgical History: Reports: Other (See Below) Social & Family History - Family History Family Medical History: Unobtainable - Caffeine Use Caffeine Use: Reports: Tea Caffeine Use Comment: 1 8oz cup daily - Living Situation & Occupation Living situation: Reports: with Family Occupation: Employed ED ROS GENERAL - Review of Systems Review Of Systems: Unable To Obtain Reason Not Obtained: altered mental status Constitutional: Denies: Fever, Chills - Physical Exam Exam: See Below Exam Limited By: Altered Mental Status General Appearance: Lethargic, Moderate Distress Ears: Other (She holds her eyes shut when attempted to open annually) Head Exam: Atraumatic, Normocephalic Respiratory/Chest: No Respiratory Distress, Lungs Clear, Normal Breath Sounds, No Accessory Muscle Use, Chest Non-Tender Cardiovascular: Normal Peripheral Pulses, Regular Rate, Rhythm, No Edema, No Gallop, No JVD, No Murmur, No Rub GI/Abdominal: Normal Bowel Sounds, Soft, Non-Tender, No Organomegaly, No Abnormal Bruit, No Mass, Other (Obese, distended) Neuro Exam (Abbreviated): Other (Makes inappropriate words and sounds, does not open her eyes, does localize pain) Back Exam: Other (She has an area of ecchymosis along the lateral aspect of her abdomen and back) Skin Exam: Warm, Dry #1 Interpretation EKG Date: 05/23/21 Time: 13:22 Rhythm: NSR [place]: LAD-Left [place] Deviation P-Wave: Present QRS: LBBB ST-T: Other (nonSpecific ST changes) QT: Prolonged EKG Interpretation Comments: No acute ischemic changes Course - Vital Signs Text/Narrative:: CT head report shows "IMPRESSION: Subtle left greater than right occipital low attenuation may be artifactually accentuated by overlying calvarial artifacts. If the patient has been recently seizing or severely hypertensive, reversible posterior leukoencephalopathy syndrome would be a consideration. Depending on the clinical picture, brain MRI would be helpful for complete evaluation. There is no acute process otherwise." Patient has a hepatic encephalopathy, discussed case with Dr. Brock who is graciously up to the patient to inpatient status for hepatic encephalopathy Last Recorded V/S: Last Vital Signs Temp 98.1 F 05/23/21 12:53 Pulse 62 05/23/21 12:53 Resp 16 05/23/21 12:53 BP 95/50 L 05/23/21 12:53 Pulse Ox 100 05/23/21 12:53 - Orders/Labs/Meds Orders: Active Orders 24 hr Category Date Time Status EKG Documentation Completion [RC] STAT Care 05/23/21 12:52 Active Labs: Laboratory Tests 05/23/21 05/23/21 05/23/21 Range/Units 13:04 13:04 13:04 WBC 3.9 L (5.0-10.0) 10^3/uL RBC 2.34 L (4.2-5.4) 10^6/uL Hgb 8.0 L (12.0-16.0) g/dL Hct 24.1 L (37.0-47.0) % MCV 103.0 H (80-100) fL MCH 34.2 H (27.0-34.0) pg MCHC 33.2 (33.0-35.0) g/dL Plt Count 50 L (150-450) 10^3/uL Neut % (Auto) 68.5 (42.2-75.2) % Lymph % (Auto) 16.9 L (20.5-50.1) % Granite % (Auto) 11.0 H (2-8) % Eos % (Auto) 3.3 H (1.0-3.0) % Baso % (Auto) 0.3 (0.0-1.0) % PT (9.0-12.0) SEC INR (0.9-1.2) Sodium 141 (136-145) mmol/L Potassium 4.0 (3.5-5.1) mmol/L Chloride 109 H (98-107) mmol/L Carbon Dioxide 24 (21-32) mmol/L Anion Gap 12.0 (7-13) mEq/L BUN 10 (7-18) mg/dL Creatinine 1.08 H (0.55-1.02) mg/dL Est Cr Clr Drug Dosing 52.62 mL/min Estimated GFR (MDRD) 53 BUN/Creatinine Ratio 9.3 (No establ ref range) Glucose 124 H (70-99) mg/dL Calcium 7.8 L (8.5-10.1) mg/dL Total Bilirubin 4.9 H (0.2-1.0) mg/dL AST 55 H (15-37) U/L ALT 34 (14-59) U/L Alkaline Phosphatase 187 H (46-116) U/L Ammonia 237 H (11-32) umol/L Troponin I High Sens 40 (<=51) pg/mL Total Protein 5.8 L (6.4-8.2) g/dL Albumin 2.1 L (3.4-5.0) g/dL Globulin 3.7 Albumin/Globulin Ratio 0.57 Urine Color (YELLOW) Urine Appearance (CLEAR) Urine pH (5.0-9.0) Ur Specific [place] (1.005-1.030) Urine Protein (NEGATIVE) Urine Glucose (UA) (NEGATIVE) Urine Ketones (NEGATIVE) Urine Occult Blood (NEGATIVE) Urine Nitrite (NEGATIVE) Urine Bilirubin (NEGATIVE) Urine Urobilinogen (0.2-1.0) mg/dL Ur Leukocyte Esterase (NEGATIVE) Urine RBC /HPF Urine WBC (0-5/HPF) /HPF Ur Epithelial Cells (NOT SEEN) /HPF Calcium Oxalate Crystal (NOT SEEN) /HPF Amorphous Sediment (NOT SEEN) /HPF Urine Bacteria (0-FEW/HPF) /HPF Urine Mucus (NOT SEEN) /LPF 05/23/21 05/23/21 Range/Units 13:04 15:24 WBC (5.0-10.0) 10^3/uL RBC (4.2-5.4) 10^6/uL Hgb (12.0-16.0) g/dL Hct (37.0-47.0) % MCV (80-100) fL MCH (27.0-34.0) pg MCHC (33.0-35.0) g/dL Plt Count (150-450) 10^3/uL Neut % (Auto) (42.2-75.2) % Lymph % (Auto) (20.5-50.1) % Granite % (Auto) (2-8) % Eos % (Auto) (1.0-3.0) % Baso % (Auto) (0.0-1.0) % PT 23.3 H (9.0-12.0) SEC INR 2.4 H (0.9-1.2) Sodium (136-145) mmol/L Potassium (3.5-5.1) mmol/L Chloride (98-107) mmol/L Carbon Dioxide (21-32) mmol/L Anion Gap (7-13) mEq/L BUN (7-18) mg/dL Creatinine (0.55-1.02) mg/dL Est Cr Clr Drug Dosing mL/min Estimated GFR (MDRD) BUN/Creatinine Ratio (No establ ref range) Glucose (70-99) mg/dL Calcium (8.5-10.1) mg/dL Total Bilirubin (0.2-1.0) mg/dL AST (15-37) U/L ALT (14-59) U/L Alkaline Phosphatase (46-116) U/L Ammonia (11-32) umol/L Troponin I High Sens (<=51) pg/mL Total Protein (6.4-8.2) g/dL Albumin (3.4-5.0) g/dL Globulin Albumin/Globulin Ratio Urine Color Yellow (YELLOW) Urine Appearance Slightly cloudy (CLEAR) Urine pH 6.0 (5.0-9.0) Ur Specific [place] 1.025 (1.005-1.030) Urine Protein Negative (NEGATIVE) Urine Glucose (UA) Negative (NEGATIVE) Urine Ketones Negative (NEGATIVE) Urine Occult Blood Trace-intact H (NEGATIVE) Urine Nitrite Negative (NEGATIVE) Urine Bilirubin Negative (NEGATIVE) Urine Urobilinogen 0.2 (0.2-1.0) mg/dL Ur Leukocyte Esterase Negative (NEGATIVE) Urine RBC 5-10 H /HPF Urine WBC 5-10 H (0-5/HPF) /HPF Ur Epithelial Cells Rare (NOT SEEN) /HPF Calcium Oxalate Crystal Rare (NOT SEEN) /HPF Amorphous Sediment Occasional (NOT SEEN) /HPF Urine Bacteria Many H (0-FEW/HPF) /HPF Urine Mucus Not seen (NOT SEEN) /LPF Meds: Medications Discontinued Medications Generic Name Dose Route Start Last Admin Trade Name Freq PRN Reason Stop Dose Admin Sodium Chloride 1,000 mls @ 999 mls/hr 05/23/21 12:51 05/23/21 13:23 Normal Saline IV 05/23/21 13:51 999 mls/hr .BOLUS ONE Administration Lactulose 200 gm 05/23/21 13:50 Lactulose Soln 10 Gm/15 Ml 946 Ml Bottle RECTAL 05/23/21 13:51 ONETIME ONE Departure - Departure Time of Disposition: 16:01 Disposition: Admitted As Inpatient 64 Condition: Serious Clinical Impression: Hepatic encephalopathy - Discharge Information Forms: ED Department Discharge Sepsis Event Note (ED) - Focused Exam Vital Signs: Vital Signs Temp Pulse Resp BP Pulse Ox 05/23/21 12:53 98.1 F 62 16 95/50 L 100 - My Orders Last 24 Hours: My Active Orders 05/23/21 12:52 EKG Documentation Completion [RC] STAT - Assessment/Plan Last 24 Hours: My Active Orders 05/23/21 12:52 EKG Documentation Completion [RC] STAT
[2021-05-23] MEDS ORDERED: Lactulose Soln 10 GM/15 ML 946 ML Bottle RECTAL ONE (13:50)
--- NOTE | 2021-05-23 14:17 | CT ---
PROCEDURE INFORMATION: Exam: CT Head Without Contrast Exam date and time: 05/23/2021 1:41 PM Age: 50 years old Clinical indication: Altered mental status/memory loss; Confusion or disorientation; Additional info: AMS TECHNIQUE: Imaging protocol: Computed tomography of the head without contrast. Radiation optimization: All CT scans at this facility use at least one of these dose optimization techniques: automated exposure control; mA and/or kV adjustment per patient size (includes targeted exams where dose is matched to clinical indication); or iterative reconstruction. COMPARISON: CT Head wo Cont 09/03/2020 12:31 PM FINDINGS: Brain: Again noted is slightly disproportionate frontal lobe atrophy. There is very subtle left greater than right occipital low attenuation. This could be artifactually accentuated; however, if the patient were recently seizing or severely hypertensive, this could be associated with reversible posterior leukoencephalopathy syndrome. Depending on the clinical picture, MRI may be helpful for complete evaluation. There is no acute hemorrhage or ischemia, mass or extra-axial collection otherwise. Cerebral ventricles: No ventriculomegaly. Paranasal sinuses: Visualized sinuses are unremarkable. No fluid levels. Mastoid air cells: Visualized mastoid air cells are well aerated. 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 Bones/joints: There is mild rightward deviation of the nasal septum. Soft tissues: Unremarkable. IMPRESSION: Subtle left greater than right occipital low attenuation may be artifactually accentuated by overlying calvarial artifacts. If the patient has been recently seizing or severely hypertensive, reversible posterior leukoencephalopathy syndrome would be a consideration. Depending on the clinical picture, brain MRI would be helpful for complete evaluation. There is no acute process otherwise.
[2021-05-23] MEDS ORDERED: Ondansetron 4 MG/2 ML SDV IVPUSH PRN (17:13)
[2021-05-23] MEDS ORDERED: Glucagon,Human Recombinant 1 MG Vial IM PRN ×2 (17:20→20:04)
[2021-05-23] MEDS ORDERED: 50% Dextrose in Water 50 ML Syringe IVPUSH PRN ×2 (17:20→20:04)
[2021-05-23] MEDS ORDERED: LORazepam 2 MG/ML SDV IVPUSH PRN (17:21)
--- NOTE | 2021-05-23 17:27 | PCM.HP ---
H&P History of Present Illness - General Date of Service: 05/23/21 Admit Problem/Dx: Admission Diagnosis/Problem Admission Diagnosis/Problem Hepatic encephalopathy - History of Present Illness Initial Comments - Free Text/Narative: The patient is a 50-year-old female who was transferred to the emergency department due to encephalopathy. This is the patient's third admission since May 09, 2021 due to hepatic encephalopathy as a result of medical noncompliance. Unfortunately at the present time the patient is encephalopathic and unable to provide history of present illness. She presents for further evaluation - Related Data Allergies/Adverse Reactions: Allergies Allergy/AdvReac Type Severity Reaction Status Date / Time ceftriaxone [From Rocephin] Allergy Intermediate Hives Verified 05/15/21 13:26 Home Medications: Home Meds Calcium Citrate/Vitamin D3 [Calcium Citrate - Vit D Tablet] 500 mg PO DAILY 02/28/18 [History] Thiamine Mononitrate (Vit B1) [Vitamin B-1] 100 mg PO DAILY 02/19/21 [History] Magnesium Oxide 200 mg PO DAILY 04/29/21 [History] Midodrine 7.5 mg PO TIDAC 04/29/21 [History] Multivitamin [Daily Khoi] 1 tab PO DAILY 04/29/21 [History] Omeprazole 20 mg PO ACBREAKFAST 04/29/21 [History] ondansetron HCL [Ondansetron HCl] 4 mg PO BID PRN 04/29/21 [History] Ascorbic Acid [Vitamin C] 500 mg PO DAILY 30 Days #30 tablet 04/30/21 [Rx] Ferrous Sulfate 325 mg PO BIDMEALS 30 Days #60 tablet 04/30/21 [Rx] Rifaximin [Xifaxan] 550 mg PO BID 05/11/21 [History] Lactulose [Cephulac] 30 gm PO Q4H 30 Days #5400 ml 05/19/21 [Rx] Past Medical History HEENT History: Reports: Impaired Vision Other HEENT History: legally blind per S reports, blindness to right eye, presbyopia, diabetic retinopathy Cardiovascular History: Reports: Heart Murmur, High Cholesterol, Hypertension Other Cardiovascular History: MURMUR Respiratory History: Reports: None Gastrointestinal History: Reports: Cirrhosis, Other (See Below) Other Gastrointestinal History: HX OF ABNORMAL LIVER STUDIES , umbilical hernia present Genitourinary History: Reports: Dialysis, 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 History: Reports: 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 History: Reports: None Neurological History: Reports: None Psychiatric History: Reports: Addiction Other Psychiatric History: acute alcohol abuse Endocrine/Metabolic History: Reports: Diabetes, Type II, Hypothyroidism Hematologic History: Reports: Anemia Other Hematologic History: acquired thrombocytopenia Immunologic History: Reports: None Oncologic (Cancer) History: Reports: None Dermatologic History: Reports: Cellulitis Other Dermatologic History: RIGHT BREAST CELLULITUS - Infectious Disease History Infectious Disease History: Reports: MRSA Other Infectious Disease History: unable to obtain due to nonverbal status and cognitive status - Past Surgical History Head Surgeries/Procedures: Reports: None HEENT Surgical History: Reports: None Other HEENT Surgeries/Procedures: Right eye iridotomy Cardiovascular Surgical History: Reports: None Respiratory Surgical History: Reports: None GI Surgical History: Reports: Colonoscopy, EGD Female Surgical History: Reports: Section, Mastectomy 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 Surgical History: Reports: None Oncologic Surgical History: Reports: Mastectomy Other Oncologic Surgeries/Procedures: RIGHT MASTECTOMY Dermatological Surgical History: Reports: Other (See Below) Social & Family History - Family History Family Medical History: Unobtainable - Tobacco Use Tobacco Use Status *Q: Unknown Ever Used Tobacco - Caffeine Use Caffeine Use: Reports: Tea Caffeine Use Comment: 1 8oz cup daily - Living Situation & Occupation Living situation: Reports: with Family Occupation: Employed H&P Review of Systems - Review of Systems: Review Of Systems: See Below General: Reports: No Symptoms HEENT: Reports: No Symptoms Pulmonary: Reports: No Symptoms Cardiovascular: Reports: No Symptoms Gastrointestinal: Reports: No Symptoms Genitourinary: Reports: No Symptoms 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: Reports: No Symptoms Skin: Reports: No Symptoms Psychiatric: Reports: No Symptoms Neurological: Reports: No Symptoms Hematologic/Lymphatic: Reports: No Symptoms Immunologic: Reports: No Symptoms Exam - Exam Exam: See Below - Vital Signs Vital Signs: Last Vital Signs Temp 98.1 F 05/23/21 12:53 Pulse 62 05/23/21 12:53 Resp 16 05/23/21 12:53 BP 95/50 L 05/23/21 12:53 Pulse Ox 100 05/23/21 12:53 Weight: 172 lb 6 oz - Exam General: Lethargic HEENT: PERRLA, Hearing Intact, Mucosa Moist & [place], Nares Patent, Normal Nasal Septum, Posterior Pharynx Clear, Conjunctiva Clear, EOMI, EACs Clear, TMs Clear Neck: Supple, Trachea Midline, 2 Lungs: Clear to Auscultation, Normal Respiratory Effort Cardiovascular: Regular Rate, Regular Rhythm GI/Abdominal Exam: Normal Bowel Sounds, Soft, Non-Tender, No Organomegaly, No Distention, No Abnormal Bruit, No Mass, Pelvis Stable Back Exam: Normal Inspection, Full Range of Motion, NT Extremities: Normal Inspection, Normal Range of Motion, Non-Tender, No Pedal Edema, Normal Capillary Refill Peripheral Pulses: 2+: Carotid (L), Carotid (R), Brachial (L), Brachial (R), Radial (L), Radial (R), Femoral (L), Femoral (R), Popliteal (L), Popliteal (R), Posterior Tibial (L), Posterior Tibial (R), Dorsalis Pedis (L), Dorsalis Pedis (R) Skin: Warm, Dry, Intact Neurological: Cranial Nerves Intact, Reflexes Equal Bilateral Neuro Extensive - Mental Status: Alert, Oriented x3, Normal Mood/Affect, Normal Cognition Neuro Extensive - Motor, Sensory, Reflexes: CN II-XII Intact, Normal Gait, No rmal Reflexes DTR: 2+: Bicep (L), Bicep (R), Tricep (L), Tricep (R), Patella (L), Patella (R), Achilles (L), Achilles (R) Psychiatric: Alert, Normal Affect, Normal Mood - Patient Data Lab Results Last 24 hrs: Laboratory Results - last 24 hr 05/23/21 05/23/21 05/23/21 Range/Units 13:04 13:04 13:04 WBC 3.9 L (5.0-10.0) 10^3/uL RBC 2.34 L (4.2-5.4) 10^6/uL Hgb 8.0 L (12.0-16.0) g/dL Hct 24.1 L (37.0-47.0) % MCV 103.0 H (80-100) fL MCH 34.2 H (27.0-34.0) pg MCHC 33.2 (33.0-35.0) g/dL Plt Count 50 L (150-450) 10^3/uL Neut % (Auto) 68.5 (42.2-75.2) % Lymph % (Auto) 16.9 L (20.5-50.1) % [place] % (Auto) 11.0 H (2-8) % Eos % (Auto) 3.3 H (1.0-3.0) % Baso % (Auto) 0.3 (0.0-1.0) % PT (9.0-12.0) SEC INR (0.9-1.2) Sodium 141 (136-145) mmol/L Potassium 4.0 (3.5-5.1) mmol/L Chloride 109 H (98-107) mmol/L Carbon Dioxide 24 (21-32) mmol/L Anion Gap 12.0 (7-13) mEq/L BUN 10 (7-18) mg/dL Creatinine 1.08 H (0.55-1.02) mg/dL Est Cr Clr Drug Dosing 52.62 mL/min Estimated GFR (MDRD) 53 BUN/Creatinine Ratio 9.3 (No establ ref range) Glucose 124 H (70-99) mg/dL Calcium 7.8 L (8.5-10.1) mg/dL Total Bilirubin 4.9 H (0.2-1.0) mg/dL AST 55 H (15-37) U/L ALT 34 (14-59) U/L Alkaline Phosphatase 187 H (46-116) U/L Ammonia 237 H (11-32) umol/L Troponin I High Sens 40 (<=51) pg/mL Total Protein 5.8 L (6.4-8.2) g/dL Albumin 2.1 L (3.4-5.0) g/dL Globulin 3.7 Albumin/Globulin Ratio 0.57 Urine Color (YELLOW) Urine Appearance (CLEAR) Urine pH (5.0-9.0) Ur Specific [place] (1.005-1.030) Urine Protein (NEGATIVE) Urine Glucose (UA) (NEGATIVE) Urine Ketones (NEGATIVE) Urine Occult Blood (NEGATIVE) Urine Nitrite (NEGATIVE) Urine Bilirubin (NEGATIVE) Urine Urobilinogen (0.2-1.0) mg/dL Ur Leukocyte Esterase (NEGATIVE) Urine RBC /HPF Urine WBC (0-5/HPF) /HPF Ur Epithelial Cells (NOT SEEN) /HPF Calcium Oxalate Crystal (NOT SEEN) /HPF Amorphous Sediment (NOT SEEN) /HPF Urine Bacteria (0-FEW/HPF) /HPF Urine Mucus (NOT SEEN) /LPF 07/04/21 07/04/21 Range/Units 13:04 15:24 WBC (5.0-10.0) 10^3/uL RBC (4.2-5.4) 10^6/uL Hgb (12.0-16.0) g/dL Hct (37.0-47.0) % MCV (80-100) fL MCH (27.0-34.0) pg MCHC (33.0-35.0) g/dL Plt Count (150-450) 10^3/uL Neut % (Auto) (42.2-75.2) % Lymph % (Auto) (20.5-50.1) % [place] % (Auto) (2-8) % Eos % (Auto) (1.0-3.0) % Baso % (Auto) (0.0-1.0) % PT 23.3 H (9.0-12.0) SEC INR 2.4 H (0.9-1.2) Sodium (136-145) mmol/L Potassium (3.5-5.1) mmol/L Chloride (98-107) mmol/L Carbon Dioxide (21-32) mmol/L Anion Gap (7-13) mEq/L BUN (7-18) mg/dL Creatinine (0.55-1.02) mg/dL Est Cr Clr Drug Dosing mL/min Estimated GFR (MDRD) BUN/Creatinine Ratio (No establ ref range) Glucose (70-99) mg/dL Calcium (8.5-10.1) mg/dL Total Bilirubin (0.2-1.0) mg/dL AST (15-37) U/L ALT (14-59) U/L Alkaline Phosphatase (46-116) U/L Ammonia (11-32) umol/L Troponin I High Sens (<=51) pg/mL Total Protein (6.4-8.2) g/dL Albumin (3.4-5.0) g/dL Globulin Albumin/Globulin Ratio Urine Color Yellow (YELLOW) Urine Appearance Slightly cloudy (CLEAR) Urine pH 6.0 (5.0-9.0) Ur Specific [place] 1.025 (1.005-1.030) Urine Protein Negative (NEGATIVE) Urine Glucose (UA) Negative (NEGATIVE) Urine Ketones Negative (NEGATIVE) Urine Occult Blood Trace-intact H (NEGATIVE) Urine Nitrite Negative (NEGATIVE) Urine Bilirubin Negative (NEGATIVE) Urine Urobilinogen 0.2 (0.2-1.0) mg/dL Ur Leukocyte Esterase Negative (NEGATIVE) Urine RBC 5-10 H /HPF Urine WBC 5-10 H (0-5/HPF) /HPF Ur Epithelial Cells Rare (NOT SEEN) /HPF Calcium Oxalate Crystal Rare (NOT SEEN) /HPF Amorphous Sediment Occasional (NOT SEEN) /HPF Urine Bacteria Many H (0-FEW/HPF) /HPF Urine Mucus Not seen (NOT SEEN) /LPF Result Diagrams: 05/23/21 13:04 05/23/21 13:04 Problem List Initiated/Reviewed/Updated: Yes Orders Last 24hrs: Active Orders 24 hr Category Date Time Status Admission Diagnosis [ADT] Routine ADT 05/23/21 16:02 Ordered Patient Status [ADT] Routine ADT 05/23/21 16:02 Active Antiembolic Devices [RC] PER UNIT ROUTINE Care 05/23/21 17:17 Ordered Aspiration Precautions [RC] ASDIRECTED Care 05/23/21 17:18 Ordered Bedrest Bedside Commode [RC] ASDIRECTED Care 05/23/21 17:13 Ordered Blood Glucose Check, Bedside [RC] Q4H Care 05/23/21 17:13 Ordered Neuro Check [RC] Q4H Care 05/23/21 17:18 Ordered Peripheral IV Care [RC] . DIRECTED Care 05/23/21 17:17 Ordered Vital Signs [RC] Q4H Care 05/23/21 17:16 Ordered Consult to Case Management/Advertising Solicitor [CONS] Cons 05/23/21 17:13 Ordered Routine Consult to Hospice [CONS] Routine Cons 05/23/21 17:18 Ordered Nothing per Oral Now Diet [DIET] Diet 05/23/21 Dinner Ordered AMMONIA [REF] Routine Lab 05/24/21 05:00 Ordered CBC WITH AUTO DIFF [HEME] Routine Lab 05/24/21 05:00 Ordered COMPREHENSIVE METABOLIC PN,CMP [CHEM] Routine Lab 05/24/21 05:00 Ordered COVID-19/FLU A+B [MOLEC] Stat Lab 05/23/21 16:06 Received INR,PT,PROTHROMBIN TIME [COAG] Routine Lab 05/24/21 05:00 Ordered Dextrose 50% in Water Med 05/23/21 17:20 Ordered 50 ml IVPUSH Q15M PRN Glucagon,Human Recombinant [GlucaGen] Med 05/23/21 17:20 Ordered 1 mg IM Q15M PRN Insulin Lispro [HumaLOG] Med 05/23/21 17:30 Ordered See Protocol SUBCUT Q4H LORazepam [Ativan] Med 05/23/21 17:21 Ordered 1 mg IVPUSH Q4H PRN Lactulose [Chronulac] Med 05/23/21 17:30 Ordered 200 gm RECTAL Q4H Ondansetron [Zofran] Med 05/23/21 17:13 Ordered 4 mg IVPUSH Q4H PRN Sodium Chloride 0.9% [Normal Saline] 1,000 ml Med 05/23/21 17:15 Ordered IV ASDIRECTED Sodium Chloride 0.9% [Saline Flush] Med 05/23/21 17:13 Ordered 10 ml FLUSH ASDIRECTED PRN Peripheral IV Insertion Adult [OM.PC] Routine Oth 05/23/21 17:13 Ordered Seizure Precautions [OM.PC] Routine Oth 05/23/21 17:18 Ordered Sequential Compression Device [OM.PC] Per Unit Routine Oth 05/23/21 17:16 Orde red Resuscitation Status Routine Resus Stat 05/23/21 17:13 Ordered Medication Orders Sodium Chloride (Normal Saline) 1,000 mls @ 40 mls/hr IV ASDIRECTED KOMAL Ondansetron HCl (Ondansetron 4 Mg/2 Ml Sdv) 4 mg IVPUSH Q4H PRN PRN Reason: Nausea/Vomiting Sodium Chloride (Sodium Chloride 0.9% 10 Ml Syringe) 10 ml FLUSH ASDIRECTED PRN PRN Reason: Keep Vein Open Assessment/Plan Comment:: Surgical History: Per medical records: Umbilical herniorrhaphy, right eye iridotomy, TIPS procedure, right mastectomy for infection and not for malignancy Family History: Unable to obtain Social History: Tobacco: Per medical records: Active smoker Alcohol: Per medical records: Patient has history of alcohol use, I believe this is remote Caffeine: Unable to obtain Drugs: Unable to obtain Allergies: Per medical records: Rocephin Code Status: By default, full Assessment / Plan: 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 Will monitor ammonia levels intermittently. Lactulose 200 g per rectum every 4 hours to be retained for 1 hour. When the patient is tolerating p.o., start Xifaxan 550 mg p.o. twice daily and we will switch to lactulose 30 g p.o. every 4 hours. Neurochecks every 4 hours. Aspiration precautions. Seizure precautions. Abnormal CT of the head. Neurochecks every 4 hours Acute renal insufficiency. Monitor creatinine level intermittently. IV normal saline at 40 mils per hour Medical noncompliance. The patient be counseled regarding medical compliance Cholelithiasis, asymptomatic History of alcohol useremote Hepatic steatosis/end-stage cirrhosis. Outpatient follow with gastroenterology or hepatology upon discharge Portal hypertension, status post TIPS procedure Pancytopenia with features of macrocytosis, iron deficiency, and recent fecal occult blood positive. Will monitor hemoglobin level intermittently and platelet count. Outpatient follow-up with gastroenterology and hematology/oncology upon discharge Diabetes. Will check fasting glucose every 4 hours and provide sulci scale GERD Hyperlipidemia Hypertension Obesity. Patient be counseled regarding lifestyle modification Smoker. Patient becomes regarding smoking cessation Coagulopathy, likely due to end-stage cirrhosis. Will monitor PT/INR periodically Hypothyroidism History of microscopic hematuria. Outpatient follow-up with urology upon discharge History of rectal wall thickening. Outpatient follow-up with gastroenterology upon discharge Query history of portal vein thrombosis Degenerative disc disease Diverticulosis Orthostatic hypotension DVT prophylaxis. Bilateral CD Disposition: Anticipate discharge within 72 hours. I requested case management/social work evaluate the patient with request for referral to hospice, behavioral health/psychiatry, and vulnerable though with possible need for conservator for this patient. At the time of admission, the patient home medications were pending input to the EMR/DHR system. Once their input, they will need to be reviewed and reconciled END OF DOCTOR EMAMIS HISTORY AND PHYSICAL / CONSULTATION NOTE
[2021-05-23] MEDS ORDERED: Lactulose Soln 10 GM/15 ML 946 ML Bottle RECTAL SCH (17:30)
[2021-05-23] MEDS ORDERED: Insulin Lispro 100 Units/ML 3 ML Vial SUBCUT SCH ×2 (17:30→20:15)
[2021-05-23 17:45] LABS: CORONAVIRUS COVID-19 NAA NEGATIVE (NEGATIVE)
[2021-05-23] MEDS: Sodium Chloride 0.9% 1,000 ML IV SCH (17:55)
[2021-05-23] MEDS: LORazepam 2 MG/ML SDV IVPUSH PRN ×2 (20:08→23:27)
[2021-05-23] MEDS: Insulin Lispro 100 Units/ML 3 ML Vial SUBCUT SCH (23:26)
[2021-05-23] MEDS: Lactulose Soln 10 GM/15 ML 946 ML Bottle RECTAL SCH (23:57)
[2021-05-24] MEDS: Insulin Lispro 100 Units/ML 3 ML Vial SUBCUT SCH ×4 (02:49→14:02)
[2021-05-24] MEDS: LORazepam 2 MG/ML SDV IVPUSH PRN ×5 (03:08→21:10)
[2021-05-24] MEDS: Lactulose Soln 10 GM/15 ML 946 ML Bottle RECTAL SCH ×3 (03:53→12:23)
[2021-05-24 06:55] LABS: ANION GAP 10.9 mEq/L (7-13); CHLORIDE,CL 110 mmol/L (98-107); SODIUM,NA 143 mmol/L (136-145)
--- NOTE | 2021-05-24 07:15 | PCM.PN ---
- General Info Date of Service: 05/24/21 Subjective Update: The patient is encephalopathic. Because of this I am unable to solicit feedback from the patient regarding her symptomatology Functional Status: Reports: Pain Controlled - Review of Systems General: Reports: No Symptoms HEENT: Reports: No Symptoms Pulmonary: Reports: No Symptoms Cardiovascular: Reports: No Symptoms Gastrointestinal: Reports: No Symptoms Genitourinary: Reports: No Symptoms 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: Reports: No Symptoms Skin: Reports: No Symptoms Neurological: Reports: Confusion. Denies: No Symptoms Psychiatric: Reports: No Symptoms - Patient Data Vitals - Most Recent: Last Vital Signs Temp 97.0 F 05/24/21 02:44 Pulse 62 05/24/21 02:44 Resp 18 05/24/21 02:44 BP 110/49 L 05/24/21 02:44 Pulse Ox 100 05/24/21 02:44 Weight - Most Recent: 180 lb 3.2 oz I&O - Last 24 Hours: Intake & Output 05/23/21 05/24/21 05/24/21 22:59 06:59 14:59 Intake Total 510 Balance 510 Lab Results Last 24 Hours: Laboratory Results - last 24 hr 05/23/21 05/23/21 05/23/21 Range/Units 13:04 13:04 13:04 WBC 3.9 L (5.0-10.0) 10^3/uL RBC 2.34 L (4.2-5.4) 10^6/uL Hgb 8.0 L (12.0-16.0) g/dL Hct 24.1 L (37.0-47.0) % MCV 103.0 H (80-100) fL MCH 34.2 H (27.0-34.0) pg MCHC 33.2 (33.0-35.0) g/dL Plt Count 50 L (150-450) 10^3/uL Neut % (Auto) 68.5 (42.2-75.2) % Lymph % (Auto) 16.9 L (20.5-50.1) % [place] % (Auto) 11.0 H (2-8) % Eos % (Auto) 3.3 H (1.0-3.0) % Baso % (Auto) 0.3 (0.0-1.0) % PT (9.0-12.0) SEC INR (0.9-1.2) Sodium 141 (136-145) mmol/L Potassium 4.0 (3.5-5.1) mmol/L Chloride 109 H (98-107) mmol/L Carbon Dioxide 24 (21-32) mmol/L Anion Gap 12.0 (7-13) mEq/L BUN 10 (7-18) mg/dL Creatinine 1.08 H (0.55-1.02) mg/dL Est Cr Clr Drug Dosing 52.62 mL/min Estimated GFR (MDRD) 53 BUN/Creatinine Ratio 9.3 (No establ ref range) Glucose 124 H (70-99) mg/dL POC Glucose (70-99) mg/dL Calcium 7.8 L (8.5-10.1) mg/dL Total Bilirubin 4.9 H (0.2-1.0) mg/dL AST 55 H (15-37) U/L ALT 34 (14-59) U/L Alkaline Phosphatase 187 H (46-116) U/L Ammonia 237 H (11-32) umol/L Troponin I High Sens 40 (<=51) pg/mL Total Protein 5.8 L (6.4-8.2) g/dL Albumin 2.1 L (3.4-5.0) g/dL Globulin 3.7 Albumin/Globulin Ratio 0.57 Urine Color (YELLOW) Urine Appearance (CLEAR) Urine pH (5.0-9.0) Ur Specific [place] (1.005-1.030) Urine Protein (NEGATIVE) Urine Glucose (UA) (NEGATIVE) Urine Ketones (NEGATIVE) Urine Occult Blood (NEGATIVE) Urine Nitrite (NEGATIVE) Urine Bilirubin (NEGATIVE) Urine Urobilinogen (0.2-1.0) mg/dL Ur Leukocyte Esterase (NEGATIVE) Urine RBC /HPF Urine WBC (0-5/HPF) /HPF Ur Epithelial Cells (NOT SEEN) /HPF Calcium Oxalate Crystal (NOT SEEN) /HPF Amorphous Sediment (NOT SEEN) /HPF Urine Bacteria (0-FEW/HPF) /HPF Urine Mucus (NOT SEEN) /LPF Influenza Type A RNA (NEGATIVE) Influenza Type B RNA (NEGATIVE) SARS-CoV-2 RNA (TERESITA) (NEGATIVE) 05/23/21 05/23/21 05/23/21 Range/Units 13:04 15:24 16:06 WBC (5.0-10.0) 10^3/uL RBC (4.2-5.4) 10^6/uL Hgb (12.0-16.0) g/dL Hct (37.0-47.0) % MCV (80-100) fL MCH (27.0-34.0) pg MCHC (33.0-35.0) g/dL Plt Count (150-450) 10^3/uL Neut % (Auto) (42.2-75.2) % Lymph % (Auto) (20.5-50.1) % [place] % (Auto) (2-8) % Eos % (Auto) (1.0-3.0) % Baso % (Auto) (0.0-1.0) % PT 23.3 H (9.0-12.0) SEC INR 2.4 H (0.9-1.2) Sodium (136-145) mmol/L Potassium (3.5-5.1) mmol/L Chloride (98-107) mmol/L Carbon Dioxide (21-32) mmol/L Anion Gap (7-13) mEq/L BUN (7-18) mg/dL Creatinine (0.55-1.02) mg/dL Est Cr Clr Drug Dosing mL/min Estimated GFR (MDRD) BUN/Creatinine Ratio (No establ ref range) Glucose (70-99) mg/dL POC Glucose (70-99) mg/dL Calcium (8.5-10.1) mg/dL Total Bilirubin (0.2-1.0) mg/dL AST (15-37) U/L ALT (14-59) U/L Alkaline Phosphatase (46-116) U/L Ammonia (11-32) umol/L Troponin I High Sens (<=51) pg/mL Total Protein (6.4-8.2) g/dL Albumin (3.4-5.0) g/dL Globulin Albumin/Globulin Ratio Urine Color Yellow (YELLOW) Urine Appearance Slightly cloudy (CLEAR) Urine pH 6.0 (5.0-9.0) Ur Specific [place] 1.025 (1.005-1.030) Urine Protein Negative (NEGATIVE) Urine Glucose (UA) Negative (NEGATIVE) Urine Ketones Negative (NEGATIVE) Urine Occult Blood Trace-intact H (NEGATIVE) Urine Nitrite Negative (NEGATIVE) Urine Bilirubin Negative (NEGATIVE) Urine Urobilinogen 0.2 (0.2-1.0) mg/dL Ur Leukocyte Esterase Negative (NEGATIVE) Urine RBC 5-10 H /HPF Urine WBC 5-10 H (0-5/HPF) /HPF Ur Epithelial Cells Rare (NOT SEEN) /HPF Calcium Oxalate Crystal Rare (NOT SEEN) /HPF Amorphous Sediment Occasional (NOT SEEN) /HPF Urine Bacteria Many H (0-FEW/HPF) /HPF Urine Mucus Not seen (NOT SEEN) /LPF Influenza Type A RNA Negative (NEGATIVE) Influenza Type B RNA Negative (NEGATIVE) SARS-CoV-2 RNA (TERESITA) Negative (NEGATIVE) 05/23/21 05/23/21 05/24/21 Range/Units 18:01 22:05 02:32 WBC (5.0-10.0) 10^3/uL RBC (4.2-5.4) 10^6/uL Hgb (12.0-16.0) g/dL Hct (37.0-47.0) % MCV (80-100) fL MCH (27.0-34.0) pg MCHC (33.0-35.0) g/dL Plt Count (150-450) 10^3/uL Neut % (Auto) (42.2-75.2) % Lymph % (Auto) (20.5-50.1) % [place] % (Auto) (2-8) % Eos % (Auto) (1.0-3.0) % Baso % (Auto) (0.0-1.0) % PT (9.0-12.0) SEC INR (0.9-1.2) Sodium (136-145) mmol/L Potassium (3.5-5.1) mmol/L Chloride (98-107) mmol/L Carbon Dioxide (21-32) mmol/L Anion Gap (7-13) mEq/L BUN (7-18) mg/dL Creatinine (0.55-1.02) mg/dL Est Cr Clr Drug Dosing mL/min Estimated GFR (MDRD) BUN/Creatinine Ratio (No establ ref range) Glucose (70-99) mg/dL POC Glucose 112 H 101 H 99 (70-99) mg/dL Calcium (8.5-10.1) mg/dL Total Bilirubin (0.2-1.0) mg/dL AST (15-37) U/L ALT (14-59) U/L Alkaline Phosphatase (46-116) U/L Ammonia (11-32) umol/L Troponin I High Sens (<=51) pg/mL Total Protein (6.4-8.2) g/dL Albumin (3.4-5.0) g/dL Globulin Albumin/Globulin Ratio Urine Color (YELLOW) Urine Appearance (CLEAR) Urine pH (5.0-9.0) Ur Specific [place] (1.005-1.030) Urine Protein (NEGATIVE) Urine Glucose (UA) (NEGATIVE) Urine Ketones (NEGATIVE) Urine Occult Blood (NEGATIVE) Urine Nitrite (NEGATIVE) Urine Bilirubin (NEGATIVE) Urine Urobilinogen (0.2-1.0) mg/dL Ur Leukocyte Esterase (NEGATIVE) Urine RBC /HPF Urine WBC (0-5/HPF) /HPF Ur Epithelial Cells (NOT SEEN) /HPF Calcium Oxalate Crystal (NOT SEEN) /HPF Amorphous Sediment (NOT SEEN) /HPF Urine Bacteria (0-FEW/HPF) /HPF Urine Mucus (NOT SEEN) /LPF Influenza Type A RNA (NEGATIVE) Influenza Type B RNA (NEGATIVE) SARS-CoV-2 RNA (TERESITA) (NEGATIVE) 05/24/21 05/24/21 05/24/21 Range/Units 06:19 06:30 06:30 WBC 3.8 L (5.0-10.0) 10^3/uL RBC 2.35 L (4.2-5.4) 10^6/uL Hgb 7.9 L (12.0-16.0) g/dL Hct 24.4 L (37.0-47.0) % MCV 103.8 H (80-100) fL MCH 33.6 (27.0-34.0) pg MCHC 32.4 L (33.0-35.0) g/dL Plt Count 46 L* (150-450) 10^3/uL Neut % (Auto) 76.7 H (42.2-75.2) % Lymph % (Auto) 10.6 L (20.5-50.1) % [place] % (Auto) 9.5 H (2-8) % Eos % (Auto) 2.9 (1.0-3.0) % Baso % (Auto) 0.3 (0.0-1.0) % PT 22.2 H (9.0-12.0) SEC INR 2.2 H (0.9-1.2) Sodium (136-145) mmol/L Potassium (3.5-5.1) mmol/L Chloride (98-107) mmol/L Carbon Dioxide (21-32) mmol/L Anion Gap (7-13) mEq/L BUN (7-18) mg/dL Creatinine (0.55-1.02) mg/dL Est Cr Clr Drug Dosing mL/min Estimated GFR (MDRD) BUN/Creatinine Ratio (No establ ref range) Glucose (70-99) mg/dL POC Glucose 90 (70-99) mg/dL Calcium (8.5-10.1) mg/dL Total Bilirubin (0.2-1.0) mg/dL AST (15-37) U/L ALT (14-59) U/L Alkaline Phosphatase (46-116) U/L Ammonia (11-32) umol/L Troponin I High Sens (<=51) pg/mL Total Protein (6.4-8.2) g/dL Albumin (3.4-5.0) g/dL Globulin Albumin/Globulin Ratio Urine Color (YELLOW) Urine Appearance (CLEAR) Urine pH (5.0-9.0) Ur Specific [place] (1.005-1.030) Urine Protein (NEGATIVE) Urine Glucose (UA) (NEGATIVE) Urine Ketones (NEGATIVE) Urine Occult Blood (NEGATIVE) Urine Nitrite (NEGATIVE) Urine Bilirubin (NEGATIVE) Urine Urobilinogen (0.2-1.0) mg/dL Ur Leukocyte Esterase (NEGATIVE) Urine RBC /HPF Urine WBC (0-5/HPF) /HPF Ur Epithelial Cells (NOT SEEN) /HPF Calcium Oxalate Crystal (NOT SEEN) /HPF Amorphous Sediment (NOT SEEN) /HPF Urine Bacteria (0-FEW/HPF) /HPF Urine Mucus (NOT SEEN) /LPF Influenza Type A RNA (NEGATIVE) Influenza Type B RNA (NEGATIVE) SARS-CoV-2 RNA (TERESITA) (NEGATIVE) 05/24/21 Range/Units 06:30 WBC (5.0-10.0) 10^3/uL RBC (4.2-5.4) 10^6/uL Hgb (12.0-16.0) g/dL Hct (37.0-47.0) % MCV (80-100) fL MCH (27.0-34.0) pg MCHC (33.0-35.0) g/dL Plt Count (150-450) 10^3/uL Neut % (Auto) (42.2-75.2) % Lymph % (Auto) (20.5-50.1) % [place] % (Auto) (2-8) % Eos % (Auto) (1.0-3.0) % Baso % (Auto) (0.0-1.0) % PT (9.0-12.0) SEC INR (0.9-1.2) Sodium 143 (136-145) mmol/L Potassium 3.9 (3.5-5.1) mmol/L Chloride 110 H (98-107) mmol/L Carbon Dioxide 26 (21-32) mmol/L Anion Gap 10.9 (7-13) mEq/L BUN 9 (7-18) mg/dL Creatinine 0.89 (0.55-1.02) mg/dL Est Cr Clr Drug Dosing 63.85 mL/min Estimated GFR (MDRD) > 60 BUN/Creatinine Ratio 10.1 (No establ ref range) Glucose 105 H (70-99) mg/dL POC Glucose (70-99) mg/dL Calcium 7.7 L (8.5-10.1) mg/dL Total Bilirubin 6.4 H (0.2-1.0) mg/dL AST 47 H (15-37) U/L ALT 32 (14-59) U/L Alkaline Phosphatase 177 H (46-116) U/L Ammonia (11-32) umol/L Troponin I High Sens (<=51) pg/mL Total Protein 5.7 L (6.4-8.2) g/dL Albumin 2.0 L (3.4-5.0) g/dL Globulin 3.7 Albumin/Globulin Ratio 0.54 Urine Color (YELLOW) Urine Appearance (CLEAR) Urine pH (5.0-9.0) Ur Specific [place] (1.005-1.030) Urine Protein (NEGATIVE) Urine Glucose (UA) (NEGATIVE) Urine Ketones (NEGATIVE) Urine Occult Blood (NEGATIVE) Urine Nitrite (NEGATIVE) Urine Bilirubin (NEGATIVE) Urine Urobilinogen (0.2-1.0) mg/dL Ur Leukocyte Esterase (NEGATIVE) Urine RBC /HPF Urine WBC (0-5/HPF) /HPF Ur Epithelial Cells (NOT SEEN) /HPF Calcium Oxalate Crystal (NOT SEEN) /HPF Amorphous Sediment (NOT SEEN) /HPF Urine Bacteria (0-FEW/HPF) /HPF Urine Mucus (NOT SEEN) /LPF Influenza Type A RNA (NEGATIVE) Influenza Type B RNA (NEGATIVE) SARS-CoV-2 RNA (TERESITA) (NEGATIVE) Sanjeev Results Last 24 Hours: Microbiology 05/23/21 15:24 Urine Culture - Preliminary Urine, Quick Cath (In-Out) Med Orders - Current: Current Medications Dextrose/Water (50% Dextrose In Water 50 Ml Syringe) 50 ml IVPUSH Q15M PRN PRN Reason: Hypoglycemia Glucagon (Glucagon,Human Recombinant 1 Mg Vial) 1 mg IM Q15M PRN PRN Reason: Hypoglycemia Sodium Chloride (Normal Saline) 1,000 mls @ 40 mls/hr IV ASDIRECTED KOMAL Last Admin: 05/23/21 17:55 Dose: 40 mls/hr Documented by: Insulin Human Lispro (Insulin Lispro 100 Units/Ml 3 Ml Vial) 0 unit SUBCUT Q4H KOMAL; Protocol Last Admin: 05/24/21 06:27 Dose: Not Given Documented by: Lactulose (Lactulose Soln 10 Gm/15 Ml 946 Ml Bottle) 200 gm RECTAL Q4H KOMAL Last Admin: 05/24/21 03:53 Dose: 200 gm Documented by: Lorazepam (Lorazepam 2 Mg/Ml Sdv) 2 mg IVPUSH Q2H PRN PRN Reason: Agitation Last Admin: 05/24/21 06:44 Dose: 2 mg Documented by: Ondansetron HCl (Ondansetron 4 Mg/2 Ml Sdv) 4 mg IVPUSH Q4H PRN PRN Reason: Nausea/Vomiting Last Admin: 05/23/21 20:27 Dose: 4 mg Documented by: Sodium Chloride (Sodium Chloride 0.9% 10 Ml Syringe) 10 ml FLUSH ASDIRECTED PRN PRN Reason: Keep Vein Open Discontinued Medications Dextrose/Water (50% Dextrose In Water 50 Ml Syringe) 50 ml IVPUSH Q15M PRN PRN Reason: Hypoglycemia Glucagon (Glucagon,Human Recombinant 1 Mg Vial) 1 mg IM Q15M PRN PRN Reason: Hypoglycemia Sodium Chloride (Normal Saline) 1,000 mls @ 999 mls/hr IV .BOLUS ONE Stop: 05/23/21 13:51 Last Admin: 05/23/21 13:23 Dose: 999 mls/hr Documented by: Insulin Human Lispro (Insulin Lispro 100 Units/Ml 3 Ml Vial) 0 unit SUBCUT Q4H KOMAL; Protocol Insulin Human Lispro (Insulin Lispro 100 Units/Ml 3 Ml Vial) 0 unit SUBCUT Q4H KOMAL; Protocol Last Admin: 05/24/21 00:52 Dose: Not Given Documented by: Lactulose (Lactulose Soln 10 Gm/15 Ml 946 Ml Bottle) 200 gm RECTAL ONETIME ONE Stop: 05/23/21 13:51 Last Admin: 05/23/21 17:35 Dose: Not Given Documented by: Lactulose (Lactulose Soln 10 Gm/15 Ml 946 Ml Bottle) 200 gm RECTAL Q4H KOMAL Last Admin: 05/23/21 19:24 Dose: 200 gm Documented by: Lorazepam (Lorazepam 2 Mg/Ml Sdv) 1 mg IVPUSH Q4H PRN PRN Reason: Agitation Last Admin: 05/23/21 17:52 Dose: 1 mg Documented by: - Exam General: Obtunded HEENT: Pupils Equal, Pupils Reactive, EOMI, Mucous Membr. Moist/[place] Neck: Supple Lungs: Clear to Auscultation, Normal Respiratory Effort Cardiovascular: Regular Rate, Regular Rhythm GI/Abdominal Exam: Normal Bowel Sounds, Soft, Non-Tender, No Organomegaly, No Distention, No Abnormal Bruit, No Mass, Pelvis Stable Back Exam: Normal Inspection, Full Range of Motion Extremities: Normal Inspection, Normal Range of Motion, Non-Tender, No Pedal Edema, Normal Capillary Refill Peripheral Pulses: 2+: Carotid (L), Carotid (R), Brachial (L), Brachial (R), Radial (L), Radial (R), Femoral (L), Femoral (R), Popliteal (L), Popliteal (R), Posterior Tibial (L), Posterior Tibial (R), Dorsalis Pedis (L), Dorsalis Pedis (R) Skin: Warm, Dry, Intact Wound/Incisions: Healing Well Neurological: No New Focal Deficit Psy/Mental Status: Alert, Normal Affect, Normal Mood - Patient Data Lab Results Last 24 hrs: Laboratory Results - last 24 hr 05/23/21 05/23/21 05/23/21 Range/Units 13:04 13:04 13:04 WBC 3.9 L (5.0-10.0) 10^3/uL RBC 2.34 L (4.2-5.4) 10^6/uL Hgb 8.0 L (12.0-16.0) g/dL Hct 24.1 L (37.0-47.0) % MCV 103.0 H (80-100) fL MCH 34.2 H (27.0-34.0) pg MCHC 33.2 (33.0-35.0) g/dL Plt Count 50 L (150-450) 10^3/uL Neut % (Auto) 68.5 (42.2-75.2) % Lymph % (Auto) 16.9 L (20.5-50.1) % [place] % (Auto) 11.0 H (2-8) % Eos % (Auto) 3.3 H (1.0-3.0) % Baso % (Auto) 0.3 (0.0-1.0) % PT (9.0-12.0) SEC INR (0.9-1.2) Sodium 141 (136-145) mmol/L Potassium 4.0 (3.5-5.1) mmol/L Chloride 109 H (98-107) mmol/L Carbon Dioxide 24 (21-32) mmol/L Anion Gap 12.0 (7-13) mEq/L BUN 10 (7-18) mg/dL Creatinine 1.08 H (0.55-1.02) mg/dL Est Cr Clr Drug Dosing 52.62 mL/min Estimated GFR (MDRD) 53 BUN/Creatinine Ratio 9.3 (No establ ref range) Glucose 124 H (70-99) mg/dL POC Glucose (70-99) mg/dL Calcium 7.8 L (8.5-10.1) mg/dL Total Bilirubin 4.9 H (0.2-1.0) mg/dL AST 55 H (15-37) U/L ALT 34 (14-59) U/L Alkaline Phosphatase 187 H (46-116) U/L Ammonia 237 H (11-32) umol/L Troponin I High Sens 40 (<=51) pg/mL Total Protein 5.8 L (6.4-8.2) g/dL Albumin 2.1 L (3.4-5.0) g/dL Globulin 3.7 Albumin/Globulin Ratio 0.57 Urine Color (YELLOW) Urine Appearance (CLEAR) Urine pH (5.0-9.0) Ur Specific [place] (1.005-1.030) Urine Protein (NEGATIVE) Urine Glucose (UA) (NEGATIVE) Urine Ketones (NEGATIVE) Urine Occult Blood (NEGATIVE) Urine Nitrite (NEGATIVE) Urine Bilirubin (NEGATIVE) Urine Urobilinogen (0.2-1.0) mg/dL Ur Leukocyte Esterase (NEGATIVE) Urine RBC /HPF Urine WBC (0-5/HPF) /HPF Ur Epithelial Cells (NOT SEEN) /HPF Calcium Oxalate Crystal (NOT SEEN) /HPF Amorphous Sediment (NOT SEEN) /HPF Urine Bacteria (0-FEW/HPF) /HPF Urine Mucus (NOT SEEN) /LPF Influenza Type A RNA (NEGATIVE) Influenza Type B RNA (NEGATIVE) SARS-CoV-2 RNA (TERESITA) (NEGATIVE) 05/23/21 05/23/21 05/23/21 Range/Units 13:04 15:24 16:06 WBC (5.0-10.0) 10^3/uL RBC (4.2-5.4) 10^6/uL Hgb (12.0-16.0) g/dL Hct (37.0-47.0) % MCV (80-100) fL MCH (27.0-34.0) pg MCHC (33.0-35.0) g/dL Plt Count (150-450) 10^3/uL Neut % (Auto) (42.2-75.2) % Lymph % (Auto) (20.5-50.1) % [place] % (Auto) (2-8) % Eos % (Auto) (1.0-3.0) % Baso % (Auto) (0.0-1.0) % PT 23.3 H (9.0-12.0) SEC INR 2.4 H (0.9-1.2) Sodium (136-145) mmol/L Potassium (3.5-5.1) mmol/L Chloride (98-107) mmol/L Carbon Dioxide (21-32) mmol/L Anion Gap (7-13) mEq/L BUN (7-18) mg/dL Creatinine (0.55-1.02) mg/dL Est Cr Clr Drug Dosing mL/min Estimated GFR (MDRD) BUN/Creatinine Ratio (No establ ref range) Glucose (70-99) mg/dL POC Glucose (70-99) mg/dL Calcium (8.5-10.1) mg/dL Total Bilirubin (0.2-1.0) mg/dL AST (15-37) U/L ALT (14-59) U/L Alkaline Phosphatase (46-116) U/L Ammonia (11-32) umol/L Troponin I High Sens (<=51) pg/mL Total Protein (6.4-8.2) g/dL Albumin (3.4-5.0) g/dL Globulin Albumin/Globulin Ratio Urine Color Yellow (YELLOW) Urine Appearance Slightly cloudy (CLEAR) Urine pH 6.0 (5.0-9.0) Ur Specific [place] 1.025 (1.005-1.030) Urine Protein Negative (NEGATIVE) Urine Glucose (UA) Negative (NEGATIVE) Urine Ketones Negative (NEGATIVE) Urine Occult Blood Trace-intact H (NEGATIVE) Urine Nitrite Negative (NEGATIVE) Urine Bilirubin Negative (NEGATIVE) Urine Urobilinogen 0.2 (0.2-1.0) mg/dL Ur Leukocyte Esterase Negative (NEGATIVE) Urine RBC 5-10 H /HPF Urine WBC 5-10 H (0-5/HPF) /HPF Ur Epithelial Cells Rare (NOT SEEN) /HPF Calcium Oxalate Crystal Rare (NOT SEEN) /HPF Amorphous Sediment Occasional (NOT SEEN) /HPF Urine Bacteria Many H (0-FEW/HPF) /HPF Urine Mucus Not seen (NOT SEEN) /LPF Influenza Type A RNA Negative (NEGATIVE) Influenza Type B RNA Negative (NEGATIVE) SARS-CoV-2 RNA (TERESITA) Negative (NEGATIVE) 05/23/21 05/23/21 05/24/21 Range/Units 18:01 22:05 02:32 WBC (5.0-10.0) 10^3/uL RBC (4.2-5.4) 10^6/uL Hgb (12.0-16.0) g/dL Hct (37.0-47.0) % MCV (80-100) fL MCH (27.0-34.0) pg MCHC (33.0-35.0) g/dL Plt Count (150-450) 10^3/uL Neut % (Auto) (42.2-75.2) % Lymph % (Auto) (20.5-50.1) % [place] % (Auto) (2-8) % Eos % (Auto) (1.0-3.0) % Baso % (Auto) (0.0-1.0) % PT (9.0-12.0) SEC INR (0.9-1.2) Sodium (136-145) mmol/L Potassium (3.5-5.1) mmol/L Chloride (98-107) mmol/L Carbon Dioxide (21-32) mmol/L Anion Gap (7-13) mEq/L BUN (7-18) mg/dL Creatinine (0.55-1.02) mg/dL Est Cr Clr Drug Dosing mL/min Estimated GFR (MDRD) BUN/Creatinine Ratio (No establ ref range) Glucose (70-99) mg/dL POC Glucose 112 H 101 H 99 (70-99) mg/dL Calcium (8.5-10.1) mg/dL Total Bilirubin (0.2-1.0) mg/dL AST (15-37) U/L ALT (14-59) U/L Alkaline Phosphatase (46-116) U/L Ammonia (11-32) umol/L Troponin I High Sens (<=51) pg/mL Total Protein (6.4-8.2) g/dL Albumin (3.4-5.0) g/dL Globulin Albumin/Globulin Ratio Urine Color (YELLOW) Urine Appearance (CLEAR) Urine pH (5.0-9.0) Ur Specific [place] (1.005-1.030) Urine Protein (NEGATIVE) Urine Glucose (UA) (NEGATIVE) Urine Ketones (NEGATIVE) Urine Occult Blood (NEGATIVE) Urine Nitrite (NEGATIVE) Urine Bilirubin (NEGATIVE) Urine Urobilinogen (0.2-1.0) mg/dL Ur Leukocyte Esterase (NEGATIVE) Urine RBC /HPF Urine WBC (0-5/HPF) /HPF Ur Epithelial Cells (NOT SEEN) /HPF Calcium Oxalate Crystal (NOT SEEN) /HPF Amorphous Sediment (NOT SEEN) /HPF Urine Bacteria (0-FEW/HPF) /HPF Urine Mucus (NOT SEEN) /LPF Influenza Type A RNA (NEGATIVE) Influenza Type B RNA (NEGATIVE) SARS-CoV-2 RNA (TERESITA) (NEGATIVE) 05/24/21 05/24/21 05/24/21 Range/Units 06:19 06:30 06:30 WBC 3.8 L (5.0-10.0) 10^3/uL RBC 2.35 L (4.2-5.4) 10^6/uL Hgb 7.9 L (12.0-16.0) g/dL Hct 24.4 L (37.0-47.0) % MCV 103.8 H (80-100) fL MCH 33.6 (27.0-34.0) pg MCHC 32.4 L (33.0-35.0) g/dL Plt Count 46 L* (150-450) 10^3/uL Neut % (Auto) 76.7 H (42.2-75.2) % Lymph % (Auto) 10.6 L (20.5-50.1) % [place] % (Auto) 9.5 H (2-8) % Eos % (Auto) 2.9 (1.0-3.0) % Baso % (Auto) 0.3 (0.0-1.0) % PT 22.2 H (9.0-12.0) SEC INR 2.2 H (0.9-1.2) Sodium (136-145) mmol/L Potassium (3.5-5.1) mmol/L Chloride (98-107) mmol/L Carbon Dioxide (21-32) mmol/L Anion Gap (7-13) mEq/L BUN (7-18) mg/dL Creatinine (0.55-1.02) mg/dL Est Cr Clr Drug Dosing mL/min Estimated GFR (MDRD) BUN/Creatinine Ratio (No establ ref range) Glucose (70-99) mg/dL POC Glucose 90 (70-99) mg/dL Calcium (8.5-10.1) mg/dL Total Bilirubin (0.2-1.0) mg/dL AST (15-37) U/L ALT (14-59) U/L Alkaline Phosphatase (46-116) U/L Ammonia (11-32) umol/L Troponin I High Sens (<=51) pg/mL Total Protein (6.4-8.2) g/dL Albumin (3.4-5.0) g/dL Globulin Albumin/Globulin Ratio Urine Color (YELLOW) Urine Appearance (CLEAR) Urine pH (5.0-9.0) Ur Specific [place] (1.005-1.030) Urine Protein (NEGATIVE) Urine Glucose (UA) (NEGATIVE) Urine Ketones (NEGATIVE) Urine Occult Blood (NEGATIVE) Urine Nitrite (NEGATIVE) Urine Bilirubin (NEGATIVE) Urine Urobilinogen (0.2-1.0) mg/dL Ur Leukocyte Esterase (NEGATIVE) Urine RBC /HPF Urine WBC (0-5/HPF) /HPF Ur Epithelial Cells (NOT SEEN) /HPF Calcium Oxalate Crystal (NOT SEEN) /HPF Amorphous Sediment (NOT SEEN) /HPF Urine Bacteria (0-FEW/HPF) /HPF Urine Mucus (NOT SEEN) /LPF Influenza Type A RNA (NEGATIVE) Influenza Type B RNA (NEGATIVE) SARS-CoV-2 RNA (TERESITA) (NEGATIVE) 05/24/21 Range/Units 06:30 WBC (5.0-10.0) 10^3/uL RBC (4.2-5.4) 10^6/uL Hgb (12.0-16.0) g/dL Hct (37.0-47.0) % MCV (80-100) fL MCH (27.0-34.0) pg MCHC (33.0-35.0) g/dL Plt Count (150-450) 10^3/uL Neut % (Auto) (42.2-75.2) % Lymph % (Auto) (20.5-50.1) % [place] % (Auto) (2-8) % Eos % (Auto) (1.0-3.0) % Baso % (Auto) (0.0-1.0) % PT (9.0-12.0) SEC INR (0.9-1.2) Sodium 143 (136-145) mmol/L Potassium 3.9 (3.5-5.1) mmol/L Chloride 110 H (98-107) mmol/L Carbon Dioxide 26 (21-32) mmol/L Anion Gap 10.9 (7-13) mEq/L BUN 9 (7-18) mg/dL Creatinine 0.89 (0.55-1.02) mg/dL Est Cr Clr Drug Dosing 63.85 mL/min Estimated GFR (MDRD) > 60 BUN/Creatinine Ratio 10.1 (No establ ref range) Glucose 105 H (70-99) mg/dL POC Glucose (70-99) mg/dL Calcium 7.7 L (8.5-10.1) mg/dL Total Bilirubin 6.4 H (0.2-1.0) mg/dL AST 47 H (15-37) U/L ALT 32 (14-59) U/L Alkaline Phosphatase 177 H (46-116) U/L Ammonia (11-32) umol/L Troponin I High Sens (<=51) pg/mL Total Protein 5.7 L (6.4-8.2) g/dL Albumin 2.0 L (3.4-5.0) g/dL Globulin 3.7 Albumin/Globulin Ratio 0.54 Urine Color (YELLOW) Urine Appearance (CLEAR) Urine pH (5.0-9.0) Ur Specific [place] (1.005-1.030) Urine Protein (NEGATIVE) Urine Glucose (UA) (NEGATIVE) Urine Ketones (NEGATIVE) Urine Occult Blood (NEGATIVE) Urine Nitrite (NEGATIVE) Urine Bilirubin (NEGATIVE) Urine Urobilinogen (0.2-1.0) mg/dL Ur Leukocyte Esterase (NEGATIVE) Urine RBC /HPF Urine WBC (0-5/HPF) /HPF Ur Epithelial Cells (NOT SEEN) /HPF Calcium Oxalate Crystal (NOT SEEN) /HPF Amorphous Sediment (NOT SEEN) /HPF Urine Bacteria (0-FEW/HPF) /HPF Urine Mucus (NOT SEEN) /LPF Influenza Type A RNA (NEGATIVE) Influenza Type B RNA (NEGATIVE) SARS-CoV-2 RNA (TERESITA) (NEGATIVE) Result Diagrams: 05/24/21 06:30 05/24/21 06:30 Sanjeev Results Last 24 hrs: Microbiology 05/23/21 15:24 Urine Culture - Preliminary Urine, Quick Cath (In-Out) Sepsis Event Note - Evaluation Sepsis Screening Result: No Definite Risk - Focused Exam Vital Signs: Vital Signs Temp Pulse Resp BP Pulse Ox 05/24/21 02:44 97.0 F 62 18 110/49 L 100 05/23/21 23:30 96.7 F L 55 L 16 93/44 L 100 05/23/21 19:57 97.3 F 58 L 18 93/68 97 - Problem List Review Problem List Initiated/Reviewed/Updated: Yes - My Orders Last 24 Hours: My Active Orders 05/23/21 17:13 Bedrest Bedside Commode [RC] ASDIRECTED Blood Glucose Check, Bedside [RC] Q4H Consult to Case Management/Skoog Operator [CONS] Routine Ondansetron [Zofran] 4 mg IVPUSH Q4H PRN Sodium Chloride 0.9% [Saline Flush] 10 ml FLUSH ASDIRECTED PRN Peripheral IV Insertion Adult [OM.PC] Routine Resuscitation Status Routine 05/23/21 Dinner Nothing per Oral Now Diet [DIET] Sodium Chloride 0.9% [Normal Saline] 1,000 ml IV ASDIRECTED 05/23/21 17:16 Vital Signs [RC] Q4H Sequential Compression Device [OM.PC] Per Unit Routine 05/23/21 17:17 Antiembolic Devices [RC] PER UNIT ROUTINE Peripheral IV Care [RC] 05/23/21 17:18 Aspiration Precautions [RC] 08,20 Neuro Check [RC] Q4H Consult to Hospice [CONS] Routine Seizure Precautions [OM.PC] Routine 05/23/21 17:20 Dextrose 50% in Water 50 ml IVPUSH Q15M PRN Glucagon,Human Recombinant [GlucaGen] 1 mg IM Q15M PRN 05/23/21 20:00 LORazepam [Ativan] 2 mg IVPUSH Q2H PRN 05/23/21 22:00 Insulin Lispro [HumaLOG] 0 unit SUBCUT Q4H 05/23/21 23:30 Lactulose [Chronulac] 200 gm RECTAL Q4H 05/24/21 06:30 AMMONIA VENOUS [CHEM] Routine 05/25/21 05:00 AMMONIA [REF] Routine CMP [COMPREHENSIVE METABOLIC PN,CMP] [CHEM] Routine - Plan Plan:: Surgical History: Per medical records: Umbilical herniorrhaphy, right eye iridotomy, TIPS procedure, right mastectomy for infection and not for malignancy Family History: Unable to obtain Social History: Tobacco: Per medical records: Active smoker Alcohol: Per medical records: Patient has history of alcohol use, I believe this is remote Caffeine: Unable to obtain Drugs: Unable to obtain Allergies: Per medical records: Rocephin Code Status: By default, full Assessment / Plan: 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 Will monitor ammonia levels intermittently. Lactulose 200 g per rectum every 4 hours to be retained for 1 hour. When the patient is tolerating p.o., start Xifaxan 550 mg p.o. twice daily and we will switch to lactulose 30 g p.o. every 4 hours. Neurochecks every 4 hours. Aspiration precautions. Seizure precautions. Abnormal CT of the head. Neurochecks every 4 hours Acute renal insufficiency. Monitor creatinine level intermittently. IV normal saline at 40 mils per hour Medical noncompliance. The patient be counseled regarding medical compliance Cholelithiasis, asymptomatic History of alcohol useremote Hepatic steatosis/end-stage cirrhosis. Outpatient follow with gastroenterology or hepatology upon discharge Portal hypertension, status post TIPS procedure Pancytopenia with features of macrocytosis, iron deficiency, and recent fecal occult blood positive. Will monitor hemoglobin level intermittently and platelet count. Outpatient follow-up with gastroenterology and hematology/oncology upon discharge Diabetes. Will check fasting glucose every 4 hours and provide sulci scale GERD Hyperlipidemia Hypertension Obesity. Patient be counseled regarding lifestyle modification Smoker. Patient becomes regarding smoking cessation Coagulopathy, likely due to end-stage cirrhosis. Will monitor PT/INR periodically Hypothyroidism History of microscopic hematuria. Outpatient follow-up with urology upon discharge History of rectal wall thickening. Outpatient follow-up with gastroenterology upon discharge Query history of portal vein thrombosis Degenerative disc disease Diverticulosis Orthostatic hypotension DVT prophylaxis. Bilateral CD Disposition: If the patient stabilizes, I anticipate discharge in 72-9 6 hours however her liver function continues to worsen and I suspect that she may pass away during this hospitalization: Poor condition. I requested case management/social work evaluate the patient with request for referral to hospice, behavioral health/psychiatry, and vulnerable though with possible need for conservator for this patient. END OF DOCTOR EMAMIS HISTORY AND PHYSICAL / CONSULTATION NOTE
[2021-05-24] MEDS ORDERED: Acetaminophen 650 MG Supp RECTAL PRN (15:08)
[2021-05-24] MEDS ORDERED: Acetaminophen 325 MG Tab PO PRN (15:08)
[2021-05-24] MEDS: Sodium Chloride 0.9% 1,000 ML IV SCH (19:32)
[2021-05-25 01:02] VITALS: BP 72/44
[2021-05-25] MEDS: LORazepam 2 MG/ML SDV IVPUSH PRN ×4 (02:10→15:15)
[2021-05-25 04:17] VITALS: PULSE 61
--- NOTE | 2021-05-25 07:17 | PCM.PN ---
- General Info Date of Service: 05/25/21 Subjective Update: The patient is observed to be resting comfortably. Because her status is now comfort care, I have not disturbed her to interview her or examine her Functional Status: Reports: Pain Controlled - Review of Systems General: Reports: No Symptoms HEENT: Reports: No Symptoms Pulmonary: Reports: No Symptoms Cardiovascular: Reports: No Symptoms Gastrointestinal: Reports: No Symptoms Genitourinary: Reports: No Symptoms 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: Reports: No Symptoms Skin: Reports: No Symptoms Neurological: Reports: No Symptoms Psychiatric: Reports: No Symptoms - Patient Data Vitals - Most Recent: Last Vital Signs Temp 97.1 F 05/25/21 04:00 Pulse 61 05/25/21 04:00 Resp 16 05/25/21 04:00 BP 72/44 L 05/25/21 00:00 Pulse Ox 94 L 05/25/21 04:00 Weight - Most Recent: 180 lb 3.2 oz I&O - Last 24 Hours: Intake & Output 05/24/21 05/25/21 05/25/21 22:59 06:59 14:59 Intake Total 30 444 Balance 30 444 Lab Results Last 24 Hours: Laboratory Results - last 24 hr 05/24/21 05/24/21 05/24/21 Range/Units 06:30 09:59 14:00 POC Glucose 90 81 (70-99) mg/dL Ammonia 57 H (11-32) umol/L Sanjeev Results Last 24 Hours: Microbiology 05/23/21 15:24 Urine Culture - Preliminary Urine, Quick Cath (In-Out) Med Orders - Current: Current Medications Acetaminophen (Acetaminophen 325 Mg Tab) 650 mg PO Q4H PRN PRN Reason: Fever Acetaminophen (Acetaminophen 650 Mg Supp) 650 mg RECTAL Q4H PRN PRN Reason: Fever Lorazepam (Lorazepam 2 Mg/Ml Sdv) 2 mg IVPUSH Q2H PRN PRN Reason: Agitation Last Admin: 05/25/21 05:44 Dose: 2 mg Documented by: Ondansetron HCl (Ondansetron 4 Mg/2 Ml Sdv) 4 mg IVPUSH Q4H PRN PRN Reason: Nausea/Vomiting Last Admin: 05/23/21 20:27 Dose: 4 mg Documented by: Sodium Chloride (Sodium Chloride 0.9% 10 Ml Syringe) 10 ml FLUSH ASDIRECTED PRN PRN Reason: Keep Vein Open Discontinued Medications Dextrose/Water (50% Dextrose In Water 50 Ml Syringe) 50 ml IVPUSH Q15M PRN PRN Reason: Hypoglycemia Dextrose/Water (50% Dextrose In Water 50 Ml Syringe) 50 ml IVPUSH Q15M PRN PRN Reason: Hypoglycemia Glucagon (Glucagon,Human Recombinant 1 Mg Vial) 1 mg IM Q15M PRN PRN Reason: Hypoglycemia Glucagon (Glucagon,Human Recombinant 1 Mg Vial) 1 mg IM Q15M PRN PRN Reason: Hypoglycemia Sodium Chloride (Normal Saline) 1,000 mls @ 999 mls/hr IV .BOLUS ONE Stop: 05/23/21 13:51 Last Admin: 05/23/21 13:23 Dose: 999 mls/hr Documented by: Sodium Chloride (Normal Saline) 1,000 mls @ 40 mls/hr IV ASDIRECTED KOMAL Last Admin: 05/24/21 19:32 Dose: 40 mls/hr Documented by: Insulin Human Lispro (Insulin Lispro 100 Units/Ml 3 Ml Vial) 0 unit SUBCUT Q4H KOMAL; Protocol Insulin Human Lispro (Insulin Lispro 100 Units/Ml 3 Ml Vial) 0 unit SUBCUT Q4H KOMAL; Protocol Last Admin: 05/24/21 00:52 Dose: Not Given Documented by: Insulin Human Lispro (Insulin Lispro 100 Units/Ml 3 Ml Vial) 0 unit SUBCUT Q4H KOMAL; Protocol Last Admin: 05/24/21 14:02 Dose: Not Given Documented by: Lactulose (Lactulose Soln 10 Gm/15 Ml 946 Ml Bottle) 200 gm RECTAL ONETIME ONE Stop: 05/23/21 13:51 Last Admin: 05/23/21 17:35 Dose: Not Given Documented by: Lactulose (Lactulose Soln 10 Gm/15 Ml 946 Ml Bottle) 200 gm RECTAL Q4H KOMAL Last Admin: 05/23/21 19:24 Dose: 200 gm Documented by: Lactulose (Lactulose Soln 10 Gm/15 Ml 946 Ml Bottle) 200 gm RECTAL Q4H KOMAL Last Admin: 05/24/21 12:23 Dose: 200 gm Documented by: Lorazepam (Lorazepam 2 Mg/Ml Sdv) 1 mg IVPUSH Q4H PRN PRN Reason: Agitation Last Admin: 05/23/21 17:52 Dose: 1 mg Documented by: - Exam General: Lethargic HEENT: Pupils Equal, Pupils Reactive, EOMI, Mucous Membr. Moist/[place] Neck: Supple Lungs: Clear to Auscultation, Normal Respiratory Effort Cardiovascular: Regular Rate, Regular Rhythm GI/Abdominal Exam: Normal Bowel Sounds, Soft, Non-Tender, No Organomegaly, No Distention, No Abnormal Bruit, No Mass, Pelvis Stable Back Exam: Normal Inspection, Full Range of Motion Extremities: Normal Inspection, Normal Range of Motion, Non-Tender, No Pedal Edema, Normal Capillary Refill Peripheral Pulses: 2+: Carotid (L), Carotid (R), Brachial (L), Brachial (R), Radial (L), Radial (R), Femoral (L), Femoral (R), Popliteal (L), Popliteal (R), Posterior Tibial (L), Posterior Tibial (R), Dorsalis Pedis (L), Dorsalis Pedis (R) Skin: Warm, Dry, Intact Wound/Incisions: Healing Well Neurological: No New Focal Deficit Psy/Mental Status: Alert, Normal Affect, Normal Mood - Patient Data Lab Results Last 24 hrs: Laboratory Results - last 24 hr 05/24/21 05/24/21 05/24/21 Range/Units 06:30 09:59 14:00 POC Glucose 90 81 (70-99) mg/dL Ammonia 57 H (11-32) umol/L Result Diagrams: 05/24/21 06:30 05/24/21 06:30 Sanjeev Results Last 24 hrs: Microbiology 05/23/21 15:24 Urine Culture - Preliminary Urine, Quick Cath (In-Out) Sepsis Event Note - Evaluation Sepsis Screening Result: No Definite Risk - Focused Exam Vital Signs: Vital Signs Temp Pulse Resp BP BP Pulse Ox 05/25/21 04:00 97.1 F 61 16 94 L 05/25/21 00:00 97.2 F 63 16 73/48 L 72/44 L 96 05/24/21 19:37 97.4 F 47 L 16 88/53 L 90 L - Problem List Review Problem List Initiated/Reviewed/Updated: Yes - My Orders Last 24 Hours: My Active Orders 05/24/21 15:06 Code Status [Resuscitation Status] Routine 05/24/21 15:07 Vital Signs [RC] Q4H 05/24/21 15:08 Acetaminophen [TylenoL] 650 mg PO Q4H PRN Acetaminophen [Tylenol] 650 mg RECTAL Q4H PRN Comfort Measures [OM.PC] Routine 05/24/21 15:20 Communication Order [RC] - Plan Plan:: Surgical History: Per medical records: Umbilical herniorrhaphy, right eye iridotomy, TIPS procedure, right mastectomy for infection and not for malignancy Family History: Unable to obtain Social History: Tobacco: Per medical records: Active smoker Alcohol: Per medical records: Patient has history of alcohol use, I believe this is remote Caffeine: Unable to obtain Drugs: Unable to obtain Allergies: Per medical records: Rocephin Code Status: By default, full Assessment / Plan: Comfort care for end-stage cirrhosis/hepatic steatosis. As needed Tylenol. As needed Ativan. 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 The patient was previously counseled regarding medical compliance Cholelithiasis, asymptomatic History of alcohol useremote Hepatic steatosis/end-stage cirrhosis Portal hypertension, status post TIPS procedure Pancytopenia with features of macrocytosis, iron deficiency, and recent fecal occult blood positive Diabetes GERD Hyperlipidemia Hypertension Obesity. Patient was previously counseled regarding lifestyle modification Smoker. Patient was previously counseled regarding smoking cessation Coagulopathy, likely due to end-stage cirrhosis Hypothyroidism History of microscopic hematuria History of rectal wall thickening Query history of portal vein thrombosis Degenerative disc disease Diverticulosis Orthostatic hypotension DVT prophylaxis. Not indicated as the patient is comfort care Disposition: I will discuss with case management/social work regarding discharge with hospice END OF DOCTOR EMAMIS HISTORY AND PHYSICAL / CONSULTATION NOTE
[2021-05-26] MEDS: Sodium Chloride 0.9% 10 ML Syringe FLUSH PRN ×3 (04:29→10:50)
[2021-05-26] MEDS: LORazepam 2 MG/ML SDV IVPUSH PRN ×2 (04:30→10:49)
--- NOTE | 2021-05-26 06:42 | PCM.PN ---
- General Info Date of Service: 05/26/21 Subjective Update: The patient is seen resting comfortably and because she is under comfort care, I have opted not to attempt to awaken her to attempt to interview her and examine her - Review of Systems General: Reports: No Symptoms HEENT: Reports: No Symptoms Pulmonary: Reports: No Symptoms Cardiovascular: Reports: No Symptoms Gastrointestinal: Reports: No Symptoms Genitourinary: Reports: No Symptoms 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: Reports: No Symptoms Skin: Reports: No Symptoms Neurological: Reports: No Symptoms Psychiatric: Reports: No Symptoms - Patient Data Vitals - Most Recent: Last Vital Signs Temp 96.4 F L 05/26/21 00:00 Pulse 61 05/25/21 04:00 Resp 16 05/26/21 00:00 BP 72/44 L 05/25/21 00:00 Pulse Ox 94 L 05/25/21 04:00 Weight - Most Recent: 180 lb 3.2 oz I&O - Last 24 Hours: Intake & Output 05/25/21 05/25/21 05/26/21 14:59 22:59 06:59 Intake Total 140 Output Total 925 Balance 140 -925 Sanjeev Results Last 24 Hours: Microbiology 05/23/21 15:24 Urine Culture - Preliminary Urine, Quick Cath (In-Out) Med Orders - Current: Current Medications Acetaminophen (Acetaminophen 325 Mg Tab) 650 mg PO Q4H PRN PRN Reason: Fever Acetaminophen (Acetaminophen 650 Mg Supp) 650 mg RECTAL Q4H PRN PRN Reason: Fever Lorazepam (Lorazepam 2 Mg/Ml Sdv) 2 mg IVPUSH Q2H PRN PRN Reason: Agitation Last Admin: 05/26/21 04:30 Dose: 2 mg Documented by: Ondansetron HCl (Ondansetron 4 Mg/2 Ml Sdv) 4 mg IVPUSH Q4H PRN PRN Reason: Nausea/Vomiting Last Admin: 05/23/21 20:27 Dose: 4 mg Documented by: Sodium Chloride (Sodium Chloride 0.9% 10 Ml Syringe) 10 ml FLUSH ASDIRECTED PRN PRN Reason: Keep Vein Open Last Admin: 05/26/21 04:36 Dose: 10 ml Documented by: Discontinued Medications Dextrose/Water (50% Dextrose In Water 50 Ml Syringe) 50 ml IVPUSH Q15M PRN PRN Reason: Hypoglycemia Dextrose/Water (50% Dextrose In Water 50 Ml Syringe) 50 ml IVPUSH Q15M PRN PRN Reason: Hypoglycemia Glucagon (Glucagon,Human Recombinant 1 Mg Vial) 1 mg IM Q15M PRN PRN Reason: Hypoglycemia Glucagon (Glucagon,Human Recombinant 1 Mg Vial) 1 mg IM Q15M PRN PRN Reason: Hypoglycemia Sodium Chloride (Normal Saline) 1,000 mls @ 999 mls/hr IV .BOLUS ONE Stop: 05/23/21 13:51 Last Admin: 05/23/21 13:23 Dose: 999 mls/hr Documented by: Sodium Chloride (Normal Saline) 1,000 mls @ 40 mls/hr IV ASDIRECTED KOMAL Last Admin: 05/24/21 19:32 Dose: 40 mls/hr Documented by: Insulin Human Lispro (Insulin Lispro 100 Units/Ml 3 Ml Vial) 0 unit SUBCUT Q4H KOMAL; Protocol Insulin Human Lispro (Insulin Lispro 100 Units/Ml 3 Ml Vial) 0 unit SUBCUT Q4H KOMAL; Protocol Last Admin: 05/24/21 00:52 Dose: Not Given Documented by: Insulin Human Lispro (Insulin Lispro 100 Units/Ml 3 Ml Vial) 0 unit SUBCUT Q4H KOMAL; Protocol Last Admin: 05/24/21 14:02 Dose: Not Given Documented by: Lactulose (Lactulose Soln 10 Gm/15 Ml 946 Ml Bottle) 200 gm RECTAL ONETIME ONE Stop: 05/23/21 13:51 Last Admin: 05/23/21 17:35 Dose: Not Given Documented by: Lactulose (Lactulose Soln 10 Gm/15 Ml 946 Ml Bottle) 200 gm RECTAL Q4H KOMAL Last Admin: 05/23/21 19:24 Dose: 200 gm Documented by: Lactulose (Lactulose Soln 10 Gm/15 Ml 946 Ml Bottle) 200 gm RECTAL Q4H KOMAL Last Admin: 05/24/21 12:23 Dose: 200 gm Documented by: Lorazepam (Lorazepam 2 Mg/Ml Sdv) 1 mg IVPUSH Q4H PRN PRN Reason: Agitation Last Admin: 05/23/21 17:52 Dose: 1 mg Documented by: - Exam Urinary Catheter Total Time: 0Days 0Hours General: Lethargic. No: Alert, Oriented HEENT: Pupils Equal, Pupils Reactive, EOMI, Mucous Membr. Moist/[place] Neck: Supple Lungs: Clear to Auscultation, Normal Respiratory Effort Cardiovascular: Regular Rate, Regular Rhythm GI/Abdominal Exam: Normal Bowel Sounds, Soft, Non-Tender, No Organomegaly, No Distention, No Abnormal Bruit, No Mass, Pelvis Stable Back Exam: Normal Inspection, Full Range of Motion Extremities: Normal Inspection, Normal Range of Motion, Non-Tender, No Pedal Edema, Normal Capillary Refill Peripheral Pulses: 2+: Carotid (L), Carotid (R), Brachial (L), Brachial (R), Radial (L), Radial (R), Femoral (L), Femoral (R), Popliteal (L), Popliteal (R), Posterior Tibial (L), Posterior Tibial (R), Dorsalis Pedis (L), Dorsalis Pedis (R) Skin: Warm, Dry, Intact Wound/Incisions: Healing Well Neurological: No New Focal Deficit Psy/Mental Status: Alert, Normal Affect, Normal Mood - Patient Data Result Diagrams: 05/24/21 06:30 05/24/21 06:30 Sanjeev Results Last 24 hrs: Microbiology 05/23/21 15:24 Urine Culture - Preliminary Urine, Quick Cath (In-Out) Sepsis Event Note - Evaluation Sepsis Screening Result: No Definite Risk - Focused Exam Vital Signs: Vital Signs Temp Resp 05/26/21 00:00 96.4 F L 16 05/25/21 20:15 96.6 F L 16 - Problem List Review Problem List Initiated/Reviewed/Updated: Yes - My Orders Last 24 Hours: My Active Orders 05/25/21 08:49 Urinary Catheter Assessment [RC] ASDIRECTED 05/25/21 09:00 Insert Hoffman Catheter [Insert Urinary Catheter] [OM.PC] Q24H 05/25/21 Lunch Pureed Diet [DIET] - Plan Plan:: Surgical History: Per medical records: Umbilical herniorrhaphy, right eye iridotomy, TIPS procedure, right mastectomy for infection and not for malignancy Family History: Unable to obtain Social History: Tobacco: Per medical records: Active smoker Alcohol: Per medical records: Patient has history of alcohol use, I believe this is remote Caffeine: Unable to obtain Drugs: Unable to obtain Allergies: Per medical records: Rocephin Code Status: By default, full Assessment / Plan: Comfort care for end-stage cirrhosis/hepatic steatosis. As needed Tylenol. As needed Ativan. Other comfort measures to be instituted as needed Urinary tract infection. Urine culture positive for gram-negative rods. 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 The patient was previously counseled regarding medical compliance Cholelithiasis, asymptomatic History of alcohol useremote Hepatic steatosis/end-stage cirrhosis Portal hypertension, status post TIPS procedure Pancytopenia with features of macrocytosis, iron deficiency, and recent fecal occult blood positive Diabetes GERD Hyperlipidemia Hypertension Obesity. Patient was previously counseled regarding lifestyle modification Smoker. Patient was previously counseled regarding smoking cessation Coagulopathy, likely due to end-stage cirrhosis Hypothyroidism History of microscopic hematuria History of rectal wall thickening Query history of portal vein thrombosis Degenerative disc disease Diverticulosis Orthostatic hypotension DVT prophylaxis. Not indicated as the patient is comfort care Disposition: Anticipate discharge on this day May 26, 2021 with home hospice END OF DOCTOR EMAMIS HISTORY AND PHYSICAL / CONSULTATION NOTE
--- NOTE | 2021-05-26 08:58 | PCM.DCSUM1 ---
Discharge Summary - Hospital Course Free Text/Narrative:: START OF DOCTOR EMAMIS DISCHARGE SUMMARY Date of Admission: May 23, 2021 Date of Discharge: 8:56 AM on May 26, 2021 Primary Diagnosis: Comfort care for end-stage cirrhosis/hepatic steatosis Secondary Diagnosis: Urinary tract infection, culture positive for E. 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 due to medical noncompliance Abnormal CT of the head Acute renal insufficiency Medical compliance Cholelithiasis, asymptomatic History of alcohol abuseremote Hepatic steatosis/end-stage cirrhosis Portal hypertension, status post TIPS procedure Pancytopenia with features of macrocytosis, iron deficiency, and recent fecal occult blood positive stool Diabetes GERD Hyperlipidemia Hypertension Obesity Smoker Coagulopathy, likely due to end-stage cirrhosis Hypothyroidism History of microscopic hematuria History of rectal wall thickening Query history of portal vein thrombosis Degenerative disc disease Diverticulosis Orthostatic hypotension Consultations: None Condition on Discharge: Poor Disposition: The patient will be discharged home under the care of hospice Discharge Medications: Zofran 4 mg p.o. twice daily as needed nausea/vomiting All comfort based medications will be dispensed by the hospice agency at their discretion based on the patient's medical condition/symptomatology END OF DOCTOR EMAMIS DISCHARGE SUMMARY - Discharge Data Discharge Date: 05/26/21 Discharge Disposition: Home, Self-Care 01 Condition: Poor - Referral to Home Health Primary Care Physician: Dionicio Holt - Patient Summary/Data Consults: Consultations 05/23/21 17:13 Consult to Case Management/Java Developer With Security Clearance [CONS] Routine 05/23/21 17:18 Consult to Hospice [CONS] Routine - Patient Instructions Diet: Regular Diet as Tolerated Activity: As Tolerated - Discharge Plan Home Medications: Home Meds ondansetron HCL [Ondansetron HCl] 4 mg PO BID PRN 04/29/21 [History] Forms: ED Department Discharge Referrals: Dionicio Lugo [Primary Care Provider] - - Discharge Summary/Plan Comment DC Time >30 min.: Yes - General Info Date of Service: 05/26/21 - Review of Systems General: Reports: No Symptoms HEENT: Reports: No Symptoms Pulmonary: Reports: No Symptoms Cardiovascular: Reports: No Symptoms Gastrointestinal: Reports: No Symptoms Genitourinary: Reports: No Symptoms 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: Reports: No Symptoms Skin: Reports: No Symptoms Neurological: Reports: No Symptoms Psychiatric: Reports: No Symptoms - Patient Data Vitals - Most Recent: Last Vital Signs Temp 96.4 F L 05/26/21 04:00 Pulse 61 05/25/21 04:00 Resp 16 05/26/21 04:00 BP 72/44 L 05/25/21 00:00 Pulse Ox 94 L 05/25/21 04:00 Weight - Most Recent: 180 lb 3.2 oz I&O - Last 24 hours: Intake & Output 05/25/21 05/26/21 05/26/21 22:59 06:59 14:59 Intake Total 0 Output Total 925 225 Balance -925 -225 REAGAN Results - Last 24 hrs: Microbiology 05/23/21 15:24 Urine Culture - Final Urine, Quick Cath (In-Out) Escherichia Coli Med Orders - Current: Current Medications Acetaminophen (Acetaminophen 325 Mg Tab) 650 mg PO Q4H PRN PRN Reason: Fever Acetaminophen (Acetaminophen 650 Mg Supp) 650 mg RECTAL Q4H PRN PRN Reason: Fever Lorazepam (Lorazepam 2 Mg/Ml Sdv) 2 mg IVPUSH Q2H PRN PRN Reason: Agitation Last Admin: 05/26/21 04:30 Dose: 2 mg Documented by: Ondansetron HCl (Ondansetron 4 Mg/2 Ml Sdv) 4 mg IVPUSH Q4H PRN PRN Reason: Nausea/Vomiting Last Admin: 05/23/21 20:27 Dose: 4 mg Documented by: Sodium Chloride (Sodium Chloride 0.9% 10 Ml Syringe) 10 ml FLUSH ASDIRECTED PRN PRN Reason: Keep Vein Open Last Admin: 05/26/21 04:36 Dose: 10 ml Documented by: Discontinued Medications Dextrose/Water (50% Dextrose In Water 50 Ml Syringe) 50 ml IVPUSH Q15M PRN PRN Reason: Hypoglycemia Dextrose/Water (50% Dextrose In Water 50 Ml Syringe) 50 ml IVPUSH Q15M PRN PRN Reason: Hypoglycemia Glucagon (Glucagon,Human Recombinant 1 Mg Vial) 1 mg IM Q15M PRN PRN Reason: Hypoglycemia Glucagon (Glucagon,Human Recombinant 1 Mg Vial) 1 mg IM Q15M PRN PRN Reason: Hypoglycemia Sodium Chloride (Normal Saline) 1,000 mls @ 999 mls/hr IV .BOLUS ONE Stop: 05/23/21 13:51 Last Admin: 05/23/21 13:23 Dose: 999 mls/hr Documented by: Sodium Chloride (Normal Saline) 1,000 mls @ 40 mls/hr IV ASDIRECTED KOMAL Last Admin: 05/24/21 19:32 Dose: 40 mls/hr Documented by: Insulin Human Lispro (Insulin Lispro 100 Units/Ml 3 Ml Vial) 0 unit SUBCUT Q4H KOMAL; Protocol Insulin Human Lispro (Insulin Lispro 100 Units/Ml 3 Ml Vial) 0 unit SUBCUT Q4H KOMAL; Protocol Last Admin: 05/24/21 00:52 Dose: Not Given Documented by: Insulin Human Lispro (Insulin Lispro 100 Units/Ml 3 Ml Vial) 0 unit SUBCUT Q4H KOMAL; Protocol Last Admin: 05/24/21 14:02 Dose: Not Given Documented by: Lactulose (Lactulose Soln 10 Gm/15 Ml 946 Ml Bottle) 200 gm RECTAL ONETIME ONE Stop: 05/23/21 13:51 Last Admin: 05/23/21 17:35 Dose: Not Given Documented by: Lactulose (Lactulose Soln 10 Gm/15 Ml 946 Ml Bottle) 200 gm RECTAL Q4H KOMAL Last Admin: 05/23/21 19:24 Dose: 200 gm Documented by: Lactulose (Lactulose Soln 10 Gm/15 Ml 946 Ml Bottle) 200 gm RECTAL Q4H KOMAL Last Admin: 05/24/21 12:23 Dose: 200 gm Documented by: Lorazepam (Lorazepam 2 Mg/Ml Sdv) 1 mg IVPUSH Q4H PRN PRN Reason: Agitation Last Admin: 05/23/21 17:52 Dose: 1 mg Documented by: - Exam General: Reports: Lethargic. Denies: Alert, Oriented HEENT: Reports: Pupils Equal, Pupils Reactive, EOMI, Mucous Membr. Moist/[place] Neck: Reports: Supple Lungs: Reports: Clear to Auscultation, Normal Respiratory Effort Cardiovascular: Reports: Regular Rate, Regular Rhythm GI/Abdominal Exam: Normal Bowel Sounds, Soft, Non-Tender, No Organomegaly, No Distention, No Abnormal Bruit, No Mass, Pelvis Stable Back Exam: Reports: Normal Inspection, Full Range of Motion Extremities: Normal Inspection, Normal Range of Motion, Non-Tender, No Pedal Edema, Normal Capillary Refill Skin: Reports: Warm, Dry, Intact Wound/Incisions: Reports: Healing Well Neurological: Reports: No New Focal Deficit Psy/Mental Status: Reports: Alert, Normal Affect, Normal Mood
== END 2021-05-26 11:30 | disposition hospice, home (50) | DRG 442 ==
LOC: DL.ED 12:32 → DL.MS 16:02
PROVIDERS: ADMIT Internal Medicine; ATTEND Internal Medicine
DX: K72.90 Hepatic failure, unspecified without coma (principal); E72.20 Disorder of urea cycle metabolism, unspecified; N39.0 Urinary tract infection, site not specified; E11.9 Type 2 diabetes mellitus without complications; K76.6 Portal hypertension; D61.818 Other pancytopenia; D68.9 Coagulation defect, unspecified; Z51.5 Encounter for palliative care; K74.60 Unspecified cirrhosis of liver; Z22.322 Carrier or suspected carrier of Methicillin resistant Staphylococcus aureus; K76.0 Fatty (change of) liver, not elsewhere classified; B96.20 Unspecified Escherichia coli [E. coli] as the cause of diseases classified elsewhere; N28.9 Disorder of kidney and ureter, unspecified; K80.20 Calculus of gallbladder without cholecystitis without obstruction; E61.1 Iron deficiency; I10 Essential (primary) hypertension; E66.9 Obesity, unspecified; F17.200 Nicotine dependence, unspecified, uncomplicated; E03.9 Hypothyroidism, unspecified; K57.90 Diverticulosis of intestine, part unspecified, without perforation or abscess without bleeding; R93.5 Abnormal findings on diagnostic imaging of other abdominal regions, including retroperitoneum; I95.1 Orthostatic hypotension; K21.9 Gastro-esophageal reflux disease without esophagitis; H54.7 Unspecified visual loss; H54.40 Blindness, one eye, unspecified eye; E78.00 Pure hypercholesterolemia, unspecified; E11.319 Type 2 diabetes mellitus with unspecified diabetic retinopathy without macular edema; Z20.822 Contact with and (suspected) exposure to COVID-19; Z88.1 Allergy status to other antibiotic agents; Z79.899 Other long term (current) drug therapy; Z91.19 Patient's noncompliance with other medical treatment and regimen; Z86.14 Personal history of Methicillin resistant Staphylococcus aureus infection; Z90.11 Acquired absence of right breast and nipple; Z68.30 Body mass index [BMI] 30.0-30.9, adult
CPT/HCPCS: 0240U; 36415; 51702; 70450; 80053; 81001; 82140; 82947; 84484; 85025; 85610; 87086; 87088; 87186; 93005; 99285-25; A9270-GY; J2060; J2405; J7030